=== PATIENT | male | born 1955 | race Caucasian/White ===

== ENCOUNTER 2020-07-29 13:17 | Emergency (ER) | payer MEDICARE, SELFPAY ==
[2020-07-29 14:46] VITALS: BP 100/7; PULSE 66; RESP 16; TEMP 36.6; O2SAT 99; BMI 32.6
--- NOTE | 2020-07-29 16:07 | ED.EYEPROB ---
HPI - Eye Problem General Chief complaint: Eye Problems Stated complaint: eye red Time Seen by Provider: 07/29/20 16:05 Source: patient Mode of arrival: ambulatory Limitations: no limitations History of Present Illness HPI Narrative: 64 y/o male presenting with right eye pain and redness that he noticed when he woke up 6 days ago. He states he thinks he got a piece of hair stuck in his eye; he feels like something is stuck in his eye and it has been watering. He also states that he doesn't know if he fell because the eye is red and there are bruises around his eye. He states he has frequent falls at home but he cannot recall. He also reports being very constipated and strained to pass his bowels. MD chief complaint: eye pain, eye redness and foreign body Onset (ago): day(s) (6) Onset description: sudden Duration: constant and progressively worsening Location: right eye Eye Symptoms: redness, pain and foreign body sensation Place: home Mechanism: direct trauma (possible fall ) Severity: moderate Severity scale (1-10): 4 If Pain, Quality: burning and aching Associated symptoms: none Treatments Prior to Arrival: none Related Data Patient tetanus UTD: Yes Previous Rx's Medication Instructions Recorded cane #1 ea 07/29/20 erythromycin 0.5 inch OPHTHALMIC (EYE) TID #1 g 07/29/20 Allergies Allergy/AdvReac Type Severity Reaction Status Date / Time No Known Allergies Allergy Verified 07/29/20 15:11 [No Known Allergies*] Review of Systems Review of Systems: Constitutional: No Fever, No Chills ENT/Mouth: No sore throat, No Rhinorrhea, No Swallowing Difficulty Eyes: + Eye Pain, No Swelling, + Redness, No drainage Cardiovascular: No Chest Pain, No SOB Respiratory: No Cough, No Sputum Gastrointestinal: No Nausea, No Vomiting, No Diarrhea, No abdominal Pain Musculoskeletal: No joint pain, No Myalgias Skin: No Skin Lesions, No rash Neuro: No Weakness, No Numbness, No Dizziness, No Headache Psych: No Anxiety/Panic, No Depression Heme/Lymph: + Bruising, PMFSH Past Medical History Attestation statement: The following information was validated with the patient. Medical History CAD (coronary artery disease) Diabetes Surgical History (Updated 07/29/20 @ 14:48 by Farhad Montes) Total knee replacement status Social History Social History Advance Directives: No Advance Directives Information Provided: No Physical Exam Vital Signs: Vital Signs: Last Vital Signs Temp 98 F 07/29/20 14:46 Pulse 66 07/29/20 14:46 Resp 16 07/29/20 14:46 BP 100/7 L 07/29/20 14:46 Pulse Ox 99 07/29/20 14:46 Body Mass Index 32.6 Appearance: Alert. Oriented X3. No acute distress. HEENT: right eye with conjunctival blood, dependent. ecchymosis inferiorly, no orbital tenderness. EOM intact. PERRLA. VA as noted. Respiratory: No respiratory distress. Skin: Skin warm and dry. Normal skin color. Normal skin turgor. No rashes. Neuro: Oriented X 3. No motor deficit. No sensory deficit. Course Course Course Narrative: 64 y/o here with red eye after possible trauma. possible foreign body. will do fluroscene stain and assess for corneal abrasion. Reevaluation(s) Reevaluation #1: small punctate fluoroscene uptake consistent with abrasion noted to inner lower portion of the eye. no dendritic lesions. MDM - Eye Problem Differential Diagnosis Differential diagnosis: Likely corneal abrasion, conjunctivitis, acute iritis, hyphema, periorbital cellulitis, subconjunctival hemorrhage, glaucoma, corneal ulcer and ruptured globe Discharge Plan Discharge Clinical Impression: Subconjunctival hemorrhage Qualifiers: Laterality: right Qualified Code(s): H11.31 - Conjunctival hemorrhage, right eye Corneal abrasion Qualifiers: Encounter type: initial encounter Laterality: right Qualified Code(s): S05.01XA - Injury of conjunctiva and corneal abrasion without foreign body, right eye, initial encounter Patient Disposition: Home, Self-Care Instructions: Subconjunctival Hemorrhage (ED), Corneal Abrasion (ED) Additional Instructions: Follow up with your doctor this week. If you have loss of vision or develop new eye pain come back to the ER for further evaluation. Prescriptions: New (DME) cane Device See Rx Instructions .ROUTE .MEDSUPPLY Qty: 1 RF: 0 erythromycin 5 mg/gram (0.5 %) ointment 0.5 inch ophthalmic (eye) TID Qty: 1 RF: 0
[2020-07-29] MEDS: Tetracaine HCl/PF 0.5% Oph Sol 4 ML DROPS 3 DROP EYE-RIGHT (16:29)
[2020-07-29] MEDS: Fluorescein Sodium STRIP 1 STRIP EYE-RIGHT (16:31)
== END 2020-07-29 16:54 | disposition home or self-care (01) ==
PROVIDERS: Emergency Provider Emergency Medicine; PCP Internal Medicine
DX: S05.01XA Injury of conjunctiva and corneal abrasion without foreign body, right eye, initial encounter (principal); H11.31 Conjunctival hemorrhage, right eye; H57.11 Ocular pain, right eye; X58.XXXA Exposure to other specified factors, initial encounter; Y93.9 Activity, unspecified; Y92.9 Unspecified place or not applicable; Y99.9 Unspecified external cause status; Z79.899 Other long term (current) drug therapy
CPT/HCPCS: 99283

== ENCOUNTER 2020-09-29 14:59 | Inpatient (IN) | payer MEDICARE, SELFPAY ==
[2020-09-29] VITALS (9 sets, daily range): BP systolic 98–129; BP diastolic 54–71; PULSE 53–71; RESP 13–25; TEMP 36.3–36.8; O2SAT 98–100; BMI 32.1
--- NOTE | 2020-09-29 15:20 | ED.SOB ---
HPI - SOB/Dyspnea General Chief Complaint: Dyspnea Stated Complaint: DYSPNEA ON EXERTION Time Seen by Provider: 09/29/20 15:20 Source: patient Mode of arrival: ambulatory Limitations: no limitations History of Present Illness HPI Narrative: 65 y/o male with history of HFrEF (EF 15%), CAD, DM2, GERD, HTN, HLD, active cocaine abuse who presents to the ED with severe SOB, worsening over the last 2 weeks. He also noticed new onset of bilateral LE edema. He denies being on diuretics. His breathing got significantly worse today so he took several doses of his SL nitro prescribed for chest pain without improvement. He denies fever, chills, nausea, diarrhea, abdominal pain or chest pain. He admits to a cough productive of white phlegm. No known exposure to COVID-19. He was seen by his PCP 2 weeks ago and scheduled for a CXR and Abd U/S for AAA screening but never had them completed. Upon EMS arrival to the house patient had significant increased WOB and was tripodding. He was saturating 97% on room air. Given WOB he was placed on CPAP, however when his BP was checked he was noted to have SBP in the 90s so he was taken off. Related Data Previous Rx's Medication Instructions Recorded cane #1 ea 07/29/20 erythromycin 0.5 inch OPHTHALMIC (EYE) TID #1 g 07/29/20 Allergies Allergy/AdvReac Type Severity Reaction Status Date / Time No Known Allergies Allergy Verified 07/29/20 15:11 [No Known Allergies*] Review of Systems Review of Systems: Constitutional: No Fever, No Chills ENT/Mouth: No sore throat, No Rhinorrhea, No Swallowing Difficulty Eyes: No Eye Pain, No Swelling, No Redness Cardiovascular: No Chest Pain, + SOB, + Orthopnea, + Edema Respiratory: + Cough, No Sputum, No Wheezing, No dyspnea Gastrointestinal: No Nausea, No Vomiting, No Diarrhea, No abdominal Pain, No Hematochezia, No Melena Genitourinary: No Dysuria, No Urinary Frequency, No Hematuria Musculoskeletal: No joint pain, No Myalgias Skin: No Skin Lesions, No rash Neuro: + Weakness, No Numbness, No Dizziness, No Headache Psych: No Anxiety/Panic, No Depression Heme/Lymph: No Bruising, No Lymphadenopathy Endocrine: No Polyuria, No Polydipsia PMFSH Past Medical History Medical History (Updated 09/29/20 @ 19:07 by TEA Mckeon) CAD (coronary artery disease) Cardiomyopathy CHF (congestive heart failure) Cocaine use Diabetes GERD (gastroesophageal reflux disease) Hypertension Osteoarthritis Surgical History (Updated 07/29/20 @ 14:48 by Farhad Montes) Total knee replacement status Social History Social History Alcohol intake: never Smoking Status: Current every day smoker Use of substances other than those prescribed or required for medical reasons: No Advance Directives: No Advance Directives Information Provided: Yes Physical Exam Vital Signs: Vital Signs: Last Vital Signs Temp 98.3 F 09/29/20 15:44 Pulse 59 09/29/20 20:39 Resp 22 H 09/29/20 20:39 BP 98/54 L 09/29/20 20:39 Pulse Ox 98 09/29/20 20:39 Body Mass Index 32.1 Appearance: Alert. Oriented X3. Mild respiratory distress, increased RR Eyes: Pupils equal, round and reactive to light. ENT: Pharynx normal. Neck: Normal inspection. Neck supple. CVS: bradycardic, regular rhythm. Pulses normal. Respiratory: Mild respiratory distress, RR 25. Speaks in short sentences. Shallow, rapid breathing with bibasilar rales appreciated and scattered rhonchi, no wheezes Abdomen: Soft and non-tender. +BS x4 Skin: Skin warm and dry. Normal skin color. Normal skin turgor. No rashes. Extremities: 3+ LE edema of lower legs bilaterally, chronic venous stasis changes to lower legs. Distal legs and hands are cool with 1+ pulses throughout Neuro: Oriented X 3. No motor deficit. No sensory deficit. Course Course Course Narrative: 65 y/o male with significant cardiac history and active cocaine use presenting with SOB/WHITE and new onset LE edema. Concern for worsening cardiomyopathy and acute CHF exacerbation. He is slightly cool to the touch, but hemodynamically stable on arrival with SBP >100. He is on 3.5L w/ RR 25. Will trend BP and apply CPAP if he declines. Reevaluation(s) Reevaluation #1: 17:30 - BP fluctuating as low as 86/50, currently 112/81. Hypotension likely due to nitroglycerin taken [employer]. No evidence of sepsis. BNP 2900 with CXR showing right sided pleural effusion vs infiltrate. No white count or fever to suggest active infection. CT chest ordered to further evaluate. Will place on CPAP now for air hunger, SpO2 97% on RA but asking to turn up the O2. RR mid 20's. Will monitor BP on CPAP and hold off on lasix for now. Patient evaluated by Dr. Medeiros. Reevaluation #2: Patient was on CPAP 12 x1 hour and then he requested to come off. He was placed on 3L NC and respiratory status remained stable. He is now talking on the phone and asking for food. Will monitor off CPAP and if continues to do well will admit to Hospitalist. Once BP stable will gently diurese. CT scan showing pleural effusion with atelctasis vs consolidation. No fever or elevated WBC to suggest PNA. Procalcitonin low. Will hold off on antibiotics for now. Reevaluation #3: Spoke with Dr. Feng about admission - she is recommending giving dose of IV Lasix in the ED and monitoring his response and hemodynamics prior to admission to the floor. Additional Reevaluation(s): BP 106/62 - stable for admission to the floor. Will make hospitalist aware. Spoke wt Dr. Oliver who will admit the patient. MDM - SOB/Dyspnea Lab Data Result diagrams: 09/29/20 16:04 09/29/20 16:03 Labs: Lab Results 09/29/20 09/29/20 09/29/20 Range/Units 16:02 16:03 16:03 WBC (4.8-10.8) X10*3/uL RBC (4.60-5.80) X10*6/uL Hgb (14.0-18.0) g/dl Hct (42-52) % MCV (80-98) fL MCH (27.0-33.0) pg MCHC (31.0-36.0) g/dl RDW (11.0-16.0) % Plt Count (160-400) X10*3/uL MPV (9.4-12.4) fL Immature Gran % (Auto) (0.0-0.4) % Neut % (Auto) (45-73) % Lymph % (Auto) (20-40) % [place] % (Auto) (2-11) % Eos % (Auto) (0-4) % Baso % (Auto) (0-2) % Lymph # (Auto) (1.2-4.9) X10*3/uL [place] # (Auto) (0.1-1.2) X10*3/uL Eos # (Auto) (0.0-0.4) X10*3/uL Baso # (Auto) (0.0-0.2) X10*3/uL Abs Immat Gran (auto) (0.00-0.03) X10*3/uL Absolute Neuts (auto) (2.0-8.3) X10*3/uL Absolute Nucleated RBC (0.0-0.012) X10*3/uL Nucleated RBC % (auto) (0.0-0.2) /100WBC PT (10.8-13.0) SEC INR (0.9-1.1) APTT (24.1-38.0) SEC Sodium 138 (135-145) mmol/L Potassium 4.3 (3.3-5.1) mmol/l Chloride 106 (96-108) mmol/L Carbon Dioxide 24 (22-29) mmol/L Anion Gap 12 (12-20) BUN 24 H (9-16) mg/dL Creatinine 1.07 (0.5-1.4) mg/dL Estim Creat Clear Calc 78.7 Estimated GFR > 60 Random Glucose 181 H (60-115) mg/dL Lactic Acid 1.6 (0.5-2.0) mmol/L Calcium 8.5 (8.4-10.2) mg/dL Magnesium 2.0 (1.6-2.6) mg/dL Total Bilirubin 1.8 H (0.0-1.0) mg/dL Direct Bilirubin 1.0 H (0.0-0.5) mg/dL AST 22 (5-37) U/L ALT 21 (0-40) U/L Alkaline Phosphatase 87 (39-117) U/L Troponin I High Sens (<3.5-35.0) ng/L B-Natriuretic Peptide (<100) pg/mL Total Protein 6.5 (6.5-8.0) g/dL Albumin 3.6 (3.5-5.0) g/dL Procalcitonin ng/mL Coronavirus (PCR) NEGATIVE (Negative) Influenza Type A (PCR) NEGATIVE (Negative) Influenza Type B (PCR) NEGATIVE (Negative) RSV RNA Qual (PCR) NEGATIVE (Negative) 09/29/20 09/29/20 09/29/20 Range/Units 16:03 16:03 16:04 WBC 7.7 (4.8-10.8) X10*3/uL RBC 4.54 L (4.60-5.80) X10*6/uL Hgb 13.1 L (14.0-18.0) g/dl Hct 40.7 L (42-52) % MCV 89.6 (80-98) fL MCH 28.9 (27.0-33.0) pg MCHC 32.2 (31.0-36.0) g/dl RDW 16.1 H (11.0-16.0) % Plt Count 188 (160-400) X10*3/uL MPV 10.3 (9.4-12.4) fL Immature Gran % (Auto) 0.3 (0.0-0.4) % Neut % (Auto) 75.1 H (45-73) % Lymph % (Auto) 14.7 L (20-40) % [place] % (Auto) 8.7 (2-11) % Eos % (Auto) 0.8 (0-4) % Baso % (Auto) 0.4 (0-2) % Lymph # (Auto) 1.1 L (1.2-4.9) X10*3/uL [place] # (Auto) 0.7 (0.1-1.2) X10*3/uL Eos # (Auto) 0.1 (0.0-0.4) X10*3/uL Baso # (Auto) 0.0 (0.0-0.2) X10*3/uL Abs Immat Gran (auto) 0.02 (0.00-0.03) X10*3/uL Absolute Neuts (auto) 5.8 (2.0-8.3) X10*3/uL Absolute Nucleated RBC 0.000 (0.0-0.012) X10*3/uL Nucleated RBC % (auto) 0.0 (0.0-0.2) /100WBC PT (10.8-13.0) SEC INR (0.9-1.1) APTT (24.1-38.0) SEC Sodium (135-145) mmol/L Potassium (3.3-5.1) mmol/l Chloride (96-108) mmol/L Carbon Dioxide (22-29) mmol/L Anion Gap (12-20) BUN (9-16) mg/dL Creatinine (0.5-1.4) mg/dL Estim Creat Clear Calc Estimated GFR Random Glucose (60-115) mg/dL Lactic Acid (0.5-2.0) mmol/L Calcium (8.4-10.2) mg/dL Magnesium (1.6-2.6) mg/dL Total Bilirubin (0.0-1.0) mg/dL Direct Bilirubin (0.0-0.5) mg/dL AST (5-37) U/L ALT (0-40) U/L Alkaline Phosphatase (39-117) U/L Troponin I High Sens 29.5 (<3.5-35.0) ng/L B-Natriuretic Peptide 2942 H (<100) pg/mL Total Protein (6.5-8.0) g/dL Albumin (3.5-5.0) g/dL Procalcitonin 0.04 ng/mL Coronavirus (PCR) (Negative) Influenza Type A (PCR) (Negative) Influenza Type B (PCR) (Negative) RSV RNA Qual (PCR) (Negative) 09/29/20 Range/Units 16:04 WBC (4.8-10.8) X10*3/uL RBC (4.60-5.80) X10*6/uL Hgb (14.0-18.0) g/dl Hct (42-52) % MCV (80-98) fL MCH (27.0-33.0) pg MCHC (31.0-36.0) g/dl RDW (11.0-16.0) % Plt Count (160-400) X10*3/uL MPV (9.4-12.4) fL Immature Gran % (Auto) (0.0-0.4) % Neut % (Auto) (45-73) % Lymph % (Auto) (20-40) % [place] % (Auto) (2-11) % Eos % (Auto) (0-4) % Baso % (Auto) (0-2) % Lymph # (Auto) (1.2-4.9) X10*3/uL [place] # (Auto) (0.1-1.2) X10*3/uL Eos # (Auto) (0.0-0.4) X10*3/uL Baso # (Auto) (0.0-0.2) X10*3/uL Abs Immat Gran (auto) (0.00-0.03) X10*3/uL Absolute Neuts (auto) (2.0-8.3) X10*3/uL Absolute Nucleated RBC (0.0-0.012) X10*3/uL Nucleated RBC % (auto) (0.0-0.2) /100WBC PT 21.1 H (10.8-13.0) SEC INR 1.8 H (0.9-1.1) APTT 30.5 (24.1-38.0) SEC Sodium (135-145) mmol/L Potassium (3.3-5.1) mmol/l Chloride (96-108) mmol/L Carbon Dioxide (22-29) mmol/L Anion Gap (12-20) BUN (9-16) mg/dL Creatinine (0.5-1.4) mg/dL Estim Creat Clear Calc Estimated GFR Random Glucose (60-115) mg/dL Lactic Acid (0.5-2.0) mmol/L Calcium (8.4-10.2) mg/dL Magnesium (1.6-2.6) mg/dL Total Bilirubin (0.0-1.0) mg/dL Direct Bilirubin (0.0-0.5) mg/dL AST (5-37) U/L ALT (0-40) U/L Alkaline Phosphatase (39-117) U/L Troponin I High Sens (<3.5-35.0) ng/L B-Natriuretic Peptide (<100) pg/mL Total Protein (6.5-8.0) g/dL Albumin (3.5-5.0) g/dL Procalcitonin ng/mL Coronavirus (PCR) (Negative) Influenza Type A (PCR) (Negative) Influenza Type B (PCR) (Negative) RSV RNA Qual (PCR) (Negative) Critical Care Time Critical Care Time Critical Care Time: Yes Total Critical Care Time: 50 Attestation: I attest to critical care time spent caring for this patient who is criticall ill with life threatening diagnosis, requiring rescue non-invasive ventilation and frequent bedside reassessment of respiratory status and hemodyncamics. Discharge Plan Discharge Clinical Impression: Pleural effusion on right Acute exacerbation of CHF (congestive heart failure) Qualifiers: Heart failure type: systolic Qualified Code(s): I50.23 - Acute on chronic systolic (congestive) heart failure Patient Disposition: Admitted As Inpatient
--- NOTE | 2020-09-29 15:23 | ECG_ITS ---
Test Reason : SOB Blood Pressure : / mmHG Vent. Rate : 067 BPM Atrial Rate : 067 BPM P-R Int : 200 ms QRS Dur : 114 ms QT Int : 484 ms P-R-T Axes : 077 077 129 degrees QTc Int : 511 ms Normal sinus rhythm Right bundle branch block ST & T wave abnormality, consider anterior ischemia Septal infarct Abnormal ECG When compared with ECG of 21-OCT-2019 16:00, Premature ventricular complexes are no longer Present Minimal criteria for Anteroseptal infarct are no longer Present T wave inversion now evident in Anterior leads Referred By: Brie Mccoy Electronically Signed By:RONEN PATINO MD
--- NOTE | 2020-09-29 15:23 | XR_ITS ---
EXAMINATION: XR CHEST CLINICAL INFORMATION: Shortness of breath COMPARISON: Previous chest x-ray most recent October 2019 TECHNIQUE: Frontal view of the chest was obtained. FINDINGS: The cardiac silhouette is enlarged but stable. The lung volumes are low. There is elevation of the right hemidiaphragm. There is airspace disease seen at the right lung base. There may be a small right pleural effusion. The left lung is clear. There is no left pleural effusion. There are degenerative changes of the spine. XR/XR chest 1V IMPRESSION: Stable enlargement of the cardiac silhouette. Airspace disease at the right lung base and small right pleural effusion. Differential would include pneumonia and asymmetric distribution of pulmonary edema.
[2020-09-29 16:09] LABS: MANUAL DIFF FLAG NO
[2020-09-29 16:11] LABS: Basophils Percent Auto 0.4 % (0-2); Eosinophils Absolute Auto 0.1 X10*3/uL (0.0-0.4); Eosinophils Percent Auto 0.8 % (0-4); Hematocrit 40.7 % (42-52); Hemoglobin 13.1 g/dl (14.0-18.0); Imm Gran Abs Auto 0.02 X10*3/uL (0.00-0.03); Imm Gran Pct Auto 0.3 % (0.0-0.4); Lymphocytes Absolute Auto 1.1 X10*3/uL (1.2-4.9); Lymphocytes Percent Auto 14.7 % (20-40); Mean Corpuscular HGB Conc 32.2 g/dl (31.0-36.0); Mean Corpuscular Hemoglobin 28.9 pg (27.0-33.0); Mean Corpuscular Volume 89.6 fL (80-98); Mean Platelet Volume 10.3 fL (9.4-12.4); Monocytes Absolute Auto 0.7 X10*3/uL (0.1-1.2); Monocytes Percent Auto 8.7 % (2-11); Neutrophils Absolute Auto 5.8 X10*3/uL (2.0-8.3); Neutrophils Percent Auto 75.1 % (45-73); Platelet Count 188 X10*3/uL (160-400); Red Blood Count 4.54 X10*6/uL (4.60-5.80); Red Cell Distribution Width 16.1 % (11.0-16.0); White Blood Count 7.7 X10*3/uL (4.8-10.8)
[2020-09-29 16:24] LABS: INTERNATIONAL NORM RATIO 1.8 (0.9-1.1); Prothrombin Time 21.1 SEC (10.8-13.0)
[2020-09-29 16:27] LABS: Partial Thromboplastin Time 30.5 SEC (24.1-38.0)
--- NOTE | 2020-09-29 16:32 | PC.NURSE ---
lasix on hold due to b/p 100/64. Provider aware.
[2020-09-29 16:34] LABS: Lactic Acid 1.6 mmol/L (0.5-2.0)
[2020-09-29 16:38] LABS: Alanine Aminotransferase 21 U/L (0-40); Albumin Level 3.6 g/dL (3.5-5.0); Alkaline Phosphatase 87 U/L (39-117); Anion Gap 12 (12-20); Aspartate Amino Transferase 22 U/L (5-37); Bilirubin Total 1.8 mg/dL (0.0-1.0); Blood Urea Nitrogen 24 mg/dL (9-16); Calcium 8.5 mg/dL (8.4-10.2); Carbon Dioxide 24 mmol/L (22-29); Chloride 106 mmol/L (96-108); Creatinine Clr Calc Pharmacy 78.7; Estimated Glomerular Filt Rate > 60; Glucose Random 181 mg/dL (60-115); Potassium 4.3 mmol/l (3.3-5.1); Sodium 138 mmol/L (135-145); Total Protein 6.5 g/dL (6.5-8.0)
[2020-09-29 16:45] LABS: B Type Natriuretic Peptide 2942 pg/mL (<100); Troponin-I High Sensitivity 29.5 ng/L (<3.5-35.0)
[2020-09-29 17:12] LABS: Influenza A PCR NEGATIVE (Negative); Influenza B PCR NEGATIVE (Negative); Resp Syncy Virus RNA Qual PCR NEGATIVE (Negative); SARS COV2 PCR INHOUSE NEGATIVE (Negative)
--- NOTE | 2020-09-29 17:23 | CT_ITS ---
EXAMINATION: CT CHEST WITHOUT CONTRAST CLINICAL INFORMATION: Right-sided infiltrate. CHF. Increasing work of breathing. COMPARISON: Chest x-ray 09/29/2020. TECHNIQUE: Multidetector volumetric CT imaging of the chest was done. Axial MIP volume rendering provided. Sagittal and coronal reformatted images were obtained. This CT examination was performed using dose optimization techniques as appropriate, variously including the following: *Automated exposure control. *Adjustment of mA and/or kV according to patient size (this includes techniques or standardized protocols for targeted exams where dose is matched to indication/reason for exam; i.e. extremities or head). *Use of iterative reconstruction technique. DLP: 363 mGy-cm FINDINGS: LUNGS: There is focal consolidation of the right lung base. There are air bronchograms in the perihilar lung. There is volume loss of the right lower lobe due to compressive atelectasis from the right pleural effusion. Central bronchial airways remain normally aerated. There is mild centrilobular emphysematous change of lungs. MEDIASTINUM: Lack IV contrast limits assessment of the hilar structures. There is mediastinal lymphadenopathy. There is an enlarged lymph node at the level of the ginny in the pretracheal retrovascular space measuring 1.5 cm. There are additional enlarged lymph nodes in the right paratracheal, AP window and subcarina. There is no pericardial effusion. The heart size is enlarged. Moderate volume of coronary artery calcifications. Small volume of calcifications of thoracic aortic arch and calcifications at the origin of the great vessels. There is no aneurysm of the aorta. No abnormality of the thyroid evident. PLEURA: There is a moderate volume dependent right pleural effusion. There is a small volume dependent left pleural effusion. AXILLA: No lymphadenopathy. UPPER ABDOMEN: The visualized portions of liver, spleen are normal. The adrenal glands are not visualized. OSSEOUS STRUCTURES: There is no acute osseous abnormality. Multilevel degenerative spondylosis of the dorsal spine. There is no detailed fracture of the posterior right 8th rib. There is an old healed fracture of the posterior left 9th rib. CT/CT chest wo con IMPRESSION: 1. Consolidation and atelectasis at right lung base. 2. Moderate volume right pleural effusion. Small volume left pleural effusion. 3. Mediastinal lymphadenopathy.
--- NOTE | 2020-09-29 17:27 | PC.NURSE ---
lasix continue on hold due to decreased b/p. Providers Santos castaneda
--- NOTE | 2020-09-29 18:36 | PC.NURSE ---
patient helped on comode. patient unable to give urine sample. Patient ripped off Bipap. Patient staes feels claustrophobic. Provider aware. rt called to notify tubing broken. Provider will keep patient on oxygen via nc at 3l. O2 sat presently 98%. Will continue to monitor.
[2020-09-29] MEDS: Furosemide 20 MG/2 ML VIAL IVPUSH (19:26)
[2020-09-29 19:49] LABS: Procalcitonin 0.04 ng/mL
--- NOTE | 2020-09-29 20:14 | PC.NURSE ---
oil dispatcher just finished helping patient back into bed and cleaning up after incontinence of urine. Is now on 3l nc. slightly labored resp. states he's feeling better after eating.
[2020-09-29 21:00] LABS: Troponin-I High Sensitivity 30.2 ng/L (<3.5-35.0)
[2020-09-29 21:01] LABS: Appearance Urine CLEAR; Color Urine STRAW; Glucose Urine UA NEG (NEG); Leukocyte Esterase Urine NEG (NEG); Nitrite Urine NEG (NEG); Specific Gravity - Urine 1.015 (1.005-1.025); Urine Blood NEG (NEG); Urine Ketones NEG (NEG); Urine Protein NEG (NEG-TRACE)
[2020-09-29 21:24] LABS: Amphetamine Screen Urine Not Detected (Not Detect); Barbiturates, Urine Not Detected (Not Detect); Benzodiazepines Screen Urine Not Detected (Not Detect); Cannabinoid Screen Urine Not Detected (Not Detect); Cocaine Screen Urine POSITIVE (Not Detect); Opiate Screen Urine Not Detected (Not Detect); Phencyclidine Screen Urine Not Detected (Not Detect)
--- NOTE | 2020-09-29 23:36 | PM.IMHP ---
History of Present Illness Date of Service: 09/29/20 Chief Complaint: Dyspnea 65 year old man with history of CAD and cardiomyopathy presented with worsening dyspnea over last 2 weeks. Stated was significantly worse in last couple of days. He was concerned and took NTG and came to ED. States he would get dyspneic mostly with activity . Also would get episodes of chest pain associated wtih activity. SOme cough producing white phlegm recently. No fevers but has had chills. No pleuritic chest pain reported. No nausea, vomiting, diaphoresis. Does have hx of cardiomyopathy but outpt med list does not show any diuretics. Per patient he is having a ICD placed in the spring. In ED was hypotensive and in respiratory distress. Was stabilized with BiPAP and then was able to be diuresed with improvement in his breathing. Currently more comfortable. No home oxygen use but does use CPAP at night for SULAIMAN. Review of Systems Constitutional: Constitutional: Reports chills Comments: No fever Eyes: Comments: No vision changes ENT: Comments: Some sore throat reported Cardiovascular: Comments: Chest pain reported with activity. Respiratory: Comments: Dyspnea Gastrointestinal: Comments: No abd pain, nausea, vomiting Musculoskeletal: Musculoskeletal: Reports no additional musculoskeletal complaints Neurologic: Comments: No weakness, numbness Psychiatric: Comments: No anxiety or agitation [facility] Medical History CAD (coronary artery disease) Cardiomyopathy CHF (congestive heart failure) Cocaine use Diabetes GERD (gastroesophageal reflux disease) Hypertension Osteoarthritis Pertinent family history: cad in father Surgical History Total knee replacement status Social History (Updated 09/29/20 @ 23:53 by Ace Valadez MD) Alcohol intake: never Smoking Status: Current every day smoker Use of substances other than those prescribed or required for medical reasons: Yes Substance Use Type: Crack/Cocaine Advance Directives: No Advance Directives Information Provided: Yes Meds Allergies Allergy/AdvReac Type Severity Reaction Status Date / Time No Known Allergies Allergy Verified 07/29/20 15:11 [No Known Allergies*] Home Medications Medication Instructions Recorded Confirmed Type aspirin 1 PO 09/29/20 History atorvastatin 80 mg PO DAILY 09/29/20 09/29/20 History carvedilol 3.125 mg PO BID 09/29/20 09/29/20 History cholecalciferol (vitamin D3) 2,000 unit PO DAILY 09/29/20 09/29/20 History docusate sodium 1 cap PO TID PRN 09/29/20 09/29/20 History erythromycin 0.5 OPHTHALMIC (EYE) TID 09/29/20 History lisinopril 10 mg PO DAILY 09/29/20 09/29/20 History metformin 500 mg PO DAILY 09/29/20 09/29/20 History nitroglycerin mg SUBLINGUAL 09/29/20 History omeprazole 1 cap PO DAILY 09/29/20 09/29/20 History oxybutynin chloride PO 09/29/20 History Physical Exam Vital Signs and Narrative: Vital Signs: Last Vital Signs Temp 97.4 F 09/29/20 21:56 Pulse 60 09/29/20 21:56 Resp 24 H 09/29/20 21:56 BP 99/54 L 09/29/20 21:56 Pulse Ox 99 09/29/20 21:56 Body Mass Index 32.1 Const: General: cooperative, comfortable and no acute distress Orientation/consciousness: patient oriented x3 HENMT: Head: Yes normal to inspection General nose exam: Normal external nose present Mouth: Normal oral and palatal mucosa present Teeth and gingiva: dentition normal Eyes: Other: No scleral icterus, no conjunctival injections Neck: Other: Supple, no lymphadenoapthy. jvd is noted Chest: Chest palpation & inspection: normal inspection of the chest Resp: Other: Diminished breath sounds right lung base, no exp wheezing heard. Effort & Inspection: normal respiratory effort and able to speak in complete sentences Cardio: Other: distant heart sounds Rate: regular rate Rhythm: regular rhythm Heart sounds: S1 normal heart sound present and S2 normal heart sound present GI: Other: soft, nontender, nondistended, no guarding or masses Inspection: Yes normal to inspection Skin: Other: no rashes seen, no lesions, no jaundice Neuro: General: patient oriented x3 and moves all extremities Extrem: Other: Bilateral pitting leg edema, 2+ Psych: Other: Not anxious or agitated Results Labs CBC and Chem 7: 09/30/20 00:48 09/30/20 00:48 Labs: Laboratory Results - last 24 hr 09/29/20 09/29/20 09/29/20 16:02 16:03 16:03 MCV MCH MCHC RDW Plt Count MPV Immature Gran % (Auto) Neut % (Auto) Lymph % (Auto) [place] % (Auto) Eos % (Auto) Baso % (Auto) Lymph # (Auto) [place] # (Auto) Eos # (Auto) Baso # (Auto) Abs Immat Gran (auto) Absolute Neuts (auto) Absolute Nucleated RBC Nucleated RBC % (auto) PT INR APTT Anion Gap 12 Estim Creat Clear Calc 78.7 Estimated GFR > 60 Random Glucose 181 H Lactic Acid 1.6 Calcium 8.5 Magnesium 2.0 Total Bilirubin 1.8 H Direct Bilirubin 1.0 H AST 22 ALT 21 Alkaline Phosphatase 87 Troponin I High Sens B-Natriuretic Peptide Total Protein 6.5 Albumin 3.6 Procalcitonin Urine Color Urine Appearance Urine pH Ur Specific Malin Urine Protein Urine Glucose (UA) Urine Ketones Urine Blood Urine Nitrite Ur Leukocyte Esterase Urine Opiates Screen Ur Barbiturates Screen Ur Phencyclidine Scrn Ur Amphetamines Screen U Benzodiazepines Scrn Urine Cocaine Screen U Marijuana (THC) Screen Coronavirus (PCR) NEGATIVE Influenza Type A (PCR) NEGATIVE Influenza Type B (PCR) NEGATIVE RSV RNA Qual (PCR) NEGATIVE 09/29/20 09/29/20 09/29/20 16:03 16:03 16:04 MCV 89.6 MCH 28.9 MCHC 32.2 RDW 16.1 H Plt Count 188 MPV 10.3 Immature Gran % (Auto) 0.3 Neut % (Auto) 75.1 H Lymph % (Auto) 14.7 L [place] % (Auto) 8.7 Eos % (Auto) 0.8 Baso % (Auto) 0.4 Lymph # (Auto) 1.1 L [place] # (Auto) 0.7 Eos # (Auto) 0.1 Baso # (Auto) 0.0 Abs Immat Gran (auto) 0.02 Absolute Neuts (auto) 5.8 Absolute Nucleated RBC 0.000 Nucleated RBC % (auto) 0.0 PT INR APTT Anion Gap Estim Creat Clear Calc Estimated GFR Random Glucose Lactic Acid Calcium Magnesium Total Bilirubin Direct Bilirubin AST ALT Alkaline Phosphatase Troponin I High Sens 29.5 B-Natriuretic Peptide 2942 H Total Protein Albumin Procalcitonin 0.04 Urine Color Urine Appearance Urine pH Ur Specific Malin Urine Protein Urine Glucose (UA) Urine Ketones Urine Blood Urine Nitrite Ur Leukocyte Esterase Urine Opiates Screen Ur Barbiturates Screen Ur Phencyclidine Scrn Ur Amphetamines Screen U Benzodiazepines Scrn Urine Cocaine Screen U Marijuana (THC) Screen Coronavirus (PCR) Influenza Type A (PCR) Influenza Type B (PCR) RSV RNA Qual (PCR) 09/29/20 09/29/20 09/29/20 16:04 20:16 20:52 MCV MCH MCHC RDW Plt Count MPV Immature Gran % (Auto) Neut % (Auto) Lymph % (Auto) [place] % (Auto) Eos % (Auto) Baso % (Auto) Lymph # (Auto) [place] # (Auto) Eos # (Auto) Baso # (Auto) Abs Immat Gran (auto) Absolute Neuts (auto) Absolute Nucleated RBC Nucleated RBC % (auto) PT 21.1 H INR 1.8 H APTT 30.5 Anion Gap Estim Creat Clear Calc Estimated GFR Random Glucose Lactic Acid Calcium Magnesium Total Bilirubin Direct Bilirubin AST ALT Alkaline Phosphatase Troponin I High Sens 30.2 B-Natriuretic Peptide Total Protein Albumin Procalcitonin Urine Color Urine Appearance Urine pH Ur Specific Malin Urine Protein Urine Glucose (UA) Urine Ketones Urine Blood Urine Nitrite Ur Leukocyte Esterase Urine Opiates Screen Not Detected Ur Barbiturates Screen Not Detected Ur Phencyclidine Scrn Not Detected Ur Amphetamines Screen Not Detected U Benzodiazepines Scrn Not Detected Urine Cocaine Screen POSITIVE H U Marijuana (THC) Screen Not Detected Coronavirus (PCR) Influenza Type A (PCR) Influenza Type B (PCR) RSV RNA Qual (PCR) 09/29/20 20:52 MCV MCH MCHC RDW Plt Count MPV Immature Gran % (Auto) Neut % (Auto) Lymph % (Auto) [place] % (Auto) Eos % (Auto) Baso % (Auto) Lymph # (Auto) [place] # (Auto) Eos # (Auto) Baso # (Auto) Abs Immat Gran (auto) Absolute Neuts (auto) Absolute Nucleated RBC Nucleated RBC % (auto) PT INR APTT Anion Gap Estim Creat Clear Calc Estimated GFR Random Glucose Lactic Acid Calcium Magnesium Total Bilirubin Direct Bilirubin AST ALT Alkaline Phosphatase Troponin I High Sens B-Natriuretic Peptide Total Protein Albumin Procalcitonin Urine Color STRAW Urine Appearance CLEAR Urine pH 6.0 Ur Specific Malin 1.015 Urine Protein NEG Urine Glucose (UA) NEG Urine Ketones NEG Urine Blood NEG Urine Nitrite NEG Ur Leukocyte Esterase NEG Urine Opiates Screen Ur Barbiturates Screen Ur Phencyclidine Scrn Ur Amphetamines Screen U Benzodiazepines Scrn Urine Cocaine Screen U Marijuana (THC) Screen Coronavirus (PCR) Influenza Type A (PCR) Influenza Type B (PCR) RSV RNA Qual (PCR) Imaging Radiologist's Impressions: Impressions Chest X-Ray 09/29/20 15:23 IMPRESSION: Stable enlargement of the cardiac silhouette. Airspace disease at the right lung base and small right pleural effusion. Differential would include pneumonia and asymmetric distribution of pulmonary edema. Chest CT 09/29/20 17:23 IMPRESSION: 1. Consolidation and atelectasis at right lung base. 2. Moderate volume right pleural effusion. Small volume left pleural effusion. 3. Mediastinal lymphadenopathy. Assessment and Plan (1) Acute exacerbation of CHF (congestive heart failure): Qualifiers: Heart failure type: systolic Qualified Code(s): I50.23 - Acute on chronic systolic (congestive) heart failure Status: Acute (2) Pleural effusion on right: Status: Acute 65 year old man with history of cardiomyopathy presented with worsening dyspnea requiring Bipap initially. Found to have elevated BNP suggestive of CHF and also consolidation at the right lung base and right pleural effusion. CHF Acute on chronic systolic and diastolic dysfunctions. Lasix IV BID ordered. Repeat echo and obtain cardiology consultation. Given chest pain will also cycle troponins. Pleural effusion, consolidation Could represent CAP as he does have some productive coughing at times. COVID negative. Ordered IV Ceftriaxone and Azithromycin and also ordered pulmonary consultation. CAD As above. continue aspirin, atorvastatin. Cycle troponins. DM type 2 Holding Metformin acutely. Sliding scale insulin only prn QID-AC, HS. DVT proph SC Heparin Code status Full code. He has no healthcare proxy.
--- NOTE | 2020-09-29 23:45 | PC.NURSE ---
Hospitalist at bedside.
[2020-09-30] VITALS (18 sets, daily range): BP systolic 101–130; BP diastolic 61–89; PULSE 53–72; RESP 9–24; TEMP 36.4–36.8; O2SAT 3–100
[2020-09-30] MEDS: cefTRIAXone sodium 1 GM in 0.9 % Sodium Chloride 50 ML IV ×2 (00:13→08:57)
[2020-09-30] MEDS: Doxycycline Hyclate 100 MG in 0.9 % Sodium Chloride 250 ML 166.67 MG IV ×3 (00:21→22:21)
--- NOTE | 2020-09-30 00:22 | PC.NURSE ---
ABX infusing per MAR. VSS. Pt sleeping in bed at this time on CPAP.
--- NOTE | 2020-09-30 00:54 | PC.NURSE ---
office technician at bedside obtaining 0015 labs.
[2020-09-30 00:56] LABS: MANUAL DIFF FLAG NO
[2020-09-30 00:57] LABS: Basophils Percent Auto 0.4 % (0-2); Eosinophils Percent Auto 0.5 % (0-4); Hemoglobin 13.5 g/dl (14.0-18.0); Imm Gran Abs Auto 0.04 X10*3/uL (0.00-0.03); Imm Gran Pct Auto 0.5 % (0.0-0.4); Lymphocytes Absolute Auto 1.5 X10*3/uL (1.2-4.9); Lymphocytes Percent Auto 17.4 % (20-40); Mean Corpuscular HGB Conc 32.1 g/dl (31.0-36.0); Mean Corpuscular Hemoglobin 28.8 pg (27.0-33.0); Mean Corpuscular Volume 89.7 fL (80-98); Mean Platelet Volume 10.6 fL (9.4-12.4); Monocytes Absolute Auto 0.8 X10*3/uL (0.1-1.2); Monocytes Percent Auto 9.3 % (2-11); Neutrophils Absolute Auto 6.1 X10*3/uL (2.0-8.3); Neutrophils Percent Auto 71.9 % (45-73); Platelet Count 178 X10*3/uL (160-400); Red Blood Count 4.68 X10*6/uL (4.60-5.80); Red Cell Distribution Width 16.3 % (11.0-16.0); White Blood Count 8.4 X10*3/uL (4.8-10.8)
[2020-09-30 01:34] LABS: Anion Gap 16 (12-20); Blood Urea Nitrogen 25 mg/dL (9-16); Calcium 8.8 mg/dL (8.4-10.2); Carbon Dioxide 22 mmol/L (22-29); Chloride 106 mmol/L (96-108); Estimated Glomerular Filt Rate > 60; Glucose Random 115 mg/dL (60-115); Potassium 4.5 mmol/l (3.3-5.1); Sodium 139 mmol/L (135-145)
--- NOTE | 2020-09-30 02:54 | PC.NURSE ---
Pt found standing up in room. Pt refusing to wear oxygen. Pt states I'm trying to untangle myself!! Pt assisted back into bed, O2 via NC reapplied. Pt reports SOB due to exertion without oxygen. Pt noncompliant despite frequent attempts at reeducating pt on oxygen needs. Pt falling back asleep easily, continue to monitor.
--- NOTE | 2020-09-30 03:27 | PC.NURSE ---
Pt again found standing in room, without his oxygen on. Pt requesting to ambulate to the bathroom. Pt assisted OOB onto commode and provided with a urinal. O2 reapplied per NC. Pt requesting privacy while on the commode, provided with the call franz when he is finished and advised not to get up without assistance.
[2020-09-30] MEDS: Furosemide 40 MG/4 ML VIAL IVPUSH ×2 (06:20→16:15)
--- NOTE | 2020-09-30 06:24 | PC.NURSE ---
Pt medicated with Lasix per NOV. Pt sitting upright on the commode at this time, O2 in place, waiting for breakfast. VSS. Continue to monitor.
[2020-09-30 07:49] LABS: Glucose, Whole Blood 167 mg/dL (60-115)
[2020-09-30] MEDS: Insulin Lispro 100 UNIT/ML 3 ML VIAL SUBCUT (08:03)
[2020-09-30] MEDS: 0.9 % Sodium Chloride Flush 3 ML SYRINGE IVFLUSH ×2 (08:04→16:25)
[2020-09-30] MEDS: Aspirin 81 MG TAB.CHEW PO (08:53)
[2020-09-30] MEDS: Atorvastatin Calcium 80 MG TABLET PO (08:53)
[2020-09-30] MEDS: carvediloL 3.125 MG TABLET PO ×2 (08:53→22:19)
[2020-09-30] MEDS: Heparin Sodium,Porcine 5,000 UNIT/ML VIAL 5000 UNIT SUBCUT ×3 (08:56→22:20)
--- NOTE | 2020-09-30 09:56 | PM.EVENT ---
Event Note Date of Service: 09/30/20 Event Note: Patient admitted this a.m. chart reviewed, patient seen and examined At present resting comfortably Vitals stable oxygen 97% Lungs clear to auscultation, no respiratory distress diminished breath sound at bases Extremities bilateral pitting edema Assessment plan Acute on chronic combined heart failure EF 15-20% Patient feeling better so far -350 Continue current treatment with IV Lasix follow daily weight,1/os Troponin flat, Cardiology eval/echo Repeat chest x-ray at a.m. for follow-up of effusion likely due to CHF/pna.
--- NOTE | 2020-09-30 10:39 | PC.NURSE ---
Seen by Dr Anton, awaiting new orders. Plan for continued diuresis
[2020-09-30 11:33] LABS: Glucose, Whole Blood 116 mg/dL (60-115)
--- NOTE | 2020-09-30 11:40 | P.CONCA_ITS ---
History of Present Illness History of Present Illness Date of Service: 09/30/20 Requesting physician: Ace Nolen I Consult reason: congestive heart failure Chief complaint: CHF Narrative: We are asked to see Edward in cardiology consultation due to decompensated congestive heart failure. Patient with prior history of ischemic cardiomyopathy scheduled to undergo ICD placement in near future with his subassembly assembler Dr. Julian. Patient says over the last few weeks he has been getting progressively short of breath initially with exertion and then subsequently started noticing more more short of breath with minimal exhibiting and as well as rest. He also noticed significant weight gain of about 10 lb and progressive leg edema over the last 2 weeks. He came to the hospital with the same. Was noted to be in congestive heart failure with significantly elevated BNP. He says he has been taking all his medications. Denies any chest discomfort. Denies any palpitation or any other systemic symptoms. Denies any change in diet. He has been admitted for diuresis. He has put out good amount of urine. However he continues to be short of breath and says that he needs more oxygen. He is hemodynamically stable currently. His troponins are flat Review of Systems Constitutional: Constitutional: Denies chills, Reports fatigue, Denies fever(s), Reports lethargy and Reports weight gain Cardiovascular: Cardiovascular: Denies chest pain, Reports leg edema, Denies lightheadedness, Denies Loss of Consciousness, Denies palpitations, Reports dyspnea and Reports orthopnea Respiratory: Respiratory: Denies cough, Denies excessive phlegm production and Reports dyspnea Gastrointestinal: Gastrointestinal: Reports no additional gastrointestinal complaints and Reports bloating Genitourinary: Genitourinary: Reports no additional male genitourinary complaints Musculoskeletal: Musculoskeletal: Reports no additional musculoskeletal complaints Neurologic: Reports system reviewed and no additional complaints, except as documented Psychiatric: Psychiatric: Reports no additional psychiatric complaints Endocrine: Endocrine: Reports no additional endocrine complaints, Reports fatigue and Denies palpitations Hematologic/Lymphatic: Hematologic/Lymphatic: Reports no additional hematologic/lymphatic complaints [facility] Past Medical History Medical History CAD (coronary artery disease) Cardiomyopathy CHF (congestive heart failure) Cocaine use Diabetes GERD (gastroesophageal reflux disease) Hypertension Osteoarthritis Surgical History Surgical History Total knee replacement status Social History Social History (Updated 09/29/20 @ 23:53 by Ace Valadez MD) Alcohol intake: never Smoking Status: Current every day smoker Use of substances other than those prescribed or required for medical reasons: Yes Substance Use Type: Crack/Cocaine Advance Directives: No Advance Directives Information Provided: Yes Meds Allergies Allergy/AdvReac Type Severity Reaction Status Date / Time No Known Allergies Allergy Verified 07/29/20 15:11 [No Known Allergies*] Home Medications Medication Instructions Recorded Confirmed Type aspirin 1 PO 09/29/20 History atorvastatin 80 mg PO DAILY 09/29/20 09/29/20 History carvedilol 3.125 mg PO BID 09/29/20 09/29/20 History cholecalciferol (vitamin D3) 2,000 unit PO DAILY 09/29/20 09/29/20 History docusate sodium 1 cap PO TID PRN 09/29/20 09/29/20 History erythromycin 0.5 OPHTHALMIC (EYE) TID 09/29/20 History lisinopril 10 mg PO DAILY 09/29/20 09/29/20 History metformin 500 mg PO DAILY 09/29/20 09/29/20 History nitroglycerin mg SUBLINGUAL 09/29/20 History omeprazole 1 cap PO DAILY 09/29/20 09/29/20 History oxybutynin chloride PO 09/29/20 History Physical Exam Vital Signs: Vital Signs: Last Vital Signs Temp 98.3 F 09/30/20 11:27 Pulse 72 09/30/20 11:27 Resp 22 H 09/30/20 11:27 BP 107/74 09/30/20 11:27 Pulse Ox 100 09/30/20 11:27 Body Mass Index 32.1 Const: General: cooperative, alert, awake and acute distress moderate and respiratory Nutritional Appearance: obese Orientation/consciousness: patient oriented x3 HENMT: Head: Yes normocephalic and Yes atraumatic Neck: Neck: Yes trachea midline, Yes supple and Yes JVD Chest: Chest palpation & inspection: normal inspection of the chest Resp: Effort & Inspection: normal respiratory effort Auscultation: no rales, wheezes and diminished lung sounds Cardio: Jugular venous distension: JVD Palpation: abnormal PMI displaced PMI Rate: regular rate Rhythm: regular rhythm Heart sounds: S1 normal heart sound present, S2 normal heart sound present and Gallop heart sound present S4 gallop GI: Inspection: Yes obesity Auscultation: normal bowel sounds Skin: General skin exam: no rashes or lesions noted Neuro: General: patient oriented x3 Extrem: General: Yes edema (Significant edema) Psych: Appearance: grossly normal Results Labs and Meds Result diagrams: 09/30/20 00:48 09/30/20 00:48 Lab results: Laboratory Results - last 24 hr 09/29/20 09/29/20 09/29/20 16:02 16:03 16:03 WBC RBC Hgb Hct MCV MCH MCHC RDW Plt Count MPV Immature Gran % (Auto) Neut % (Auto) Lymph % (Auto) [place] % (Auto) Eos % (Auto) Baso % (Auto) Lymph # (Auto) [place] # (Auto) Eos # (Auto) Baso # (Auto) Abs Immat Gran (auto) Absolute Neuts (auto) Absolute Nucleated RBC Nucleated RBC % (auto) PT INR APTT Sodium 138 Potassium 4.3 Chloride 106 Carbon Dioxide 24 Anion Gap 12 BUN 24 H Creatinine 1.07 Estim Creat Clear Calc 78.7 Estimated GFR > 60 POC Glucose Random Glucose 181 H Lactic Acid 1.6 Calcium 8.5 Magnesium 2.0 Total Bilirubin 1.8 H Direct Bilirubin 1.0 H AST 22 ALT 21 Alkaline Phosphatase 87 Troponin I High Sens B-Natriuretic Peptide Total Protein 6.5 Albumin 3.6 Procalcitonin Urine Color Urine Appearance Urine pH Ur Specific [place] Urine Protein Urine Glucose (UA) Urine Ketones Urine Blood Urine Nitrite Ur Leukocyte Esterase Urine Opiates Screen Ur Barbiturates Screen Ur Phencyclidine Scrn Ur Amphetamines Screen U Benzodiazepines Scrn Urine Cocaine Screen U Marijuana (THC) Screen Coronavirus (PCR) NEGATIVE Influenza Type A (PCR) NEGATIVE Influenza Type B (PCR) NEGATIVE RSV RNA Qual (PCR) NEGATIVE 09/29/20 09/29/20 09/29/20 16:03 16:03 16:04 WBC 7.7 RBC 4.54 L Hgb 13.1 L Hct 40.7 L MCV 89.6 MCH 28.9 MCHC 32.2 RDW 16.1 H Plt Count 188 MPV 10.3 Immature Gran % (Auto) 0.3 Neut % (Auto) 75.1 H Lymph % (Auto) 14.7 L [place] % (Auto) 8.7 Eos % (Auto) 0.8 Baso % (Auto) 0.4 Lymph # (Auto) 1.1 L [place] # (Auto) 0.7 Eos # (Auto) 0.1 Baso # (Auto) 0.0 Abs Immat Gran (auto) 0.02 Absolute Neuts (auto) 5.8 Absolute Nucleated RBC 0.000 Nucleated RBC % (auto) 0.0 PT INR APTT Sodium Potassium Chloride Carbon Dioxide Anion Gap BUN Creatinine Estim Creat Clear Calc Estimated GFR POC Glucose Random Glucose Lactic Acid Calcium Magnesium Total Bilirubin Direct Bilirubin AST ALT Alkaline Phosphatase Troponin I High Sens 29.5 B-Natriuretic Peptide 2942 H Total Protein Albumin Procalcitonin 0.04 Urine Color Urine Appearance Urine pH Ur Specific [place] Urine Protein Urine Glucose (UA) Urine Ketones Urine Blood Urine Nitrite Ur Leukocyte Esterase Urine Opiates Screen Ur Barbiturates Screen Ur Phencyclidine Scrn Ur Amphetamines Screen U Benzodiazepines Scrn Urine Cocaine Screen U Marijuana (THC) Screen Coronavirus (PCR) Influenza Type A (PCR) Influenza Type B (PCR) RSV RNA Qual (PCR) 09/29/20 09/29/20 09/29/20 16:04 20:16 20:52 WBC RBC Hgb Hct MCV MCH MCHC RDW Plt Count MPV Immature Gran % (Auto) Neut % (Auto) Lymph % (Auto) [place] % (Auto) Eos % (Auto) Baso % (Auto) Lymph # (Auto) [place] # (Auto) Eos # (Auto) Baso # (Auto) Abs Immat Gran (auto) Absolute Neuts (auto) Absolute Nucleated RBC Nucleated RBC % (auto) PT 21.1 H INR 1.8 H APTT 30.5 Sodium Potassium Chloride Carbon Dioxide Anion Gap BUN Creatinine Estim Creat Clear Calc Estimated GFR POC Glucose Random Glucose Lactic Acid Calcium Magnesium Total Bilirubin Direct Bilirubin AST ALT Alkaline Phosphatase Troponin I High Sens 30.2 B-Natriuretic Peptide Total Protein Albumin Procalcitonin Urine Color Urine Appearance Urine pH Ur Specific [place] Urine Protein Urine Glucose (UA) Urine Ketones Urine Blood Urine Nitrite Ur Leukocyte Esterase Urine Opiates Screen Not Detected Ur Barbiturates Screen Not Detected Ur Phencyclidine Scrn Not Detected Ur Amphetamines Screen Not Detected U Benzodiazepines Scrn Not Detected Urine Cocaine Screen POSITIVE H U Marijuana (THC) Screen Not Detected Coronavirus (PCR) Influenza Type A (PCR) Influenza Type B (PCR) RSV RNA Qual (PCR) 09/29/20 09/30/20 09/30/20 20:52 00:48 00:48 WBC 8.4 RBC 4.68 Hgb 13.5 L Hct 42.0 MCV 89.7 MCH 28.8 MCHC 32.1 RDW 16.3 H Plt Count 178 MPV 10.6 Immature Gran % (Auto) 0.5 H Neut % (Auto) 71.9 Lymph % (Auto) 17.4 L [place] % (Auto) 9.3 Eos % (Auto) 0.5 Baso % (Auto) 0.4 Lymph # (Auto) 1.5 [place] # (Auto) 0.8 Eos # (Auto) 0.0 Baso # (Auto) 0.0 Abs Immat Gran (auto) 0.04 H Absolute Neuts (auto) 6.1 Absolute Nucleated RBC 0.000 Nucleated RBC % (auto) 0.0 PT INR APTT Sodium 139 Potassium 4.5 Chloride 106 Carbon Dioxide 22 Anion Gap 16 BUN 25 H Creatinine 1.08 Estim Creat Clear Calc 78.0 Estimated GFR > 60 POC Glucose Random Glucose 115 D Lactic Acid Calcium 8.8 Magnesium Total Bilirubin Direct Bilirubin AST ALT Alkaline Phosphatase Troponin I High Sens B-Natriuretic Peptide Total Protein Albumin Procalcitonin Urine Color STRAW Urine Appearance CLEAR Urine pH 6.0 Ur Specific [place] 1.015 Urine Protein NEG Urine Glucose (UA) NEG Urine Ketones NEG Urine Blood NEG Urine Nitrite NEG Ur Leukocyte Esterase NEG Urine Opiates Screen Ur Barbiturates Screen Ur Phencyclidine Scrn Ur Amphetamines Screen U Benzodiazepines Scrn Urine Cocaine Screen U Marijuana (THC) Screen Coronavirus (PCR) Influenza Type A (PCR) Influenza Type B (PCR) RSV RNA Qual (PCR) 09/30/20 09/30/20 07:45 11:25 WBC RBC Hgb Hct MCV MCH MCHC RDW Plt Count MPV Immature Gran % (Auto) Neut % (Auto) Lymph % (Auto) [place] % (Auto) Eos % (Auto) Baso % (Auto) Lymph # (Auto) [place] # (Auto) Eos # (Auto) Baso # (Auto) Abs Immat Gran (auto) Absolute Neuts (auto) Absolute Nucleated RBC Nucleated RBC % (auto) PT INR APTT Sodium Potassium Chloride Carbon Dioxide Anion Gap BUN Creatinine Estim Creat Clear Calc Estimated GFR POC Glucose 167 H 116 H Random Glucose Lactic Acid Calcium Magnesium Total Bilirubin Direct Bilirubin AST ALT Alkaline Phosphatase Troponin I High Sens B-Natriuretic Peptide Total Protein Albumin Procalcitonin Urine Color Urine Appearance Urine pH Ur Specific [place] Urine Protein Urine Glucose (UA) Urine Ketones Urine Blood Urine Nitrite Ur Leukocyte Esterase Urine Opiates Screen Ur Barbiturates Screen Ur Phencyclidine Scrn Ur Amphetamines Screen U Benzodiazepines Scrn Urine Cocaine Screen U Marijuana (THC) Screen Coronavirus (PCR) Influenza Type A (PCR) Influenza Type B (PCR) RSV RNA Qual (PCR) EKG shows normal sinus rhythm with diffuse nonspecific ST-T changes with tall R- waves in lead V1 and V2 could suggest posterior [place] [facility] Radiologist's impression: Impressions Chest X-Ray 09/29/20 15:23 IMPRESSION: Stable enlargement of the cardiac silhouette. Airspace disease at the right lung base and small right pleural effusion. Differential would include pneumonia and asymmetric distribution of pulmonary edema. Chest CT 09/29/20 17:23 IMPRESSION: 1. Consolidation and atelectasis at right lung base. 2. Moderate volume right pleural effusion. Small volume left pleural effusion. 3. Mediastinal lymphadenopathy. Assessment and Plan (1) Acute exacerbation of CHF (congestive heart failure): Qualifiers: Heart failure type: systolic Qualified Code(s): I50.23 - Acute on chronic systolic (congestive) heart failure Status: Acute Patient persistently decompensated with fluid overload on clinical exam and short of breath. Continue IV diuresis with Lasix. Strict intake and output chart needs to be pursued. CHF education needs to be provided. Unsure why patient was not on any diuretic regimen as an outpatient. We discussed about heart failure management and watching salt in his diet. He understands agrees. Long-term heart failure monitoring protocol was discussed with him. Will continue monitor the patient. Obtain an echocardiogram in the morning. Add Aldactone to his regimen. (2) Cardiomyopathy: Status: Acute Prior history of ischemic cardiomyopathy. Obtain echocardiogram as above. Continue carvedilol therapy. Up titrate as tolerated. Will switch lisinopril to valsartan therapy with plan to eventually switch to Entresto therapy as outpatient. Will also add Aldactone to his regimen for neurohormonal modula tion. Aggressive management of heart failure was discussed with him. Importance of neurohormonal modulation was discussed. Will eventually require ICD therapy as planned as outpatient. Will follow with the patient.
[2020-09-30] MEDS: Valsartan 40 MG TABLET PO ×2 (13:17→22:18)
[2020-09-30] MEDS: Spironolactone 25 MG TABLET 12.5 MG PO (13:18)
[2020-09-30 16:30] LABS: Glucose, Whole Blood 150 mg/dL (60-115)
--- NOTE | 2020-09-30 17:00 | PC.NURSE ---
Per Dr Augustin, no need to obtain ABGs at this time
--- NOTE | 2020-09-30 19:33 | PC.NURSE ---
PT REPORT FROM HARMAN TRACEY. PT AWAKE AND ALERT, SEATED IN RECLINER. DINNER HEATED, PT GIVEN 2 CONTAINERS OF JUICE. PT ON OXYGEN AND IN NO DISTRESS. PT ANSWERING QUESTIONS APPRORIATELY.
[2020-09-30 22:19] LABS: Glucose, Whole Blood 166 mg/dL (60-115)
[2020-10-01] VITALS (33 sets, daily range): BP systolic 90–159; BP diastolic 51–94; PULSE 54–81; RESP 9–26; TEMP 36.4–37.2; O2SAT 94–100; BMI 36.8; BMI 37.4
--- NOTE | 2020-10-01 00:48 | CT_ITS ---
EXAMINATION: CT HEAD WITHOUT CONTRAST CLINICAL INFORMATION: Fall. Stroke alert. COMPARISON: None TECHNIQUE: Contiguous axial imaging was performed from the skull base to vertex without intravenous administration of contrast. This CT examination was performed using dose optimization techniques as appropriate, variously including the following: *Automated exposure control *Adjustment of mA and/or kV according to patient size (this includes techniques or standardized protocols for targeted exams where dose is matched to indication/reason for exam; i.e. extremities or head) *Use of iterative reconstruction technique DLP: 1804 mGy-cm FINDINGS: There is no evidence of acute intracranial hemorrhage or territorial infarction. No abnormal mass effect or midline shift is seen. Wagner to white matter differentiation is well preserved. No extra-axial fluid collections are identified. Mild enlargement of the ventricles, sulci, and extra-axial CSF spaces is indicative of parenchymal volume loss. Multiple areas of hypoattenuation in the subcortical and periventricular white matter are most consistent with chronic microangiopathic changes. This is most notable in the left centrum semiovale. Focal cortical hypoattenuation in the left occipital lobe appears chronic, potentially due to an old infarct. Osseous structures are intact. Gas within the venous structures in the facial soft tissues is likely iatrogenic, related to IV catheter placement. The mastoid air cells and visualized portions of the paranasal sinuses are well aerated. CT/CT head/brain wo con IMPRESSION: No acute intracranial pathology. 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
[2020-10-01 01:04] LABS: Glucose, Whole Blood 136 mg/dL (60-115)
--- NOTE | 2020-10-01 01:15 | P.EN_ITS ---
Event Note Date of Service: 10/01/20 Event Note: Altered mental status, fall Called to bedside by nursing staff to evaluate patient after apparent fall. Per ED staff, he was found on the floor. No one witnessed this and they did not hear him fall. He is somnolent but arousable to voice. He is nonverbal though and not communicative so ROS and HPI cannot be obtained. Security team found small vial that may have illicit substance in it in his belongings. Last seen normal per ED staff at 12:15AM Exam: NIH stroke scale score: 6 for aphasia and left upper ext weakness. Vitals: BP: 102/58, HR: 56, RR: 21, O2: 99% 2L [place] Neuro: he does follow simple commands to open his eyes, squeeze my hands, and move his feet but roll dough divider strength in his right hand is less than in his left hand. Also has pronator drift in the right upper extremity and expressive aphasia is noted. Right side of the face has loss of nasolabial fold. Chest: Decreased breath sounds bilaterally, diminished breath sounds at right lung base. Scant end exp wheees. CV: regular rate and rhythm, no murmur. Abd: soft, nondistended Ext: bilateral pitting leg edema persists Musculoskeletal: No bruising or deformity noted on legs, back. A/P; 65 year old man hospitalized with dyspnea likely due to exacerbation of CHF. Now with altered mental status and expressive aphasia. ABG done showed pCO2 of 49 so not due to hypercarbia. Security team found vial of apparent illicit substance but no improvement in symptoms after narcan. Bloo d sugar also normal. No history of liver disease so not due to hepatic encephalopathy. Stat head CT had no hemmorhage or acute findings, only an area of what appeared to be a chronic occipital infarct. CTA of head and neck to eval for stroke showed no significant stenoses or occlusions of the major intracranial vessels. Discussed case with neurology recruitment consultant, Dr Zimmer. Patient has no contraindications to TPA so he recommended giving it. TPA infusion ordered by ED attending. I called the patient's mother Arielle Lainez to inform her of his deterioration and that we were giving TPA based on the neurolgist's input and I also spelled out the risk of bleeding, including bleeding in the brain. She understood the risks and benefits. Will monitor closely after TPA infusion.
[2020-10-01 01:28] LABS: B Type Natriuretic Peptide 2597 pg/mL (<100)
--- NOTE | 2020-10-01 01:34 | CT_ITS ---
EXAMINATION: CTA NECK WITH CONTRAST CTA BRAIN WITH CONTRAST CLINICAL INFORMATION: AMS, R arm weakness, dysarthria COMPARISON: CT head from the same day and CT chest from 09/29/2019 TECHNIQUE: CTA of the head and neck was performed in the axial plane from the mediastinum to the skull vertex using 70 mL Omnipaque 350 intravenous contrast. Additional reformatted multiplanar images including maximum intensity projection MIP images are generated on the CT workstation. Postcontrast CT images of the head were submitted. This CT examination was performed using dose optimization techniques as appropriate, variously including the following: *Automated exposure control *Adjustment of mA and/or kV according to patient size (this includes techniques or standardized protocols for targeted exams where dose is matched to indication/reason for exam; i.e. extremities or head) *Use of iterative reconstruction technique Most image series are limited to some extent by motion artifact. DLP: 1804 and 2778 mGy-cm FINDINGS: The degree of stenosis determined by criteria similar to NASCET. CTA neck: The aortic arch is of normal contour and caliber. Classic 3 vessel branching pattern of the aortic arch. No significant stenosis of the branch origins. The common and internal carotid arteries opacify without occlusion. There is calcific and fibrofatty atheromatous disease within the left ICA proximally resulting in 35 percent narrowing of the ICA by NASCET. There is no fibrofatty atherosclerotic disease is present within the left external carotid artery proximally. There is 20 percent narrowing of the right ICA by fibrofatty atherosclerotic disease by NASCET criteria. There is a right dominant vertebral artery. Venous contrast contamination somewhat obscures the origin of the right vertebral artery. The cervical segments of the vertebral arteries otherwise opacify normally without focal stenosis or occlusion. There is mediastinal adenopathy with pretracheal lymph nodes measuring up to 1.6 cm in diameter. There is a moderate-sized right pleural effusion. Mild pulmonary interstitial edema is noted. No cervical adenopathy. CTA head: There is normal opacification of major intracranial arteries. No focal flow-limiting stenosis, discrete proximal large artery occlusion, or saccular intradural aneurysm. Calcific atherosclerosis is present within the cavernous segments of the internal carotid arteries with mild nonflow-limiting stenoses. Otherwise normal contrast opacification of the petrous, cavernous, paraophthalmic, and supraclinoid segments of the internal carotid arteries. Normal appearance of the anterior cerebral and middle cerebral arteries without focal occlusion or stenosis. Normal anterior communicating artery. The left vertebral artery is diminutive, terminating at the left PICA, a normal variant. The right vertebral artery is dominant. The posterior inferior cerebellar arteries are patent. Normal appearance of the basilar, superior cerebellar, and P1 segments of the posterior cerebral arteries. Normally opacified posterior communicating arteries. Normal appearance of the distal segments of the posterior cerebral arteries bilaterally. Postcontrast head: No abnormal enhancement. There is no evidence of acute intracranial hemorrhage or territorial infarction. No abnormal mass effect or midline shift is seen. Wagner to white matter differentiation is well preserved. No extra-axial fluid collections are identified. Mild enlargement of the ventricles, sulci, and extra-axial CSF spaces is indicative of parenchymal volume loss. Multiple areas of hypoattenuation in the subcortical and periventricular white matter are most consistent with chronic microangiopathic changes. This is most notable in the left centrum semiovale. Focal cortical hypoattenuation in the left occipital lobe appears chronic, potentially due to an old infarct. CT/CT angio head neck stroke IMPRESSION: 1. No evidence of acute occlusive disease within the carotid and vertebral basilar arteries as well as the major intracranial arteries. 2. Mild stenoses at the proximal left ICA and right ICA (35 and 20 percent, respectively) due to calcific and fibrotic fatty atheromatous disease. 3. Pulmonary interstitial edema with a moderate size right pleural effusion and mild centrilobular emphysema. Moderate mediastinal adenopathy is again noted. This result was discussed by telephone with Dr. Nolen on 10/01/2020 2:52 AM.
--- NOTE | 2020-10-01 02:12 | PC.NURSE ---
PT WAS ABLE TO ANSWER QUESTIONS AT 12:15 AM. PT FOUND ON GROUND, SEE CHARGE NURSE NOTES. PT ASSISTED UP INTO BED, SOILED CLOTHES CHANGED, PT INCONTINENT OF URINE. PCT NOTICED PT HAD BEEN SEARCHING THROUGH HIS PERSONAL ITEMS PRIOR TO INCIDENT. SECURITY CHECKED ITEMS AND FOUND SMALL METAL CANISTER WITH WHITE POWDER RESIDUE. PT WAKES TO VOICE, DOESN'T STAY FULL AWAKE FOR MORE THAN 10 SECONDS. PT IS APHASIC, ABLE TO MOVE ALLL EXTREMITIES. SLIGHT WEAKNESS IN UPPER RIGHT EXTREMITY/ QUESTIONABLE RIGHT SIDED FACIAL DROOP. CORA, NO FACIAL OR HEAD TRAUMA NOTED. NO TENDERNESS TO EXTREMITIES, CHEST, ABDOMEN OR NECK/BACK.
[2020-10-01 02:13] LABS: Prothrombin Time Whole Bld POC 16.2 sec (11.1-13.5); ~PT, ~INR - Anti Coag Clinic 1.3 (0.9-1.1)
[2020-10-01 03:01] LABS: MANUAL DIFF FLAG NO
[2020-10-01 03:04] LABS: Basophils Percent Auto 0.3 % (0-2); Eosinophils Percent Auto 0.3 % (0-4); Hematocrit 40.7 % (42-52); Imm Gran Abs Auto 0.04 X10*3/uL (0.00-0.03); Imm Gran Pct Auto 0.3 % (0.0-0.4); Lymphocytes Absolute Auto 0.9 X10*3/uL (1.2-4.9); Lymphocytes Percent Auto 7.6 % (20-40); Mean Corpuscular HGB Conc 31.9 g/dl (31.0-36.0); Mean Corpuscular Hemoglobin 28.9 pg (27.0-33.0); Mean Corpuscular Volume 90.4 fL (80-98); Mean Platelet Volume 10.6 fL (9.4-12.4); Monocytes Absolute Auto 0.9 X10*3/uL (0.1-1.2); Monocytes Percent Auto 7.8 % (2-11); Neutrophils Absolute Auto 9.6 X10*3/uL (2.0-8.3); Neutrophils Percent Auto 83.7 % (45-73); Platelet Count 175 X10*3/uL (160-400); Red Cell Distribution Width 16.2 % (11.0-16.0); White Blood Count 11.5 X10*3/uL (4.8-10.8)
[2020-10-01 03:23] LABS: Ammonia 41 umol/L (13-55)
--- NOTE | 2020-10-01 03:26 | PC.NURSE ---
WITNESS FOR THE INITIAL PROGRAMMING AND MIXING OF TPA WITH DAYNA TARCEY.
[2020-10-01 03:31] LABS: Anion Gap 14 (12-20); Blood Urea Nitrogen 31 mg/dL (9-16); Calcium 9.1 mg/dL (8.4-10.2); Carbon Dioxide 29 mmol/L (22-29); Chloride 99 mmol/L (96-108); Creatinine Clr Calc Pharmacy 83.3; Estimated Glomerular Filt Rate > 60; Glucose Random 157 mg/dL (60-115); Potassium 4.4 mmol/l (3.3-5.1); Sodium 138 mmol/L (135-145)
--- NOTE | 2020-10-01 03:37 | ECG_ITS ---
Test Reason : STROKE Blood Pressure : / mmHG Vent. Rate : 064 BPM Atrial Rate : 064 BPM P-R Int : 160 ms QRS Dur : 160 ms QT Int : 506 ms P-R-T Axes : 051 057 254 degrees QTc Int : 522 ms Normal sinus rhythm with sinus arrhythmia Right bundle branch block Nonspecific ST and T wave abnormality Abnormal ECG When compared with ECG of 29-SEP-2020 16:02, No significant changes seen Referred By: Ace Nolen Electronically Signed By:SERENE SORTO
--- NOTE | 2020-10-01 04:24 | P.CONCC_ITS ---
History of Present Illness Data of Consult Service Date: 10/01/20 Requesting physician: Ace Nolen I Primary Care Provider: Unknown Physician HPI Reason for consult: Ischemic stroke post tPA HPI: 65-year-old male with underlying history of CHF, pleural effusion, GERD, hypertension, CAD,, ICMO, osteoarthritis, cocaine use among others who apparently was admitted to this hospital last night due to shortness of breath in the setting of CHF, he was diuresed with Lasix. He apparently also had some cough with white phlegm but no fevers. COVID negative. At the time he was in respiratory distress and somewhat hypotensive and was stabilized with BiPAP and diuresis with good improvement, troponin x 2 at the time negative. On 09/29 2020 he was positive for cocaine. Patient has been boarded in the emergency room until today at 12/15 a.m. on 10/01/2020, the patient was found on the floor next to the bed, dysarthric and with new expressive aphasia, right upper extremity pronator drift. Prior to this incident, patient was noted to be searching through his belongings, post incident, security did found a metal container with a white powder substance. However given all the above, the patient was put through a stroke protocol workup and upon talking to Neurology and he was deemed that he was a good candidate for tPA which he received in the ED. ROS: Unable to perform due to expressive aphasia Past Medical History: Obstructive sleep apnea on CPAP at night Coronary artery disease Ischemic cardiomyopathy Diabetes Past Surgical History: Total knee replacement Family history: His father had coronary artery disease Social History: [place] home, daily smoker, uses crack cocaine, denies alcohol. CODE STATUS: FULL CODE Allergies: NKDA Home Medications: See med rec PHYSICAL EXAM: VS: Blood pressure 109/14 heart rate 72, respirations 20, O2 sat 98% on 2 L nasal cannula. General: Alert to person, follows basic commands, unable to answer questions due to expressive aphasia. Skin: Minimal right nasal labial fold drooping, Intact, no lesions, edema, erythema, clubbing or cyanosis. No ulcers. HEENT: Head is normocephalic, atraumatic, pupils equal round reactive to light accommodation bilaterally. Extraocular movements appear intact. Buccal mucosa is moist, Neck is supple without lymphadenopathy. Cardiac: Clear S1-S2, no murmurs rubs or gallops. Pulmonary: Diminished lung sounds bilaterally with fine crackles at the bases. No rhonchi. Abdomen: Protuberant, positive bowel sounds in all 4 quadrants. Soft, nontender, no rebound or guarding. Musculoskeletal: Moving all 4 extremities upon request a major joints, there is no crepitus or tenderness. Strength of the right upper extremities 4/5 in comparison to 5/5 left upper extremity. Bilateral lower extremities strength is 5/5. Gait not assessed at this point. Neurologic: As above, right nasal labial fold droop, expressive aphasia, right pronator drift. Other cranial nerves normal. [id number] normal. Finger to nose test normal. Motor strength as above. Vascular: 2+ pulses upper and lower extremities distally. SIGNIFICANT LABORATORY DATA: White blood cells 11.5 (8.5) hemoglobin 13, hematocrit 40, platelets 175, sodium 130, potassium 4.4, chloride 99, carbon dioxide 29, BUN 31 (25), creatinine 1.08, random glucose 136, ammonia 41, proBNP 2597 (2942). REVIEW OF IMAGES: Head and neck CTA IMPRESSION: 1. No evidence of acute occlusive disease within the carotid and vertebral basilar arteries as well as the major intracranial arteries. 2. Mild stenoses at the proximal left ICA and right ICA (35 and 20 percent, respectively) due to calcific and fibrotic fatty atheromatous disease. 3. Pulmonary interstitial edema with a moderate size right pleural effusion and mild centrilobular emphysema. Moderate mediastinal adenopathy is again noted. HEAD CT IMPRESSION: No acute intracranial pathology. 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 CHEST CT IMPRESSION: 1. Consolidation and atelectasis at right lung base. 2. Moderate volume right pleural effusion. Small volume left pleural effusion. 3. Mediastinal lymphadenopathy. CHEST XR IMPRESSION: Stable enlargement of the cardiac silhouette. Airspace disease at the right lung base and small right pleural effusion. Differential would include pneumonia and asymmetric distribution of pulmonary edema. EKG REVIEW: Normal sinus rhythm 64 beats per minute. No ST elevations. There is T-wave inversions throughout the anterior lateral leads, QTC 522. In comparison to EKG from September 29, 2020, the T-wave inversions in the anterior leads are more prominent however no new in on this past EKG there is evidence of right bundle- branch block. ASSESSMENT AND PLAN: 1. Acute ischemic stroke status post tPA 2. Expressive aphasia, right facial droop and right pronator drift due to the above 3. CHF exacerbation ? RL PNA 4. Borderline hypotension due to diuresis 5. Mild acute kidney injury with BUN to creatinine ratio of 30 likely due to diuresis 6. Worsening EKG changes rule out ACS which could be induced due to cocaine abuse 7. Suspected syncopal episode perhaps in the setting of 1. And 6. # 7 8. Cocaine abuse and possible overdose while in hospital Patient received tPA in the ER, will transfer him to ICU and manage per post tPA protocol with permissible hypertension, will avoid aspirin, monitor neurological status, start full-dose statin after swallow evaluation, monitor renal function and corporal volume. Monitor I and O?s. Recheck labs in the morning, obtain troponin. Patient will likely need an echo. Continue Rocephin and doxycycline given the suspicion of right lower lobe pneumonia. GI PROPHYLAXIS: IV ppi DVT PROPHYLAXIS: Pneumatic stockings only post tPA Critical care time used for critical evaluation of this patient, diagnosis, treatment and coordination of care, review her records and documentation TOTAL CRITICAL CARE TIME 90 MIN . Patient's care was discussed in detail with Dr. Anne. He is aware of all the above as well as the plan of care for this patient. Review of Systems Neurologic: Reports system reviewed and no additional complaints, except as documented PMFSH Past Medical History Medical History CAD (coronary artery disease) Cardiomyopathy CHF (congestive heart failure) Cocaine use Diabetes GERD (gastroesophageal reflux disease) Hypertension Osteoarthritis Surgical History Surgical History Total knee replacement status Social History Social History (Updated 09/29/20 @ 23:53 by Ace Valadez MD) Alcohol intake: never Smoking Status: Current every day smoker Use of substances other than those prescribed or required for medical reasons: Yes Substance Use Type: Crack/Cocaine Advance Directives: No Advance Directives Information Provided: Yes Meds Allergies Allergy/AdvReac Type Severity Reaction Status Date / Time No Known Allergies Allergy Verified 07/29/20 15:11 [No Known Allergies*] Home Medications Medication Instructions Recorded Confirmed Type aspirin 1 PO 09/29/20 History atorvastatin 80 mg PO DAILY 09/29/20 09/29/20 History carvedilol 3.125 mg PO BID 09/29/20 09/29/20 History cholecalciferol (vitamin D3) 2,000 unit PO DAILY 09/29/20 09/29/20 History docusate sodium 1 cap PO TID PRN 09/29/20 09/29/20 History erythromycin 0.5 OPHTHALMIC (EYE) TID 09/29/20 History lisinopril 10 mg PO DAILY 09/29/20 09/29/20 History metformin 500 mg PO DAILY 09/29/20 09/29/20 History nitroglycerin mg SUBLINGUAL 09/29/20 History omeprazole 1 cap PO DAILY 09/29/20 09/29/20 History oxybutynin chloride PO 09/29/20 History Physical Exam Vital Signs: Vital Signs: Last Vital Signs Temp 97.8 F 09/30/20 22:00 Pulse 72 10/01/20 04:14 Resp 20 10/01/20 04:14 BP 109/74 10/01/20 04:14 Pulse Ox 98 10/01/20 03:59 Body Mass Index 36.8 Results Labs CBC & Chem 7: 10/01/20 02:57 10/01/20 02:57 Labs: Short CBC 10/01/20 Range/Units 02:57 WBC 11.5 H (4.8-10.8) X10*3/uL Hgb 13.0 L (14.0-18.0) g/dl Hct 40.7 L (42-52) % Plt Count 175 (160-400) X10*3/uL BMP 10/01/20 02:57 Sodium 138 Potassium 4.4 Chloride 99 Carbon Dioxide 29 BUN 31 H Creatinine 1.08 Calcium 9.1 Microbiology Microbiology Results: Microbiology 09/29/20 16:16 Blood - Venous Blood Culture - Preliminary No growth after 24 hours. 09/29/20 16:02 Blood - Venous Blood Culture - Preliminary No growth after 24 hours.
--- NOTE | 2020-10-01 04:28 | PC.NURSE ---
pt remains aphasic, tpa has finished running at this time. Upper and lower dentures removed, placed in cup with water. Pt able to nod yes/no to questions, currently denies pain/VARELA/vision changes. Pt nodded yes when asked if he understands what he is being medicated for. Pt appears in no acute distress.
--- NOTE | 2020-10-01 04:31 | PC.NURSE ---
At approx 2100 pt provided nighttime snack per request, provided diabetic pudding, crackers, string cheese and diet sidra quincy. Pt able to open packages, feed self, tolerate PO with clear speech and intact swallowing at that time.
[2020-10-01 04:48] LABS: ABG PCO2 49 mmHg (32-45); Base Excess ABG 9.4; HCO3 ABG 35 mmol/L (22-26); PO2 ABG 88 mmHg (83-108); Pt Ventilation O2% 3 L; pH ABG 7.45 (7.35-7.45)
--- NOTE | 2020-10-01 05:35 | PC.NURSE ---
PT TRANSPORTED TO ICU ON CANE PACKER. SWALLOW EVALUATION NOT PERFORMED, PT WAS DROOLING FROM RIGHT SIDE OF MOUTH. PT AWAKE AND ALERT, AWARE OF HIS SURROUNDINGS. PT APHASIC, SEEMED TO UNDERSTAND QUESTIONS ASKED BY RN.
[2020-10-01 06:02] LABS: MANUAL DIFF FLAG NO
[2020-10-01 06:05] LABS: Basophils Percent Auto 0.2 % (0-2); Eosinophils Percent Auto 0.3 % (0-4); Hematocrit 40.1 % (42-52); Hemoglobin 12.9 g/dl (14.0-18.0); Imm Gran Abs Auto 0.04 X10*3/uL (0.00-0.03); Imm Gran Pct Auto 0.4 % (0.0-0.4); Lymphocytes Absolute Auto 1.1 X10*3/uL (1.2-4.9); Lymphocytes Percent Auto 10.9 % (20-40); Mean Corpuscular HGB Conc 32.2 g/dl (31.0-36.0); Mean Corpuscular Hemoglobin 29.1 pg (27.0-33.0); Mean Corpuscular Volume 90.5 fL (80-98); Mean Platelet Volume 10.5 fL (9.4-12.4); Monocytes Percent Auto 9.9 % (2-11); Neutrophils Absolute Auto 7.7 X10*3/uL (2.0-8.3); Neutrophils Percent Auto 78.3 % (45-73); Platelet Count 168 X10*3/uL (160-400); Red Blood Count 4.43 X10*6/uL (4.60-5.80); Red Cell Distribution Width 16.1 % (11.0-16.0); White Blood Count 9.8 X10*3/uL (4.8-10.8)
[2020-10-01] MEDS: Furosemide 40 MG/4 ML VIAL IVPUSH (06:24)
[2020-10-01] MEDS: Pantoprazole Sodium 40 MG/10 ML VIAL IVPUSH (06:24)
[2020-10-01 06:30] LABS: B Type Natriuretic Peptide 2053 pg/mL (<100)
[2020-10-01 06:32] LABS: Carbon Dioxide 25 mmol/L (22-29)
[2020-10-01 06:33] LABS: Anion Gap 16 (12-20); Blood Urea Nitrogen 29 mg/dL (9-16); Calcium 8.8 mg/dL (8.4-10.2); Chloride 101 mmol/L (96-108); Creatinine Clr Calc Pharmacy 91.7; Estimated Glomerular Filt Rate > 60; Glucose Random 158 mg/dL (60-115); Potassium 4.6 mmol/l (3.3-5.1); Sodium 137 mmol/L (135-145)
[2020-10-01 06:41] LABS: Troponin-I High Sensitivity 40.6 ng/L (<3.5-35.0)
--- NOTE | 2020-10-01 06:44 | PC.NURSE ---
Admitted via ED approx 0500 s/p TPA. Remains completely aphasic. Constantly moaning. Nodding yes/no in response to questions, seems appropriate. Follows commands appropriately. BRINK. Left side>Right. Right sided facial droop and pronator drift. Not managing own secretions. Drooling. Taught to use yankauer suction catheter. SB with BBB. SBP 100-120. Respirations shallow. Satting low 90's on RA. Coarse uppers, fine crackles in bases. Easily dyspneic with minimal exertion. [place] cath placed in lieu of velasquez d/t patient's exaggerated pain response. (Screaming and shaking arm in response to BP, screaming and yanking arm during venipuncture, screaming and turning purple during pre-velasquez suhas-care.) Intermittently restless: grabbing lines, pulling off O2, attempting to climb OOB. Camera in place. Re-educated and re-directed with minimal effect. Skin intact.
[2020-10-01 06:49] LABS: Cholesterol 92 mg/dL; HDL Cholesterol 23 mg/dL; LDL Cholesterol Calculated 50 mg/dl; Triglycerides 97 mg/dL
[2020-10-01 07:26] LABS: Glucose, Whole Blood 161 mg/dL (60-115)
--- NOTE | 2020-10-01 10:14 | P.CNNE_ITS ---
History of Present Illness Data of Consult Service Date: 10/01/20 Primary Care Provider: Unknown Physician 65 years old man with underlying history of coronary artery disease cardiomyopathy CHF and cocaine use who was admitted hospital with shortness of breath. While in emergency room he had acute change in his neurological situation resulting in difficulty speaking and right-sided weakness and he was treated with intravenous tPA for suspected ischemic stroke. There was no associated headache nausea vomiting or any distress. No seizure-like activity was noted. This morning he was feeling somewhat better. Review of Systems Review of Systems: He was unable to speak to provide answers for review of system Neurologic: Reports system reviewed and no additional complaints, except as documented PMFSH Past Medical History Medical History (Updated 10/01/20 @ 10:19 by Mike Gerber MD) CAD (coronary artery disease) Cardiomyopathy CHF (congestive heart failure) Cocaine use CVA (cerebral vascular accident) Diabetes GERD (gastroesophageal reflux disease) Hypertension Osteoarthritis Surgical History Surgical History Total knee replacement status Social History Social History (Updated 09/29/20 @ 23:53 by Ace Valadez MD) Household Members: Unknown / Unable to assess Alcohol intake: never Smoking Status: Current every day smoker Substance Use Type: Crack/Cocaine Meds Allergies Allergy/AdvReac Type Severity Reaction Status Date / Time No Known Allergies Allergy Verified 07/29/20 15:11 [No Known Allergies*] Home Medications Medication Instructions Recorded Confirmed Type docusate sodium 100 mg PO TID PRN 09/29/20 10/01/20 History metformin 500 mg PO DAILY 09/29/20 09/29/20 History nitroglycerin See Rx Instructions .ROUTE .COMPLEX 09/29/20 10/01/20 History omeprazole 1 cap PO DAILY 09/29/20 09/29/20 History oxybutynin chloride 5 mg PO TID 09/29/20 10/01/20 History acetaminophen [Arthritis Pain 650 mg PO TID PRN 10/01/20 10/01/20 History Relief (acetam)] aspirin 81 mg PO DAILY 10/01/20 10/01/20 History atorvastatin 80 mg PO DAILY 10/01/20 10/01/20 History carvedilol 3.125 mg PO BID 10/01/20 10/01/20 History cholecalciferol (vitamin D3) 50 mcg PO DAILY 10/01/20 10/01/20 History [Vitamin D3] polyethylene glycol 3350 17 g PO DAILY PRN 10/01/20 10/01/20 History Physical Exam Vital Signs: Vital Signs: Last Vital Signs Temp 99 F 10/01/20 06:00 Pulse 75 10/01/20 09:00 Resp 14 10/01/20 09:00 BP 98/59 L 10/01/20 09:05 Pulse Ox 100 10/01/20 08:00 Body Mass Index 37.4 He was alert and awake looking around made eye contact. When I was to say his name he could not say so. He rarely onset some question and yes or no. When asked to name a cellphone he tried to do it but could not. When asked if this was phoned he said he has. He could not name mask. He was following simple commands. Face was symmetrical. Pupils were equal and reactive to light. The re was no pronator drift. Deep tendon reflexes were absent with flexor plantars. Results Labs CBC & Chem 7: 10/01/20 05:55 10/01/20 05:55 Labs: Short CBC 10/01/20 10/01/20 Range/Units 02:57 05:55 WBC 11.5 H 9.8 (4.8-10.8) X10*3/uL Hgb 13.0 L 12.9 L (14.0-18.0) g/dl Hct 40.7 L 40.1 L (42-52) % Plt Count 175 168 (160-400) X10*3/uL BMP 10/01/20 10/01/20 02:57 05:55 Sodium 138 137 Potassium 4.4 4.6 Chloride 99 101 Carbon Dioxide 29 25 BUN 31 H 29 H Creatinine 1.08 0.99 Calcium 9.1 8[address] and CT of brain and neck were reviewed. It revealed mild cerebral atrophy chronic microvascular ischemic changes and 1 left frontal white matter area hypodensity probably chronic ischemic infarction. Microbiology Microbiology Results: Microbiology 09/29/20 16:16 Blood - Venous Blood Culture - Preliminary No growth after 24 hours. 09/29/20 16:02 Blood - Venous Blood Culture - Preliminary No growth after 24 hours. Assessment and Plan (1) Aphasia: Status: Acute 65 years old man with underlying history of cardiomyopathy and CHF and als o cocaine abuse who had sudden change in neurological status with aphasia and right sided weakness treated with intravenous tPA. At this time weakness was resolved but he still had moderate aphasia. His brain imaging revealed a subacute to chronic left frontal ischemic lesion. At this time recommendations are as follows: 1. No blood thinner for 24 hours and after that anti-platelet agent, 2. Appropriate education and detox for cocaine use, which he should not do at all., 3. MRI of brain without contrast, 4. Speech therapy, which could start after he leaves ICU. And 5. Blood pressure management as per tPA protocol. I had noted that his blood pressure was relatively low, which probably was reflection of his cardiomyopathy. For now, as far as blood pressure management is concerned, I would leave it up to the early childhood coordinator due to significant cardiomyopathy.
--- NOTE | 2020-10-01 10:44 | PM.PNCARD ---
Subjective Subjective Date of Service: 10/01/20 Interval history: It appears that he had a stroke overnight. Still appears sleepy. Review of Systems Review of Systems Yes Unobtainable due to mental status Physical Exam Vital Signs: Last Vital Signs Temp 99 F 10/01/20 06:00 Pulse 75 10/01/20 09:00 Resp 14 10/01/20 09:00 BP 98/59 L 10/01/20 09:05 Pulse Ox 100 10/01/20 08:00 Body Mass Index 37.4 Const General: comfortable, no acute distress and lethargic Orientation/consciousness: lethargic [facility] Other: Unremarkable Neck Neck: Yes normal visual inspection Chest Chest palpation & inspection: normal inspection of the chest Resp Auscultation: clear to auscultation bilaterally, no crackles and no wheezes Cardio Jugular venous distension: no JVD Palpation: normal PMI Heart sounds: S1 normal heart sound present, S2 normal heart sound present, no gallops, no murmurs and no rubs GI Palpation (GI): Soft to palpation Back/Spine/Pelvis Other: unremarkable Skin General skin exam: no rashes or lesions noted Extrem General: Yes no clubbing, cyanosis or edema Psych Mental Status: mental status grossly normal Results Labs and Meds Result diagrams: 10/01/20 05:55 10/01/20 05:55 Lab results: Laboratory Results - last 24 hr 09/30/20 09/30/20 09/30/20 11:25 16:11 21:56 WBC RBC Hgb Hct MCV MCH MCHC RDW Plt Count MPV Immature Gran % (Auto) Neut % (Auto) Lymph % (Auto) [place] % (Auto) Eos % (Auto) Baso % (Auto) Lymph # (Auto) [place] # (Auto) Eos # (Auto) Baso # (Auto) Abs Immat Gran (auto) Absolute Neuts (auto) Absolute Nucleated RBC Nucleated RBC % (auto) Whole Blood PT Whole Blood INR ABG pH ABG pCO2 ABG pO2 ABG HCO3 ABG O2 Saturation ABG Base Excess Oxygen Given Sodium Potassium Chloride Carbon Dioxide Anion Gap BUN Creatinine Estim Creat Clear Calc Estimated GFR POC Glucose 116 H 150 H 166 H Random Glucose Calcium Ammonia Troponin I High Sens B-Natriuretic Peptide Triglycerides Cholesterol LDL Cholesterol, Calc HDL Cholesterol 10/01/20 10/01/20 10/01/20 00:55 00:57 01:28 WBC RBC Hgb Hct MCV MCH MCHC RDW Plt Count MPV Immature Gran % (Auto) Neut % (Auto) Lymph % (Auto) [place] % (Auto) Eos % (Auto) Baso % (Auto) Lymph # (Auto) [place] # (Auto) Eos # (Auto) Baso # (Auto) Abs Immat Gran (auto) Absolute Neuts (auto) Absolute Nucleated RBC Nucleated RBC % (auto) Whole Blood PT Whole Blood INR ABG pH 7.45 ABG pCO2 49 H ABG pO2 88 ABG HCO3 35 H ABG O2 Saturation 97.0 ABG Base Excess 9.4 Oxygen Given 3 L Sodium Potassium Chloride Carbon Dioxide Anion Gap BUN Creatinine Estim Creat Clear Calc Estimated GFR POC Glucose 136 H Random Glucose Calcium Ammonia Troponin I High Sens B-Natriuretic Peptide 2597 H Triglycerides Cholesterol LDL Cholesterol, Calc HDL Cholesterol 10/01/20 10/01/20 10/01/20 01:48 02:57 02:57 WBC 11.5 H RBC 4.50 L Hgb 13.0 L Hct 40.7 L MCV 90.4 MCH 28.9 MCHC 31.9 RDW 16.2 H Plt Count 175 MPV 10.6 Immature Gran % (Auto) 0.3 Neut % (Auto) 83.7 H Lymph % (Auto) 7.6 L [place] % (Auto) 7.8 Eos % (Auto) 0.3 Baso % (Auto) 0.3 Lymph # (Auto) 0.9 L [place] # (Auto) 0.9 Eos # (Auto) 0.0 Baso # (Auto) 0.0 Abs Immat Gran (auto) 0.04 H Absolute Neuts (auto) 9.6 H Absolute Nucleated RBC 0.000 Nucleated RBC % (auto) 0.0 Whole Blood PT 16.2 H Whole Blood INR 1.3 H ABG pH ABG pCO2 ABG pO2 ABG HCO3 ABG O2 Saturation ABG Base Excess Oxygen Given Sodium 138 Potassium 4.4 Chloride 99 Carbon Dioxide 29 Anion Gap 14 BUN 31 H Creatinine 1.08 Estim Creat Clear Calc 83.3 Estimated GFR > 60 POC Glucose Random Glucose 157 H D Calcium 9.1 Ammonia Troponin I High Sens B-Natriuretic Peptide Triglycerides Cholesterol LDL Cholesterol, Calc HDL Cholesterol 10/01/20 10/01/20 10/01/20 02:57 05:55 05:55 WBC RBC Hgb Hct MCV MCH MCHC RDW Plt Count MPV Immature Gran % (Auto) Neut % (Auto) Lymph % (Auto) [place] % (Auto) Eos % (Auto) Baso % (Auto) Lymph # (Auto) [place] # (Auto) Eos # (Auto) Baso # (Auto) Abs Immat Gran (auto) Absolute Neuts (auto) Absolute Nucleated RBC Nucleated RBC % (auto) Whole Blood PT Whole Blood INR ABG pH ABG pCO2 ABG pO2 ABG HCO3 ABG O2 Saturation ABG Base Excess Oxygen Given Sodium 137 Potassium 4.6 Chloride 101 Carbon Dioxide 25 Anion Gap 16 BUN 29 H Creatinine 0.99 Estim Creat Clear Calc 91.7 Estimated GFR > 60 POC Glucose Random Glucose 158 H Calcium 8.8 Ammonia 41 Troponin I High Sens 40.6 H B-Natriuretic Peptide 2053 H Triglycerides 97 Cholesterol 92 LDL Cholesterol, Calc 50 HDL Cholesterol 23 10/01/20 10/01/20 10/01/20 05:55 05:56 07:12 WBC 9.8 RBC 4.43 L Hgb 12.9 L Hct 40.1 L MCV 90.5 MCH 29.1 MCHC 32.2 RDW 16.1 H Plt Count 168 MPV 10.5 Immature Gran % (Auto) 0.4 Neut % (Auto) 78.3 H Lymph % (Auto) 10.9 L [place] % (Auto) 9.9 Eos % (Auto) 0.3 Baso % (Auto) 0.2 Lymph # (Auto) 1.1 L [place] # (Auto) 1.0 Eos # (Auto) 0.0 Baso # (Auto) 0.0 Abs Immat Gran (auto) 0.04 H Absolute Neuts (auto) 7.7 Absolute Nucleated RBC 0.000 Nucleated RBC % (auto) 0.0 Whole Blood PT Whole Blood INR ABG pH ABG pCO2 ABG pO2 ABG HCO3 ABG O2 Saturation ABG Base Excess Oxygen Given Sodium Potassium Chloride Carbon Dioxide Anion Gap BUN Creatinine Estim Creat Clear Calc Estimated GFR POC Glucose 161 H Random Glucose Calcium Ammonia Troponin I High Sens B-Natriuretic Peptide Triglycerides Cancelled Cholesterol Cancelled LDL Cholesterol, Calc Cancelled HDL Cholesterol Cancelled Imaging Radiologist's impression: Impressions Head CT 10/01/20 00:48 IMPRESSION: No acute intracranial pathology. 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 Head/Neck CTA 10/01/20 01:34 IMPRESSION: 1. No evidence of acute occlusive disease within the carotid and vertebral basilar arteries as well as the major intracranial arteries. 2. Mild stenoses at the proximal left ICA and right ICA (35 and 20 percent, respectively) due to calcific and fibrotic fatty atheromatous disease. 3. Pulmonary interstitial edema with a moderate size right pleural effusion and mild centrilobular emphysema. Moderate mediastinal adenopathy is again noted. This result was discussed by telephone with Dr. Nolen on 10/01/2020 2:52 AM. Progress Note: A&P Assessment and plan (1) Acute on chronic systolic (congestive) heart failure: Status: Acute (2) Cardiomyopathy: Status: Acute (3) Cocaine use: Status: Acute (4) Acute ischemic stroke: Status: Acute Assessment and Plan: Originally admitted for heart failure but now complicated by acute stroke and now status post tPA. Clinically, he appears lethargic. We will get an echocardiogram for LV function assessment.. With acute stroke, we will need to adjust his medications appropriately and avoid any marked hypotension. Will follow up with you. Fall Risk Details Current Medications: Current Medications Generic Name Dose Route Start Last Admin Trade Name Freq PRN Reason Stop Dose Admin Atorvastatin Calcium 80 mg 09/30/20 09:00 10/01/20 09:04 Atorvastatin Calcium 80 Mg Tablet PO Not Given DAILY [facility] Furosemide 40 mg 09/30/20 06:30 10/01/20 06:24 Furosemide 40 Mg/4 Ml Vial IVPUSH 40 mg BID@0630,1630 [facility] Administration Protocol Doxycycline Hyclate 100 mg/ 250 mls @ 166.67 mls/hr 09/29/20 23:36 10/01/20 05:08 Sodium Chloride IV Infused BID@1000,2200 [facility] Infusion Insulin Human Lispro 0 unit 09/30/20 07:30 10/01/20 09:04 Insulin Lispro 100 Unit/Ml 3 Ml Vial SUBCUT Not Given QIDACHS [facility] Protocol Pantoprazole Sodium 40 mg 10/01/20 06:30 10/01/20 06:24 Pantoprazole Sodium 40 Mg/10 Ml Vial IVPUSH 40 mg DAILY@0630 [facility] Administration Pharmacy Consult 1 each 09/29/20 15:23 Consult Rx Perform Med Rec MISCELLANE ONCE PRN Consult order Sodium Chloride 3 ml 09/30/20 08:00 10/01/20 05:08 0.9 % Sodium Chloride Flush 3 Ml Syringe IVFLUSH Not Given QSHIFT [facility] Spironolactone 12.5 mg 09/30/20 12:00 10/01/20 09:05 Spironolactone 25 Mg Tablet PO Not Given DAILY [facility] Protocol Time Spent With Patient Time: Total time spent is greater than 50% in coordination of care (as documented) at patient's floor/unit and/or counseling patient: Time with patient: 15 - 24 minutes
--- NOTE | 2020-10-01 10:51 | PM.PNCARD ---
Subjective Subjective Date of Service: 10/02/20 Review of Systems Reports system reviewed and no additional complaints, except as documented Physical Exam Vital Signs: Last Vital Signs Temp 99 F 10/01/20 06:00 Pulse 75 10/01/20 09:00 Resp 14 10/01/20 09:00 BP 98/59 L 10/01/20 09:05 Pulse Ox 100 10/01/20 08:00 Body Mass Index 37.4 Results Labs and Meds Result diagrams: 10/02/20 05:20 10/02/20 05:20 Lab results: Laboratory Results - last 24 hr 09/30/20 09/30/20 09/30/20 11:25 16:11 21:56 WBC RBC Hgb Hct MCV MCH MCHC RDW Plt Count MPV Immature Gran % (Auto) Neut % (Auto) Lymph % (Auto) [place] % (Auto) Eos % (Auto) Baso % (Auto) Lymph # (Auto) [place] # (Auto) Eos # (Auto) Baso # (Auto) Abs Immat Gran (auto) Absolute Neuts (auto) Absolute Nucleated RBC Nucleated RBC % (auto) Whole Blood PT Whole Blood INR ABG pH ABG pCO2 ABG pO2 ABG HCO3 ABG O2 Saturation ABG Base Excess Oxygen Given Sodium Potassium Chloride Carbon Dioxide Anion Gap BUN Creatinine Estim Creat Clear Calc Estimated GFR POC Glucose 116 H 150 H 166 H Random Glucose Calcium Ammonia Troponin I High Sens B-Natriuretic Peptide Triglycerides Cholesterol LDL Cholesterol, Calc HDL Cholesterol 10/01/20 10/01/20 10/01/20 00:55 00:57 01:28 WBC RBC Hgb Hct MCV MCH MCHC RDW Plt Count MPV Immature Gran % (Auto) Neut % (Auto) Lymph % (Auto) [place] % (Auto) Eos % (Auto) Baso % (Auto) Lymph # (Auto) [place] # (Auto) Eos # (Auto) Baso # (Auto) Abs Immat Gran (auto) Absolute Neuts (auto) Absolute Nucleated RBC Nucleated RBC % (auto) Whole Blood PT Whole Blood INR ABG pH 7.45 ABG pCO2 49 H ABG pO2 88 ABG HCO3 35 H ABG O2 Saturation 97.0 ABG Base Excess 9.4 Oxygen Given 3 L Sodium Potassium Chloride Carbon Dioxide Anion Gap BUN Creatinine Estim Creat Clear Calc Estimated GFR POC Glucose 136 H Random Glucose Calcium Ammonia Troponin I High Sens B-Natriuretic Peptide 2597 H Triglycerides Cholesterol LDL Cholesterol, Calc HDL Cholesterol 10/01/20 10/01/20 10/01/20 01:48 02:57 02:57 WBC 11.5 H RBC 4.50 L Hgb 13.0 L Hct 40.7 L MCV 90.4 MCH 28.9 MCHC 31.9 RDW 16.2 H Plt Count 175 MPV 10.6 Immature Gran % (Auto) 0.3 Neut % (Auto) 83.7 H Lymph % (Auto) 7.6 L [place] % (Auto) 7.8 Eos % (Auto) 0.3 Baso % (Auto) 0.3 Lymph # (Auto) 0.9 L [place] # (Auto) 0.9 Eos # (Auto) 0.0 Baso # (Auto) 0.0 Abs Immat Gran (auto) 0.04 H Absolute Neuts (auto) 9.6 H Absolute Nucleated RBC 0.000 Nucleated RBC % (auto) 0.0 Whole Blood PT 16.2 H Whole Blood INR 1.3 H ABG pH ABG pCO2 ABG pO2 ABG HCO3 ABG O2 Saturation ABG Base Excess Oxygen Given Sodium 138 Potassium 4.4 Chloride 99 Carbon Dioxide 29 Anion Gap 14 BUN 31 H Creatinine 1.08 Estim Creat Clear Calc 83.3 Estimated GFR > 60 POC Glucose Random Glucose 157 H D Calcium 9.1 Ammonia Troponin I High Sens B-Natriuretic Peptide Triglycerides Cholesterol LDL Cholesterol, Calc HDL Cholesterol 10/01/20 10/01/20 10/01/20 02:57 05:55 05:55 WBC RBC Hgb Hct MCV MCH MCHC RDW Plt Count MPV Immature Gran % (Auto) Neut % (Auto) Lymph % (Auto) [place] % (Auto) Eos % (Auto) Baso % (Auto) Lymph # (Auto) [place] # (Auto) Eos # (Auto) Baso # (Auto) Abs Immat Gran (auto) Absolute Neuts (auto) Absolute Nucleated RBC Nucleated RBC % (auto) Whole Blood PT Whole Blood INR ABG pH ABG pCO2 ABG pO2 ABG HCO3 ABG O2 Saturation ABG Base Excess Oxygen Given Sodium 137 Potassium 4.6 Chloride 101 Carbon Dioxide 25 Anion Gap 16 BUN 29 H Creatinine 0.99 Estim Creat Clear Calc 91.7 Estimated GFR > 60 POC Glucose Random Glucose 158 H Calcium 8.8 Ammonia 41 Troponin I High Sens 40.6 H B-Natriuretic Peptide 2053 H Triglycerides 97 Cholesterol 92 LDL Cholesterol, Calc 50 HDL Cholesterol 23 10/01/20 10/01/20 10/01/20 05:55 05:56 07:12 WBC 9.8 RBC 4.43 L Hgb 12.9 L Hct 40.1 L MCV 90.5 MCH 29.1 MCHC 32.2 RDW 16.1 H Plt Count 168 MPV 10.5 Immature Gran % (Auto) 0.4 Neut % (Auto) 78.3 H Lymph % (Auto) 10.9 L [place] % (Auto) 9.9 Eos % (Auto) 0.3 Baso % (Auto) 0.2 Lymph # (Auto) 1.1 L [place] # (Auto) 1.0 Eos # (Auto) 0.0 Baso # (Auto) 0.0 Abs Immat Gran (auto) 0.04 H Absolute Neuts (auto) 7.7 Absolute Nucleated RBC 0.000 Nucleated RBC % (auto) 0.0 Whole Blood PT Whole Blood INR ABG pH ABG pCO2 ABG pO2 ABG HCO3 ABG O2 Saturation ABG Base Excess Oxygen Given Sodium Potassium Chloride Carbon Dioxide Anion Gap BUN Creatinine Estim Creat Clear Calc Estimated GFR POC Glucose 161 H Random Glucose Calcium Ammonia Troponin I High Sens B-Natriuretic Peptide Triglycerides Cancelled Cholesterol Cancelled LDL Cholesterol, Calc Cancelled HDL Cholesterol Cancelled Imaging Radiologist's impression: Impressions Head CT 10/01/20 00:48 IMPRESSION: No acute intracranial pathology. 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 Head/Neck CTA 10/01/20 01:34 IMPRESSION: 1. No evidence of acute occlusive disease within the carotid and vertebral basilar arteries as well as the major intracranial arteries. 2. Mild stenoses at the proximal left ICA and right ICA (35 and 20 percent, respectively) due to calcific and fibrotic fatty atheromatous disease. 3. Pulmonary interstitial edema with a moderate size right pleural effusion and mild centrilobular emphysema. Moderate mediastinal adenopathy is again noted. This result was discussed by telephone with Dr. Nolen on 10/01/2020 2:52 AM. Progress Note: A&P Fall Risk Details Current Medications: Current Medications Generic Name Dose Route Start Last Admin Trade Name Freq PRN Reason Stop Dose Admin Atorvastatin Calcium 80 mg 09/30/20 09:00 10/01/20 09:04 Atorvastatin Calcium 80 Mg Tablet PO Not Given DAILY [facility] Furosemide 40 mg 09/30/20 06:30 10/01/20 06:24 Furosemide 40 Mg/4 Ml Vial IVPUSH 40 mg BID@0630,1630 [facility] Administration Protocol Doxycycline Hyclate 100 mg/ 250 mls @ 166.67 mls/hr 09/29/20 23:36 10/01/20 05:08 Sodium Chloride IV Infused BID@1000,2200 [facility] Infusion Insulin Human Lispro 0 unit 09/30/20 07:30 10/01/20 09:04 Insulin Lispro 100 Unit/Ml 3 Ml Vial SUBCUT Not Given QIDACHS [facility] Protocol Pantoprazole Sodium 40 mg 10/01/20 06:30 10/01/20 06:24 Pantoprazole Sodium 40 Mg/10 Ml Vial IVPUSH 40 mg DAILY@0630 [facility] Administration Pharmacy Consult 1 each 09/29/20 15:23 Consult Rx Perform Med Rec MISCELLANE ONCE PRN Consult order Sodium Chloride 3 ml 09/30/20 08:00 10/01/20 05:08 0.9 % Sodium Chloride Flush 3 Ml Syringe IVFLUSH Not Given QSHIFT [facility] Spironolactone 12.5 mg 09/30/20 12:00 10/01/20 09:05 Spironolactone 25 Mg Tablet PO Not Given DAILY [facility] Protocol Time Spent With Patient Time: Total time spent is greater than 50% in coordination of care (as documented) at patient's floor/unit and/or counseling patient:
--- NOTE | 2020-10-01 10:53 | MHC.CLN ---
RE: CONSULT RECOMMEND 2000 CALORIES PER DAY TO PROMOTE SLOW WT LOSS RECOMMEND TRAINING AND DEVELOPMENT MANAGER EVAL FOR APPROPRIATE DIET CONSISTENCY WHEN DIET TO ADVANCE, RECOMMEND 2000DM 2GM NA DIET WITH TRAINING AND DEVELOPMENT MANAGER REC DIET CONSISTENCY SEE ALSO CLINICAL NUTRITION ASSESSMENT
--- NOTE | 2020-10-01 11:07 | MHC.STROKE ---
Addendum entered by Antonella Mendez RN 10/02/20 13:49: I MET WITH THE PATIENT AFTER HIS MRI. I GAVE HIM A SCREENSHOT OF THE ISCHEMIC STROKE AND EXPLAINED WHERE IT WAS AND HOW IT CORRELATED WITH HIS SYMPTOMS. HE UNDERSTANDS THAT HE HAD A STROKE AND THAT HIS OUTCOME COULD BE WORSE. I DID RELAY THE MRI RESULTS TO DR LANDIS. DR JORGE REVIEWED THE MRI AND HE DID PUT IN A NOTE, HE IS RECOMMENDING LIFELONG ANTICOAGULATION. I DID CLARIFY WHEN THIS COULD BE STARTED AND HE SAID NOW . AVOID HYPOTENSION WELL. HE WILL REQUIRE DRUG COUNSELING IT RELATES TO HIS COCAINE USE. THE CARE TEAM HAS BEEN CONSULTED. I WILL CONTINUE TO FOLLOW. Original Note: 10/01/[address] LUGO NOTIFIED BY ED CHANGE IN MENTAL STATUS, RIGHT SIDED WEAKNESS FACE/ARM, APHASIA, AND DYSARTHRIA. SEEN STAT NIHSS = 6, CT HEAD DONE AT 0141, NO BLEED, CTA H/N DONE NO LVO (LARGE VESSEL OCCLUSION). SEE NOTES, CASE DISCUSSED WITH NEUROLOGY DR. LIN, NO EXCLUSION FOR TPA, IV ALTEPLASE BOLUS 88.99MG GIVEN AT 0321 FOLLOWED BY DRIP, [VITALS Q15MIN X 8, THEN Q30MIN X12, THEN Q1HR X 16 THEN Q4HR]. [NEURO'S Q1HR X 24HR], POC BLOOD SUGAR QIDAC. SWALLOW SCREEN DONE, FAILED, SPEECH CONSULT INITIATED. DR JORGE ROUNDED THIS MORNING. RECOMMENDING MRI. RECOMMENDING REHAB PT/OT, STROKE EDUCATION INITIATED BUT NEEDS REINFORCEMENT TOMORROW, SMOKING CESSATION EDUCATION AND DRUG COUNSELING FOR COCAINE USE ALSO INDICATED WHEN APPROPRIATE. SYMPTOMS SLIGHTLY IMPROVED NIHSS = 5. RIGHT ARM DRIFT IMPROVED. BP MANAGEMENT WITH CARDIOLOGY INPUT, SEE DR JORGE'S NOTE. CAN START ASPIRIN 24 HOURS AFTER TPA. LIPID PANEL DONE, COMPRESSION DEVICES IN PLACE FOR VTE. ALL STROKE MEASURES MET.
--- NOTE | 2020-10-01 11:12 | CONS_ITS ---
DATE OF SERVICE: 10/01/2020 INDICATION: Shortness of breath. HISTORY OF PRESENT ILLNESS: Mr. Cabral is a 65-year-old gentleman with a known history of CAD, cardiomyopathy, who apparently was in a usual state of health until for the last 2 weeks where his shortness of breath has got much worse. He is also complaining of a cough productive of white phlegm, moderate in severity. He could not tolerate the symptoms any longer. Therefore, he decided to come into the [facility] ED for further evaluation. Upon arrival, he was found to be hypotensive, found to have an opacity in the right lower lung base, and a moderate-sized pleural effusion with lymphadenopathy. The patient was admitted for heart failure. He was placed on diuresis. Subsequently, the patient was found on the floor next to white powdery substance, which appeared to be concerning for cocaine. It was thought the patient did have acute ischemic stroke, likely from the cocaine use and the patient did receive tPA after no contraindications were documented. He was transferred to the ICU and he is very confused, agitated. The patient is not able to answer any questions. All the information was gathered from his chart. REVIEW OF SYSTEMS: Unable to be obtained due to acute altered mental status changes. PAST MEDICAL HISTORY: CAD, cardiomyopathy, congestive heart failure, cocaine use, diabetes, GERD, hypertension, osteoarthritis, status post ICD placement. PAST SURGICAL HISTORY: Total knee replacement. SOCIAL HISTORY: Drug use. Current smoker. Uses crack and cocaine. MEDICATIONS: He did receive alteplase. The dose is not completed, it was around 3 o'clock in the morning. Currently on doxycycline, had received ceftriaxone. Currently he is on Lasix, insulin, Lipitor, aldactone, Protonix, among others. ALLERGIES: NO KNOWN DRUG ALLERGIES. PHYSICAL EXAMINATION: VITAL SIGNS: Hemodynamically stable, though little hypotensive at 98/59; saturating 100% on room air. GENERAL: Appears to be restless, somewhat combative, not following any commands, not answering any simple questions. HEENT: Pupils equal and reactive to light. Oropharynx is clear, what I could see. LUNGS: Diminished, right more than left, although difficult to examine him because he is not following commands. CARDIAC: Regular rhythm. Regular rate. ABDOMEN: Positive bowel sounds. Soft. EXTREMITIES: No clubbing or cyanosis. Again, he is moving all extremities, but he seems restless. LABORATORY DATA: His white count improved from 11.5 to 9.8, hemoglobin 12.9, and platelet count stable. Does have some immature granulocytes and does have a left shift. Last blood gas from October 01 demonstrating a pH 7.45, pCO2 of 49, PaO2 of 88. Chemistries; normal kidney function. Toxicology, positive for cocaine. He has been positive for cocaine multiple times. Serology negative for SARs. IMAGING STUDIES: I personally reviewed the CAT scan images myself, appears to have a moderate-sized pleural effusion, small area of patchy consolidation in the right base suggesting the possibility of parapneumonic process, aspiration is suspicious, especially with his drug use, lymphadenopathy noted in the mediastinum and hilum, although it was difficult because of his movement, motion artifact noted, and has some nodular densities also in the right base. ASSESSMENT: Mr. Cabral is a 65-year-old gentleman, appears to have a substance abuse issue, presenting with shortness of breath, found to have right-sided lower lobe patchy pneumonia and pleural effusion along with mediastinal lymphadenopathy whose course complicated by, what appears to be, an acute cerebrovascular accident in the settings of further drug use. IMPRESSION: 1. Right lower lobe effusion, likely parapneumonic in nature, although he does have a history of heart failure that is asymmetric, but with the patchy consolidation and mediastinal lymphadenopathy, it is reasonable to consider infectious etiology until proven otherwise. The patient's white count did improve on the ceftriaxone and doxycycline. In addition to that, malignancy is in the differential as he is a smoker and high risk. He does have some nodular density components in that area as well. So therefore malignant pleural effusion is also in differential. 2. Pneumonia. 3. Lymphadenopathy. Again, infectious etiology most likely, although malignancy is also in differential. Hypersensitivity pneumonitis can also result in lymphadenopathy especially if he is inhaling crack which may have other ingredients that may cause a hypersensitivity pneumonitis otherwise known as crack lung. Does not appear to be consistent with crack lung at this time. RECOMMENDATIONS: 1. As he has just received tPA, no interventions warranted. 2. Continue with broad-spectrum antibiotics, ceftriaxone and doxycycline. Appeared to be effective, those should be continued. 3. Serial x-rays once he is able. If the effusion is still there, thoracentesis may be warranted to assess for the etiology of the effusion if it is transudative versus exudative and if it is neutrophilic versus lymphocytic. 4. He should follow up with Pulmonary as an outpatient. We could perform, depending on the results of progress of the fluid. Followup for the lymphadenopathy is warranted in case we need to consider sampling the lymph nodes at that time. Further recommendation based on forthcoming data. Yeison Ku MD MR/NESS / [id number]
[2020-10-01 11:23] LABS: Glucose, Whole Blood 128 mg/dL (60-115)
[2020-10-01] MEDS: 0.9 % Sodium Chloride Flush 3 ML SYRINGE IVFLUSH ×3 (11:38→23:27)
[2020-10-01] MEDS: Doxycycline Hyclate 100 MG in 0.9 % Sodium Chloride 250 ML 166.67 MG IV (11:38)
--- NOTE | 2020-10-01 12:11 | MHC.CM.PN ---
Pt in ICU. Aphasic. BRINK. Unsure of comprehension. No HCP. Spoke with pt mother, Arielle Lainez([phone]), only contact listed. Arielle is concerned about pt going home after stroke alone. Re-assured mother that pt will more than likely need rehab. Mother requested referral be made to [facility]. Mother aware that pt will have PT/OT/Speech evaluations during hospital stay. Mother unsure of pt PCP. Call into Briana Geronimo at [facility]. Message left. ? PCP and any HCP on file. IMM completed with mother and copy left at bedside per pt mother. [place] text to [facility] specialist regarding pt Cocaine mis-use. [facility] will follow. Referral to [facility] to follow. Will follow for d/c needs
--- NOTE | 2020-10-01 13:19 | MHC.CM.PN ---
[facility] unable to follow secondary to acute drug mis-use. Referrals placed to local acute rehab. Will continue to follow
--- NOTE | 2020-10-01 14:34 | MHC.CM.PN ---
PCP is Dr. Jensen Stanton. [facility] will follow
--- NOTE | 2020-10-01 14:37 | PM.CCPN ---
Subjective Subjective Date of Service: 10/01/20 Interval History: 65-year-old known cocaine abuser known to have an underlying cardiomyopathy presumably ischemic with very poor ejection fraction presented with increasing dyspnea and while in the emergency room was seen to go through his belongings and we subsequently found a white powder which apparently is what he took and he was positive toxicologic [place] for cocaine and he was found subsequently on the floor none and because they felt that there was some focality to his neurologic exam including some aphasia and negative CT scan and they elected to give him tPA even though it was likely he had the symptoms within an hour or 2 of snorting the cocaine product Currently more awake beginning to voice words singly but not in whole sentences and he remains lethargic but he is awake and voicing hunger eating because he passed a swallow exam and moving all 4 extremities pretty much equally No alcohol related issues and there was no alcohol level of significance Physical Exam Vital Signs: Vital Signs: Last Vital Signs Temp 97.6 F 10/01/20 11:44 Pulse 54 10/01/20 14:00 Resp 16 10/01/20 14:00 BP 104/72 10/01/20 14:00 Pulse Ox 96 10/01/20 14:00 Body Mass Index 37.4 Const: Other: Awake and arousable with some compromise in in cognitive function although able to follow commands voicing hunger not yet speaking in sentences and no apparent other focal neurologic issue Rhythm remains normal sinus rhythm but he has got a wide QRS exceeding 150 milliseconds and and a somewhat prolonged QT interval and that is persisting since admission Positive neck vein distension with diminished bilateral carotid upstrokes due to diminish stroke work reserve Chest with no adventitious sounds but chest x-ray with right pleural effusion and atelectasis I doubt infiltrate No significant white count or left shift and no fever Abdomen benign no organomegaly and he has good bowel sounds Skin is intact Objective Data Labs CBC & Chem 7: 10/01/20 05:55 10/01/20 05:55 Labs: Laboratory Results - last 24 hr 09/30/20 09/30/20 10/01/20 16:11 21:56 00:55 WBC RBC Hgb Hct MCV MCH MCHC RDW Plt Count MPV Immature Gran % (Auto) Neut % (Auto) Lymph % (Auto) [place] % (Auto) Eos % (Auto) Baso % (Auto) Lymph # (Auto) [place] # (Auto) Eos # (Auto) Baso # (Auto) Abs Immat Gran (auto) Absolute Neuts (auto) Absolute Nucleated RBC Nucleated RBC % (auto) Whole Blood PT Whole Blood INR ABG pH ABG pCO2 ABG pO2 ABG HCO3 ABG O2 Saturation ABG Base Excess Oxygen Given Sodium Potassium Chloride Carbon Dioxide Anion Gap BUN Creatinine Estim Creat Clear Calc Estimated GFR POC Glucose 150 H 166 H Random Glucose Calcium Ammonia Troponin I High Sens B-Natriuretic Peptide 2597 H Triglycerides Cholesterol LDL Cholesterol, Calc HDL Cholesterol 10/01/20 10/01/20 10/01/20 00:57 01:28 01:48 WBC RBC Hgb Hct MCV MCH MCHC RDW Plt Count MPV Immature Gran % (Auto) Neut % (Auto) Lymph % (Auto) [place] % (Auto) Eos % (Auto) Baso % (Auto) Lymph # (Auto) [place] # (Auto) Eos # (Auto) Baso # (Auto) Abs Immat Gran (auto) Absolute Neuts (auto) Absolute Nucleated RBC Nucleated RBC % (auto) Whole Blood PT 16.2 H Whole Blood INR 1.3 H ABG pH 7.45 ABG pCO2 49 H ABG pO2 88 ABG HCO3 35 H ABG O2 Saturation 97.0 ABG Base Excess 9.4 Oxygen Given 3 L Sodium Potassium Chloride Carbon Dioxide Anion Gap BUN Creatinine Estim Creat Clear Calc Estimated GFR POC Glucose 136 H Random Glucose Calcium Ammonia Troponin I High Sens B-Natriuretic Peptide Triglycerides Cholesterol LDL Cholesterol, Calc HDL Cholesterol 10/01/20 10/01/20 10/01/20 02:57 02:57 02:57 WBC 11.5 H RBC 4.50 L Hgb 13.0 L Hct 40.7 L MCV 90.4 MCH 28.9 MCHC 31.9 RDW 16.2 H Plt Count 175 MPV 10.6 Immature Gran % (Auto) 0.3 Neut % (Auto) 83.7 H Lymph % (Auto) 7.6 L [place] % (Auto) 7.8 Eos % (Auto) 0.3 Baso % (Auto) 0.3 Lymph # (Auto) 0.9 L [place] # (Auto) 0.9 Eos # (Auto) 0.0 Baso # (Auto) 0.0 Abs Immat Gran (auto) 0.04 H Absolute Neuts (auto) 9.6 H Absolute Nucleated RBC 0.000 Nucleated RBC % (auto) 0.0 Whole Blood PT Whole Blood INR ABG pH ABG pCO2 ABG pO2 ABG HCO3 ABG O2 Saturation ABG Base Excess Oxygen Given Sodium 138 Potassium 4.4 Chloride 99 Carbon Dioxide 29 Anion Gap 14 BUN 31 H Creatinine 1.08 Estim Creat Clear Calc 83.3 Estimated GFR > 60 POC Glucose Random Glucose 157 H D Calcium 9.1 Ammonia 41 Troponin I High Sens B-Natriuretic Peptide Triglycerides Cholesterol LDL Cholesterol, Calc HDL Cholesterol 10/01/20 10/01/20 10/01/20 05:55 05:55 05:55 WBC 9.8 RBC 4.43 L Hgb 12.9 L Hct 40.1 L MCV 90.5 MCH 29.1 MCHC 32.2 RDW 16.1 H Plt Count 168 MPV 10.5 Immature Gran % (Auto) 0.4 Neut % (Auto) 78.3 H Lymph % (Auto) 10.9 L [place] % (Auto) 9.9 Eos % (Auto) 0.3 Baso % (Auto) 0.2 Lymph # (Auto) 1.1 L [place] # (Auto) 1.0 Eos # (Auto) 0.0 Baso # (Auto) 0.0 Abs Immat Gran (auto) 0.04 H Absolute Neuts (auto) 7.7 Absolute Nucleated RBC 0.000 Nucleated RBC % (auto) 0.0 Whole Blood PT Whole Blood INR ABG pH ABG pCO2 ABG pO2 ABG HCO3 ABG O2 Saturation ABG Base Excess Oxygen Given Sodium 137 Potassium 4.6 Chloride 101 Carbon Dioxide 25 Anion Gap 16 BUN 29 H Creatinine 0.99 Estim Creat Clear Calc 91.7 Estimated GFR > 60 POC Glucose Random Glucose 158 H Calcium 8.8 Ammonia Troponin I High Sens 40.6 H B-Natriuretic Peptide 2053 H Triglycerides 97 Cholesterol 92 LDL Cholesterol, Calc 50 HDL Cholesterol 23 10/01/20 10/01/20 10/01/20 05:56 07:12 11:12 WBC RBC Hgb Hct MCV MCH MCHC RDW Plt Count MPV Immature Gran % (Auto) Neut % (Auto) Lymph % (Auto) [place] % (Auto) Eos % (Auto) Baso % (Auto) Lymph # (Auto) [place] # (Auto) Eos # (Auto) Baso # (Auto) Abs Immat Gran (auto) Absolute Neuts (auto) Absolute Nucleated RBC Nucleated RBC % (auto) Whole Blood PT Whole Blood INR ABG pH ABG pCO2 ABG pO2 ABG HCO3 ABG O2 Saturation ABG Base Excess Oxygen Given Sodium Potassium Chloride Carbon Dioxide Anion Gap BUN Creatinine Estim Creat Clear Calc Estimated GFR POC Glucose 161 H 128 H Random Glucose Calcium Ammonia Troponin I High Sens B-Natriuretic Peptide Triglycerides Cancelled Cholesterol Cancelled LDL Cholesterol, Calc Cancelled HDL Cholesterol Cancelled Microbiology Microbiology Results: Microbiology 09/29/20 16:16 Blood - Venous Blood Culture - Preliminary No growth after 24 hours. 09/29/20 16:02 Blood - Venous Blood Culture - Preliminary No growth after 24 hours. Progress Note: A&P Assessment and plan (1) Acute on chronic systolic (congestive) heart failure: Status: Acute (2) Acute ischemic stroke: Status: Acute (3) Aphasia: Status: Acute (4) Pleural effusion on right: Status: Acute (5) GERD (gastroesophageal reflux disease): Status: Acute (6) Hypertension: Status: Acute (7) Cardiomyopathy: Status: Acute (8) Cocaine use: Status: Acute (9) Cocaine intoxication delirium: Status: Acute Assessment and Plan: At this point it was elected before I started to give him tPA and there was no complication thus far and we are exceeding 12 hours at this point and no apparent sign of neurologic dysfunction other than some mild cognitive difficulties and certainly does not display any significant executive function and this may all be related to the cocaine but MRI is pending which may help to define whether not there might have been an embolic component to this Time Spent With Patient Time: Total time spent is greater than 50% in coordination of care (as documented) at patient's floor/unit and/or counseling patient: Total time spent with greater than 50% in coordination of care (as documented) at patient's floor/unit and/or counseling patient:: 35
[2020-10-01 16:59] LABS: Glucose, Whole Blood 111 mg/dL (60-115)
--- NOTE | 2020-10-01 19:27 | PC.NURSE ---
shift update; pt drowsy, disoriented and confused most of shift; pt aphasic with delayed one word speech, garbled; pt unable to verbalize name, place, situation and time; pt with agnosia; neurologist at bedside with public relations coordinator saeed tracey; cnc grinder dr espinoza also at bedside this am; lung sounds clear and diminished; sr on monitor with multifocal pvcs, couplets, bbb, 1st degree av block- bedside ef evaluated by dr momin; bid lasix d/c'ed now daily; pt more conversive and less aphasic this afternoon; oob to chair, more coordinated; still remains aphasic however pt bilat equal strength, perrla, symmetrical face all shift; vss; speech and swallow eval this am to puree and thin liquid- tolerating well; mother trev updated; report given to oncoming nate guevara
[2020-10-01 21:18] LABS: Glucose, Whole Blood 108 mg/dL (60-115)
[2020-10-02] VITALS (18 sets, daily range): BP systolic 92–121; BP diastolic 52–79; PULSE 60–78; RESP 12–24; TEMP 36.3–36.9; O2SAT 92–99
--- NOTE | 2020-10-02 | MR_ITS ---
MRI OF THE BRAIN WITHOUT IV CONTRAST INDICATION: Follow-up after tPA for stroke COMPARISON: CT head 10/01/2020. TECHNIQUE: Multiplanar multisequence MR imaging of the brain was obtained without IV contrast. FINDINGS: There is an acute infarct involving the anterior left insular ribbon and left operculum in the left MCA territory. Moderate chronic microangiopathy and a chronic infarct in the left occipital lobe. No significant mass effect and no hemorrhagic transformation. There is no hydrocephalus, extra-axial surface collection, or herniation. The major flow voids at the skull base are preserved. There is no intracranial hemorrhage on the gradient recalled echo acquisition. The midline structures are normal. The cerebellar tonsils are normally positioned. The cerebellum and brainstem are normal. The craniocervical junction is normal. Osseous marrow signal intensity is homogenous. The visualized soft tissues are unremarkable. MR/MR head/brain wo con IMPRESSION: - There is an acute infarct involving the anterior left insular ribbon and left operculum in the left MCA territory. No significant mass effect and no hemorrhagic transformation. 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
--- NOTE | 2020-10-02 00:09 | CA_ITS ---
Transthoracic Echocardiogram Patient (Last, First, Middle): Cristian Cabral, Gender: Male Date of : 1955 Age: 65 Procedure Date: 10/02/2020 Procedure Type: Transthoracic Echocardiogram Location: ICU Height: 175.26 cm Weight: 114.76 kg BSA: 2.28 m2 Heart Rate: bpm BP: 106 / 58 mmHg [employer] Estimator: Referring MD: Ace Valadez MD Symptoms: CHF Study Quality: Fair ECG Rhythm: Sinus Conclusions: - The left ventricular systolic function is severely decreased. The visually estimated ejection fraction is between 10-15%. - No evidence of left ventricular thrombus. - There is mild mitral valve regurgitation. Findings Procedure Information Contrast agent, definity, is being given per protocol without apparent complications. Left Ventricle Moderately increased left ventricular cavity size. There is normal left ventricular wall thickness. The left ventricular systolic function is severely decreased. The visually estimated ejection fraction is between 10 15%. The calculated ejection fraction is 13% by biplane method. There is severe global hypokinesis. E/E prime ratio is >15, consistent with elevated filling pressures. Evidence suggests grade II (moderate) diastolic dysfunction. No evidence of left ventricular thrombus. Right Ventricle Mildly increased right ventricular cavity size. There is mildly decreased right ventricular systolic function. Atria The left atrium is moderately dilated. The right atrium is normal in size. Aortic Valve There is a normal trileaflet aortic valve. There is no aortic valve stenosis. There is no aortic valve regurgitation. Mitral Valve The mitral valve appears normal. There is mild mitral valve regurgitation. There is no mitral valve stenosis. Pulmonic Valve The pulmonic valve was not well visualized. Tricuspid Valve Normal tricuspid valve structure. There is trace tricuspid valve regurgitation. The pulmonary artery systolic pressure is normal. Great Vessels The aortic annulus, sinuses of valsalva, and asc aorta are normal in size. Venous The inferior vena cava is normal in size and collapses less than 50% with inspiration. Pericardium/Pleural There is no evidence of pericardial effusion. Prior Study Comparison No significant change compared to prior study dated: 10/21/2019. Measurements 2D Linear Measurements IVSd: 1.08 0.6-0.9/0.6-1.0 cm LVIDd: 6.23 3.9-5.3/4.2-5.9 cm LVIDd Index: 2.73 2.4-3.2/2.2-3.1 cm/m2 LVIDs: 5.29 2.0-3.6 cm LVPWd: 0.91 0.7-1.1 cm Ao Root: 3.30 2.1-3.5 cm LA Diam: 4.80 2.7-3.8/3.0-4.0 cm LAIDs Index: 2.11 1.5-2.3 cm/m2 LV Mass: 326.57 67-162/88-224 g LV Mass Index: 143.23 43-95/49-115 g/m2 LVOT Diam: 2.40 3.0+(-)1.3 cm 2D Systolic Function EF 4C: 10.80 >55% EF 2C: 13.70 >55% EF BiP: 13.00 >55% Mitral Valve MV Pk E: 0.82 MV PK A: 0.32 MV Decel Time: 165.00 E/A: 2.50 E'Lateral: 4.84 E'Medial: 3.67 E/E' Med: 22.20 E/E' Lat: 16.80 PHT: 48.00 MVA PHT: 4.58 Decel [place]: 4.92 Aortic Valve AoV Pk Keshawn: 1.19 AoV Mn [place]: 0.85 AoV VTI: 0.26 AoV Pk Grad: 6.00 Aov Mn Grad: 3.00 LIAN Cont.VTI: 2.56 LVOT LVOT Pk [place]: 0.89 LVOT Mn [place]: 0.62 LVOT VTI: 0.15 LVOT Pk Grad: 3.00 LVOT Mn Grad: 2.00 LVOT Diam: 2.40 LVOT Area: 4.52 Diastolic Function MV Pk E: 0.82 MV Pk A: 0.32 E/A: 2.50 E'Medial: 3.67 E/E' Med: 22.20 E' Laterial: 4.84 E/E' Lat: 16.80 Tricuspid Valve TR Pk [place]: 1.84 TR Pk Grad: 14.00 Great Vessels Aorta Ao Root-2D: 3.30 2.0-3.7 cm Updated in Other Vendor System with Status of Final Flavoi Hawthorne MD electronically signed on 10/02/2020 12:01:30 PM with status of Final
[2020-10-02 06:11] LABS: INTERNATIONAL NORM RATIO 1.5 (0.9-1.1); Prothrombin Time 17.3 SEC (10.8-13.0)
[2020-10-02 06:12] LABS: MANUAL DIFF FLAG NO
[2020-10-02 06:14] LABS: Partial Thromboplastin Time 29.2 SEC (24.1-38.0)
[2020-10-02 06:19] LABS: Anion Gap 13 (12-20); Blood Urea Nitrogen 17 mg/dL (9-16); Calcium 8.8 mg/dL (8.4-10.2); Carbon Dioxide 29 mmol/L (22-29); Chloride 101 mmol/L (96-108); Creatinine Clr Calc Pharmacy 99.8; Estimated Glomerular Filt Rate > 60; Glucose Random 118 mg/dL (60-115); Magnesium 1.9 mg/dL (1.6-2.6); Phosphorus 3.3 mg/dL (2.7-4.5); Potassium 4.1 mmol/l (3.3-5.1); Sodium 139 mmol/L (135-145)
[2020-10-02 06:20] LABS: B Type Natriuretic Peptide 2264 pg/mL (<100)
[2020-10-02] MEDS: Pantoprazole Sodium 40 MG/10 ML VIAL IVPUSH (06:20)
[2020-10-02 06:21] LABS: Basophils Percent Auto 0.2 % (0-2); Eosinophils Absolute Auto 0.1 X10*3/uL (0.0-0.4); Eosinophils Percent Auto 0.7 % (0-4); Hemoglobin 13.4 g/dl (14.0-18.0); Imm Gran Abs Auto 0.03 X10*3/uL (0.00-0.03); Imm Gran Pct Auto 0.4 % (0.0-0.4); Lymphocytes Absolute Auto 1.3 X10*3/uL (1.2-4.9); Mean Corpuscular HGB Conc 31.9 g/dl (31.0-36.0); Mean Corpuscular Hemoglobin 28.5 pg (27.0-33.0); Mean Corpuscular Volume 89.2 fL (80-98); Mean Platelet Volume 10.2 fL (9.4-12.4); Monocytes Percent Auto 11.7 % (2-11); Neutrophils Absolute Auto 6.1 X10*3/uL (2.0-8.3); Platelet Count 176 X10*3/uL (160-400); Red Blood Count 4.71 X10*6/uL (4.60-5.80); White Blood Count 8.4 X10*3/uL (4.8-10.8)
[2020-10-02] MEDS: 0.9 % Sodium Chloride Flush 3 ML SYRINGE IVFLUSH ×3 (07:29→22:53)
[2020-10-02] MEDS: Spironolactone 25 MG TABLET 12.5 MG PO (07:46)
[2020-10-02] MEDS: Furosemide 40 MG/4 ML VIAL IVPUSH (07:47)
[2020-10-02] MEDS: Atorvastatin Calcium 80 MG TABLET PO (07:47)
[2020-10-02 07:52] LABS: Glucose, Whole Blood 116 mg/dL (60-115)
--- NOTE | 2020-10-02 10:59 | PM.PNCARD ---
Subjective Subjective Date of Service: 10/02/20 Interval history: He states that he is feeling okay. No specific cardiac complaints like angina or shortness of breath. Review of Systems Review of Systems Yes all other systems are reviewed and are negative Cardiovascular: Reports as per HPI, Reports no additional cardiovascular complaints, Denies acrocyanosis, Denies cool extremities, Denies painful fingertips, Denies chest pain, Denies chest pain at rest, Denies diaphoresis, Denies syncope, Denies irregular heart rhythm, Denies claudication, Denies leg edema, Denies lightheadedness, Denies palpitations and Denies dyspnea Respiratory: Denies dyspnea Reports system reviewed and no additional complaints, except as documented and Denies syncope Endocrine: Denies palpitations Physical Exam Vital Signs: Last Vital Signs Temp 97.7 F 10/02/20 07:50 Pulse 62 10/02/20 10:00 Resp 18 10/02/20 10:00 BP 97/69 10/02/20 10:00 Pulse Ox 96 10/02/20 10:00 Body Mass Index 37.4 Const General: comfortable, no acute distress and lethargic Orientation/consciousness: lethargic Neck Neck: Yes normal visual inspection Chest Chest palpation & inspection: normal inspection of the chest Resp Auscultation: clear to auscultation bilaterally, no crackles and no wheezes Cardio Jugular venous distension: no JVD Palpation: normal PMI Heart sounds: S1 normal heart sound present, S2 normal heart sound present, no gallops, no murmurs and no rubs GI Palpation (GI): Soft to palpation Skin General skin exam: no rashes or lesions noted Extrem General: Yes no clubbing, cyanosis or edema Psych Mental Status: mental status grossly normal Results Labs and Meds Result diagrams: 10/02/20 05:20 10/02/20 05:20 Lab results: Laboratory Results - last 24 hr 10/01/20 10/01/20 10/01/20 11:12 16:55 21:15 WBC RBC Hgb Hct MCV MCH MCHC RDW Plt Count MPV Immature Gran % (Auto) Neut % (Auto) Lymph % (Auto) [place] % (Auto) Eos % (Auto) Baso % (Auto) Lymph # (Auto) [place] # (Auto) Eos # (Auto) Baso # (Auto) Abs Immat Gran (auto) Absolute Neuts (auto) Absolute Nucleated RBC Nucleated RBC % (auto) PT INR APTT Sodium Potassium Chloride Carbon Dioxide Anion Gap BUN Creatinine Estim Creat Clear Calc Estimated GFR POC Glucose 128 H 111 108 Random Glucose Calcium Phosphorus Magnesium B-Natriuretic Peptide 10/02/20 10/02/20 10/02/20 05:20 05:20 05:20 WBC 8.4 RBC 4.71 Hgb 13.4 L Hct 42.0 MCV 89.2 MCH 28.5 MCHC 31.9 RDW 16.0 Plt Count 176 MPV 10.2 Immature Gran % (Auto) 0.4 Neut % (Auto) 72.0 Lymph % (Auto) 15.0 L [place] % (Auto) 11.7 H Eos % (Auto) 0.7 Baso % (Auto) 0.2 Lymph # (Auto) 1.3 [place] # (Auto) 1.0 Eos # (Auto) 0.1 Baso # (Auto) 0.0 Abs Immat Gran (auto) 0.03 Absolute Neuts (auto) 6.1 Absolute Nucleated RBC 0.000 Nucleated RBC % (auto) 0.0 PT 17.3 H INR 1.5 H APTT 29.2 Sodium 139 Potassium 4.1 Chloride 101 Carbon Dioxide 29 Anion Gap 13 BUN 17 H Creatinine 0.91 Estim Creat Clear Calc 99.8 Estimated GFR > 60 POC Glucose Random Glucose 118 H Calcium 8.8 Phosphorus 3.3 Magnesium 1.9 B-Natriuretic Peptide 10/02/20 10/02/20 05:20 07:24 WBC RBC Hgb Hct MCV MCH MCHC RDW Plt Count MPV Immature Gran % (Auto) Neut % (Auto) Lymph % (Auto) [place] % (Auto) Eos % (Auto) Baso % (Auto) Lymph # (Auto) [place] # (Auto) Eos # (Auto) Baso # (Auto) Abs Immat Gran (auto) Absolute Neuts (auto) Absolute Nucleated RBC Nucleated RBC % (auto) PT INR APTT Sodium Potassium Chloride Carbon Dioxide Anion Gap BUN Creatinine Estim Creat Clear Calc Estimated GFR POC Glucose 116 H Random Glucose Calcium Phosphorus Magnesium B-Natriuretic Peptide 2264 H Progress Note: A&P Assessment and plan (1) Acute on chronic systolic (congestive) heart failure: Status: Acute (2) Cardiomyopathy: Status: Acute (3) Cocaine use: Status: Acute (4) Acute ischemic stroke: Status: Acute Assessment and Plan: Originally admitted for heart failure but now complicated by acute stroke and now status post tPA. Echocardiogram today for cardiac function assessment. With acute stroke, we will need to adjust his medications appropriately and avoid any marked hypotension. Will follow up with you. Fall Risk Details Current Medications: Current Medications Generic Name Dose Route Start Last Admin Trade Name Freq PRN Reason Stop Dose Admin Aspirin 81 mg 10/02/20 10:00 Aspirin 81 Mg Tab.Chew PO DAILY [facility] Atorvastatin Calcium 80 mg 09/30/20 09:00 10/02/20 07:47 Atorvastatin Calcium 80 Mg Tablet PO 80 mg DAILY [facility] Administration Furosemide 40 mg 10/02/20 09:00 10/02/20 07:47 Furosemide 40 Mg/4 Ml Vial IVPUSH 40 mg DAILY [facility] Administration Protocol Insulin Human Lispro 0 unit 09/30/20 07:30 10/02/20 07:30 Insulin Lispro 100 Unit/Ml 3 Ml Vial SUBCUT Not Given QIDACHS [facility] Protocol Pantoprazole Sodium 40 mg 10/01/20 06:30 10/02/20 06:20 Pantoprazole Sodium 40 Mg/10 Ml Vial IVPUSH 40 mg DAILY@0630 [facility] Administration Pharmacy Consult 1 each 09/29/20 15:23 Consult Rx Perform Med Rec MISCELLANE ONCE PRN Consult order Sodium Chloride 3 ml 09/30/20 08:00 10/02/20 07:29 0.9 % Sodium Chloride Flush 3 Ml Syringe IVFLUSH 3 ml QSHIFT [facility] Administration Spironolactone 12.5 mg 09/30/20 12:00 10/02/20 07:46 Spironolactone 25 Mg Tablet PO 12.5 mg DAILY [facility] Administration Protocol Time Spent With Patient Time: Total time spent is greater than 50% in coordination of care (as documented) at patient's floor/unit and/or counseling patient: Time with patient: less than 15 minutes
[2020-10-02] MEDS: Aspirin 81 MG TAB.CHEW PO (11:25)
[2020-10-02] MEDS: Insulin Lispro 100 UNIT/ML 3 ML VIAL SUBCUT ×2 (11:25→20:19)
[2020-10-02 11:29] LABS: Glucose, Whole Blood 178 mg/dL (60-115)
--- NOTE | 2020-10-02 12:51 | PM.NEUROCN ---
History of Present Illness Data of Consult Service Date: 10/02/20 Primary Care Provider: Unknown Physician 65 years old man who came to hospital with shortness of breath and had a positive test for cocaine. While in emergency room he had sudden change in neurological status with right hemiparesis and aphasia and was treated with intravenous tPA. I examined him yesterday and this morning. Yesterday he had moderate aphasia and this morning it was much better. He was able to name repeat and tell me his name, which she could not do yesterday. Spontaneity and fluency of speech was still little bit less than normal. Comprehension was intact. Review of Systems Cardiovascular: Cardiovascular: Denies syncope Neurologic: Reports system reviewed and no additional complaints, except as documented and Denies syncope PMFSH Past Medical History Medical History (Updated 10/02/20 @ 12:54 by Mike Gerber MD) CAD (coronary artery disease) Cardiomyopathy CHF (congestive heart failure) Cocaine use CVA (cerebral vascular accident) Diabetes GERD (gastroesophageal reflux disease) Hypertension Osteoarthritis Surgical History Surgical History Total knee replacement status Social History Social History (Updated 09/29/20 @ 23:53 by Ace Valadez MD) Household Members: Unknown / Unable to assess Alcohol intake: never Smoking Status: Current every day smoker Substance Use Type: Crack/Cocaine service: No Current occupational status: unemployed Meds Allergies Allergy/AdvReac Type Severity Reaction Status Date / Time No Known Allergies Allergy Verified 07/29/20 15:11 [No Known Allergies*] Home Medications Medication Instructions Recorded Confirmed Type docusate sodium 100 mg PO TID PRN 09/29/20 10/01/20 History metformin 500 mg PO DAILY 09/29/20 09/29/20 History nitroglycerin See Rx Instructions .ROUTE .COMPLEX 09/29/20 10/01/20 History omeprazole 1 cap PO DAILY 09/29/20 09/29/20 History oxybutynin chloride 5 mg PO TID 09/29/20 10/01/20 History acetaminophen [Arthritis Pain 650 mg PO TID PRN 10/01/20 10/01/20 History Relief (acetam)] aspirin 81 mg PO DAILY 10/01/20 10/01/20 History atorvastatin 80 mg PO DAILY 10/01/20 10/01/20 History carvedilol 3.125 mg PO BID 10/01/20 10/01/20 History cholecalciferol (vitamin D3) 50 mcg PO DAILY 10/01/20 10/01/20 History [Vitamin D3] polyethylene glycol 3350 17 g PO DAILY PRN 10/01/20 10/01/20 History Physical Exam Vital Signs: Vital Signs: Last Vital Signs Temp 97.7 F 10/02/20 07:50 Pulse 63 10/02/20 11:50 Resp 24 H 10/02/20 11:50 BP 93/67 10/02/20 11:50 Pulse Ox 99 10/02/20 11:50 Body Mass Index 37.4 Results Labs CBC & Chem 7: 10/02/20 05:20 10/02/20 05:20 Labs: Short CBC 10/02/20 Range/Units 05:20 WBC 8.4 (4.8-10.8) X10*3/uL Hgb 13.4 L (14.0-18.0) g/dl Hct 42.0 (42-52) % Plt Count 176 (160-400) X10*3/uL BMP 10/02/20 05:20 Sodium 139 Potassium 4.1 Chloride 101 Carbon Dioxide 29 BUN 17 H Creatinine 0.91 Calcium 8.8 his echocardiogram revealed cardiomyopathy with ejection fraction of 10-15%. MRI of brain revealed a moderate size area of restricted diffusion in the left sylvian fissure and insular cortex cortex otherwise [id number] chronic microvascular ischemic changes were noted. Previously CTA has not revealed any large vessel disease. Microbiology Microbiology Results: Microbiology 09/29/20 16:16 Blood - Venous Blood Culture - Preliminary No growth after 48 hours. 09/29/20 16:02 Blood - Venous Blood Culture - Preliminary No growth after 48 hours. Assessment and Plan (1) Cerebral infarction: Status: Acute 65 years old man with moderate size left frontal embolic looking ischemic infarction appropriately treated with intravenous tPA with significant improvement. Hemiparesis was resolved and language was significantly improved. Likely cause of this lesion was cardiac source of embolism as he has significant cardiomyopathy. I do not think this lesion is directly related to cocaine though cocaine use was a particularly bad idea with this amount of cardiomyopathy. Mainstay of management is to avoid any further worsening and further strokes. I would recommend lifelong anticoagulation and also avoidance of hypotension as hypoperfusion can make this kind of lesion worse.
--- NOTE | 2020-10-02 12:55 | P.PNCC_ITS ---
Subjective Subjective Date of Service: 10/02/20 Interval History: 65-year-old who was a cocaine addict presented with cocaine intoxication but CHF diuresed several L while boarding in the emergency room and he is known to have a probable ischemic cardiomyopathy with ejection fraction of 20% but while in the emergency room apparently found on the floor they felt he had some focal right-sided weakness and aphasia and he was given tPA after negative CT scan Aspirin was started last night after 24 hours and the MRI today shows a left temporal infarct which she easily could explain all symptoms including involvement of Broca's area And echo shows severe diffuse hypokinesis of the left ventricle Physical Exam Vital Signs: Vital Signs: Last Vital Signs Temp 97.7 F 10/02/20 07:50 Pulse 63 10/02/20 11:50 Resp 24 H 10/02/20 11:50 BP 93/67 10/02/20 11:50 Pulse Ox 99 10/02/20 11:50 Body Mass Index 37.4 Const: Other: Gradual improvement in overall cognitive ability as well as resolution of his dysphasia Normal sinus rhythm with diminished bilateral carotid upstrokes due to poor stroke work reserve and no neck vein distension no peripheral edema no gallop Chest without adventitious sounds bilaterally Skin intact Abdomen benign with good bowel sounds nondistended no organomegaly Objective Data Labs CBC & Chem 7: 10/02/20 05:20 10/02/20 05:20 Labs: Laboratory Results - last 24 hr 10/01/20 10/01/20 10/02/20 16:55 21:15 05:20 WBC 8.4 RBC 4.71 Hgb 13.4 L Hct 42.0 MCV 89.2 MCH 28.5 MCHC 31.9 RDW 16.0 Plt Count 176 MPV 10.2 Immature Gran % (Auto) 0.4 Neut % (Auto) 72.0 Lymph % (Auto) 15.0 L [place] % (Auto) 11.7 H Eos % (Auto) 0.7 Baso % (Auto) 0.2 Lymph # (Auto) 1.3 [place] # (Auto) 1.0 Eos # (Auto) 0.1 Baso # (Auto) 0.0 Abs Immat Gran (auto) 0.03 Absolute Neuts (auto) 6.1 Absolute Nucleated RBC 0.000 Nucleated RBC % (auto) 0.0 PT INR APTT Sodium Potassium Chloride Carbon Dioxide Anion Gap BUN Creatinine Estim Creat Clear Calc Estimated GFR POC Glucose 111 108 Random Glucose Calcium Phosphorus Magnesium B-Natriuretic Peptide 10/02/20 10/02/20 10/02/20 05:20 05:20 05:20 WBC RBC Hgb Hct MCV MCH MCHC RDW Plt Count MPV Immature Gran % (Auto) Neut % (Auto) Lymph % (Auto) [place] % (Auto) Eos % (Auto) Baso % (Auto) Lymph # (Auto) [place] # (Auto) Eos # (Auto) Baso # (Auto) Abs Immat Gran (auto) Absolute Neuts (auto) Absolute Nucleated RBC Nucleated RBC % (auto) PT 17.3 H INR 1.5 H APTT 29.2 Sodium 139 Potassium 4.1 Chloride 101 Carbon Dioxide 29 Anion Gap 13 BUN 17 H Creatinine 0.91 Estim Creat Clear Calc 99.8 Estimated GFR > 60 POC Glucose Random Glucose 118 H Calcium 8.8 Phosphorus 3.3 Magnesium 1.9 B-Natriuretic Peptide 2264 H 10/02/20 10/02/20 07:24 11:23 WBC RBC Hgb Hct MCV MCH MCHC RDW Plt Count MPV Immature Gran % (Auto) Neut % (Auto) Lymph % (Auto) [place] % (Auto) Eos % (Auto) Baso % (Auto) Lymph # (Auto) [place] # (Auto) Eos # (Auto) Baso # (Auto) Abs Immat Gran (auto) Absolute Neuts (auto) Absolute Nucleated RBC Nucleated RBC % (auto) PT INR APTT Sodium Potassium Chloride Carbon Dioxide Anion Gap BUN Creatinine Estim Creat Clear Calc Estimated GFR POC Glucose 116 H 178 H Random Glucose Calcium Phosphorus Magnesium B-Natriuretic Peptide Microbiology Microbiology Results: Microbiology 09/29/20 16:16 Blood - Venous Blood Culture - Preliminary No growth after 48 hours. 09/29/20 16:02 Blood - Venous Blood Culture - Preliminary No growth after 48 hours. Progress Note: A&P Assessment and plan (1) Cerebral infarction: Status: Acute (2) Cocaine intoxication delirium: Status: Acute (3) Acute on chronic systolic (congestive) heart failure: Status: Acute (4) Acute ischemic stroke: Status: Acute (5) Aphasia: Status: Acute (6) Pleural effusion on right: Status: Acute (7) Acute exacerbation of CHF (congestive heart failure): Status: Acute (8) Cocaine use: Status: Acute (9) Cardiomyopathy: Status: Acute Assessment and Plan: With the appearance of middle cerebral artery in infarction raising the likelihood of an embolic event especially with such a prominent embolic source and I believe at some point full anticoagulation is necessary Will begin physical therapy and for now continue with aspirin and probably symptomatic treatment of his underlying myopathy with possible Manny inhibition and low-dose beta blockade if heart rate tolerates Time Spent With Patient Time: Total time spent is greater than 50% in coordination of care (as documented) at patient's floor/unit and/or counseling patient: Total time spent with greater than 50% in coordination of care (as documented) at patient's floor/unit and/or counseling patient:: 35
[2020-10-02 16:27] LABS: Glucose, Whole Blood 128 mg/dL (60-115)
[2020-10-02 20:05] LABS: Glucose, Whole Blood 196 mg/dL (60-115)
[2020-10-03] VITALS (7 sets, daily range): BP systolic 90–118; BP diastolic 54–80; PULSE 55–72; RESP 17–21; TEMP 36.2–37.1; O2SAT 68–98
[2020-10-03] MEDS: Pantoprazole Sodium 40 MG/10 ML VIAL IVPUSH (06:00)
[2020-10-03 08:08] LABS: Glucose, Whole Blood 112 mg/dL (60-115)
[2020-10-03] MEDS: Apixaban 5 MG TABLET PO ×2 (08:15→21:05)
[2020-10-03] MEDS: 0.9 % Sodium Chloride Flush 3 ML SYRINGE IVFLUSH ×2 (08:15→16:31)
[2020-10-03] MEDS: Atorvastatin Calcium 80 MG TABLET PO (08:15)
[2020-10-03] MEDS: Aspirin 81 MG TAB.CHEW PO (08:15)
--- NOTE | 2020-10-03 09:51 | P.PNCA_ITS ---
Subjective Subjective Date of Service: 10/03/20 <JUAN JOSÉ Ardon - Last Filed: 10/03/20 10:12> 10/03/20 <Flavio Hawthorne MD - Last Filed: 10/03/20 16:00> Principal diagnosis: Acute on chronic systolic CHF, CMP, acute CVA <JUAN JOSÉ Ardon - Last Filed: 10/03/20 10:12> Interval history: Cardiology follow up for CHF, CMP. Seen at 0845. Today he reports feeling well. He is oriented x3 and speech is clear. No mobility deficits reported. Breathing improved. No cough, no PND. Slept in recliner and in bed with HOB elevated some. Denies chest pains, palpitation. Leg edema much improved. <JUAN JOSÉ Ardon - Last Filed: 10/03/20 10:12> Review of Systems Review of Systems as above <JUAN JOSÉ Ardon - Last Filed: 10/03/20 10:12> Yes all other systems are reviewed and are negative <JAUN JOSÉ Ardon - Last Filed: 10/03/20 10:12> Physical Exam Vital Signs: Last Vital Signs Temp 98.5 F 10/03/20 07:55 Pulse 70 10/03/20 07:55 Resp 21 H 10/03/20 07:55 BP 90/56 L 10/03/20 07:55 Pulse Ox 94 10/03/20 07:55 Body Mass Index 37.4 <JUAN JOSÉ Ardon - Last Filed: 10/03/20 10:12> Const General: cooperative, no acute distress, alert and awake <JUAN JOSÉ Ardon - Last Filed: 10/03/20 10:12> Orientation/consciousness: patient oriented x3 <JUAN JOSÉ Ardon - Last Filed: 10/03/20 10:12> HENMT Head: Yes normal to inspection <JUAN JOSÉ Ardon - Last Filed: 10/03/20 10:12> Neck Neck: Yes normal visual inspection and Yes no JVD <JUAN JOSÉ Ardon - Last Filed: 10/03/20 10:12> Resp Effort & Inspection: normal respiratory effort, able to speak in complete sentences and not labored <Princess Drake NP-C - Last Filed: 10/03/20 10:12> Auscultation: clear to auscultation bilaterally (diminished in lower lobes), no rales, no rhonchi and no wheezes <Princess Drake NP-C - Last Filed: 10/03/20 10:12> Cardio Palpation: normal PMI <Princess Drake NP-C - Last Filed: 10/03/20 10:12> Rate: regular rate <Princess Drake NP-C - Last Filed: 10/03/20 10:12> Rhythm: regular rhythm <Princess Drake MECHANICAL RELIABILITY ENGINEER- - Last Filed: 10/03/20 10:12> Heart sounds: S1 normal heart sound present and S2 normal heart sound present <Princess Drake MECHANICAL RELIABILITY ENGINEER-C - Last Filed: 10/03/20 10:12> Peripheral pulses: Peripheral pulses 2+ throughout <Princess Drake MECHANICAL RELIABILITY ENGINEER-C - Last Filed: 10/03/20 10:12> GI Inspection: Yes normal to inspection <Princess Drake MECHANICAL RELIABILITY ENGINEER-C - Last Filed: 10/03/20 10:12> Neuro General: patient oriented x3 <Princess Drake MECHANICAL RELIABILITY ENGINEER-C - Last Filed: 10/03/20 10:12> Extrem Other: +1 lower leg edema <Princess Drake MECHANICAL RELIABILITY ENGINEER-C - Last Filed: 10/03/20 10:12> General: No calf tenderness <Princess Drake MECHANICAL RELIABILITY ENGINEER-C - Last Filed: 10/03/20 10:12> Results Labs and Meds Result diagrams: : 10/02/20 05:20 10/02/20 05:20 <Princess Drake MECHANICAL RELIABILITY ENGINEER-C - Last Filed: 10/03/20 10:12> Lab results: Laboratory Results - last 24 hr 10/02/20 10/02/20 10/02/20 11:23 16:21 19:50 POC Glucose 178 H 128 H 196 H 10/03/20 07:59 POC Glucose 112 <Princess DrakeRUTH-C - Last Filed: 10/03/20 10:12> Imaging Radiologist's impression: Impressions Brain MRI 10/02/20 00:00 IMPRESSION: - There is an acute infarct involving the anterior left insular ribbon and left operculum in the left MCA territory. No significant mass effect and no hemorrhagic transformation. 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 <JUAN JOSÉ Ardon - Last Filed: 10/03/20 10:12> Progress Note: A&P Assessment and plan (1) Acute on chronic systolic (congestive) heart failure: Status: Acute <JUAN JOSÉ Ardon - Last Filed: 10/03/20 10:12> Assessment and Plan: Hx of CMP. Follows with Dr Julian. Admit with increasing sob, weight gain, edema. CXR with findings suggesting HF. CT of chest showed mod R and small L pleural effusions. Echo shows EF 10-15%, global hypokinesis, mild MR. He has been diuresed with IV Lasix with negative fluid balance of 5 liters since admit. On exam currently has dim lung bases, R>L and no JVD. Leg edema much improved per pt. O2 sat 94% on RA. BNP elevated at 2264, down from 2942 on admit. Cr 0.91. BP is now low at 90/56. This admit complicated by acute CVA. Will hold diuretics at this time - Aldactone and lasix. His Carvedilol also on hold. Drug screen was + for cocaine on admit. Continue with I+O, BP monitoring, watch for signs of worsening HF. Had not been on diuretics at home prior to admit. Will need to restart CMP/ HF meds as BP allows. <JUAN JOSÉ Ardon - Last Filed: 10/03/20 10:12> His cardiomyopathy seems stable at this time and compensated. LVEF 10-15%. His blood pressure is on the lower side and hence will be difficult to optimize meds. He was also cocaine positive this admission. Possibly low-dose Coreg at some point. He was on this prior to admission. <Flavio Hawthorne MD - Last Filed: 10/03/20 16:00> (2) Acute ischemic stroke: Status: Acute <JUAN JOSÉ Ardon - Last Filed: 10/03/20 10:12> Assessment and Plan: Finding of new CVA this admit. Confirmed by MRI. Seen by neurology and notes indicate it is embolic looking. Anticoagulation was recommended and to avoid hypotension. His BP has been running on low side this admit. BP lowering agents currently on hold. He has already been started on Eliquis for anticoagulation. Echo did not show any thrombus. <JUAN JOSÉ Ardon - Last Filed: 10/03/20 10:12> (3) Low BP: Status: Acute <JUAN JOSÉ Ardon - Last Filed: 10/03/20 10:12> Assessment and Plan: as above <JUAN JOSÉ Ardon - Last Filed: 10/03/20 10:12> (4) Cardiomyopathy: Status: Acute <JUAN JOSÉ Ardon - Last Filed: 10/03/20 10:12> Assessment and Plan: EF10-15%. Known hx of CMP. Notes indicated he was to have outpt ICD placed in near future. Neurohormal modulation on hold at present due to hypotension/ CVA. Due to being + for cocaine, use of carvedilol needs to be reevaluated. Once discharged he will follow with his own sales professional bilingual <JUAN JOSÉ Ardon - Last Filed: 10/03/20 10:12> (5) Cocaine use: Status: Acute <JUAN JOSÉ Ardon - Last Filed: 10/03/20 10:12> (6) Pleural effusion on right: Status: Acute <JUAN JOSÉ Ardon - Last Filed: 10/03/20 10:12> Assessment and Plan: Has been diuresed. Lungs still with dim bases, R>L. oxygenating well and denies sob. <JUAN JOSÉ Ardon - Last Filed: 10/03/20 10:12> (7) Cocaine use disorder: Status: Acute <JUAN JOSÉ Ardon - Last Filed: 10/03/20 10:12> Assessment and Plan: Strongly advised to stop. <Flavio Hawthorne MD - Last Filed: 10/03/20 16:00> (8) Cerebral infarction: Status: Acute <JUAN JOSÉ Ardon Last Filed: 10/03/20 10:12> Assessment and Plan: He seems to have recovered well. Possible embolic source. Per Neurology, anticoagulation and that seems reasonable. <Flavio Hawthorne MD - Last Filed: 10/03/20 16:00> Fall Risk Details Current Medications: Current Medications Generic Name Dose Route Start Last Admin Trade Name Freq PRN Reason Stop Dose Admin Apixaban 5 mg 10/03/20 09:00 10/03/20 08:15 Apixaban 5 Mg Tablet PO 5 mg BID SHLOMO Administration Aspirin 81 mg 10/02/20 10:00 10/03/20 08:15 Aspirin 81 Mg Tab.Chew PO 81 mg DAILY SHLOMO Administration Atorvastatin Calcium 80 mg 09/30/20 09:00 10/03/20 08:15 Atorvastatin Calcium 80 Mg Tablet PO 80 mg DAILY SHLOMO Administration Furosemide 40 mg 10/02/20 09:00 10/03/20 08:20 Furosemide 40 Mg/4 Ml Vial IVPUSH Not Given DAILY [facility] Protocol Insulin Human Lispro 0 unit 09/30/20 07:30 10/03/20 08:10 Insulin Lispro 100 Unit/Ml 3 Ml Vial SUBCUT Not Given QIDACHS [facility] Protocol Omeprazole 40 mg 10/04/20 06:30 Omeprazole 40 Mg Capsule.Dr [place] DAILY@0630 [facility] Pharmacy Consult 1 each 09/29/20 15:23 Consult Rx Perform Med Rec MISCELLANE ONCE PRN Consult order Sodium Chloride 3 ml 09/30/20 08:00 10/03/20 08:15 0.9 % Sodium Chloride Flush 3 Ml Syringe IVFLUSH 3 ml QSHIFT SHLOMO Administration Spironolactone 12.5 mg 09/30/20 12:00 10/03/20 08:20 Spironolactone 25 Mg Tablet PO Not Given DAILY [facility] Protocol <JUAN JOSÉ Ardon - Last Filed: 10/03/20 10:12> Time Spent With Patient Time: Total time spent is greater than 50% in coordination of care (as documented) at patient's floor/unit and/or counseling patient: 18 <JUAN JOSÉ Ardon - Last Filed: 10/03/20 10:12> Time with patient: 15 - 24 minutes <JUAN JOSÉ Ardon - Last Filed: 10/03/20 10:12>
--- NOTE | 2020-10-03 11:01 | MHC.CM.PN ---
Per ROUNDS discussion, Patient is not yet medically cleared for dc(new CVA) Acute Rehab and SNF level facilities are following.
[2020-10-03 12:00] LABS: Glucose, Whole Blood 176 mg/dL (60-115)
[2020-10-03] MEDS: Insulin Lispro 100 UNIT/ML 3 ML VIAL SUBCUT ×2 (12:16→16:30)
--- NOTE | 2020-10-03 13:18 | P.PNIM_ITS ---
Subjective Subjective Date of Service: 10/03/20 Interval History: Patient being followed for cardiomyopathy and acute CVA, patient offers no complaints of headache, dizziness, no shortness of breath or cough, patient is concerned about his belongings. Review of Systems General no headache, no dizziness, no fever chills. CVS no chest pain, no palpitation. Respiratory no cough, no shortness of breath. Gastrointestinal no nausea, no vomiting, no abdominal pain Physical Exam Vital Signs: Vital Signs: Last Vital Signs Temp 97.4 F 10/03/20 11:54 Pulse 59 10/03/20 11:54 Resp 17 10/03/20 11:54 BP 99/54 L 10/03/20 11:54 Pulse Ox 98 10/03/20 11:54 Body Mass Index 37.4 Const: Other: General patient resting comfortably in no acute distress. Neck is supple no JVD. CVS regular rate rhythm, Respiratory lungs clear to auscultation, diminished breath sound at bases bilaterally. Gastrointestinal abdomen soft, nontender, bowel sounds audible. Extremities trace edema. Neuro nonfocal , speech clear. Skin no rash Objective Data Current Medications Generic Name Dose Route Start Last Admin Trade Name Freq PRN Reason Stop Dose Admin Apixaban 5 mg 10/03/20 09:00 10/03/20 08:15 Apixaban 5 Mg Tablet PO 5 mg BID SHLOMO Administration Aspirin 81 mg 10/02/20 10:00 10/03/20 08:15 Aspirin 81 Mg Tab.Chew PO 81 mg DAILY SH[facility]OMO Administration Atorvastatin Calcium 80 mg 09/30/20 09:00 10/03/20 08:15 Atorvastatin Calcium 80 Mg Tablet PO 80 mg DAILY [facility]OMO Administration Furosemide 40 mg 10/02/20 09:00 10/03/20 08:20 Furosemide 40 Mg/4 Ml Vial IVPUSH Not Given DAILY [facility] Protocol Insulin Human Lispro 0 unit 09/30/20 07:30 10/03/20 12:16 Insulin Lispro 100 Unit/Ml 3 Ml Vial SUBCUT 2 unit QIDACHS [facility] Administration Protocol Omeprazole 40 mg 10/04/20 06:30 Omeprazole 40 Mg Capsule.Dr [place] DAILY@0630 [facility] Pharmacy Consult 1 each 09/29/20 15:23 Consult Rx Perform Med Rec MISCELLANE ONCE PRN Consult order Sodium Chloride 3 ml 09/30/20 08:00 10/03/20 08:15 0.9 % Sodium Chloride Flush 3 Ml Syringe IVFLUSH 3 ml QSHIFT SHLOMO Administration Spironolactone 12.5 mg 09/30/20 12:00 10/03/20 08:20 Spironolactone 25 Mg Tablet PO Not Given DAILY [facility] Protocol Labs CBC & Chem 7: 10/02/20 05:20 10/02/20 05:20 Microbiology Microbiology Results: Microbiology 09/29/20 16:16 Blood - Venous Blood Culture - Preliminary No growth after 48 hours. 09/29/20 16:02 Blood - Venous Blood Culture - Preliminary No growth after 48 hours. Assessment and Plan (1) Cerebral infarction: Status: Acute (2) Low BP: Status: Acute (3) Cocaine intoxication delirium: Status: Acute (4) Acute on chronic systolic (congestive) heart failure: Status: Acute (5) Acute ischemic stroke: Status: Acute (6) Aphasia: Status: Acute (7) Pleural effusion on right: Status: Acute (8) GERD (gastroesophageal reflux disease): Status: Acute (9) Osteoarthritis: Status: Acute (10) Hypertension: Status: Acute (11) Cocaine use: Status: Acute (12) CHF (congestive heart failure): Status: Acute (13) Cardiomyopathy: Status: Acute Assessment and Plan: (1) Acute on chronic systolic (congestive) heart failure: Patient with history of cardiomyopathy with EF 15-20% patient initially diuresed with IV Lasix is 5 L negative since admission, at present appears euvolemic with low blood pressure 90/56 BNP improved from to [id number] Will hold diuretics for now and gradually introduce as blood pressure allows. CT of chest showed moderate right and small left pleural effusion, echo showed EF 10-15% with global hypokinesis and mild MR patient to have outpatient follow-up for ICD placement with Cardiology Clinical course closely, being followed with Cardiology case discussed with Dr. Hawthorne Since patient has positive cocaine on admit will discuss use of Coreg with Cardiology (2) Acute ischemic stroke: MRI brain showed an acute infarction involving the anterior left insular and left operculum in the left MCA territory, no hemorrhagic transformation noted Likely embolic, echo showed no ventricular thrombus, patient placed on Eliquis, patient has no residual deficit, his speech is clear and he has no weakness. (3) Cocaine use: Obtained Addiction consult, strongly recommend to abstain from illicit drug use, patient agreeable for consult. (4) Pleural effusion on right: Continue to have diminished breath sound at bases ,stable oxygenation, will repeat portable chest Xray . (5) coronary artery disease continue aspirin and Lipitor,hold bb with active cocaine use. (6) diabetes type 2 continue insulin sliding scale will resume metformin blood sugar less than 200
--- NOTE | 2020-10-03 15:20 | HO.ADDICT_ITS ---
History of Present Illness Date of Service: 10/03/2020 Chief Complaint: CHF Reason for Consult: cocaine use disorder Requesting physician: Leobardo Augustin Discussed with referring provider: Yes Sources of Information: patient interviewed and chart reviewed HPI Narrative: Patient is a 65 year old male with significant chronic health issues, including CHF, cocaine use disorder and cardiomyopathy. Currently medically admitted for CHF and while in ED suffered a left temporal infarct. Consult requested as patient has had numerous health complications related to continued cocaine use. Patient seen in room 369. He was awake, alert, pleasant and engaged in interview. Limited insight regarding substance use and associated health consequences. Reports he has been using cocaine for about 30 years. Reports using one a week (may be minimizing use) and is using [place] and smoking it as well. He does report periods of sustained recovery once for 2 years once for 3 years. Appearing somewhat indifferent regarding recovery, but he was also at times having difficultly with word finding so unclear if this is related to recent stroke (baseline unknown). He does not have providers in place at this time, states he was previously being followed by psychiatrist and prescribed Wellbutrin, but unclear when he discontinued that or who the provider is. Discussed treatment options for cocaine use and educated regarding lack of approved pharmacotherapy option, so any medicaiton would be used off label. Review of Systems Constitutional: Reports as per HPI and Reports no additional constitutional complaints Cardiovascular: Denies syncope Reports system reviewed and no additional complaints, except as documented and Denies syncope Diagnostics Vital Signs (24Hr): Vital Signs - 24 hr 10/02/20 16:00 10/02/20 19:51 10/02/20 23:44 Temperature 97.9 F 98.4 F 97.4 F Pulse Rate 71 69 78 Respiratory Rate 19 20 18 Blood Pressure 105/63 100/52 L 112/79 Pulse Oximetry 96 93 96 10/03/20 03:18 10/03/20 07:55 10/03/20 09:59 Temperature 97.8 F 98.5 F Pulse Rate 60 70 70 Respiratory Rate 18 21 H Blood Pressure 112/63 90/56 L 90/56 L Pulse Oximetry 96 94 94 10/03/20 11:54 Temperature 97.4 F Pulse Rate 59 Respiratory Rate 17 Blood Pressure 99/54 L Pulse Oximetry 98 Body Mass Index 37.4 Labs Results: 10/02/20 05:20 10/02/20 05:20 Labs: Laboratory Results - last 48 hr 10/01/20 10/01/20 10/02/20 16:55 21:15 05:20 WBC 8.4 RBC 4.71 Hgb 13.4 L Hct 42.0 MCV 89.2 MCH 28.5 MCHC 31.9 RDW 16.0 Plt Count 176 MPV 10.2 Immature Gran % (Auto) 0.4 Neut % (Auto) 72.0 Lymph % (Auto) 15.0 L [place] % (Auto) 11.7 H Eos % (Auto) 0.7 Baso % (Auto) 0.2 Lymph # (Auto) 1.3 [place] # (Auto) 1.0 Eos # (Auto) 0.1 Baso # (Auto) 0.0 Abs Immat Gran (auto) 0.03 Absolute Neuts (auto) 6.1 Absolute Nucleated RBC 0.000 Nucleated RBC % (auto) 0.0 PT INR APTT Sodium Potassium Chloride Carbon Dioxide Anion Gap BUN Creatinine Estim Creat Clear Calc Estimated GFR POC Glucose 111 108 Random Glucose Calcium Phosphorus Magnesium B-Natriuretic Peptide 10/02/20 10/02/20 10/02/20 05:20 05:20 05:20 WBC RBC Hgb Hct MCV MCH MCHC RDW Plt Count MPV Immature Gran % (Auto) Neut % (Auto) Lymph % (Auto) [place] % (Auto) Eos % (Auto) Baso % (Auto) Lymph # (Auto) [place] # (Auto) Eos # (Auto) Baso # (Auto) Abs Immat Gran (auto) Absolute Neuts (auto) Absolute Nucleated RBC Nucleated RBC % (auto) PT 17.3 H INR 1.5 H APTT 29.2 Sodium 139 Potassium 4.1 Chloride 101 Carbon Dioxide 29 Anion Gap 13 BUN 17 H Creatinine 0.91 Estim Creat Clear Calc 99.8 Estimated GFR > 60 POC Glucose Random Glucose 118 H Calcium 8.8 Phosphorus 3.3 Magnesium 1.9 B-Natriuretic Peptide 2264 H 10/02/20 10/02/20 10/02/20 07:24 11:23 16:21 WBC RBC Hgb Hct MCV MCH MCHC RDW Plt Count MPV Immature Gran % (Auto) Neut % (Auto) Lymph % (Auto) [place] % (Auto) Eos % (Auto) Baso % (Auto) Lymph # (Auto) [place] # (Auto) Eos # (Auto) Baso # (Auto) Abs Immat Gran (auto) Absolute Neuts (auto) Absolute Nucleated RBC Nucleated RBC % (auto) PT INR APTT Sodium Potassium Chloride Carbon Dioxide Anion Gap BUN Creatinine Estim Creat Clear Calc Estimated GFR POC Glucose 116 H 178 H 128 H Random Glucose Calcium Phosphorus Magnesium B-Natriuretic Peptide 10/02/20 10/03/20 10/03/20 19:50 07:59 11:52 WBC RBC Hgb Hct MCV MCH MCHC RDW Plt Count MPV Immature Gran % (Auto) Neut % (Auto) Lymph % (Auto) [place] % (Auto) Eos % (Auto) Baso % (Auto) Lymph # (Auto) [place] # (Auto) Eos # (Auto) Baso # (Auto) Abs Immat Gran (auto) Absolute Neuts (auto) Absolute Nucleated RBC Nucleated RBC % (auto) PT INR APTT Sodium Potassium Chloride Carbon Dioxide Anion Gap BUN Creatinine Estim Creat Clear Calc Estimated GFR POC Glucose 196 H 112 176 H Random Glucose Calcium Phosphorus Magnesium B-Natriuretic Peptide Imaging Radiology Impressions: ITS Impressions Chest X-Ray 09/29/20 15:23 IMPRESSION: Stable enlargement of the cardiac silhouette. Airspace disease at the right lung base and small right pleural effusion. Differential would include pneumonia and asymmetric distribution of pulmonary edema. Chest CT 09/29/20 17:23 IMPRESSION: 1. Consolidation and atelectasis at right lung base. 2. Moderate volume right pleural effusion. Small volume left pleural effusion. 3. Mediastinal lymphadenopathy. Head CT 10/01/20 00:48 IMPRESSION: No acute intracranial pathology. 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 Head/Neck CTA 10/01/20 01:34 IMPRESSION: 1. No evidence of acute occlusive disease within the carotid and vertebral basilar arteries as well as the major intracranial arteries. 2. Mild stenoses at the proximal left ICA and right ICA (35 and 20 percent, respectively) due to calcific and fibrotic fatty atheromatous disease. 3. Pulmonary interstitial edema with a moderate size right pleural effusion and mild centrilobular emphysema. Moderate mediastinal adenopathy is again noted. This result was discussed by telephone with Dr. Nolen on 10/01/2020 2:52 AM. Brain MRI 10/02/20 00:00 IMPRESSION: - There is an acute infarct involving the anterior left insular ribbon and left operculum in the left MCA territory. No significant mass effect and no hemorrhagic transformation. 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 Mental Status Exam Mental Status Exam Patient Appearance: Appropriate Patient Orientation: Person, Place and Situation Level of Consciousness: Awake, Appropriate and Alert Patient Behavior: Appropriate Mood Description: Relaxed Affect Description: Relaxed Ability to Follow Directions: Good Speech Pattern: Difficulty Finding Words Hallucinations: None Thought Process: Slowed Thinking Thought Content: positive for Wallace Judgement: Fair (limited insight) Medications Medications Current Medications Generic Name Dose Route Start Last Admin Trade Name Freq PRN Reason Stop Dose Admin Apixaban 5 mg 10/03/20 09:00 10/03/20 08:15 Apixaban 5 Mg Tablet PO 5 mg BID SHLOMO Administration Aspirin 81 mg 10/02/20 10:00 10/03/20 08:15 Aspirin 81 Mg Tab.Chew PO 81 mg DAILY SHLOMO Administration Atorvastatin Calcium 80 mg 09/30/20 09:00 10/03/20 08:15 Atorvastatin Calcium 80 Mg Tablet PO 80 mg DAILY SHLOMO Administration Insulin Human Lispro 0 unit 09/30/20 07:30 10/03/20 12:16 Insulin Lispro 100 Unit/Ml 3 Ml Vial SUBCUT 2 unit QIDACHS [facility]CLUDES [facility] Administration Protocol Omeprazole 40 mg 10/04/20 06:30 Omeprazole 40 Mg Capsule.Dr [place] DAILY@0630 [facility] Pharmacy Consult 1 each 09/29/20 15:23 Consult Rx Perform Med Rec MISCELLANE ONCE PRN Consult order Sodium Chloride 3 ml 09/30/20 08:00 10/03/20 08:15 0.9 % Sodium Chloride Flush 3 Ml Syringe IVFLUSH 3 ml QSHIFT COUNT INCLUDES THE [facility] Administration Spironolactone 12.5 mg 09/30/20 12:00 10/03/20 08:20 Spironolactone 25 Mg Tablet PO Not Given DAILY [facility] Protocol Allergies Allergies Allergy/AdvReac Type Severity Reaction Status Date / Time No Known Allergies Allergy Verified 07/29/20 15:11 [No Known Allergies*] Assessment & Plan Assessment & Plan (1) Cocaine use disorder: Status: Acute Code(s): F14.10 - Cocaine abuse, uncomplicated Recommendations: * IOP and/or CBT most effective in treating cocaine use disorder * trial of topomax or other off label medication can be done outpatient so that patient is monitored and doses titrated * Recovery clinic office coordinator to follow up tomorrow Greater than 50% of the session was spent on counseling and/or coordination of care PMF Past Medical History Medical History (Updated 10/03/20 @ 15:36 by Loni John CNP) CAD (coronary artery disease) Cardiomyopathy CHF (congestive heart failure) Cocaine use CVA (cerebral vascular accident) Diabetes GERD (gastroesophageal reflux disease) Hypertension Osteoarthritis Surgical History Surgical History Total knee replacement status Social History Social History (Updated 10/03/20 @ 15:34 by Loni John CNP) Household Members: None Housing: Apartment Alcohol intake: never Smoking Status: Current every day smoker Substance Use Type: Crack/Cocaine Substance Use Frequency: Chronic Longstanding Last Used Substance: Days (ago) Currently Displaying Signs/Symptoms of Drug Intoxication Withdrawal: No Any prior treatment program specific to substance use: Yes service: No Current occupational status: unemployed
[2020-10-03 16:20] LABS: Glucose, Whole Blood 172 mg/dL (60-115)
--- NOTE | 2020-10-03 18:26 | MHC.RECOVSUP ---
Meet with Patient.. Talked about Recovery option.. And provided Recovery recourses..
[2020-10-03 20:16] LABS: Glucose, Whole Blood 115 mg/dL (60-115)
--- NOTE | 2020-10-04 | XR_ITS ---
EXAMINATION: XR CHEST CLINICAL INFORMATION: Pleural effusion, follow-up COMPARISON: Chest radiographs 09/29/2020, 10/21/2019, CT chest noncontrast 09/29/2020 TECHNIQUE: Sitting AP and lateral views of the chest are obtained. FINDINGS: There is right basilar effusion and adjacent passive atelectasis better appreciated on lateral view without significant change from prior chest 09/29/2020. The left lung is clear. Again, there is enlarged cardiopericardial silhouette. The vascularity is normal. The hilar contours and bony structures are stable. XR/XR chest 2V IMPRESSION: Right basilar effusion and adjacent passive atelectasis similar to prior imaging 09/29/2020.
[2020-10-04] MEDS: 0.9 % Sodium Chloride Flush 3 ML SYRINGE IVFLUSH ×4 (00:24→23:17)
[2020-10-04 04:00] VITALS: BP 107/63; PULSE 60; RESP 20; TEMP 36.7; O2SAT 94
[2020-10-04] MEDS: Omeprazole 40 MG CAPSULE.DR PO (05:41)
[2020-10-04 07:36] LABS: Glucose, Whole Blood 206 mg/dL (60-115)
[2020-10-04 07:37] VITALS: BP 94/66; PULSE 59; RESP 20; TEMP 36.7; O2SAT 95
[2020-10-04] MEDS: Insulin Lispro 100 UNIT/ML 3 ML VIAL SUBCUT (07:52)
[2020-10-04] MEDS: Apixaban 5 MG TABLET PO ×2 (07:53→20:37)
[2020-10-04] MEDS: Aspirin 81 MG TAB.CHEW PO (07:53)
[2020-10-04] MEDS: Atorvastatin Calcium 80 MG TABLET PO (07:53)
--- NOTE | 2020-10-04 11:16 | MHC.RECOVSUP ---
Recovery Support note: Patient is a 65 year old who presented to [facility] due to dyspnea and was medically admitted. This board writer and the recovery support nurse met with patient in room 369-1 of S3 to discuss his cocaine use and recovery supports. Patient was sitting in the recliner by his bedside watching television when we entered the room. Patient acknowledges that cocaine use has been detrimental to his health and that it is in his best interest to stop using entirely. Patient reports stopping cocaine will save his life. Patient reports confidence in his ability to stop using. Patient met with a ice skating coach last night who discussed [employer] [place] and recovery supports. Patient reports he was previously a member of [employer] [place] however stopped attending meetings due to the pandemic. Patient reports he plans to get reconnected with [employer] [place] for ongoing support. Patient also reports that an adult day center has opened recently in [place] and that he plans to go there for support and to stay busy. Patient reports he does not see any barriers to his recovery and that he has people in his life who are supportive and who he can reach out to for additional support. Patient reports no questions or concerns at this time. Discussed case with patient's RN, Richard.
[2020-10-04 11:23] LABS: Glucose, Whole Blood 100 mg/dL (60-115)
[2020-10-04 12:00] VITALS: BP 94/53; PULSE 54; RESP 20; TEMP 36.7; O2SAT 97
--- NOTE | 2020-10-04 15:12 | P.PNCA_ITS ---
Subjective Subjective Date of Service: 10/04/20 Principal diagnosis: Acute on chronic systolic CHF, CMP, acute CVA Interval history: Cardiology follow up for CHF, CMP. Seen at 1500. Today he reports feeling good. He says he speech is normal and he has no residual de ficits from the CVA. He denies having sob, PND. Sleeping in recliner at time and in bed at times with HOB elevated some. No palpitations, no dizziness with standing. No longer has leg edema. Review of Systems Review of Systems as above Yes all other systems are reviewed and are negative Cardiovascular: Denies syncope Reports system reviewed and no additional complaints, except as documented and Denies syncope Physical Exam Vital Signs: Last Vital Signs Temp 98.1 F 10/04/20 12:00 Pulse 54 10/04/20 12:00 Resp 20 10/04/20 12:00 BP 94/53 L 10/04/20 12:00 Pulse Ox 97 10/04/20 12:00 Body Mass Index 37.4 Const General: cooperative, no acute distress, alert and awake Orientation/consciousness: patient oriented x3 Neck Other: Mild LVD elevation Resp Other: Lungs diminished in lower lobes, R>L Effort & Inspection: normal respiratory effort, able to speak in complete se ntences and not labored Cardio Jugular venous distension: JVD present Palpation: normal PMI Rate: regular rate Rhythm: regular rhythm Heart sounds: S1 normal heart sound present and S2 normal heart sound present Peripheral pulses: Peripheral pulses 2+ throughout GI Inspection: Yes normal to inspection Neuro General: patient oriented x3 Extrem Other: trace lower leg edema Results Labs and Meds Result diagrams: 10/02/20 05:20 10/02/20 05:20 Lab results: Laboratory Results - last 24 hr 10/03/20 10/03/20 10/04/20 16:17 20:11 07:31 POC Glucose 172 H 115 206 H 10/04/20 10:59 POC Glucose 100 Imaging Radiologist's impression: Impressions Chest X-Ray 10/04/20 00:00 IMPRESSION: Right basilar effusion and adjacent passive atelectasis similar to prior imaging 09/29/2020. Progress Note: A&P Assessment and plan (1) Acute on chronic systolic (congestive) heart failure: Status: Acute Assessment and Plan: Hx of CMP. Follows with Dr Julian. Admit with increasing sob, weight gain, edema. CXR with findings suggesting HF. CT of chest showed mod R and small L pleural effusions. Echo shows EF 10-15%, global hypokinesis, mild MR. Last prior echo 10/21/19 showed EF 15-20%. He has been diuresed with IV Lasix, with last dose 10/02. Fluid balance of neg 7 liters since admit. On exam currently has dim lung bases, R>L and mild JVD. O2 sat 97% on RA. BNP elevated at 2264 2 days ago, down from 2942 on admit. BP running on low side all through his admission. Currently 94/53, asymptomatic. This admission was complicated by an acute CVA, with neurology recommendations to avoid hypotension. Aldactone had been started this admit then stopped. Carvedilol stopped due to low BPs and Drug screen was + for cocaine on admit. He reports being on Lisinopril 10mg daily at home even though it is not on home list. Optimal treatment for his advanced cardiomyopathy and HF is limited by BPs at present. Discussed case with Dr Augustin. Will start on Lasix 20mg and Lisinopril 2.5mg - giving him doses of each this erlin, at different times. Close BP monitoring. Continue with I+O, watch for signs of worsening HF. Will order BNP along with his BMP in am. Will order orthostatic BPs in am. Recommend he stay inpatient and be reevaluated tomorrow. On Discharge, he will need to see his own human resources designate Dr Julian in then next week ideally. (2) Cardiomyopathy: Status: Acute Assessment and Plan: EF10-15%. Known hx of CMP. Notes indicated he was to have outpt ICD placed in near future. Neurohormal modulation on hold at present due to hypotension/ CVA. Due to being + for cocaine, carvedilol stopped, can be reevaluted as outpt. Trialing low dose Lisinopril as above. (3) Acute ischemic stroke: Status: Acute Assessment and Plan: Finding of new CVA this admit. Confirmed by MRI. Seen by neurology and note 10/02 indicates it is embolic looking, anticoagulation was recommended and to avoid hypotension. His BP has been running on low side this admit. BP lowering agents currently on hold. He has already been started on Eliquis for anticoagulation. Echo did not show any thrombus (4) Low BP: Status: Acute Assessment and Plan: as above, systolic mostly ranging 90s- low 100s. (5) Cocaine use disorder: Status: Acute Assessment and Plan: Cocaine screen + on admit. Strict need for cocaine cessation and how cocaine effects his heart was use reviewed with him. Fall Risk Details Current Medications: Current Medications Generic Name Dose Route Start Last Admin Trade Name Freq PRN Reason Stop Dose Admin Apixaban 5 mg 10/03/20 09:00 10/04/20 07:53 Apixaban 5 Mg Tablet PO 5 mg BID SHLOMO Administration Aspirin 81 mg 10/02/20 10:00 10/04/20 07:53 Aspirin 81 Mg Tab.Chew PO 81 mg DAILY SHLOMO Administration Atorvastatin Calcium 80 mg 09/30/20 09:00 10/04/20 07:53 Atorvastatin Calcium 80 Mg Tablet PO 80 mg DAILY SHLOMO Administration Insulin Human Lispro 0 unit 09/30/20 07:30 10/04/20 11:50 Insulin Lispro 100 Unit/Ml 3 Ml Vial SUBCUT Not Given QIDACHS [facility] Protocol Omeprazole 40 mg 10/04/20 06:30 10/04/20 05:41 Omeprazole 40 Mg Capsule. PO 40 mg DAILY@0630 [facility] Administration Pharmacy Consult 1 each 09/29/20 15:23 Consult Rx Perform Med Rec MISCELLANE ONCE PRN Consult order Sodium Chloride 3 ml 09/30/20 08:00 10/04/20 07:52 0.9 % Sodium Chloride Flush 3 Ml Syringe IVFLUSH 3 ml QSHIFT SHLOMO Administration Spironolactone 12.5 mg 09/30/20 12:00 10/04/20 07:45 Spironolactone 25 Mg Tablet PO Not Given DAILY [facility] Protocol Time Spent With Patient Time: Total time spent is greater than 50% in coordination of care (as documented) at patient's floor/unit and/or counseling patient: 22 Time with patient: 15 - 24 minutes
--- NOTE | 2020-10-04 15:42 | HO.PM.IMPN ---
Subjective Subjective Date of Service: 10/04/20 Interval History: Patient being followed for cardiomyopathy and acute CVA, patient offers no complaints of headache, dizziness, no shortness of breath or cough, patient is concerned about his belongings. Review of Systems General no headache, no dizziness, no fever chills. CVS no chest pain, no palpitation. Respiratory no cough, no shortness of breath. Gastrointestinal no nausea, no vomiting, no abdominal pain Physical Exam Vital Signs: Vital Signs: Last Vital Signs Temp 98.1 F 10/04/20 12:00 Pulse 54 10/04/20 12:00 Resp 20 10/04/20 12:00 BP 94/53 L 10/04/20 12:00 Pulse Ox 97 10/04/20 12:00 Body Mass Index 37.4 Const: Other: General patient resting comfortably in no acute distress. Neck is supple no JVD. CVS regular rate rhythm, Respiratory lungs clear to auscultation, diminished breath sound right base, few fine crackles right base. Gastrointestinal abdomen soft, nontender, bowel sounds audible. Extremities trace edema. Neuro nonfocal , speech clear. Skin no rash Objective Data Current Medications Generic Name Dose Route Start Last Admin Trade Name Freq PRN Reason Stop Dose Admin Apixaban 5 mg 10/03/20 09:00 10/04/20 07:53 Apixaban 5 Mg Tablet PO 5 mg BID SHLOMO Administration Aspirin 81 mg 10/02/20 10:00 10/04/20 07:53 Aspirin 81 Mg Tab.Chew PO 81 mg DAILY SLHOMO Administration Atorvastatin Calcium 80 mg 09/30/20 09:00 10/04/20 07:53 Atorvastatin Calcium 80 Mg Tablet PO 80 mg DAILY SHLOMO Administration Insulin Human Lispro 0 unit 09/30/20 07:30 10/04/20 11:50 Insulin Lispro 100 Unit/Ml 3 Ml Vial SUBCUT Not Given QIDACHS [facility] Protocol Omeprazole 40 mg 10/04/20 06:30 10/04/20 05:41 Omeprazole 40 Mg Capsule. PO 40 mg DAILY@0630 [facility] Administration Pharmacy Consult 1 each 09/29/20 15:23 Consult Rx Perform Med Rec MISCELLANE ONCE PRN Consult order Sodium Chloride 3 ml 09/30/20 08:00 10/04/20 07:52 0.9 % Sodium Chloride Flush 3 Ml Syringe IVFLUSH 3 ml QSHIFT [facility] Administration Spironolactone 12.5 mg 09/30/20 12:00 10/04/20 07:45 Spironolactone 25 Mg Tablet PO Not Given DAILY [facility] Protocol Labs CBC & Chem 7: 10/02/20 05:20 10/02/20 05:20 Microbiology Microbiology Results: Microbiology 09/29/20 16:16 Blood - Venous Blood Culture - Preliminary No growth after 48 hours. 09/29/20 16:02 Blood - Venous Blood Culture - Preliminary No growth after 48 hours. Assessment and Plan (1) Cerebral infarction: Status: Acute (2) Low BP: Status: Acute (3) Cocaine intoxication delirium: Status: Acute (4) Acute on chronic systolic (congestive) heart failure: Status: Acute (5) Acute ischemic stroke: Status: Acute (6) Aphasia: Status: Acute (7) Pleural effusion on right: Status: Acute (8) GERD (gastroesophageal reflux disease): Status: Acute (9) Osteoarthritis: Status: Acute (10) Hypertension: Status: Acute (11) Cocaine use: Status: Acute (12) CHF (congestive heart failure): Status: Acute (13) Cardiomyopathy: Status: Acute Assessment and Plan: (1) Acute on chronic systolic (congestive) heart failure: Patient with history of cardiomyopathy with EF 15-20% patient initially diuresed with IV Lasix is 5 L negative since admission, at present denies shortness of breath or chest pain, patient is not receiving any medication due to persistently low blood pressure , repeat chest x-ray shows right basilar effusion and adjacent passive atelectasis, no pulmonary vascular congestion noted BNP improved from to [id number] case discussed with Cardiology, will introduce low-dose Lasix 20 mg and lisinopril 2.5 and monitor patient for next 24 hours close blood pressure monitoring Will repeat BNP and BMP at a.m. echo showed EF 10-15% with global hypokinesis and mild MR patient to have outpatient follow-up for ICD placement with Cardiology Case discussed with Cardiology patient to have outpatient follow-up with his primary aerodynamic consultant Dr. Julian Since patient has positive cocaine on admit will hold Coreg (2) Acute ischemic stroke: MRI brain showed an acute infarction involving the anterior left insular and left operculum in the left MCA territory, no hemorrhagic transformation noted Likely embolic, echo showed no ventricular thrombus, patient placed on Eliquis, patient has no residual deficit, his speech is clear and he has no weakness. (3) Cocaine use: Obtained Addiction consult, strongly recommend to abstain from illicit drug use, patient agreeable for consult. (4) Pleural effusion on right: Continue to have diminished breath sound at bases ,stable oxygenation, repeat x-ray as above . (5) coronary artery disease continue aspirin and Lipitor,hold bb with active cocaine use. (6) diabetes type 2 continue insulin sliding scale will resume metformin blood sugar less than 200
[2020-10-04 15:49] VITALS: BP 102/68; PULSE 55; RESP 18; TEMP 36.8; O2SAT 98
[2020-10-04 16:38] LABS: Glucose, Whole Blood 148 mg/dL (60-115)
[2020-10-04] MEDS: Furosemide 20 MG TABLET PO (17:08)
[2020-10-04 19:20] VITALS: BP 104/63; PULSE 58; RESP 18; TEMP 36.6; O2SAT 100
[2020-10-04 20:24] LABS: Glucose, Whole Blood 142 mg/dL (60-115)
[2020-10-04 23:32] VITALS: BP 105/57; PULSE 59; RESP 18; TEMP 36.6; O2SAT 100
[2020-10-05] MEDS: Omeprazole 40 MG CAPSULE.DR PO (06:12)
[2020-10-05 07:06] LABS: B Type Natriuretic Peptide 1116 pg/mL (<100)
[2020-10-05 07:21] LABS: Anion Gap 15 (12-20); Blood Urea Nitrogen 13 mg/dL (9-16); Calcium 9.2 mg/dL (8.4-10.2); Carbon Dioxide 30 mmol/L (22-29); Chloride 99 mmol/L (96-108); Creatinine Clr Calc Pharmacy 89.9; Estimated Glomerular Filt Rate > 60; Glucose Random 116 mg/dL (60-115); Potassium 5.3 mmol/l (3.3-5.1); Sodium 139 mmol/L (135-145)
[2020-10-05 07:22] LABS: Anion Gap 14 (12-20); Blood Urea Nitrogen 13 mg/dL (9-16); Calcium 9.3 mg/dL (8.4-10.2); Carbon Dioxide 31 mmol/L (22-29); Chloride 99 mmol/L (96-108); Creatinine Clr Calc Pharmacy 84.1; Estimated Glomerular Filt Rate > 60; Glucose Random 116 mg/dL (60-115); Potassium 5.1 mmol/l (3.3-5.1); Sodium 139 mmol/L (135-145)
[2020-10-05 07:36] VITALS: BP 102/63; PULSE 58; RESP 19; TEMP 36.5; O2SAT 94
[2020-10-05 08:32] LABS: Glucose, Whole Blood 130 mg/dL (60-115)
[2020-10-05] MEDS: Apixaban 5 MG TABLET PO (09:03)
[2020-10-05] MEDS: Aspirin 81 MG TAB.CHEW PO (09:03)
[2020-10-05] MEDS: Atorvastatin Calcium 80 MG TABLET PO (09:03)
[2020-10-05] MEDS: 0.9 % Sodium Chloride Flush 3 ML SYRINGE IVFLUSH (09:03)
--- NOTE | 2020-10-05 11:43 | MHC.CM.PN ---
PATIENT IS NOW DISCHARGED HOME WITH NO NEED FOR SERVICES. [facility] REFERRALS UPDATED TO INDICATE. IMM 10/04 IN CHART.
--- NOTE | 2020-10-05 11:51 | PM.NEUROCN ---
History of Present Illness Data of Consult Service Date: 10/05/20 Primary Care Provider: Unknown Physician 65 years old man I have seen previously for left middle cerebral artery stroke. He was treated with intravenous tPA. At this time he was on the floor and was doing okay stating that he was fine. Review of Systems Cardiovascular: Cardiovascular: Denies syncope Neurologic: Reports system reviewed and no additional complaints, except as documented and Denies syncope PMFSH Past Medical History Medical History (Updated 10/03/20 @ 15:36 by Loni John CNP) CAD (coronary artery disease) Cardiomyopathy CHF (congestive heart failure) Cocaine use CVA (cerebral vascular accident) Diabetes GERD (gastroesophageal reflux disease) Hypertension Osteoarthritis Surgical History Surgical History Total knee replacement status Social History Social History (Updated 10/03/20 @ 15:34 by Loni John CNP) Household Members: None Housing: Apartment Alcohol intake: never Smoking Status: Current every day smoker Substance Use Type: Crack/Cocaine Substance Use Frequency: Chronic Longstanding Last Used Substance: Days (ago) Currently Displaying Signs/Symptoms of Drug Intoxication Withdrawal: No Any prior treatment program specific to substance use: Yes service: No Current occupational status: unemployed Meds Allergies Allergy/AdvReac Type Severity Reaction Status Date / Time No Known Allergies Allergy Verified 07/29/20 15:11 [No Known Allergies*] Home Medications Medication Instructions Recorded Confirmed Type docusate sodium 100 mg PO TID PRN 09/29/20 10/01/20 History metformin 500 mg PO DAILY 09/29/20 09/29/20 History nitroglycerin See Rx Instructions .ROUTE .COMPLEX 09/29/20 10/01/20 History omeprazole 1 cap PO DAILY 09/29/20 09/29/20 History oxybutynin chloride 5 mg PO TID 09/29/20 10/01/20 History acetaminophen [Arthritis Pain 650 mg PO TID PRN 10/01/20 10/01/20 History Relief (acetam)] aspirin 81 mg PO DAILY 10/01/20 10/01/20 History atorvastatin 80 mg PO DAILY 10/01/20 10/01/20 History carvedilol 3.125 mg PO BID 10/01/20 10/01/20 History cholecalciferol (vitamin D3) 50 mcg PO DAILY 10/01/20 10/01/20 History [Vitamin D3] polyethylene glycol 3350 17 g PO DAILY PRN 10/01/20 10/01/20 History Physical Exam Vital Signs: Vital Signs: Last Vital Signs Temp 97.7 F 10/05/20 07:36 Pulse 58 10/05/20 07:36 Resp 19 10/05/20 07:36 BP 102/63 10/05/20 07:36 Pulse Ox 94 10/05/20 07:36 Body Mass Index 37.4 He was alert awake with normal spontaneity of speech fluency comprehension and affect. There was no pronator drift. Results Labs CBC & Chem 7: 10/02/20 05:20 10/05/20 06:19 Labs: BMP 10/05/20 10/05/20 06:19 06:19 Sodium 139 139 Potassium 5.3 H D 5.1 Chloride 99 99 Carbon Dioxide 30 H 31 H BUN 13 13 Creatinine 1.01 1.08 Calcium 9.2 9.3 Microbiology Microbiology Results: Microbiology 09/29/20 16:16 Blood - Venous Blood Culture - Final No growth after 5 days. 09/29/20 16:02 Blood - Venous Blood Culture - Final No growth after 5 days. Assessment and Plan (1) Cerebral infarction: Status: Acute 65 years old man who was recently treated with with intravenous tPA for suspected left hemispheric cerebral infarction that presented with right hemiparesis and aphasia. He did remarkably well. His MRI of brain revealed a left perisylvian acute infarct that was mostly resolved with intravenous tPA. He was also positive for cocaine but I do not think that was directly related to his stroke. The stroke was likely caused by cardiomyopathy. Mainstay of management is long-term anticoagulation to prevent such infarct.
[2020-10-05 11:54] VITALS: BP 123/78; PULSE 65; RESP 16; TEMP 36.4; O2SAT 95
--- NOTE | 2020-10-05 11:58 | MHC.CM.PN ---
ACUTE AND SNF REFERRALS UPDATED WITH NEW DC PLAN. PATIENT HAS [facility], WHO SCHEDULE A 24-48 POST ACUTE BODILY INJURY ADJUSTER HOME VISIT IMM 10/04 IN CHART.
[2020-10-05 12:18] LABS: Glucose, Whole Blood 144 mg/dL (60-115)
--- NOTE | 2020-10-05 12:24 | P.DS_ITS ---
DS: Providers Provider Date of Service: 10/05/20 Date of admission: 09/30/20 07:16 Primary care physician: Unknown Physician Consults: 09/29/20 23:36 Consult to Cardiology Routine Consulting Provider: Prateek Anton Reason for consultation: CHF Has provider been notified: No 10/01/20 10:04 Consult to Neurology Routine Consulting Provider: [facility] Reason for consultation: STROKE POST TPA Has provider been notified: Yes 10/03/20 10:47 Addiction Medicine Routine Consulting Provider: Loni John Reason for consultation: cocaine use disorder Has provider been notified: No DS: Diagnosis Discharge Diagnosis (1) Cerebral infarction: Status: Acute DS: Medications Discharge Medications Home Medications: Home Medications Medication Instructions Recorded Confirmed docusate sodium 100 mg PO TID PRN 09/29/20 10/01/20 metformin 500 mg PO DAILY 09/29/20 09/29/20 nitroglycerin See Rx Instructions .ROUTE .COMPLEX 09/29/20 10/01/20 omeprazole 1 cap PO DAILY 09/29/20 09/29/20 acetaminophen [Arthritis Pain 650 mg PO TID PRN 10/01/20 10/01/20 Relief (acetam)] aspirin 81 mg PO DAILY 10/01/20 10/01/20 atorvastatin 80 mg PO DAILY 10/01/20 10/01/20 cholecalciferol (vitamin D3) 50 mcg PO DAILY 10/01/20 10/01/20 [Vitamin D3] polyethylene glycol 3350 17 g PO DAILY PRN 10/01/20 10/01/20 Previous Rx's Medication Instructions Recorded cane #1 ea 07/29/20 apixaban [Eliquis] 5 mg PO BID #60 tab 10/05/20 lisinopril 2.5 mg PO DAILY #30 tab 10/05/20 DS: Summary Hospital Course Hospital Course: History of presenting illness 65 year old man with history of CAD and cardiomyopathy presented with worsening dyspnea over last 2 weeks. Stated was significantly worse in last couple of days. He was concerned and took NTG and came to ED. States he would get dyspneic mostly with activity . Also would get episodes of chest pain associated wtih activity. SOme cough producing white phlegm recently. No fevers but has had chills. No pleuritic chest pain reported. No nausea, vomiting, diaphoresis. Does have hx of cardiomyopathy but outpt med list does not show any diuretics. Per patient he is having a ICD placed in the spring. In ED was hypotensive and in respiratory distress. Was stabilized with BiPAP and then was able to be diuresed with improvement in his breathing. No home oxygen use but does use CPAP at night for SULAIMAN.on 10/01/2020, the patient was found on the floor next to the bed, dysarthric and with new expressive aphasia, right upper extremity pronator drift. Prior to this incident, patient was noted to be searching through his belongings, post incident, security did found a metal container with a white powder substance. However given all the above, the patient was put through a stroke protocol workup and upon talking to Neurology and he was deemed that he was a good candidate for tPA which he received in the ED. Hospital course (1) Acute on chronic systolic (congestive) heart failure: Patient with history of cardiomyopathy with EF 15-20% patient initially diuresed with IV Lasix is 5 L negative since admission, at present denies shortness of breath or chest pain, repeat chest x-ray shows right basilar effusion and adjacent passive atelectasis, no pulmonary vascular congestion noted BNP improved from to [id number] case discussed with Cardiology, patient has been started on low-dose lisinopril 2.5 will hold diuretics due to low blood pressure and patient appears euvolemic and recommend to follow up with Cardiology in 1 week recommend to check BMP in 1 week echo showed EF 10-15% with global hypokinesis and mild MR patient to have outpatient follow-up for ICD placement with Cardiology his primary crystal growing technician Dr. Julian, Since patient has positive cocaine on admit will hold Coreg (2) Acute ischemic stroke: MRI brain showed an acute infarction involving the anterior left insular and left operculum in the left MCA territory, no hemorrhagic transformation noted Likely embolic, patient received tPA, currently with no residual weakness, echo showed no ventricular thrombus, patient placed on Eliquis, his speech is clear and he has no weakness. (3) Cocaine use: Obtained Addiction consult, strongly recommend to abstain from illicit drug use, patient appears motivated to quit. (4) Pleural effusion on right: Likely due to CHF stable oxygenation (5) coronary artery disease continue aspirin and Lipitor,hold bb with active cocaine use. Time Spent with Patient Time attestation: Total time spent providing and/or coordinating discharge services: Discharge coordination time: Greater than 30 minutes Quality: Stroke Pt Provided Written Stroke Discharge Instructions: Patient given written information Physical Exam Vital Signs: Vital Signs: Last Vital Signs Temp 97.6 F 10/05/20 11:54 Pulse 65 10/05/20 11:54 Resp 16 10/05/20 11:54 BP 123/78 10/05/20 11:54 Pulse Ox 95 10/05/20 11:54 Body Mass Index 37.4 General patient resting comfortably in no acute distress. Neck is supple no JVD. CVS regular rate rhythm, Respiratory lungs clear to auscultation, diminished breath sound right base, no crackles Gastrointestinal abdomen soft, nontender, bowel sounds audible. Extremities no edema. Neuro nonfocal , speech clear. Skin no rash DS: Data Data Completed and Pending Labs on day of discharge: Laboratory Tests 09/29/20 09/29/20 09/29/20 16:02 16:03 16:03 WBC RBC Hgb Hct MCV MCH MCHC RDW Plt Count MPV Immature Gran % (Auto) Neut % (Auto) Lymph % (Auto) [place] % (Auto) Eos % (Auto) Baso % (Auto) Lymph # (Auto) [place] # (Auto) Eos # (Auto) Baso # (Auto) Abs Immat Gran (auto) Absolute Neuts (auto) Absolute Nucleated RBC Nucleated RBC % (auto) PT Whole Blood PT INR Whole Blood INR APTT ABG pH ABG pCO2 ABG pO2 ABG HCO3 ABG O2 Saturation ABG Base Excess Oxygen Given Sodium 138 Potassium 4.3 Chloride 106 Carbon Dioxide 24 Anion Gap 12 BUN 24 H Creatinine 1.07 Estim Creat Clear Calc 78.7 Estimated GFR > 60 POC Glucose Random Glucose 181 H Lactic Acid 1.6 Calcium 8.5 Phosphorus Magnesium 2.0 Total Bilirubin 1.8 H Direct Bilirubin 1.0 H AST 22 ALT 21 Alkaline Phosphatase 87 Ammonia Troponin I High Sens B-Natriuretic Peptide Total Protein 6.5 Albumin 3.6 Triglycerides Cholesterol LDL Cholesterol, Calc HDL Cholesterol Procalcitonin Urine Color Urine Appearance Urine pH Ur Specific [place] Urine Protein Urine Glucose (UA) Urine Ketones Urine Blood Urine Nitrite Ur Leukocyte Esterase Urine Opiates Screen Ur Barbiturates Screen Ur Phencyclidine Scrn Ur Amphetamines Screen U Benzodiazepines Scrn Urine Cocaine Screen U Marijuana (THC) Screen Coronavirus (PCR) NEGATIVE Influenza Type A (PCR) NEGATIVE Influenza Type B (PCR) NEGATIVE RSV RNA Qual (PCR) NEGATIVE 09/29/20 09/29/20 09/29/20 16:03 16:03 16:04 WBC 7.7 RBC 4.54 L Hgb 13.1 L Hct 40.7 L MCV 89.6 MCH 28.9 MCHC 32.2 RDW 16.1 H Plt Count 188 MPV 10.3 Immature Gran % (Auto) 0.3 Neut % (Auto) 75.1 H Lymph % (Auto) 14.7 L [place] % (Auto) 8.7 Eos % (Auto) 0.8 Baso % (Auto) 0.4 Lymph # (Auto) 1.1 L [place] # (Auto) 0.7 Eos # (Auto) 0.1 Baso # (Auto) 0.0 Abs Immat Gran (auto) 0.02 Absolute Neuts (auto) 5.8 Absolute Nucleated RBC 0.000 Nucleated RBC % (auto) 0.0 PT Whole Blood PT INR Whole Blood INR APTT ABG pH ABG pCO2 ABG pO2 ABG HCO3 ABG O2 Saturation ABG Base Excess Oxygen Given Sodium Potassium Chloride Carbon Dioxide Anion Gap BUN Creatinine Estim Creat Clear Calc Estimated GFR POC Glucose Random Glucose Lactic Acid Calcium Phosphorus Magnesium Total Bilirubin Direct Bilirubin AST ALT Alkaline Phosphatase Ammonia Troponin I High Sens 29.5 B-Natriuretic Peptide 2942 H Total Protein Albumin Triglycerides Cholesterol LDL Cholesterol, Calc HDL Cholesterol Procalcitonin 0.04 Urine Color Urine Appearance Urine pH Ur Specific [place] Urine Protein Urine Glucose (UA) Urine Ketones Urine Blood Urine Nitrite Ur Leukocyte Esterase Urine Opiates Screen Ur Barbiturates Screen Ur Phencyclidine Scrn Ur Amphetamines Screen U Benzodiazepines Scrn Urine Cocaine Screen U Marijuana (THC) Screen Coronavirus (PCR) Influenza Type A (PCR) Influenza Type B (PCR) RSV RNA Qual (PCR) 09/29/20 09/29/20 09/29/20 16:04 20:16 20:52 WBC RBC Hgb Hct MCV MCH MCHC RDW Plt Count MPV Immature Gran % (Auto) Neut % (Auto) Lymph % (Auto) [place] % (Auto) Eos % (Auto) Baso % (Auto) Lymph # (Auto) [place] # (Auto) Eos # (Auto) Baso # (Auto) Abs Immat Gran (auto) Absolute Neuts (auto) Absolute Nucleated RBC Nucleated RBC % (auto) PT 21.1 H Whole Blood PT INR 1.8 H Whole Blood INR APTT 30.5 ABG pH ABG pCO2 ABG pO2 ABG HCO3 ABG O2 Saturation ABG Base Excess Oxygen Given Sodium Potassium Chloride Carbon Dioxide Anion Gap BUN Creatinine Estim Creat Clear Calc Estimated GFR POC Glucose Random Glucose Lactic Acid Calcium Phosphorus Magnesium Total Bilirubin Direct Bilirubin AST ALT Alkaline Phosphatase Ammonia Troponin I High Sens 30.2 B-Natriuretic Peptide Total Protein Albumin Triglycerides Cholesterol LDL Cholesterol, Calc HDL Cholesterol Procalcitonin Urine Color Urine Appearance Urine pH Ur Specific [place] Urine Protein Urine Glucose (UA) Urine Ketones Urine Blood Urine Nitrite Ur Leukocyte Esterase Urine Opiates Screen Not Detected Ur Barbiturates Screen Not Detected Ur Phencyclidine Scrn Not Detected Ur Amphetamines Screen Not Detected U Benzodiazepines Scrn Not Detected Urine Cocaine Screen POSITIVE H U Marijuana (THC) Screen Not Detected Coronavirus (PCR) Influenza Type A (PCR) Influenza Type B (PCR) RSV RNA Qual (PCR) 09/29/20 09/30/20 09/30/20 20:52 00:48 00:48 WBC 8.4 RBC 4.68 Hgb 13.5 L Hct 42.0 MCV 89.7 MCH 28.8 MCHC 32.1 RDW 16.3 H Plt Count 178 MPV 10.6 Immature Gran % (Auto) 0.5 H Neut % (Auto) 71.9 Lymph % (Auto) 17.4 L [place] % (Auto) 9.3 Eos % (Auto) 0.5 Baso % (Auto) 0.4 Lymph # (Auto) 1.5 [place] # (Auto) 0.8 Eos # (Auto) 0.0 Baso # (Auto) 0.0 Abs Immat Gran (auto) 0.04 H Absolute Neuts (auto) 6.1 Absolute Nucleated RBC 0.000 Nucleated RBC % (auto) 0.0 PT Whole Blood PT INR Whole Blood INR APTT ABG pH ABG pCO2 ABG pO2 ABG HCO3 ABG O2 Saturation ABG Base Excess Oxygen Given Sodium 139 Potassium 4.5 Chloride 106 Carbon Dioxide 22 Anion Gap 16 BUN 25 H Creatinine 1.08 Estim Creat Clear Calc 78.0 Estimated GFR > 60 POC Glucose Random Glucose 115 D Lactic Acid Calcium 8.8 Phosphorus Magnesium Total Bilirubin Direct Bilirubin AST ALT Alkaline Phosphatase Ammonia Troponin I High Sens B-Natriuretic Peptide Total Protein Albumin Triglycerides Cholesterol LDL Cholesterol, Calc HDL Cholesterol Procalcitonin Urine Color STRAW Urine Appearance CLEAR Urine pH 6.0 Ur Specific [place] 1.015 Urine Protein NEG Urine Glucose (UA) NEG Urine Ketones NEG Urine Blood NEG Urine Nitrite NEG Ur Leukocyte Esterase NEG Urine Opiates Screen Ur Barbiturates Screen Ur Phencyclidine Scrn Ur Amphetamines Screen U Benzodiazepines Scrn Urine Cocaine Screen U Marijuana (THC) Screen Coronavirus (PCR) Influenza Type A (PCR) Influenza Type B (PCR) RSV RNA Qual (PCR) 09/30/20 09/30/20 09/30/20 07:45 11:25 16:11 WBC RBC Hgb Hct MCV MCH MCHC RDW Plt Count MPV Immature Gran % (Auto) Neut % (Auto) Lymph % (Auto) [place] % (Auto) Eos % (Auto) Baso % (Auto) Lymph # (Auto) [place] # (Auto) Eos # (Auto) Baso # (Auto) Abs Immat Gran (auto) Absolute Neuts (auto) Absolute Nucleated RBC Nucleated RBC % (auto) PT Whole Blood PT INR Whole Blood INR APTT ABG pH ABG pCO2 ABG pO2 ABG HCO3 ABG O2 Saturation ABG Base Excess Oxygen Given Sodium Potassium Chloride Carbon Dioxide Anion Gap BUN Creatinine Estim Creat Clear Calc Estimated GFR POC Glucose 167 H 116 H 150 H Random Glucose Lactic Acid Calcium Phosphorus Magnesium Total Bilirubin Direct Bilirubin AST ALT Alkaline Phosphatase Ammonia Troponin I High Sens B-Natriuretic Peptide Total Protein Albumin Triglycerides Cholesterol LDL Cholesterol, Calc HDL Cholesterol Procalcitonin Urine Color Urine Appearance Urine pH Ur Specific [place] Urine Protein Urine Glucose (UA) Urine Ketones Urine Blood Urine Nitrite Ur Leukocyte Esterase Urine Opiates Screen Ur Barbiturates Screen Ur Phencyclidine Scrn Ur Amphetamines Screen U Benzodiazepines Scrn Urine Cocaine Screen U Marijuana (THC) Screen Coronavirus (PCR) Influenza Type A (PCR) Influenza Type B (PCR) RSV RNA Qual (PCR) 09/30/20 10/01/20 10/01/20 21:56 00:55 00:57 WBC RBC Hgb Hct MCV MCH MCHC RDW Plt Count MPV Immature Gran % (Auto) Neut % (Auto) Lymph % (Auto) [place] % (Auto) Eos % (Auto) Baso % (Auto) Lymph # (Auto) [place] # (Auto) Eos # (Auto) Baso # (Auto) Abs Immat Gran (auto) Absolute Neuts (auto) Absolute Nucleated RBC Nucleated RBC % (auto) PT Whole Blood PT INR Whole Blood INR APTT ABG pH ABG pCO2 ABG pO2 ABG HCO3 ABG O2 Saturation ABG Base Excess Oxygen Given Sodium Potassium Chloride Carbon Dioxide Anion Gap BUN Creatinine Estim Creat Clear Calc Estimated GFR POC Glucose 166 H 136 H Random Glucose Lactic Acid Calcium Phosphorus Magnesium Total Bilirubin Direct Bilirubin AST ALT Alkaline Phosphatase Ammonia Troponin I High Sens B-Natriuretic Peptide 2597 H Total Protein Albumin Triglycerides Cholesterol LDL Cholesterol, Calc HDL Cholesterol Procalcitonin Urine Color Urine Appearance Urine pH Ur Specific [place] Urine Protein Urine Glucose (UA) Urine Ketones Urine Blood Urine Nitrite Ur Leukocyte Esterase Urine Opiates Screen Ur Barbiturates Screen Ur Phencyclidine Scrn Ur Amphetamines Screen U Benzodiazepines Scrn Urine Cocaine Screen U Marijuana (THC) Screen Coronavirus (PCR) Influenza Type A (PCR) Influenza Type B (PCR) RSV RNA Qual (PCR) 10/01/20 10/01/20 10/01/20 01:28 01:48 02:57 WBC 11.5 H RBC 4.50 L Hgb 13.0 L Hct 40.7 L MCV 90.4 MCH 28.9 MCHC 31.9 RDW 16.2 H Plt Count 175 MPV 10.6 Immature Gran % (Auto) 0.3 Neut % (Auto) 83.7 H Lymph % (Auto) 7.6 L [place] % (Auto) 7.8 Eos % (Auto) 0.3 Baso % (Auto) 0.3 Lymph # (Auto) 0.9 L [place] # (Auto) 0.9 Eos # (Auto) 0.0 Baso # (Auto) 0.0 Abs Immat Gran (auto) 0.04 H Absolute Neuts (auto) 9.6 H Absolute Nucleated RBC 0.000 Nucleated RBC % (auto) 0.0 PT Whole Blood PT 16.2 H INR Whole Blood INR 1.3 H APTT ABG pH 7.45 ABG pCO2 49 H ABG pO2 88 ABG HCO3 35 H ABG O2 Saturation 97.0 ABG Base Excess 9.4 Oxygen Given 3 L Sodium Potassium Chloride Carbon Dioxide Anion Gap BUN Creatinine Estim Creat Clear Calc Estimated GFR POC Glucose Random Glucose Lactic Acid Calcium Phosphorus Magnesium Total Bilirubin Direct Bilirubin AST ALT Alkaline Phosphatase Ammonia Troponin I High Sens B-Natriuretic Peptide Total Protein Albumin Triglycerides Cholesterol LDL Cholesterol, Calc HDL Cholesterol Procalcitonin Urine Color Urine Appearance Urine pH Ur Specific [place] Urine Protein Urine Glucose (UA) Urine Ketones Urine Blood Urine Nitrite Ur Leukocyte Esterase Urine Opiates Screen Ur Barbiturates Screen Ur Phencyclidine Scrn Ur Amphetamines Screen U Benzodiazepines Scrn Urine Cocaine Screen U Marijuana (THC) Screen Coronavirus (PCR) Influenza Type A (PCR) Influenza Type B (PCR) RSV RNA Qual (PCR) 10/01/20 10/01/20 10/01/20 02:57 02:57 05:55 WBC RBC Hgb Hct MCV MCH MCHC RDW Plt Count MPV Immature Gran % (Auto) Neut % (Auto) Lymph % (Auto) [place] % (Auto) Eos % (Auto) Baso % (Auto) Lymph # (Auto) [place] # (Auto) Eos # (Auto) Baso # (Auto) Abs Immat Gran (auto) Absolute Neuts (auto) Absolute Nucleated RBC Nucleated RBC % (auto) PT Whole Blood PT INR Whole Blood INR APTT ABG pH ABG pCO2 ABG pO2 ABG HCO3 ABG O2 Saturation ABG Base Excess Oxygen Given Sodium 138 137 Potassium 4.4 4.6 Chloride 99 101 Carbon Dioxide 29 25 Anion Gap 14 16 BUN 31 H 29 H Creatinine 1.08 0.99 Estim Creat Clear Calc 83.3 91.7 Estimated GFR > 60 > 60 POC Glucose Random Glucose 157 H D 158 H Lactic Acid Calcium 9.1 8.8 Phosphorus Magnesium Total Bilirubin Direct Bilirubin AST ALT Alkaline Phosphatase Ammonia 41 Troponin I High Sens B-Natriuretic Peptide Total Protein Albumin Triglycerides 97 Cholesterol 92 LDL Cholesterol, Calc 50 HDL Cholesterol 23 Procalcitonin Urine Color Urine Appearance Urine pH Ur Specific [place] Urine Protein Urine Glucose (UA) Urine Ketones Urine Blood Urine Nitrite Ur Leukocyte Esterase Urine Opiates Screen Ur Barbiturates Screen Ur Phencyclidine Scrn Ur Amphetamines Screen U Benzodiazepines Scrn Urine Cocaine Screen U Marijuana (THC) Screen Coronavirus (PCR) Influenza Type A (PCR) Influenza Type B (PCR) RSV RNA Qual (PCR) 10/01/20 10/01/20 10/01/20 05:55 05:55 05:56 WBC 9.8 RBC 4.43 L Hgb 12.9 L Hct 40.1 L MCV 90.5 MCH 29.1 MCHC 32.2 RDW 16.1 H Plt Count 168 MPV 10.5 Immature Gran % (Auto) 0.4 Neut % (Auto) 78.3 H Lymph % (Auto) 10.9 L [place] % (Auto) 9.9 Eos % (Auto) 0.3 Baso % (Auto) 0.2 Lymph # (Auto) 1.1 L [place] # (Auto) 1.0 Eos # (Auto) 0.0 Baso # (Auto) 0.0 Abs Immat Gran (auto) 0.04 H Absolute Neuts (auto) 7.7 Absolute Nucleated RBC 0.000 Nucleated RBC % (auto) 0.0 PT Whole Blood PT INR Whole Blood INR APTT ABG pH ABG pCO2 ABG pO2 ABG HCO3 ABG O2 Saturation ABG Base Excess Oxygen Given Sodium Potassium Chloride Carbon Dioxide Anion Gap BUN Creatinine Estim Creat Clear Calc Estimated GFR POC Glucose Random Glucose Lactic Acid Calcium Phosphorus Magnesium Total Bilirubin Direct Bilirubin AST ALT Alkaline Phosphatase Ammonia Troponin I High Sens 40.6 H B-Natriuretic Peptide 2053 H Total Protein Albumin Triglycerides Cancelled Cholesterol Cancelled LDL Cholesterol, Calc Cancelled HDL Cholesterol Cancelled Procalcitonin Urine Color Urine Appearance Urine pH Ur Specific [place] Urine Protein Urine Glucose (UA) Urine Ketones Urine Blood Urine Nitrite Ur Leukocyte Esterase Urine Opiates Screen Ur Barbiturates Screen Ur Phencyclidine Scrn Ur Amphetamines Screen U Benzodiazepines Scrn Urine Cocaine Screen U Marijuana (THC) Screen Coronavirus (PCR) Influenza Type A (PCR) Influenza Type B (PCR) RSV RNA Qual (PCR) 10/01/20 10/01/20 10/01/20 07:12 11:12 16:55 WBC RBC Hgb Hct MCV MCH MCHC RDW Plt Count MPV Immature Gran % (Auto) Neut % (Auto) Lymph % (Auto) [place] % (Auto) Eos % (Auto) Baso % (Auto) Lymph # (Auto) [place] # (Auto) Eos # (Auto) Baso # (Auto) Abs Immat Gran (auto) Absolute Neuts (auto) Absolute Nucleated RBC Nucleated RBC % (auto) PT Whole Blood PT INR Whole Blood INR APTT ABG pH ABG pCO2 ABG pO2 ABG HCO3 ABG O2 Saturation ABG Base Excess Oxygen Given Sodium Potassium Chloride Carbon Dioxide Anion Gap BUN Creatinine Estim Creat Clear Calc Estimated GFR POC Glucose 161 H 128 H 111 Random Glucose Lactic Acid Calcium Phosphorus Magnesium Total Bilirubin Direct Bilirubin AST ALT Alkaline Phosphatase Ammonia Troponin I High Sens B-Natriuretic Peptide Total Protein Albumin Triglycerides Cholesterol LDL Cholesterol, Calc HDL Cholesterol Procalcitonin Urine Color Urine Appearance Urine pH Ur Specific [place] Urine Protein Urine Glucose (UA) Urine Ketones Urine Blood Urine Nitrite Ur Leukocyte Esterase Urine Opiates Screen Ur Barbiturates Screen Ur Phencyclidine Scrn Ur Amphetamines Screen U Benzodiazepines Scrn Urine Cocaine Screen U Marijuana (THC) Screen Coronavirus (PCR) Influenza Type A (PCR) Influenza Type B (PCR) RSV RNA Qual (PCR) 10/01/20 10/02/20 10/02/20 21:15 05:20 05:20 WBC 8.4 RBC 4.71 Hgb 13.4 L Hct 42.0 MCV 89.2 MCH 28.5 MCHC 31.9 RDW 16.0 Plt Count 176 MPV 10.2 Immature Gran % (Auto) 0.4 Neut % (Auto) 72.0 Lymph % (Auto) 15.0 L [place] % (Auto) 11.7 H Eos % (Auto) 0.7 Baso % (Auto) 0.2 Lymph # (Auto) 1.3 [place] # (Auto) 1.0 Eos # (Auto) 0.1 Baso # (Auto) 0.0 Abs Immat Gran (auto) 0.03 Absolute Neuts (auto) 6.1 Absolute Nucleated RBC 0.000 Nucleated RBC % (auto) 0.0 PT 17.3 H Whole Blood PT INR 1.5 H Whole Blood INR APTT 29.2 ABG pH ABG pCO2 ABG pO2 ABG HCO3 ABG O2 Saturation ABG Base Excess Oxygen Given Sodium Potassium Chloride Carbon Dioxide Anion Gap BUN Creatinine Estim Creat Clear Calc Estimated GFR POC Glucose 108 Random Glucose Lactic Acid Calcium Phosphorus Magnesium Total Bilirubin Direct Bilirubin AST ALT Alkaline Phosphatase Ammonia Troponin I High Sens B-Natriuretic Peptide Total Protein Albumin Triglycerides Cholesterol LDL Cholesterol, Calc HDL Cholesterol Procalcitonin Urine Color Urine Appearance Urine pH Ur Specific [place] Urine Protein Urine Glucose (UA) Urine Ketones Urine Blood Urine Nitrite Ur Leukocyte Esterase Urine Opiates Screen Ur Barbiturates Screen Ur Phencyclidine Scrn Ur Amphetamines Screen U Benzodiazepines Scrn Urine Cocaine Screen U Marijuana (THC) Screen Coronavirus (PCR) Influenza Type A (PCR) Influenza Type B (PCR) RSV RNA Qual (PCR) 10/02/20 10/02/20 10/02/20 05:20 05:20 07:24 WBC RBC Hgb Hct MCV MCH MCHC RDW Plt Count MPV Immature Gran % (Auto) Neut % (Auto) Lymph % (Auto) [place] % (Auto) Eos % (Auto) Baso % (Auto) Lymph # (Auto) [place] # (Auto) Eos # (Auto) Baso # (Auto) Abs Immat Gran (auto) Absolute Neuts (auto) Absolute Nucleated RBC Nucleated RBC % (auto) PT Whole Blood PT INR Whole Blood INR APTT ABG pH ABG pCO2 ABG pO2 ABG HCO3 ABG O2 Saturation ABG Base Excess Oxygen Given Sodium 139 Potassium 4.1 Chloride 101 Carbon Dioxide 29 Anion Gap 13 BUN 17 H Creatinine 0.91 Estim Creat Clear Calc 99.8 Estimated GFR > 60 POC Glucose 116 H Random Glucose 118 H Lactic Acid Calcium 8.8 Phosphorus 3.3 Magnesium 1.9 Total Bilirubin Direct Bilirubin AST ALT Alkaline Phosphatase Ammonia Troponin I High Sens B-Natriuretic Peptide 2264 H Total Protein Albumin Triglycerides Cholesterol LDL Cholesterol, Calc HDL Cholesterol Procalcitonin Urine Color Urine Appearance Urine pH Ur Specific [place] Urine Protein Urine Glucose (UA) Urine Ketones Urine Blood Urine Nitrite Ur Leukocyte Esterase Urine Opiates Screen Ur Barbiturates Screen Ur Phencyclidine Scrn Ur Amphetamines Screen U Benzodiazepines Scrn Urine Cocaine Screen U Marijuana (THC) Screen Coronavirus (PCR) Influenza Type A (PCR) Influenza Type B (PCR) RSV RNA Qual (PCR) 10/02/20 10/02/20 10/02/20 11:23 16:21 19:50 WBC RBC Hgb Hct MCV MCH MCHC RDW Plt Count MPV Immature Gran % (Auto) Neut % (Auto) Lymph % (Auto) [place] % (Auto) Eos % (Auto) Baso % (Auto) Lymph # (Auto) [place] # (Auto) Eos # (Auto) Baso # (Auto) Abs Immat Gran (auto) Absolute Neuts (auto) Absolute Nucleated RBC Nucleated RBC % (auto) PT Whole Blood PT INR Whole Blood INR APTT ABG pH ABG pCO2 ABG pO2 ABG HCO3 ABG O2 Saturation ABG Base Excess Oxygen Given Sodium Potassium Chloride Carbon Dioxide Anion Gap BUN Creatinine Estim Creat Clear Calc Estimated GFR POC Glucose 178 H 128 H 196 H Random Glucose Lactic Acid Calcium Phosphorus Magnesium Total Bilirubin Direct Bilirubin AST ALT Alkaline Phosphatase Ammonia Troponin I High Sens B-Natriuretic Peptide Total Protein Albumin Triglycerides Cholesterol LDL Cholesterol, Calc HDL Cholesterol Procalcitonin Urine Color Urine Appearance Urine pH Ur Specific [place] Urine Protein Urine Glucose (UA) Urine Ketones Urine Blood Urine Nitrite Ur Leukocyte Esterase Urine Opiates Screen Ur Barbiturates Screen Ur Phencyclidine Scrn Ur Amphetamines Screen U Benzodiazepines Scrn Urine Cocaine Screen U Marijuana (THC) Screen Coronavirus (PCR) Influenza Type A (PCR) Influenza Type B (PCR) RSV RNA Qual (PCR) 10/03/20 10/03/20 10/03/20 07:59 11:52 16:17 WBC RBC Hgb Hct MCV MCH MCHC RDW Plt Count MPV Immature Gran % (Auto) Neut % (Auto) Lymph % (Auto) [place] % (Auto) Eos % (Auto) Baso % (Auto) Lymph # (Auto) [place] # (Auto) Eos # (Auto) Baso # (Auto) Abs Immat Gran (auto) Absolute Neuts (auto) Absolute Nucleated RBC Nucleated RBC % (auto) PT Whole Blood PT INR Whole Blood INR APTT ABG pH ABG pCO2 ABG pO2 ABG HCO3 ABG O2 Saturation ABG Base Excess Oxygen Given Sodium Potassium Chloride Carbon Dioxide Anion Gap BUN Creatinine Estim Creat Clear Calc Estimated GFR POC Glucose 112 176 H 172 H Random Glucose Lactic Acid Calcium Phosphorus Magnesium Total Bilirubin Direct Bilirubin AST ALT Alkaline Phosphatase Ammonia Troponin I High Sens B-Natriuretic Peptide Total Protein Albumin Triglycerides Cholesterol LDL Cholesterol, Calc HDL Cholesterol Procalcitonin Urine Color Urine Appearance Urine pH Ur Specific [place] Urine Protein Urine Glucose (UA) Urine Ketones Urine Blood Urine Nitrite Ur Leukocyte Esterase Urine Opiates Screen Ur Barbiturates Screen Ur Phencyclidine Scrn Ur Amphetamines Screen U Benzodiazepines Scrn Urine Cocaine Screen U Marijuana (THC) Screen Coronavirus (PCR) Influenza Type A (PCR) Influenza Type B (PCR) RSV RNA Qual (PCR) 10/03/20 10/04/20 10/04/20 20:11 07:31 10:59 WBC RBC Hgb Hct MCV MCH MCHC RDW Plt Count MPV Immature Gran % (Auto) Neut % (Auto) Lymph % (Auto) [place] % (Auto) Eos % (Auto) Baso % (Auto) Lymph # (Auto) [place] # (Auto) Eos # (Auto) Baso # (Auto) Abs Immat Gran (auto) Absolute Neuts (auto) Absolute Nucleated RBC Nucleated RBC % (auto) PT Whole Blood PT INR Whole Blood INR APTT ABG pH ABG pCO2 ABG pO2 ABG HCO3 ABG O2 Saturation ABG Base Excess Oxygen Given Sodium Potassium Chloride Carbon Dioxide Anion Gap BUN Creatinine Estim Creat Clear Calc Estimated GFR POC Glucose 115 206 H 100 Random Glucose Lactic Acid Calcium Phosphorus Magnesium Total Bilirubin Direct Bilirubin AST ALT Alkaline Phosphatase Ammonia Troponin I High Sens B-Natriuretic Peptide Total Protein Albumin Triglycerides Cholesterol LDL Cholesterol, Calc HDL Cholesterol Procalcitonin Urine Color Urine Appearance Urine pH Ur Specific [place] Urine Protein Urine Glucose (UA) Urine Ketones Urine Blood Urine Nitrite Ur Leukocyte Esterase Urine Opiates Screen Ur Barbiturates Screen Ur Phencyclidine Scrn Ur Amphetamines Screen U Benzodiazepines Scrn Urine Cocaine Screen U Marijuana (THC) Screen Coronavirus (PCR) Influenza Type A (PCR) Influenza Type B (PCR) RSV RNA Qual (PCR) 10/04/20 10/04/20 10/05/20 16:24 20:20 06:19 WBC RBC Hgb Hct MCV MCH MCHC RDW Plt Count MPV Immature Gran % (Auto) Neut % (Auto) Lymph % (Auto) [place] % (Auto) Eos % (Auto) Baso % (Auto) Lymph # (Auto) [place] # (Auto) Eos # (Auto) Baso # (Auto) Abs Immat Gran (auto) Absolute Neuts (auto) Absolute Nucleated RBC Nucleated RBC % (auto) PT Whole Blood PT INR Whole Blood INR APTT ABG pH ABG pCO2 ABG pO2 ABG HCO3 ABG O2 Saturation ABG Base Excess Oxygen Given Sodium 139 Potassium 5.3 H D Chloride 99 Carbon Dioxide 30 H Anion Gap 15 BUN 13 Creatinine 1.01 Estim Creat Clear Calc 89.9 Estimated GFR > 60 POC Glucose 148 H 142 H Random Glucose 116 H Lactic Acid Calcium 9.2 Phosphorus Magnesium Total Bilirubin Direct Bilirubin AST ALT Alkaline Phosphatase Ammonia Troponin I High Sens B-Natriuretic Peptide Total Protein Albumin Triglycerides Cholesterol LDL Cholesterol, Calc HDL Cholesterol Procalcitonin Urine Color Urine Appearance Urine pH Ur Specific [place] Urine Protein Urine Glucose (UA) Urine Ketones Urine Blood Urine Nitrite Ur Leukocyte Esterase Urine Opiates Screen Ur Barbiturates Screen Ur Phencyclidine Scrn Ur Amphetamines Screen U Benzodiazepines Scrn Urine Cocaine Screen U Marijuana (THC) Screen Coronavirus (PCR) Influenza Type A (PCR) Influenza Type B (PCR) RSV RNA Qual (PCR) 10/05/20 10/05/20 10/05/20 06:19 06:19 06:19 WBC RBC Hgb Hct MCV MCH MCHC RDW Plt Count MPV Immature Gran % (Auto) Neut % (Auto) Lymph % (Auto) [place] % (Auto) Eos % (Auto) Baso % (Auto) Lymph # (Auto) [place] # (Auto) Eos # (Auto) Baso # (Auto) Abs Immat Gran (auto) Absolute Neuts (auto) Absolute Nucleated RBC Nucleated RBC % (auto) PT Whole Blood PT INR Whole Blood INR APTT ABG pH ABG pCO2 ABG pO2 ABG HCO3 ABG O2 Saturation ABG Base Excess Oxygen Given Sodium 139 Potassium 5.1 Chloride 99 Carbon Dioxide 31 H Anion Gap 14 BUN 13 Creatinine 1.08 Estim Creat Clear Calc 84.1 Estimated GFR > 60 POC Glucose Random Glucose 116 H Lactic Acid Calcium 9.3 Phosphorus Magnesium Total Bilirubin Direct Bilirubin AST ALT Alkaline Phosphatase Ammonia Troponin I High Sens B-Natriuretic Peptide Cancelled 1116 H Total Protein Albumin Triglycerides Cholesterol LDL Cholesterol, Calc HDL Cholesterol Procalcitonin Urine Color Urine Appearance Urine pH Ur Specific [place] Urine Protein Urine Glucose (UA) Urine Ketones Urine Blood Urine Nitrite Ur Leukocyte Esterase Urine Opiates Screen Ur Barbiturates Screen Ur Phencyclidine Scrn Ur Amphetamines Screen U Benzodiazepines Scrn Urine Cocaine Screen U Marijuana (THC) Screen Coronavirus (PCR) Influenza Type A (PCR) Influenza Type B (PCR) RSV RNA Qual (PCR) 10/05/20 10/05/20 07:30 11:52 WBC RBC Hgb Hct MCV MCH MCHC RDW Plt Count MPV Immature Gran % (Auto) Neut % (Auto) Lymph % (Auto) [place] % (Auto) Eos % (Auto) Baso % (Auto) Lymph # (Auto) [place] # (Auto) Eos # (Auto) Baso # (Auto) Abs Immat Gran (auto) Absolute Neuts (auto) Absolute Nucleated RBC Nucleated RBC % (auto) PT Whole Blood PT INR Whole Blood INR APTT ABG pH ABG pCO2 ABG pO2 ABG HCO3 ABG O2 Saturation ABG Base Excess Oxygen Given Sodium Potassium Chloride Carbon Dioxide Anion Gap BUN Creatinine Estim Creat Clear Calc Estimated GFR POC Glucose 130 H 144 H Random Glucose Lactic Acid Calcium Phosphorus Magnesium Total Bilirubin Direct Bilirubin AST ALT Alkaline Phosphatase Ammonia Troponin I High Sens B-Natriuretic Peptide Total Protein Albumin Triglycerides Cholesterol LDL Cholesterol, Calc HDL Cholesterol Procalcitonin Urine Color Urine Appearance Urine pH Ur Specific [place] Urine Protein Urine Glucose (UA) Urine Ketones Urine Blood Urine Nitrite Ur Leukocyte Esterase Urine Opiates Screen Ur Barbiturates Screen Ur Phencyclidine Scrn Ur Amphetamines Screen U Benzodiazepines Scrn Urine Cocaine Screen U Marijuana (THC) Screen Coronavirus (PCR) Influenza Type A (PCR) Influenza Type B (PCR) RSV RNA Qual (PCR) Discharge Plan Discharge Patient Disposition: Home, Self-Care Referrals: Physician,Unknown [Primary Care Provider] - (PCP IS DR JIM ABREU) Discharge Medications: New Eliquis 5 mg Tablet 5 mg PO BID Qty: 60 RF: 0 lisinopril 2.5 mg Tablet 2.5 mg PO DAILY Qty: 30 RF: 0 Continued metformin 500 mg tablet 500 mg PO DAILY RF: 0 nitroglycerin 0.4 mg tablet, sublingual See Rx Instructions .ROUTE .COMPLEX RF: 0 docusate sodium 100 mg capsule 100 mg PO TID PRN (Reason: constipation) RF: 0 omeprazole 20 mg capsule,delayed release(DR/EC) 1 cap PO DAILY RF: 0 aspirin 81 mg Tablet,Delayed Release (Dr/Ec) 81 mg PO DAILY RF: 0 acetaminophen [Arthritis Pain Relief (acetam)] 650 mg tablet extended release 650 mg PO TID PRN (Reason: Pain) RF: 0 polyethylene glycol 3350 17 gram/dose powder 17 g PO DAILY PRN (Reason: Constipation) RF: 0 atorvastatin 80 mg tablet 80 mg PO DAILY RF: 0 cholecalciferol (vitamin D3) [Vitamin D3] 50 mcg (2,000 unit) capsule 50 mcg PO DAILY RF: 0 Discontinued oxybutynin chloride 5 mg tablet 5 mg PO TID RF: 0 carvedilol 3.125 mg tablet 3.125 mg PO BID RF: 0 No Action (DME) cane Device See Rx Instructions .ROUTE .MEDSUPPLY Qty: 1 RF: 0 Discharge Orders: Discharge Order (Routine); Ordered 10/05/20 Ordered By: Leobardo Augustin Diet: low salt diet Activity on Discharge: As tolerated Stand Alone Forms: Patient Portal Discharge page Other Ambulatory Orders: Basic Metabolic Panel (Routine) Timeframe: [id number] Facility: [facility] - Location: Laboratory Ordered By: Leobardo Augustin Visit Report Forms: Patient Portal Discharge page Care Plan Goals: strongly recommend to follow-up with cardiology and avoid using illicit drugs Health Concerns: Cardiomyopathy Plan of Treatment: Follow-up with primary care physician and Cardiology in next 7-10 days
[2020-10-05 12:34] VITALS: BP 123/78
--- NOTE | 2020-10-05 14:20 | MHC.CM.PN ---
RN GIVEN [facility] [employer]SPORT VOUCHER SECONDARY TO CONVERSATION WITH TRANSPORT STAFF PATIENT ASKING WHERE HIS BELONGINGS ARE. PER REVIEW OF CHART, BELONGINGS ARE IN DECON. PROCESS FOR OBTAINING BELONGINGS EXPLAINED. RN AWARE
== END 2020-10-05 14:50 | disposition home or self-care (01) | DRG 291 ==
LOC: HO.ED 19:07 → HO.EDOVER 09-30 07:23 → HO.ICU 10-01 04:02 → HO.S3 10-02 18:14
PROVIDERS: Internal Medicine Cardiovascular Disease; Nurse Practitioner Family; Physician Assistant; Physician Assistant Medical; Student in an Organized Health Care Education/Training Program; Admitting Provider Internal Medicine; Emergency Provider Emergency Medicine Emergency Medical Services; PCP Internal Medicine; Visit Provider Hospitalist
DX: I11.0 Hypertensive heart disease with heart failure (principal); I63.412 Cerebral infarction due to embolism of left middle cerebral artery; R47.01 Aphasia; F14.221 Cocaine dependence with intoxication delirium; G81.91 Hemiplegia, unspecified affecting right dominant side; I50.23 Acute on chronic systolic (congestive) heart failure; I42.9 Cardiomyopathy, unspecified; Z20.822 Contact with and (suspected) exposure to COVID-19; I25.10 Atherosclerotic heart disease of native coronary artery without angina pectoris; R29.810 Facial weakness; K21.9 Gastro-esophageal reflux disease without esophagitis; E78.5 Hyperlipidemia, unspecified; R29.708 NIHSS score 8; I25.5 Ischemic cardiomyopathy; I95.9 Hypotension, unspecified; Z79.01 Long term (current) use of anticoagulants; Z79.82 Long term (current) use of aspirin; Z79.899 Other long term (current) drug therapy
CPT/HCPCS: 0241U; 36415; 70450; 70496; 70498; 70551; 71045; 71046; 71250; 80048; 80061; 80076; 80307; 81003; 82140; 82803; 82947; 83605; 83735; 83880; 84100; 84145; 84484; 85025; 85610; 85730; 87040; 92526; 92610; 93005; 93306; 94660; 96374; 96376; 97161; 97165; 97166; 97530; 99285; 99291; C1758; J0696; J1940; J2997

== ENCOUNTER 2021-03-17 23:36 | Inpatient (IN) | payer MEDICARE, SELFPAY ==
--- NOTE | ~2021-03-17 | US_ITS ---
EXAMINATION: US GUIDED THORACENTESIS CLINICAL INFORMATION: Right pleural effusion. COMPARISON: Previous chest CTA 03/18/2021 and chest x-ray from earlier the same day TECHNIQUE: Procedure and risks and benefits including bleeding, infection and pneumothorax were discussed with the patient, and informed consent was obtained. The right posterior lateral chest was prepped and draped in the usual sterile fashion. The skin and soft tissues were anesthetized with 1% lidocaine plain. Using ultrasound guidance and a 4-Sinhala Rapid Centesis catheter, access to the right pleural effusion was obtained. 1.1 L of clear marilia-colored fluid was removed. Diagnostic specimen was sent. FINDINGS: There is a large right pleural effusion. US/US thoracentesis IMPRESSION: Ultrasound-guided right thoracentesis.
--- NOTE | ~2021-03-17 | XR_ITS ---
EXAMINATION: XR CHEST CLINICAL INFORMATION: Effusion COMPARISON: Previous chest x-ray and chest CTA from yesterday TECHNIQUE: 2 views of the chest were obtained. FINDINGS: The cardiac silhouette is enlarged but stable. There is a moderate right pleural effusion and adjacent this does not appear appreciably changed from yesterday's exams. The left lung is clear. There is no left pleural effusion. There is curvature of the thoracic spine to the right and degenerative change. Right lower lobe atelectasis XR/XR chest 2V IMPRESSION: Enlarged cardiac silhouette. Moderate-sized right pleural effusion and adjacent right basilar atelectasis. This is similar to yesterday's exam
--- NOTE | ~2021-03-17 | CT_ITS ---
EXAMINATION: CT ANGIOGRAM OF THE CHEST WITH AND WITHOUT CONTRAST (CT PULMONARY ANGIOGRAM FOR PE) CLINICAL INFORMATION: Reason for Exam Shortness of breath, elevated D-dimer, positive history COMPARISON: Radiograph from today. CT 09/29/2020 TECHNIQUE: Prior to contrast administration, noncontrast localization images were obtained. Subsequently, multidetector volumetric imaging was performed from the thoracic inlet to below the diaphragms following the administration of 65 mL Omnipaque 350 intravenous contrast. No contrast reaction reported Sagittal, coronal, and MIP oblique sagittal reformatted images were obtained on the CT workstation, uploaded to PACS, and reviewed. This CT examination was performed using dose optimization techniques as appropriate, variously including the following: *Automated exposure control *Adjustment of mA and/or kV according to patient size (this includes techniques or standardized protocols for targeted exams where dose is matched to indication/reason for exam; i.e. extremities or head) *Use of iterative reconstruction technique Total exam dose-length product 451 mGy-cm FINDINGS: QUALITY OF STUDY/CONTRAST BOLUS: Satisfactory. PULMONARY ARTERIES: No central or segmental pulmonary emboli. There is lack of opacification of the right lower lobe pulmonary arteries within the area of consolidation. This is not the typical appearance of a pulmonary embolism and is instead likely more associated with contrast bolus. THORACIC AORTA: No aneurysm or dissection. LUNG: The central airways are patent. Moderate right pleural effusion, increased from prior. Right lower lobe consolidative appearance likely atelectasis. There is also partial right middle lobe atelectasis. Moderate centrilobular emphysema. No pneumothorax. MEDIASTINUM: Enlarged heart. No pericardial effusion. Mediastinal lymphadenopathy is noted, as seen previously. For instance there is a 1.5 cm short axis right paratracheal lymph node on series 5 image 23. This is similar to prior. There is a midline prevascular node which measures 1.5 cm on image 19. This may be slightly increased from prior. No evidence of septal bowing or right heart strain. CHEST WALL/AXILLA: No axillary or internal mammary lymphadenopathy. OSSEOUS STRUCTURES: No acute or suspicious osseous abnormality. Degenerative change throughout the spine. UPPER ABDOMEN: Cholelithiasis. No reflux of contrast into the hepatic veins to suggest elevated right heart pressures. CT/CT angio chest PE protocol IMPRESSION: No evidence of pulmonary embolism. Lack of opacification of the right lower lobe pulmonary arteries within the area of consolidation is likely secondary to contrast bolus technical issues, as this is not the typical appearance for pulmonary embolism. Moderate right pleural effusion which is increased from prior. Significant right lower lobe atelectasis, although pneumonia not excluded. Partial atelectasis of the right middle lobe as well. Moderate emphysema. Mediastinal lymphadenopathy is again noted, likely with slight increase in prominence from previous. VTE: negative
--- NOTE | ~2021-03-17 | XR_ITS ---
EXAMINATION: XR ABDOMEN KUB CLINICAL INDICATION: Constipation COMPARISON: Radiographs chest and abdomen 02/25/2018; Chest radiographs 03/19/2021. TECHNIQUE: AP x4 views of the abdomen. FINDINGS: There is gas in the stomach and large and small bowel within normal caliber. There is no focal gaseous dilatation of bowel or thumbprinting or visible pneumatosis. No bowel displacement. There is some mild stool seen in the splenic flexure and rectum. No excessive amounts of stool. Gaseous distention of the splenic flexure is greater than that of the distal descending and sigmoid colon. This is nonspecific. If patient has left lower quadrant pain, then CT abdomen and pelvis may be considered to assess for occult process left lower quadrant. As noted on recent chest radiographs, there is right basilar effusion and atelectasis. XR/XR KUB IMPRESSION: No excessive stool in colon. Gas in large and small bowel within normal caliber. Paucity gas left lower quadrant at distal descending and sigmoid colon. Clinically correlate. If left lower quadrant pain, CT abdomen and pelvis may be considered to assess for occult pathology left lower quadrant.
--- NOTE | ~2021-03-17 | XR_ITS ---
EXAMINATION: XR CHEST CLINICAL INFORMATION: Post thoracentesis. Right-sided pleural effusion. COMPARISON: Chest x-ray March 19, 2021, 9:21 AM TECHNIQUE: Frontal view of the chest was obtained. 4:16 PM FINDINGS: Reduced volume of right-sided pleural effusion since the prior chest x-ray. There is minimal blunting right costophrenic angle remaining. Linear atelectasis is at the right lung base. There is no pneumothorax. Lung volume is low. Heart size is enlarged. There is no pulmonary vascular congestion. Multilevel degenerative spondylosis spine. Chronic rotator cuff tendon tear of the left shoulder. Humeral head subluxed superiorly impacting inferior surface of the acromion. XR/XR chest 1V IMPRESSION: No pneumothorax after a right-sided thoracentesis.
--- NOTE | ~2021-03-17 | XR_ITS ---
EXAMINATION: XR CHEST CLINICAL INFORMATION: Shortness of breath COMPARISON: 10/04/2020 TECHNIQUE: Frontal view of the chest was obtained. FINDINGS: Cardiac leads overlie the chest. Elevated right hemidiaphragm. Patchy opacities at the right base. No pneumothorax.. The cardiomediastinal silhouette is unchanged. XR/XR chest 1V IMPRESSION: Elevated right hemidiaphragm. Patchy right basilar opacities may represent atelectasis or pneumonia. There may also be a small right pleural effusion.
[2021-03-17 23:46] VITALS: BP 101/64; BP 110/70; PULSE 60; PULSE 70; RESP 20; TEMP 36.1; O2SAT 100; O2SAT 80; BMI 30.8
--- NOTE | 2021-03-17 23:46 | ECG_ITS ---
Test Reason : SOB Blood Pressure : / mmHG Vent. Rate : 064 BPM Atrial Rate : 078 BPM P-R Int : 216 ms QRS Dur : 122 ms QT Int : 470 ms P-R-T Axes : 059 084 155 degrees QTc Int : 484 ms Sinus rhythm with 1st degree A-V block Right bundle branch block -or- right ventricular hypertrophy ST & T wave abnormality, consider anterolateral ischemia Abnormal ECG When compared with ECG of 01-OCT-2020 03:34, No significant changes seen Referred By: Karen Cortes Electronically Signed By:RONEN PATINO MD
--- NOTE | 2021-03-17 23:49 | ED.SOB ---
HPI - SOB/Dyspnea General Chief Complaint: Dyspnea Stated Complaint: sob leg pain Time Seen by Provider: 03/17/21 23:45 Source: patient Mode of arrival: EMS History of Present Illness HPI Narrative: 65-year-old male with significant past medical history of CHF, right pleural effusion, CVA, hypertension, diabetes, cocaine use who is brought in by EMS for acute respiratory failure found to be an 80% and patient reports that he has been having increasing shortness of breath for the past 2 weeks with a cough that is nonproductive and has required increased pillow use at night. Otherwise, he denies any fever, chills, GI symptoms, or symptoms. He denies any chest pain or palpitations, sore throat. Related Data Home Medications Medication Instructions Recorded Confirmed docusate sodium 100 mg PO TID PRN 09/29/20 10/01/20 metformin 500 mg PO DAILY 09/29/20 09/29/20 nitroglycerin See Rx Instructions .ROUTE .COMPLEX 09/29/20 10/01/20 omeprazole 1 cap PO DAILY 09/29/20 09/29/20 acetaminophen [Arthritis Pain 650 mg PO TID PRN 10/01/20 10/01/20 Relief (acetam)] aspirin 81 mg PO DAILY 10/01/20 10/01/20 atorvastatin 80 mg PO DAILY 10/01/20 10/01/20 cholecalciferol (vitamin D3) 50 mcg PO DAILY 10/01/20 10/01/20 [Vitamin D3] polyethylene glycol 3350 17 g PO DAILY PRN 10/01/20 10/01/20 Previous Rx's Medication Instructions Recorded cane #1 ea 07/29/20 apixaban [Eliquis] 5 mg PO BID #60 tab 10/05/20 lisinopril 2.5 mg PO DAILY #30 tab 10/05/20 Allergies Allergy/AdvReac Type Severity Reaction Status Date / Time No Known Allergies Allergy Verified 03/17/21 23:53 [No Known Allergies*] Review of Systems Review of Systems: Pertinent positives and negatives as stated in HPI 10 point review of systems is otherwise negative. [facility] Past Medical History Source: nursing notes reviewed Medical History Alcohol use CAD (coronary artery disease) Cardiomyopathy CHF (congestive heart failure) Cocaine use COPD (chronic obstructive pulmonary disease) CVA (cerebral vascular accident) Diabetes GERD (gastroesophageal reflux disease) Hypertension Osteoarthritis Tobacco use Surgical History Total knee replacement status Social History Social History Household Members: None Housing: Apartment Unable to assess alcohol history related to: Unable to respond Alcohol intake: never Substance Use Type: Crack/Cocaine Advance Directives: No Advance Directives Information Provided: No service: No Current occupational status: unemployed Physical Exam Vital Signs: Vital Signs: Last Vital Signs Temp 96.9 F 03/17/21 23:46 Pulse 72 03/18/21 02:57 Resp 15 03/18/21 02:57 BP 129/80 03/18/21 02:57 Pulse Ox 99 03/18/21 02:57 Body Mass Index 30.8 VITAL SIGNS: Reviewed. GENERAL: Well developed, well nourished, in no acute distress. HEAD: Normocephalic/atraumatic EYES: PERRLA, EOMI EARS: Ext canals without abnormality NOSE: Nares patent bilateral OROPHARYNX: no oral lesions noted, posterior pharynx clear NECK: Supple, no adenopathy LUNGS: Normal breath sounds. No adventitious sounds or accessory muscle use. SpO2<100> 100% non-rebreather CARDIOVASCULAR: Regular rate and rhythm without noted murmurs, +JVD and chronic b/l lower extremity swelling 1+ pitting with skin changes c/w chronic venous stasis. ABDOMEN: Soft, non-tender, non-distended with bowel sounds. MUSCULOSKELETAL: No tenderness, deformities, or effusions noted on gross inspection. EXTREMITIES: No cyanosis, clubbing, but chronic skin changes c/w chronic venous stasis with thickening and bronzing SKIN: Inspection of the skin reveals no rashes NEUROLOGIC: Alert and oriented x 4. Strength and sensation to light touch were grossly intact x 4. Course Course Course Narrative: 2345: 65-year-old male with history and clinical presentation consistent with likely CHF exacerbation but may have possible COPD component as well as a pneumonia. - Labs, UA/Utox, AMPARO, CXR, Lasix, Albuterol, Zosyn Review of all investigations significant for acute CHF exacerbation with right pleural effusion and negative for PE. On further review no evidence to suggest COPD exacerbation and unlikely pneumonia given the absence of leukocytosis/left shift. Sepsis fluid resuscitation was not ordered secondary to degree of CHF exacerbation and unlikely infectious etiology. This case was discussed with the inpatient hospitalist who is agreeable for admission. MDM - SOB/Dyspnea Lab Data Result diagrams: 03/18/21 00:05 03/18/21 00:05 Labs: Lab Results 03/18/21 03/18/21 03/18/21 Range/Units 00:05 00:05 00:05 WBC 7.8 (4.8-10.8) X10*3/uL RBC 4.68 (4.60-5.80) X10*6/uL Hgb 13.6 L (14.0-18.0) g/dl Hct 41.8 L (42-52) % MCV 89.3 (80-98) fL MCH 29.1 (27.0-33.0) pg MCHC 32.5 (31.0-36.0) g/dl RDW 16.4 H (11.0-16.0) % Plt Count 169 (160-400) X10*3/uL MPV 10.6 (9.4-12.4) fL Immature Gran % (Auto) 0.6 H (0.0-0.4) % Neut % (Auto) 75.4 H (45-73) % Lymph % (Auto) 14.6 L (20-40) % [place] % (Auto) 8.3 (2-11) % Eos % (Auto) 0.8 (0-4) % Baso % (Auto) 0.3 (0-2) % Lymph # (Auto) 1.1 L (1.2-4.9) X10*3/uL [place] # (Auto) 0.7 (0.1-1.2) X10*3/uL Eos # (Auto) 0.1 (0.0-0.4) X10*3/uL Baso # (Auto) 0.0 (0.0-0.2) X10*3/uL Abs Immat Gran (auto) 0.05 H (0.00-0.03) X10*3/uL Absolute Neuts (auto) 5.9 (2.0-8.3) X10*3/uL Absolute Nucleated RBC 0.000 (0.0-0.012) X10*3/uL Nucleated RBC % (auto) 0.0 (0.0-0.2) /100WBC PT (9.9-13.0) SEC INR (0.9-1.1) D-Dimer NG/ML VBG pH (7.32-7.43) VBG pCO2 mmHg VBG pO2 mmHg VBG HCO3 (22-26) mmol/L VBG O2 Saturation % VBG Base Excess mmol/L Sodium (135-145) mmol/L Potassium (3.3-5.1) mmol/L Chloride (96-108) mmol/L Carbon Dioxide (22-29) mmol/L Anion Gap (12-20) BUN (9-16) mg/dL Creatinine (0.5-1.4) mg/dL Estim Creat Clear Calc Estimated GFR POC Glucose (60-115) mg/dL Random Glucose (60-115) mg/dL Lactic Acid (0.5-2.0) mmol/L Lactic Acid Fup @ 2Hr (0.5-2.0) mmol/L Calcium (8.4-10.2) mg/dL Magnesium (1.6-2.6) mg/dL Total Bilirubin (0.0-1.0) mg/dL AST (5-37) U/L ALT (0-40) U/L Alkaline Phosphatase (39-117) U/L Troponin I High Sens (<3.5-35.0) ng/L B-Natriuretic Peptide 3030 H (<100) pg/mL Total Protein (6.5-8.0) g/dL Albumin (3.5-5.0) g/dL Urine Color Urine Appearance Urine pH (5.0-8.0) Ur Specific [place] (1.005-1.025) Urine Protein (NEG-TRACE) MG/DL Urine Glucose (UA) (NEG) MG/DL Urine Ketones (NEG) MG/DL Urine Blood (NEG) Urine Nitrite (NEG) Ur Leukocyte Esterase (NEG) Urine RBC (0) /HPF Urine WBC (0-4) /HPF Ur Squamous Epith Cells /LPF Amorphous Sediment /LPF Urine Bacteria /LPF Hyaline Casts /LPF Urine Mucus /LPF Urine Opiates Screen (Not Detect) Ur Barbiturates Screen (Not Detect) Ur Phencyclidine Scrn (Not Detect) Ur Amphetamines Screen (Not Detect) U Benzodiazepines Scrn (Not Detect) Urine Cocaine Screen (Not Detect) U Marijuana (THC) Screen (Not Detect) Ethyl Alcohol mg/dL COVID-19 (BRENDAN) Negative (Negative) COVID-19 Clin Com See Note 03/18/21 03/18/21 03/18/21 Range/Units 00:05 00:05 00:05 WBC (4.8-10.8) X10*3/uL RBC (4.60-5.80) X10*6/uL Hgb (14.0-18.0) g/dl Hct (42-52) % MCV (80-98) fL MCH (27.0-33.0) pg MCHC (31.0-36.0) g/dl RDW (11.0-16.0) % Plt Count (160-400) X10*3/uL MPV (9.4-12.4) fL Immature Gran % (Auto) (0.0-0.4) % Neut % (Auto) (45-73) % Lymph % (Auto) (20-40) % [place] % (Auto) (2-11) % Eos % (Auto) (0-4) % Baso % (Auto) (0-2) % Lymph # (Auto) (1.2-4.9) X10*3/uL [place] # (Auto) (0.1-1.2) X10*3/uL Eos # (Auto) (0.0-0.4) X10*3/uL Baso # (Auto) (0.0-0.2) X10*3/uL Abs Immat Gran (auto) (0.00-0.03) X10*3/uL Absolute Neuts (auto) (2.0-8.3) X10*3/uL Absolute Nucleated RBC (0.0-0.012) X10*3/uL Nucleated RBC % (auto) (0.0-0.2) /100WBC PT 18.3 H (9.9-13.0) SEC INR 1.6 H (0.9-1.1) D-Dimer 1867 NG/ML VBG pH (7.32-7.43) VBG pCO2 mmHg VBG pO2 mmHg VBG HCO3 (22-26) mmol/L VBG O2 Saturation % VBG Base Excess mmol/L Sodium 140 (135-145) mmol/L Potassium 4.5 (3.3-5.1) mmol/L Chloride 107 (96-108) mmol/L Carbon Dioxide 18 L (22-29) mmol/L Anion Gap 20 (12-20) BUN 25 H D (9-16) mg/dL Creatinine 1.15 (0.5-1.4) mg/dL Estim Creat Clear Calc 74.0 Estimated GFR > 60 POC Glucose (60-115) mg/dL Random Glucose 168 H D (60-115) mg/dL Lactic Acid 4.7 H* (0.5-2.0) mmol/L Lactic Acid Fup @ 2Hr (0.5-2.0) mmol/L Calcium 9.2 (8.4-10.2) mg/dL Magnesium 2.0 (1.6-2.6) mg/dL Total Bilirubin 2.1 H (0.0-1.0) mg/dL AST 25 (5-37) U/L ALT 18 (0-40) U/L Alkaline Phosphatase 114 D (39-117) U/L Troponin I High Sens (<3.5-35.0) ng/L B-Natriuretic Peptide (<100) pg/mL Total Protein 7.0 (6.5-8.0) g/dL Albumin 3.6 (3.5-5.0) g/dL Urine Color Urine Appearance Urine pH (5.0-8.0) Ur Specific [place] (1.005-1.025) Urine Protein (NEG-TRACE) MG/DL Urine Glucose (UA) (NEG) MG/DL Urine Ketones (NEG) MG/DL Urine Blood (NEG) Urine Nitrite (NEG) Ur Leukocyte Esterase (NEG) Urine RBC (0) /HPF Urine WBC (0-4) /HPF Ur Squamous Epith Cells /LPF Amorphous Sediment /LPF Urine Bacteria /LPF Hyaline Casts /LPF Urine Mucus /LPF Urine Opiates Screen (Not Detect) Ur Barbiturates Screen (Not Detect) Ur Phencyclidine Scrn (Not Detect) Ur Amphetamines Screen (Not Detect) U Benzodiazepines Scrn (Not Detect) Urine Cocaine Screen (Not Detect) U Marijuana (THC) Screen (Not Detect) Ethyl Alcohol mg/dL COVID-19 (BRENDAN) (Negative) COVID-19 Clin Com 03/18/21 03/18/21 03/18/21 Range/Units 00:05 00:05 00:11 WBC (4.8-10.8) X10*3/uL RBC (4.60-5.80) X10*6/uL Hgb (14.0-18.0) g/dl Hct (42-52) % MCV (80-98) fL MCH (27.0-33.0) pg MCHC (31.0-36.0) g/dl RDW (11.0-16.0) % Plt Count (160-400) X10*3/uL MPV (9.4-12.4) fL Immature Gran % (Auto) (0.0-0.4) % Neut % (Auto) (45-73) % Lymph % (Auto) (20-40) % [place] % (Auto) (2-11) % Eos % (Auto) (0-4) % Baso % (Auto) (0-2) % Lymph # (Auto) (1.2-4.9) X10*3/uL [place] # (Auto) (0.1-1.2) X10*3/uL Eos # (Auto) (0.0-0.4) X10*3/uL Baso # (Auto) (0.0-0.2) X10*3/uL Abs Immat Gran (auto) (0.00-0.03) X10*3/uL Absolute Neuts (auto) (2.0-8.3) X10*3/uL Absolute Nucleated RBC (0.0-0.012) X10*3/uL Nucleated RBC % (auto) (0.0-0.2) /100WBC PT (9.9-13.0) SEC INR (0.9-1.1) D-Dimer NG/ML VBG pH 7.31 L (7.32-7.43) VBG pCO2 36 mmHg VBG pO2 69 mmHg VBG HCO3 18 L (22-26) mmol/L VBG O2 Saturation 88.0 % VBG Base Excess -6.9 mmol/L Sodium (135-145) mmol/L Potassium (3.3-5.1) mmol/L Chloride (96-108) mmol/L Carbon Dioxide (22-29) mmol/L Anion Gap (12-20) BUN (9-16) mg/dL Creatinine (0.5-1.4) mg/dL Estim Creat Clear Calc Estimated GFR POC Glucose (60-115) mg/dL Random Glucose (60-115) mg/dL Lactic Acid (0.5-2.0) mmol/L Lactic Acid Fup @ 2Hr (0.5-2.0) mmol/L Calcium (8.4-10.2) mg/dL Magnesium (1.6-2.6) mg/dL Total Bilirubin (0.0-1.0) mg/dL AST (5-37) U/L ALT (0-40) U/L Alkaline Phosphatase (39-117) U/L Troponin I High Sens 23.3 (<3.5-35.0) ng/L B-Natriuretic Peptide (<100) pg/mL Total Protein (6.5-8.0) g/dL Albumin (3.5-5.0) g/dL Urine Color Urine Appearance Urine pH (5.0-8.0) Ur Specific [place] (1.005-1.025) Urine Protein (NEG-TRACE) MG/DL Urine Glucose (UA) (NEG) MG/DL Urine Ketones (NEG) MG/DL Urine Blood (NEG) Urine Nitrite (NEG) Ur Leukocyte Esterase (NEG) Urine RBC (0) /HPF Urine WBC (0-4) /HPF Ur Squamous Epith Cells /LPF Amorphous Sediment /LPF Urine Bacteria /LPF Hyaline Casts /LPF Urine Mucus /LPF Urine Opiates Screen (Not Detect) Ur Barbiturates Screen (Not Detect) Ur Phencyclidine Scrn (Not Detect) Ur Amphetamines Screen (Not Detect) U Benzodiazepines Scrn (Not Detect) Urine Cocaine Screen (Not Detect) U Marijuana (THC) Screen (Not Detect) Ethyl Alcohol < 10 mg/dL COVID-19 (BRENDAN) (Negative) COVID-19 Clin Com 03/18/21 03/18/21 03/18/21 Range/Units 02:45 02:45 02:56 WBC (4.8-10.8) X10*3/uL RBC (4.60-5.80) X10*6/uL Hgb (14.0-18.0) g/dl Hct (42-52) % MCV (80-98) fL MCH (27.0-33.0) pg MCHC (31.0-36.0) g/dl RDW (11.0-16.0) % Plt Count (160-400) X10*3/uL MPV (9.4-12.4) fL Immature Gran % (Auto) (0.0-0.4) % Neut % (Auto) (45-73) % Lymph % (Auto) (20-40) % [place] % (Auto) (2-11) % Eos % (Auto) (0-4) % Baso % (Auto) (0-2) % Lymph # (Auto) (1.2-4.9) X10*3/uL [place] # (Auto) (0.1-1.2) X10*3/uL Eos # (Auto) (0.0-0.4) X10*3/uL Baso # (Auto) (0.0-0.2) X10*3/uL Abs Immat Gran (auto) (0.00-0.03) X10*3/uL Absolute Neuts (auto) (2.0-8.3) X10*3/uL Absolute Nucleated RBC (0.0-0.012) X10*3/uL Nucleated RBC % (auto) (0.0-0.2) /100WBC PT (9.9-13.0) SEC INR (0.9-1.1) D-Dimer NG/ML VBG pH (7.32-7.43) VBG pCO2 mmHg VBG pO2 mmHg VBG HCO3 (22-26) mmol/L VBG O2 Saturation % VBG Base Excess mmol/L Sodium (135-145) mmol/L Potassium (3.3-5.1) mmol/L Chloride (96-108) mmol/L Carbon Dioxide (22-29) mmol/L Anion Gap (12-20) BUN (9-16) mg/dL Creatinine (0.5-1.4) mg/dL Estim Creat Clear Calc Estimated GFR POC Glucose 111 (60-115) mg/dL Random Glucose (60-115) mg/dL Lactic Acid (0.5-2.0) mmol/L Lactic Acid Fup @ 2Hr (0.5-2.0) mmol/L Calcium (8.4-10.2) mg/dL Magnesium (1.6-2.6) mg/dL Total Bilirubin (0.0-1.0) mg/dL AST (5-37) U/L ALT (0-40) U/L Alkaline Phosphatase (39-117) U/L Troponin I High Sens (<3.5-35.0) ng/L B-Natriuretic Peptide (<100) pg/mL Total Protein (6.5-8.0) g/dL Albumin (3.5-5.0) g/dL Urine Color DARK YELLOW Urine Appearance HAZY Urine pH 6.0 (5.0-8.0) Ur Specific [place] 1.020 (1.005-1.025) Urine Protein 1+ H (NEG-TRACE) MG/DL Urine Glucose (UA) NEG (NEG) MG/DL Urine Ketones NEG (NEG) MG/DL Urine Blood NEG (NEG) Urine Nitrite NEG (NEG) Ur Leukocyte Esterase TRACE H (NEG) Urine RBC 0-2 (0) /HPF Urine WBC 10-14 H (0-4) /HPF Ur Squamous Epith Cells 2+ /LPF Amorphous Sediment 2+ /LPF Urine Bacteria TRACE /LPF Hyaline Casts 0-2 /LPF Urine Mucus 1+ /LPF Urine Opiates Screen Not Detected (Not Detect) Ur Barbiturates Screen Not Detected (Not Detect) Ur Phencyclidine Scrn Not Detected (Not Detect) Ur Amphetamines Screen Not Detected (Not Detect) U Benzodiazepines Scrn Not Detected (Not Detect) Urine Cocaine Screen POSITIVE H (Not Detect) U Marijuana (THC) Screen Not Detected (Not Detect) Ethyl Alcohol mg/dL COVID-19 (BRENDAN) (Negative) COVID-19 Clin Com 03/18/21 Range/Units 03:12 WBC (4.8-10.8) X10*3/uL RBC (4.60-5.80) X10*6/uL Hgb (14.0-18.0) g/dl Hct (42-52) % MCV (80-98) fL MCH (27.0-33.0) pg MCHC (31.0-36.0) g/dl RDW (11.0-16.0) % Plt Count (160-400) X10*3/uL MPV (9.4-12.4) fL Immature Gran % (Auto) (0.0-0.4) % Neut % (Auto) (45-73) % Lymph % (Auto) (20-40) % [place] % (Auto) (2-11) % Eos % (Auto) (0-4) % Baso % (Auto) (0-2) % Lymph # (Auto) (1.2-4.9) X10*3/uL [place] # (Auto) (0.1-1.2) X10*3/uL Eos # (Auto) (0.0-0.4) X10*3/uL Baso # (Auto) (0.0-0.2) X10*3/uL Abs Immat Gran (auto) (0.00-0.03) X10*3/uL Absolute Neuts (auto) (2.0-8.3) X10*3/uL Absolute Nucleated RBC (0.0-0.012) X10*3/uL Nucleated RBC % (auto) (0.0-0.2) /100WBC PT (9.9-13.0) SEC INR (0.9-1.1) D-Dimer NG/ML VBG pH (7.32-7.43) VBG pCO2 mmHg VBG pO2 mmHg VBG HCO3 (22-26) mmol/L VBG O2 Saturation % VBG Base Excess mmol/L Sodium (135-145) mmol/L Potassium (3.3-5.1) mmol/L Chloride (96-108) mmol/L Carbon Dioxide (22-29) mmol/L Anion Gap (12-20) BUN (9-16) mg/dL Creatinine (0.5-1.4) mg/dL Estim Creat Clear Calc Estimated GFR POC Glucose (60-115) mg/dL Random Glucose (60-115) mg/dL Lactic Acid (0.5-2.0) mmol/L Lactic Acid Fup @ 2Hr 1.6 (0.5-2.0) mmol/L Calcium (8.4-10.2) mg/dL Magnesium (1.6-2.6) mg/dL Total Bilirubin (0.0-1.0) mg/dL AST (5-37) U/L ALT (0-40) U/L Alkaline Phosphatase (39-117) U/L Troponin I High Sens (<3.5-35.0) ng/L B-Natriuretic Peptide (<100) pg/mL Total Protein (6.5-8.0) g/dL Albumin (3.5-5.0) g/dL Urine Color Urine Appearance Urine pH (5.0-8.0) Ur Specific [place] (1.005-1.025) Urine Protein (NEG-TRACE) MG/DL Urine Glucose (UA) (NEG) MG/DL Urine Ketones (NEG) MG/DL Urine Blood (NEG) Urine Nitrite (NEG) Ur Leukocyte Esterase (NEG) Urine RBC (0) /HPF Urine WBC (0-4) /HPF Ur Squamous Epith Cells /LPF Amorphous Sediment /LPF Urine Bacteria /LPF Hyaline Casts /LPF Urine Mucus /LPF Urine Opiates Screen (Not Detect) Ur Barbiturates Screen (Not Detect) Ur Phencyclidine Scrn (Not Detect) Ur Amphetamines Screen (Not Detect) U Benzodiazepines Scrn (Not Detect) Urine Cocaine Screen (Not Detect) U Marijuana (THC) Screen (Not Detect) Ethyl Alcohol mg/dL COVID-19 (BRENDAN) (Negative) COVID-19 Clin Com ECG Data Attestation: I personally reviewed and interpreted this ECG as follows: Prior ECG tracings: available for review ( 10/01/2020 no acute changes on comparison) Interpretation: sinus rhythm, HR -64, first-degree AV block-216, no evidence of acute ischemia Discharge Plan Discharge Clinical Impression: Acute hypoxemic respiratory failure, CHF exacerbation, Pleural effusion on right Patient Disposition: Admitted As Inpatient
[2021-03-18] VITALS (14 sets, daily range): BP systolic 94–139; BP diastolic 56–93; PULSE 57–83; RESP 14–21; TEMP 35.9–37; O2SAT 93–100
[2021-03-18 00:15] LABS: Basophils Percent Auto 0.3 % (0-2); Eosinophils Absolute Auto 0.1 X10*3/uL (0.0-0.4); Eosinophils Percent Auto 0.8 % (0-4); Hematocrit 41.8 % (42-52); Hemoglobin 13.6 g/dl (14.0-18.0); Imm Gran Abs Auto 0.05 X10*3/uL (0.00-0.03); Imm Gran Pct Auto 0.6 % (0.0-0.4); Lymphocytes Absolute Auto 1.1 X10*3/uL (1.2-4.9); Lymphocytes Percent Auto 14.6 % (20-40); MANUAL DIFF FLAG NO; Mean Corpuscular HGB Conc 32.5 g/dl (31.0-36.0); Mean Corpuscular Hemoglobin 29.1 pg (27.0-33.0); Mean Corpuscular Volume 89.3 fL (80-98); Mean Platelet Volume 10.6 fL (9.4-12.4); Monocytes Absolute Auto 0.7 X10*3/uL (0.1-1.2); Monocytes Percent Auto 8.3 % (2-11); Neutrophils Absolute Auto 5.9 X10*3/uL (2.0-8.3); Neutrophils Percent Auto 75.4 % (45-73); Platelet Count 169 X10*3/uL (160-400); Red Blood Count 4.68 X10*6/uL (4.60-5.80); Red Cell Distribution Width 16.4 % (11.0-16.0); White Blood Count 7.8 X10*3/uL (4.8-10.8)
[2021-03-18 00:18] LABS: Venous Blood Gas Refer to POC result
[2021-03-18 00:19] LABS: VBG Base Excess -6.9 mmol/L; VBG HCO3 18 mmol/L (22-26); VBG pCO2 36 mmHg; VBG pH 7.31 (7.32-7.43); VBG pO2 69 mmHg
[2021-03-18 00:21] LABS: INTERNATIONAL NORM RATIO 1.6 (0.9-1.1); Prothrombin Time 18.3 SEC (9.9-13.0)
[2021-03-18 00:34] LABS: COVID-19 Test Negative (Negative); IDNOW Serial# 9DD0AD1C
[2021-03-18 00:42] LABS: B Type Natriuretic Peptide 3030 pg/mL (<100); Troponin-I High Sensitivity 23.3 ng/L (<3.5-35.0)
[2021-03-18 00:45] LABS: Lactic Acid 4.7 mmol/L (0.5-2.0)
[2021-03-18 00:50] LABS: Ethanol < 10 mg/dL
[2021-03-18 00:53] LABS: Alanine Aminotransferase 18 U/L (0-40); Albumin Level 3.6 g/dL (3.5-5.0); Alkaline Phosphatase 114 U/L (39-117); Anion Gap 20 (12-20); Aspartate Amino Transferase 25 U/L (5-37); Bilirubin Total 2.1 mg/dL (0.0-1.0); Blood Urea Nitrogen 25 mg/dL (9-16); Calcium 9.2 mg/dL (8.4-10.2); Carbon Dioxide 18 mmol/L (22-29); Chloride 107 mmol/L (96-108); Estimated Glomerular Filt Rate > 60; Glucose Random 168 mg/dL (60-115); Potassium 4.5 mmol/L (3.3-5.1); Sodium 140 mmol/L (135-145)
[2021-03-18] MEDS: Albuterol Sulfate (0.083%) 2.5 MG/3 ML VIAL.NEB 7.5 MG INHALE (00:57)
[2021-03-18] MEDS: Piperacillin Sodium/Tazobactam 3.375 GM in 0.9 % Sodium Chloride 50 ML IV (01:16)
[2021-03-18 01:22] LABS: D Dimer 1867 NG/ML
[2021-03-18] MEDS: iohexoL 350 MG/ML 100 ML INFUS..BTL 65 ML IV (01:57)
[2021-03-18 02:23] LABS: Reflex Lactate? Lactic Acid Added
[2021-03-18] MEDS: Furosemide 40 MG/4 ML VIAL IVPUSH ×3 (02:55→20:16)
[2021-03-18 03:03] LABS: Glucose Urine UA NEG (NEG); Leukocyte Esterase Urine TRACE (NEG); Nitrite Urine NEG (NEG); UACC Culture Trigger YES; Urine Blood NEG (NEG); Urine Ketones NEG (NEG); Urine Protein 1+ MG/DL (NEG-TRACE)
[2021-03-18 03:04] LABS: Appearance Urine HAZY; Color Urine DARK YELLOW
[2021-03-18 03:06] LABS: Glucose, Whole Blood 111 mg/dL (60-115)
--- NOTE | 2021-03-18 03:09 | PC.NURSE ---
16 viet[place] velasquez catheter placed. Urine specimen collected and sent for analysis. Awaiting results. Repeat labs being drawn at this time. Pt tolerated procedure well. Pt oxygen support changed to Venti mask at 55%. Tolerating well. Pt is occasionally twitching , pt admits to cocaine use in addition to ETOH, marijuana, and tobacco. Will continue to monitor.
[2021-03-18 03:11] LABS: Amorphous Sediment Urine 2+ /LPF; Bacteria Urine TRACE /LPF; Hyaline Casts Urine 0-2 /LPF; Mucus Urine 1+ /LPF; RBC Urine 0-2 /HPF (0); Squamous Epithelial Cell Urine 2+ /LPF
[2021-03-18 03:19] LABS: Amphetamine Screen Urine Not Detected (Not Detect); Barbiturates, Urine Not Detected (Not Detect); Benzodiazepines Screen Urine Not Detected (Not Detect); Cannabinoid Screen Urine Not Detected (Not Detect); Cocaine Screen Urine POSITIVE (Not Detect); Opiate Screen Urine Not Detected (Not Detect); Phencyclidine Screen Urine Not Detected (Not Detect)
[2021-03-18 03:36] LABS: ~Lactic Acid-LAB USE ONLY 1.6 mmol/L (0.5-2.0)
--- NOTE | 2021-03-18 03:54 | PC.NURSE ---
Patient had brief moment of frustration with staff over not being given water due to fluid restrictions set in place by provider & current condition. Pt began swearing at staff including this RN, & security present. Pt was able to be redirected and calmed by staff and was given small amount of water (approximately 100ml) orally as requested. Pt repositioned, linens changed, monitor reapplied. Venti mask decreased to 45%, tolerating well. Will continue to monitor.
[2021-03-18 03:58] LABS: Troponin-I High Sensitivity 45.4 ng/L (<3.5-35.0)
--- NOTE | 2021-03-18 05:46 | PM.IMHP ---
History of Present Illness Date of Service: 03/18/21 Chief Complaint: Shortness of breath this is a 65-year-old male with past medical history of alcohol use, CAD, cardiomyopathy, cocaine use, COPD, CVA, diabetes, hypertension, who presents to the hospital with complaints of shortness of breath. Patient reports shortness of breath is been going on for 2 weeks, associated with cough and no sputum production, lower extremity edema, orthopnea PND. Patient reports that he also has midsternal chest pain on and off for the past 2 weeks, spontaneous, pressure-like, nonradiating, but he did admit to using cocaine. He denies any fever or chills, no headache or change in vision, no abdominal pain nausea or vomiting, no diarrhea or constipation, and denies any urinary symptoms. Patient reports that he takes a water pill at home and is usually compliant with it although I cannot from this water pill in his med rec. On arrival to the ED patient found to be satting 68% on room air, currently on Venti mask. Labs are significant for WBC count of 7.8, hemoglobin of 13.6, VBG shows pH of 7.31, with a pCO2 of 36, sodium of 140, BUN of 25, creatinine of 1.15, lactic acid of 4.7 the normalized to 1.6, troponin initially 23 that increased to 45.4, and a BNP of 3030, UA positive for leukocyte Estrace and WBC, CT angiogram shows no evidence of PE, no evidence of pneumonia, moderate right pleural effusion which is increased from previous, medical history as below on confer with patient Review of Systems Review of Systems: Yes all other systems are reviewed and are negative [facility] Medical History Alcohol use CAD (coronary artery disease) Cardiomyopathy CHF (congestive heart failure) Cocaine use COPD (chronic obstructive pulmonary disease) CVA (cerebral vascular accident) Diabetes GERD (gastroesophageal reflux disease) Hypertension Osteoarthritis Tobacco use Surgical History Total knee replacement status Social History Household Members: None Housing: Apartment Unable to assess alcohol history related to: Unable to respond Alcohol intake: never Substance Use Type: Crack/Cocaine Advance Directives: No Advance Directives Information Provided: No service: No Current occupational status: unemployed Meds Allergies Allergy/AdvReac Type Severity Reaction Status Date / Time No Known Allergies Allergy Verified 03/17/21 23:53 [No Known Allergies*] Home Medications Medication Instructions Recorded Confirmed Last Taken Type docusate sodium 100 mg PO TID PRN 09/29/20 10/01/20 Unknown History metformin 500 mg PO DAILY 09/29/20 09/29/20 Unknown History nitroglycerin See Rx Instructions .ROUTE .COMPLEX 09/29/20 10/01/20 Unknown History omeprazole 1 cap PO DAILY 09/29/20 09/29/20 Unknown History acetaminophen [Arthritis Pain 650 mg PO TID PRN 10/01/20 10/01/20 Unknown History Relief (acetam)] aspirin 81 mg PO DAILY 10/01/20 10/01/20 Unknown History atorvastatin 80 mg PO DAILY 10/01/20 10/01/20 Unknown History cholecalciferol (vitamin D3) 50 mcg PO DAILY 10/01/20 10/01/20 Unknown History [Vitamin D3] polyethylene glycol 3350 17 g PO DAILY PRN 10/01/20 10/01/20 Unknown History Physical Exam Vital Signs and Narrative: Vital Signs: Last Vital Signs Temp 96.9 F 03/17/21 23:46 Pulse 72 03/18/21 02:57 Resp 15 03/18/21 02:57 BP 129/80 03/18/21 02:57 Pulse Ox 99 03/18/21 02:57 Body Mass Index 30.8 Const: General: cooperative and no acute distress Orientation/consciousness: patient oriented x3 Eyes: General: appearance normal, both eyes and all related structures Resp: Other: rales bilaterally Effort & Inspection: normal respiratory effort and able to speak in complete sentences Cardio: Rate: regular rate Rhythm: regular rhythm GI: Palpation (GI): Soft to palpation Auscultation: normal bowel sounds Skin: General skin exam: no rashes or lesions noted Neuro: General: patient oriented x3 Cognition (Neuro): normal cognition Extrem: Other: 2+ lower extremity edema General: Yes normal to inspection Results Labs CBC and Chem 7: 03/18/21 00:05 03/18/21 00:05 Labs: Laboratory Results - last 24 hr 03/18/21 03/18/21 03/18/21 00:05 00:05 00:05 MCV 89.3 MCH 29.1 MCHC 32.5 RDW 16.4 H Plt Count 169 MPV 10.6 Immature Gran % (Auto) 0.6 H Neut % (Auto) 75.4 H Lymph % (Auto) 14.6 L [place] % (Auto) 8.3 Eos % (Auto) 0.8 Baso % (Auto) 0.3 Lymph # (Auto) 1.1 L [place] # (Auto) 0.7 Eos # (Auto) 0.1 Baso # (Auto) 0.0 Abs Immat Gran (auto) 0.05 H Absolute Neuts (auto) 5.9 Absolute Nucleated RBC 0.000 Nucleated RBC % (auto) 0.0 PT INR D-Dimer VBG pH VBG pCO2 VBG pO2 VBG HCO3 VBG O2 Saturation VBG Base Excess Anion Gap Estim Creat Clear Calc Estimated GFR POC Glucose Random Glucose Lactic Acid Lactic Acid Fup @ 2Hr Calcium Magnesium Total Bilirubin AST ALT Alkaline Phosphatase Troponin I High Sens B-Natriuretic Peptide 3030 H Total Protein Albumin Urine Color Urine Appearance Urine pH Ur Specific [place] Urine Protein Urine Glucose (UA) Urine Ketones Urine Blood Urine Nitrite Ur Leukocyte Esterase Urine RBC Urine WBC Ur Squamous Epith Cells Amorphous Sediment Urine Bacteria Hyaline Casts Urine Mucus Urine Opiates Screen Ur Barbiturates Screen Ur Phencyclidine Scrn Ur Amphetamines Screen U Benzodiazepines Scrn Urine Cocaine Screen U Marijuana (THC) Screen Ethyl Alcohol COVID-19 (BRENDAN) Negative COVID-19 Clin Com See Note 03/18/21 03/18/21 03/18/21 00:05 00:05 00:05 MCV MCH MCHC RDW Plt Count MPV Immature Gran % (Auto) Neut % (Auto) Lymph % (Auto) [place] % (Auto) Eos % (Auto) Baso % (Auto) Lymph # (Auto) [place] # (Auto) Eos # (Auto) Baso # (Auto) Abs Immat Gran (auto) Absolute Neuts (auto) Absolute Nucleated RBC Nucleated RBC % (auto) PT 18.3 H INR 1.6 H D-Dimer 1867 VBG pH VBG pCO2 VBG pO2 VBG HCO3 VBG O2 Saturation VBG Base Excess Anion Gap 20 Estim Creat Clear Calc 74.0 Estimated GFR > 60 POC Glucose Random Glucose 168 H D Lactic Acid 4.7 H* Lactic Acid Fup @ 2Hr Calcium 9.2 Magnesium 2.0 Total Bilirubin 2.1 H AST 25 ALT 18 Alkaline Phosphatase 114 D Troponin I High Sens B-Natriuretic Peptide Total Protein 7.0 Albumin 3.6 Urine Color Urine Appearance Urine pH Ur Specific [place] Urine Protein Urine Glucose (UA) Urine Ketones Urine Blood Urine Nitrite Ur Leukocyte Esterase Urine RBC Urine WBC Ur Squamous Epith Cells Amorphous Sediment Urine Bacteria Hyaline Casts Urine Mucus Urine Opiates Screen Ur Barbiturates Screen Ur Phencyclidine Scrn Ur Amphetamines Screen U Benzodiazepines Scrn Urine Cocaine Screen U Marijuana (THC) Screen Ethyl Alcohol COVID-19 (BRENDAN) COVID-19 2Catalyze 03/18/21 03/18/21 03/18/21 00:05 00:05 00:11 MCV MCH MCHC RDW Plt Count MPV Immature Gran % (Auto) Neut % (Auto) Lymph % (Auto) [place] % (Auto) Eos % (Auto) Baso % (Auto) Lymph # (Auto) [place] # (Auto) Eos # (Auto) Baso # (Auto) Abs Immat Gran (auto) Absolute Neuts (auto) Absolute Nucleated RBC Nucleated RBC % (auto) PT INR D-Dimer VBG pH 7.31 L VBG pCO2 36 VBG pO2 69 VBG HCO3 18 L VBG O2 Saturation 88.0 VBG Base Excess -6.9 Anion Gap Estim Creat Clear Calc Estimated GFR POC Glucose Random Glucose Lactic Acid Lactic Acid Fup @ 2Hr Calcium Magnesium Total Bilirubin AST ALT Alkaline Phosphatase Troponin I High Sens 23.3 B-Natriuretic Peptide Total Protein Albumin Urine Color Urine Appearance Urine pH Ur Specific [place] Urine Protein Urine Glucose (UA) Urine Ketones Urine Blood Urine Nitrite Ur Leukocyte Esterase Urine RBC Urine WBC Ur Squamous Epith Cells Amorphous Sediment Urine Bacteria Hyaline Casts Urine Mucus Urine Opiates Screen Ur Barbiturates Screen Ur Phencyclidine Scrn Ur Amphetamines Screen U Benzodiazepines Scrn Urine Cocaine Screen U Marijuana (THC) Screen Ethyl Alcohol < 10 COVID-19 (BRENDAN) COVID-19 As Seen on TV Com 03/18/21 03/18/21 03/18/21 02:45 02:45 02:56 MCV MCH MCHC RDW Plt Count MPV Immature Gran % (Auto) Neut % (Auto) Lymph % (Auto) [place] % (Auto) Eos % (Auto) Baso % (Auto) Lymph # (Auto) [place] # (Auto) Eos # (Auto) Baso # (Auto) Abs Immat Gran (auto) Absolute Neuts (auto) Absolute Nucleated RBC Nucleated RBC % (auto) PT INR D-Dimer VBG pH VBG pCO2 VBG pO2 VBG HCO3 VBG O2 Saturation VBG Base Excess Anion Gap Estim Creat Clear Calc Estimated GFR POC Glucose 111 Random Glucose Lactic Acid Lactic Acid Fup @ 2Hr Calcium Magnesium Total Bilirubin AST ALT Alkaline Phosphatase Troponin I High Sens B-Natriuretic Peptide Total Protein Albumin Urine Color DARK YELLOW Urine Appearance HAZY Urine pH 6.0 Ur Specific [place] 1.020 Urine Protein 1+ H Urine Glucose (UA) NEG Urine Ketones NEG Urine Blood NEG Urine Nitrite NEG Ur Leukocyte Esterase TRACE H Urine RBC 0-2 Urine WBC 10-14 H Ur Squamous Epith Cells 2+ Amorphous Sediment 2+ Urine Bacteria TRACE Hyaline Casts 0-2 Urine Mucus 1+ Urine Opiates Screen Not Detected Ur Barbiturates Screen Not Detected Ur Phencyclidine Scrn Not Detected Ur Amphetamines Screen Not Detected U Benzodiazepines Scrn Not Detected Urine Cocaine Screen POSITIVE H U Marijuana (THC) Screen Not Detected Ethyl Alcohol COVID-19 (BRENDAN) COVID-19 2Catalyze 03/18/21 03/18/21 03:12 03:12 MCV MCH MCHC RDW Plt Count MPV Immature Gran % (Auto) Neut % (Auto) Lymph % (Auto) [place] % (Auto) Eos % (Auto) Baso % (Auto) Lymph # (Auto) [place] # (Auto) Eos # (Auto) Baso # (Auto) Abs Immat Gran (auto) Absolute Neuts (auto) Absolute Nucleated RBC Nucleated RBC % (auto) PT INR D-Dimer VBG pH VBG pCO2 VBG pO2 VBG HCO3 VBG O2 Saturation VBG Base Excess Anion Gap Estim Creat Clear Calc Estimated GFR POC Glucose Random Glucose Lactic Acid Lactic Acid Fup @ 2Hr 1.6 Calcium Magnesium Total Bilirubin AST ALT Alkaline Phosphatase Troponin I High Sens 45.4 H* D B-Natriuretic Peptide Total Protein Albumin Urine Color Urine Appearance Urine pH Ur Specific [place] Urine Protein Urine Glucose (UA) Urine Ketones Urine Blood Urine Nitrite Ur Leukocyte Esterase Urine RBC Urine WBC Ur Squamous Epith Cells Amorphous Sediment Urine Bacteria Hyaline Casts Urine Mucus Urine Opiates Screen Ur Barbiturates Screen Ur Phencyclidine Scrn Ur Amphetamines Screen U Benzodiazepines Scrn Urine Cocaine Screen U Marijuana (THC) Screen Ethyl Alcohol COVID-19 (BRENDAN) COVID-19 As Seen on TV Com Imaging Radiologist's Impressions: Impressions Chest X-Ray 03/18/21 00:00 IMPRESSION: Elevated right hemidiaphragm. Patchy right basilar opacities may represent atelectasis or pneumonia. There may also be a small right pleural effusion. Chest CTA 03/18/21 01:26 IMPRESSION: No evidence of pulmonary embolism. Lack of opacification of the right lower lobe pulmonary arteries within the area of consolidation is likely secondary to contrast bolus technical issues, as this is not the typical appearance for pulmonary embolism. Moderate right pleural effusion which is increased from prior. Significant right lower lobe atelectasis, although pneumonia not excluded. Partial atelectasis of the right middle lobe as well. Moderate emphysema. Mediastinal lymphadenopathy is again noted, likely with slight increase in prominence from previous. VTE: negative Assessment and Plan (1) Acute exacerbation of CHF (congestive heart failure): Qualifiers: Heart failure type: systolic Qualified Code(s): I50.23 - Acute on chronic systolic (congestive) heart failure Status: Acute (2) Cocaine use: Status: Acute (3) Elevated troponin: Status: Acute (4) Hypomagnesemia: Status: Acute (5) UTI (urinary tract infection): Status: Acute (6) Acute respiratory failure with hypoxia: Status: Acute 65-year-old male with past medical history of CHF who presents to the hospital with complaints of shortness of breath. # Acute CHF exacerbation - Possibly secondary to use of cocaine as well as acute infection - elevated BNP, orthopnea, PND, dyspnea, chest CT evidence of pleural effusion - at this time will start him on Lasix 40 IV b.i.d. - strict I&O, low-sodium diet, daily with - echocardiogram - cardiology consulted # acute hypoxic respiratory failure - secondary to CHF exacerbation - found to be 68% on room air - CT angiogram negative for PE and pneumonia - has a moderate size pleural effusion - will start him on Lasix 40 IV b.i.d. - consult pulmonology for possible thoracocentesis as the size of the pleural effusion moderate # elevated troponin - most likely secondary to cocaine abuse - no EKG changes suggestive of ACS - will trend troponin - consult cardiology # UTI - positive UA - will start him onceftriaxone - follow cultures # hypomagnesemia - repleted -- follow level DVT prophylaxis: Apixaban Quality Stroke Does the patient have a stroke diagnosis?: No VTE Prior VTE?: No VTE Risk Level:: Medical - moderate - high VTE Device Contraindication: Treatment Not Indicated VTE Drug Contraindication: N/A - Med Ordered
--- NOTE | 2021-03-18 06:16 | PC.NURSE ---
Spoke with over the phone regarding Lasix 40mg IV push dose, and that same dose was already given at 2:55am today. Pt remains short of breath at times, remains on Venturi mask. Instructed to give a dose of Lasix 40mg IV push as ordered now. Awaiting admission bed. Will continue to monitor.
[2021-03-18] MEDS: cefTRIAXone sodium 1 GM in 0.9 % Sodium Chloride 50 ML IV (06:34)
--- NOTE | 2021-03-18 07:06 | PC.NURSE ---
This RN called [facility] to attempt to give RN to RN report. [facility] RN unavailable for report at this time, awaiting call back. ED RN to ED RN report given to Martin. Martin to assume care of patient beginning now. Pt repeatedly removing pulse oximeter, mask, blood pressure cuff, and demanding ice chips from staff, occasionally screaming out after this RN was in the room just prior. This RN has repeatedly explained fluid restrictions to patient, pt becomes agitated over restrictions and threatens to leave ED. Pt also throws call franz on the floor repeatedly and has been directed multiple times on proper use, but yells out for staff instead. Provider aware of these behaviors. Martin to continue to monitor patient.
--- NOTE | 2021-03-18 07:39 | PC.NURSE ---
2LITERS EMPTIED FROM WOLF BAG.
--- NOTE | 2021-03-18 07:45 | PC.NURSE ---
Report given to receiving nurse KYUNG Greer
[2021-03-18] MEDS: 0.9 % Sodium Chloride Flush 3 ML SYRINGE IVFLUSH ×3 (08:14→23:45)
[2021-03-18 08:18] LABS: Glucose, Whole Blood 135 mg/dL (60-115)
[2021-03-18] MEDS: Heparin Sodium,Porcine 5,000 UNIT/ML VIAL 5000 UNIT SUBCUT ×2 (08:37→20:17)
--- NOTE | 2021-03-18 11:00 | CA_ITS ---
Transthoracic Echocardiogram Patient (Last, First, Middle): Cristian Cabral, Gender: Male Date of : 1955 Age: 65 Procedure Date: 03/18/2021 Procedure Type: Transthoracic [place] [facility] [place]: 177.8 cm Weight: 97.52 kg BSA: 2.15 m2 Heart Rate: bpm BP: 122 / 68 mmHg Registered Nurse Hh Case Manager: Referring MD: Jesus Yang MD Symptoms: chf Study Quality: Fair ECG Rhythm: Sinus Conclusions: - The left ventricular systolic function is severely decreased. The visually estimated ejection fraction is between 10-15%. - Evidence suggests grade III (severe) diastolic dysfunction. - The left atrium is severely dilated. - There is mild mitral valve regurgitation. - Moderate to severe pulmonary hypertension is present. Findings Procedure Information Contrast agent, definity, is being given per protocol without apparent complications. The patient receives contrast. Left Ventricle Moderately increased left ventricular cavity size. There is normal left ventricular wall thickness. The left ventricular systolic function is severely decreased. The visually estimated ejection fraction is between 10 15%. E/E prime ratio is >15, consistent with elevated filling pressures. Evidence suggests grade III (severe) diastolic dysfunction. No evidence of apical thrombus. Right Ventricle Mildly increased right ventricular cavity size. There is mildly decreased right ventricular systolic function. Atria The left atrium is severely dilated. The right atrium is moderately dilated. Aortic Valve There is a normal trileaflet aortic valve. There is no aortic valve stenosis. There is no aortic valve regurgitation. Mitral Valve The mitral valve appears normal. There is mild mitral valve regurgitation. There is no mitral valve stenosis. Pulmonic Valve The pulmonic valve was not well visualized. Tricuspid Valve Normal tricuspid valve structure. There is mild tricuspid valve regurgitation. The right ventricular systolic pressure is 63 mmHg. Moderate to severe pulmonary hypertension is present. Great Vessels The aortic annulus, sinuses of valsalva, and asc aorta are normal in size. Venous The inferior vena cava is dilated and collapses less than 50% with inspiration. Pericardium/Pleural There is no evidence of pericardial effusion. Prior Study Comparison No significant change compared to prior study dated: 10/21/2020. Measurements 2D Linear Measurements IVSd: 1.11 0.6-0.9/0.6-1.0 cm LVIDd: 6.32 3.9-5.3/4.2-5.9 cm LVIDd Index: 2.94 2.4-3.2/2.2-3.1 cm/m2 LVIDs: 5.55 2.0-3.6 cm LVPWd: 1.10 0.7-1.1 cm Ao Root: 3.10 2.1-3.5 cm LA Diam: 4.00 2.7-3.8/3.0-4.0 cm LAIDs Index: 1.86 1.5-2.3 cm/m2 LV Mass: 382.94 67-162/88-224 g LV Mass Index: 178.11 43-95/49-115 g/m2 LVOT Diam: 2.00 3.0+(-)1.3 cm Mitral Valve MV Pk E: 0.88 MV Decel Time: 185.00 E'Lateral: 4.35 E'Medial: 4.03 E/E' Med: 21.90 E/E' Lat: 20.30 PHT: 54.00 MVA PHT: 4.07 Decel Ceiba: 4.78 Aortic Valve AoV Pk Keshawn: 1.17 AoV Mn Keshawn: 0.68 AoV VTI: 0.22 AoV Pk Grad: 5.00 Aov Mn Grad: 2.00 LIAN Cont.VTI: 1.68 LVOT LVOT Pk Keshawn: 0.69 LVOT Mn Keshawn: 0.41 LVOT VTI: 0.12 LVOT Pk Grad: 2.00 LVOT Mn Grad: 1.00 LVOT Diam: 2.00 LVOT Area: 3.14 Diastolic Function MV Pk E: 0.88 E'Medial: 4.03 E/E' Med: 21.90 E' Laterial: 4.35 E/E' Lat: 20.30 Tricuspid Valve TR Pk Keshawn: 3.45 TR Pk Grad: 48.00 RA Press: 15.00 RVSP: 63.00 Great Vessels Aorta Ao Root-2D: 3.10 2.0-3.7 cm Ao Asc: 3.20 2.1-3.4 cm Pulmonary Valve PV Pk Keshawn: 0.58 Peak PV Grad: 1.00 Updated in Other Vendor System with Status of Final Flavio Hawthorne MD electronically signed on 03/19/2021 10:51:59 AM with status of Final
--- NOTE | 2021-03-18 11:23 | PM.CNCAR ---
History of Present Illness History of Present Illness Date of Service: 03/18/21 Requesting physician: Jesus Yang Consult reason: congestive heart failure Chief complaint: Chf Exacerbation Narrative: I was asked to see Cristian in cardiology consultation today for decompensated congestive heart failure. He is a 65-year-old male with prior history of severe LV systolic dysfunction systolic heart failure, prior CVA, hypertension will continues to use cocaine and came with progressive symptoms of heart failure. He said he started having worsening shortness of breath and leg edema 2 weeks ago which progressed and was not able to breathe yes and therefore came to the emergency room. Noted to have elevated BNP, right pleural effusion and findings consistent with decompensated congestive heart failure was admitted. His U tox is positive for cocaine. He is also seen at intermittently uses alcohol. He said he last saw Dr. Julian his own leather belt loop cutter in [place] about 6 months ago and was scheduled to see him because of recent symptoms but missed his bus and was not able to see him as per him. He has been diuresed. His symptoms have improved but still short of breath and fluid overloaded. He is currently not on any neurohormonal modulation for unclear reason including on outpatient medical reconciliation. Unsure. There is clear issues with patient compliance. Review of Systems Constitutional: Constitutional: Denies chills, Denies fever(s), Reports lethargy and Reports weakness Cardiovascular: Cardiovascular: Denies chest pain, Denies rapid heart rate, Reports leg edema, Denies Loss of Consciousness, Denies palpitations, Reports dyspnea, Reports dyspnea on exertion and Reports orthopnea Respiratory: Respiratory: Reports cough, Reports dyspnea and Reports dyspnea on exertion Gastrointestinal: Gastrointestinal: Reports no additional gastrointestinal complaints Genitourinary: Genitourinary: Reports no additional male genitourinary complaints Neurologic: Reports system reviewed and no additional complaints, except as documented and Reports weakness Psychiatric: Psychiatric: Reports no additional psychiatric complaints Endocrine: Endocrine: Reports no additional endocrine complaints and Denies palpitations PMFSH Past Medical History Medical History Alcohol use CAD (coronary artery disease) Cardiomyopathy CHF (congestive heart failure) Cocaine use COPD (chronic obstructive pulmonary disease) CVA (cerebral vascular accident) Diabetes GERD (gastroesophageal reflux disease) Hypertension Osteoarthritis Tobacco use Surgical History Surgical History Total knee replacement status Social History Social History Household Members: None Housing: House Do you presently have visiting nurse or other home services: Yes Unable to assess alcohol history related to: Unable to respond Alcohol intake: current Patient Tobacco Use Status: Current everyday Tobacco user Smoked in Last 30 Days: Yes Use of substances other than those prescribed or required for medical reasons: Unable to respond Substance Use Type: Crack/Cocaine and Marijuana Substance Use Frequency: Chronic Longstanding Advance Directives: No Advance Directives Information Provided: No service: No Current occupational status: unemployed Meds Allergies Allergy/AdvReac Type Severity Reaction Status Date / Time No Known Allergies Allergy Verified 03/17/21 23:53 [No Known Allergies*] Active Medications: Current Medications Generic Name Dose Route Start Last Admin Trade Name Freq PRN Reason Stop Dose Admin Acetaminophen 650 mg 03/18/21 06:05 Acetaminophen 325 Mg Tablet PO Q6H PRN Pain, Mild (Pain Scale 1-3) Docusate Sodium 100 mg 03/18/21 06:05 Docusate Sodium 100 Mg Capsule PO DAILY PRN Constipation Furosemide 40 mg 03/18/21 17:00 03/18/21 06:34 Furosemide 40 Mg/4 Ml Vial IVPUSH 40 mg BID@0900,1700 [facility] Administration Protocol Heparin Sodium (Porcine) 5,000 unit 03/18/21 08:15 03/18/21 08:37 Heparin Sodium,Porcine 5,000 Unit/Ml Vial SUBCUT 5,000 unit Q12H SHLOMO Administration Ceftriaxone Sodium 1 gm/ 50 mls @ 100 mls/hr 03/18/21 06:05 03/18/21 07:04 Sodium Chloride IV Infused Q24H SHLOMO Infusion Insulin Human Lispro 0 unit 03/18/21 07:30 03/18/21 08:15 Insulin Lispro 100 Unit/Ml 3 Ml Vial SUBCUT Not Given QIDACHS SHLOMO Protocol Ondansetron HCl 4 mg 03/18/21 06:05 Ondansetron Hcl 4 Mg/2 Ml Vial IVPUSH Q8H PRN Nausea and Vomiting Sodium Chloride 3 ml 03/18/21 08:00 03/18/21 08:14 0.9 % Sodium Chloride Flush 3 Ml Syringe IVFLUSH 3 ml QSHIFT SHLOMO Administration Home Medications Medication Instructions Recorded Confirmed Last Taken Type D3 DOTS 1 tab PO DAILY 03/18/21 03/18/21 03/17/21 History alcohol swabs [Alcohol Prep Pads] 1 ea TOPICAL TID 03/18/21 03/18/21 03/17/21 History aspirin 1 tab PO DAILY 03/18/21 03/18/21 03/17/21 History atorvastatin 1 tab PO DAILY 03/18/21 03/18/21 03/17/21 History blood sugar diagnostic [FreeStyle 03/18/21 03/18/21 03/17/21 History Lite Strips] docusate sodium [DOK] 100 mg PO BID 03/18/21 03/18/21 03/17/21 History lancets [FreeStyle Lancets] 03/18/21 03/18/21 03/17/21 History metformin 1 tab PO DAILY 03/18/21 03/18/21 03/17/21 History nitroglycerin 0.4 mg SUBLINGUAL NEEDED PRN 03/18/21 03/18/21 Unknown History omeprazole 1 cap PO DAILY 03/18/21 03/18/21 03/17/21 History oxybutynin chloride 1 tab PO TID 03/18/21 03/18/21 03/17/21 History Physical Exam Vital Signs: Vital Signs: Last Vital Signs Temp 96.6 F L 03/18/21 11:10 Pulse 64 03/18/21 11:10 Resp 21 H 03/18/21 11:10 BP 115/77 03/18/21 11:10 Pulse Ox 97 03/18/21 11:10 Body Mass Index 30.8 Const: General: cooperative, comfortable, alert, awake, acute distress moderate and respiratory and poor hygiene Nutritional Appearance: overweight Orientation/consciousness: patient oriented x3 HENMT: Head: Yes normocephalic and Yes atraumatic Neck: Neck: Yes trachea midline, Yes supple and Yes JVD Resp: Effort & Inspection: normal respiratory effort Auscultation: breath sounds absent on the right (base) Cardio: Jugular venous distension: JVD Palpation: abnormal PMI displaced PMI Rate: regular rate Rhythm: regular rhythm Heart sounds: S1 normal heart sound present, S2 normal heart sound present, no click, no murmurs and no rubs GI: Auscultation: normal bowel sounds Skin: General skin exam: no rashes or lesions noted Neuro: General: patient oriented x3 and no focal motor deficits Extrem: General: No clubbing, No cyanosis and Yes edema Results Labs and Meds Result diagrams: 03/18/21 00:05 03/18/21 00:05 Lab results: Laboratory Results - last 24 hr 03/18/21 03/18/21 03/18/21 00:05 00:05 00:05 WBC 7.8 RBC 4.68 Hgb 13.6 L Hct 41.8 L MCV 89.3 MCH 29.1 MCHC 32.5 RDW 16.4 H Plt Count 169 MPV 10.6 Immature Gran % (Auto) 0.6 H Neut % (Auto) 75.4 H Lymph % (Auto) 14.6 L [place] % (Auto) 8.3 Eos % (Auto) 0.8 Baso % (Auto) 0.3 Lymph # (Auto) 1.1 L [place] # (Auto) 0.7 Eos # (Auto) 0.1 Baso # (Auto) 0.0 Abs Immat Gran (auto) 0.05 H Absolute Neuts (auto) 5.9 Absolute Nucleated RBC 0.000 Nucleated RBC % (auto) 0.0 PT INR D-Dimer VBG pH VBG pCO2 VBG pO2 VBG HCO3 VBG O2 Saturation VBG Base Excess Sodium Potassium Chloride Carbon Dioxide Anion Gap BUN Creatinine Estim Creat Clear Calc Estimated GFR POC Glucose Random Glucose Lactic Acid Lactic Acid Fup @ 2Hr Calcium Magnesium Total Bilirubin AST ALT Alkaline Phosphatase Troponin I High Sens B-Natriuretic Peptide 3030 H Total Protein Albumin Urine Color Urine Appearance Urine pH Ur Specific [place] Urine Protein Urine Glucose (UA) Urine Ketones Urine Blood Urine Nitrite Ur Leukocyte Esterase Urine RBC Urine WBC Ur Squamous Epith Cells Amorphous Sediment Urine Bacteria Hyaline Casts Urine Mucus Urine Opiates Screen Ur Barbiturates Screen Ur Phencyclidine Scrn Ur Amphetamines Screen U Benzodiazepines Scrn Urine Cocaine Screen U Marijuana (THC) Screen Ethyl Alcohol COVID-19 (BRENDAN) Negative COVID-19 Clin Com See Note 03/18/21 03/18/21 03/18/21 00:05 00:05 00:05 WBC RBC Hgb Hct MCV MCH MCHC RDW Plt Count MPV Immature Gran % (Auto) Neut % (Auto) Lymph % (Auto) [place] % (Auto) Eos % (Auto) Baso % (Auto) Lymph # (Auto) [place] # (Auto) Eos # (Auto) Baso # (Auto) Abs Immat Gran (auto) Absolute Neuts (auto) Absolute Nucleated RBC Nucleated RBC % (auto) PT 18.3 H INR 1.6 H D-Dimer 1867 VBG pH VBG pCO2 VBG pO2 VBG HCO3 VBG O2 Saturation VBG Base Excess Sodium 140 Potassium 4.5 Chloride 107 Carbon Dioxide 18 L Anion Gap 20 BUN 25 H D Creatinine 1.15 Estim Creat Clear Calc 74.0 Estimated GFR > 60 POC Glucose Random Glucose 168 H D Lactic Acid 4.7 H* Lactic Acid Fup @ 2Hr Calcium 9.2 Magnesium 2.0 Total Bilirubin 2.1 H AST 25 ALT 18 Alkaline Phosphatase 114 D Troponin I High Sens B-Natriuretic Peptide Total Protein 7.0 Albumin 3.6 Urine Color Urine Appearance Urine pH Ur Specific [place] Urine Protein Urine Glucose (UA) Urine Ketones Urine Blood Urine Nitrite Ur Leukocyte Esterase Urine RBC Urine WBC Ur Squamous Epith Cells Amorphous Sediment Urine Bacteria Hyaline Casts Urine Mucus Urine Opiates Screen Ur Barbiturates Screen Ur Phencyclidine Scrn Ur Amphetamines Screen U Benzodiazepines Scrn Urine Cocaine Screen U Marijuana (THC) Screen Ethyl Alcohol COVID-19 (BRENDAN) COVID-19 Clin Com 03/18/21 03/18/21 03/18/21 00:05 00:05 00:11 WBC RBC Hgb Hct MCV MCH MCHC RDW Plt Count MPV Immature Gran % (Auto) Neut % (Auto) Lymph % (Auto) [place] % (Auto) Eos % (Auto) Baso % (Auto) Lymph # (Auto) [place] # (Auto) Eos # (Auto) Baso # (Auto) Abs Immat Gran (auto) Absolute Neuts (auto) Absolute Nucleated RBC Nucleated RBC % (auto) PT INR D-Dimer VBG pH 7.31 L VBG pCO2 36 VBG pO2 69 VBG HCO3 18 L VBG O2 Saturation 88.0 VBG Base Excess -6.9 Sodium Potassium Chloride Carbon Dioxide Anion Gap BUN Creatinine Estim Creat Clear Calc Estimated GFR POC Glucose Random Glucose Lactic Acid Lactic Acid Fup @ 2Hr Calcium Magnesium Total Bilirubin AST ALT Alkaline Phosphatase Troponin I High Sens 23.3 B-Natriuretic Peptide Total Protein Albumin Urine Color Urine Appearance Urine pH Ur Specific [place] Urine Protein Urine Glucose (UA) Urine Ketones Urine Blood Urine Nitrite Ur Leukocyte Esterase Urine RBC Urine WBC Ur Squamous Epith Cells Amorphous Sediment Urine Bacteria Hyaline Casts Urine Mucus Urine Opiates Screen Ur Barbiturates Screen Ur Phencyclidine Scrn Ur Amphetamines Screen U Benzodiazepines Scrn Urine Cocaine Screen U Marijuana (THC) Screen Ethyl Alcohol < 10 COVID-19 (BRENDAN) COVID-19 [employer] 03/18/21 03/18/21 03/18/21 02:45 02:45 02:56 WBC RBC Hgb Hct MCV MCH MCHC RDW Plt Count MPV Immature Gran % (Auto) Neut % (Auto) Lymph % (Auto) [place] % (Auto) Eos % (Auto) Baso % (Auto) Lymph # (Auto) [place] # (Auto) Eos # (Auto) Baso # (Auto) Abs Immat Gran (auto) Absolute Neuts (auto) Absolute Nucleated RBC Nucleated RBC % (auto) PT INR D-Dimer VBG pH VBG pCO2 VBG pO2 VBG HCO3 VBG O2 Saturation VBG Base Excess Sodium Potassium Chloride Carbon Dioxide Anion Gap BUN Creatinine Estim Creat Clear Calc Estimated GFR POC Glucose 111 Random Glucose Lactic Acid Lactic Acid Fup @ 2Hr Calcium Magnesium Total Bilirubin AST ALT Alkaline Phosphatase Troponin I High Sens B-Natriuretic Peptide Total Protein Albumin Urine Color DARK YELLOW Urine Appearance HAZY Urine pH 6.0 Ur Specific [place] 1.020 Urine Protein 1+ H Urine Glucose (UA) NEG Urine Ketones NEG Urine Blood NEG Urine Nitrite NEG Ur Leukocyte Esterase TRACE H Urine RBC 0-2 Urine WBC 10-14 H Ur Squamous Epith Cells 2+ Amorphous Sediment 2+ Urine Bacteria TRACE Hyaline Casts 0-2 Urine Mucus 1+ Urine Opiates Screen Not Detected Ur Barbiturates Screen Not Detected Ur Phencyclidine Scrn Not Detected Ur Amphetamines Screen Not Detected U Benzodiazepines Scrn Not Detected Urine Cocaine Screen POSITIVE H U Marijuana (THC) Screen Not Detected Ethyl Alcohol COVID-19 (BRENDAN) COVID-19 [employer] 03/18/21 03/18/21 03/18/21 03:12 03:12 08:14 WBC RBC Hgb Hct MCV MCH MCHC RDW Plt Count MPV Immature Gran % (Auto) Neut % (Auto) Lymph % (Auto) [place] % (Auto) Eos % (Auto) Baso % (Auto) Lymph # (Auto) [place] # (Auto) Eos # (Auto) Baso # (Auto) Abs Immat Gran (auto) Absolute Neuts (auto) Absolute Nucleated RBC Nucleated RBC % (auto) PT INR D-Dimer VBG pH VBG pCO2 VBG pO2 VBG HCO3 VBG O2 Saturation VBG Base Excess Sodium Potassium Chloride Carbon Dioxide Anion Gap BUN Creatinine Estim Creat Clear Calc Estimated GFR POC Glucose 135 H Random Glucose Lactic Acid Lactic Acid Fup @ 2Hr 1.6 Calcium Magnesium Total Bilirubin AST ALT Alkaline Phosphatase Troponin I High Sens 45.4 H* D B-Natriuretic Peptide Total Protein Albumin Urine Color Urine Appearance Urine pH Ur Specific [place] Urine Protein Urine Glucose (UA) Urine Ketones Urine Blood Urine Nitrite Ur Leukocyte Esterase Urine RBC Urine WBC Ur Squamous Epith Cells Amorphous Sediment Urine Bacteria Hyaline Casts Urine Mucus Urine Opiates Screen Ur Barbiturates Screen Ur Phencyclidine Scrn Ur Amphetamines Screen U Benzodiazepines Scrn Urine Cocaine Screen U Marijuana (THC) Screen Ethyl Alcohol COVID-19 (BRENDAN) COVID-19 Clin Com Imaging Radiologist's impression: Impressions Chest X-Ray 03/18/21 00:00 IMPRESSION: Elevated right hemidiaphragm. Patchy right basilar opacities may represent atelectasis or pneumonia. There may also be a small right pleural effusion. Chest CTA 03/18/21 01:26 IMPRESSION: No evidence of pulmonary embolism. Lack of opacification of the right lower lobe pulmonary arteries within the area of consolidation is likely secondary to contrast bolus technical issues, as this is not the typical appearance for pulmonary embolism. Moderate right pleural effusion which is increased from prior. Significant right lower lobe atelectasis, although pneumonia not excluded. Partial atelectasis of the right middle lobe as well. Moderate emphysema. Mediastinal lymphadenopathy is again noted, likely with slight increase in prominence from previous. VTE: negative Assessment and Plan (1) Acute on chronic systolic heart failure: Status: Acute patient presents with decompensated heart failure prior history of severe LV systolic dysfunction. Currently not on any neurohormonal modulation. He has very poor compliance and follow up as outpatient with his own leather belt loop cutter. He also continues to have substance use disorder with use of cocaine which makes use of beta-blockers difficult for him. At this time appears to be fluid overloaded. Continue IV diuresis. Strict intake and output chart needs to be provided. Importance of compliance with medications and follow-up as well as abstinence from substances such as cocaine and alcohol was discussed. Not sure if he showed any interest in it. Start low-dose valsartan 40 mg b.i.d.. Strict intake and output chart. avoid use of beta-lou due to both cocaine use and current fluid overload status. He is not on chronic beta blockers as outpatient. Eventually if he stops using cocaine can start him on neurohormonal modulation with metoprolol or carvedilol. Add low-dose Aldactone 12.5 mg daily. Continue to trend BMP and BNP. His long-term prognosis is poor if He does not pursue proper care. This was discussed with him. (2) Acute respiratory failure with hypoxia: Status: Acute Acute hypoxic respiratory failure appears to be both due to decompensated congestive heart failure as well as pleural effusion atelectasis. Consider thoracocentesis for his right pleural effusion as well as incentive spirometry. Continue management of CHF as above. Will follow the patient. Procedures Date of Service Date of Service: 03/18/21
[2021-03-18 11:51] LABS: Glucose, Whole Blood 161 mg/dL (60-115)
[2021-03-18] MEDS: Insulin Lispro 100 UNIT/ML 3 ML VIAL SUBCUT ×2 (11:53→20:17)
--- NOTE | 2021-03-18 14:16 | PM.IMPN ---
Subjective Subjective Date of Service: 03/18/21 Interval History: Follow up CHF, UTI Some sob sleeping mostly Physical Exam Vital Signs: Vital Signs: Last Vital Signs Temp 96.6 F L 03/18/21 11:10 Pulse 64 03/18/21 11:10 Resp 21 H 03/18/21 11:10 BP 115/77 03/18/21 11:10 Pulse Ox 97 03/18/21 11:10 Body Mass Index 30.8 Appearing in no acute distress lung sounds, clear heart regular rate rhythm, clear S1, S2 positive bowel sounds, abdomen is soft, nontender neuro patient is alert x3, no focal deficits Objective Data Current Medications Generic Name Dose Route Start Last Admin Trade Name Freq PRN Reason Stop Dose Admin Acetaminophen 650 mg 03/18/21 06:05 Acetaminophen 325 Mg Tablet PO Q6H PRN Pain, Mild (Pain Scale 1-3) Docusate Sodium 100 mg 03/18/21 06:05 Docusate Sodium 100 Mg Capsule PO DAILY PRN Constipation Furosemide 40 mg 03/18/21 17:00 03/18/21 06:34 Furosemide 40 Mg/4 Ml Vial IVPUSH 40 mg BID@0900,1700 [facility] Administration Protocol Heparin Sodium (Porcine) 5,000 unit 03/18/21 08:15 03/18/21 08:37 Heparin Sodium,Porcine 5,000 Unit/Ml Vial SUBCUT 5,000 unit Q12H SHLOMO Administration Ceftriaxone Sodium 1 gm/ 50 mls @ 100 mls/hr 03/18/21 06:05 03/18/21 07:04 Sodium Chloride IV Infused Q24H SHLOMO Infusion Insulin Human Lispro 0 unit 03/18/21 07:30 03/18/21 11:53 Insulin Lispro 100 Unit/Ml 3 Ml Vial SUBCUT 2 unit QIDACHS [facility] Administration Protocol Ondansetron HCl 4 mg 03/18/21 06:05 Ondansetron Hcl 4 Mg/2 Ml Vial IVPUSH Q8H PRN Nausea and Vomiting Sodium Chloride 3 ml 03/18/21 08:00 03/18/21 08:14 0.9 % Sodium Chloride Flush 3 Ml Syringe IVFLUSH 3 ml QSHIFT [facility] Administration Labs CBC & Chem 7: 03/18/21 00:05 03/18/21 00:05 Labs: Laboratory Results - last 24 hr 03/18/21 03/18/21 03/18/21 00:05 00:05 00:05 MCV 89.3 MCH 29.1 MCHC 32.5 RDW 16.4 H Plt Count 169 MPV 10.6 Immature Gran % (Auto) 0.6 H Neut % (Auto) 75.4 H Lymph % (Auto) 14.6 L [place] % (Auto) 8.3 Eos % (Auto) 0.8 Baso % (Auto) 0.3 Lymph # (Auto) 1.1 L [place] # (Auto) 0.7 Eos # (Auto) 0.1 Baso # (Auto) 0.0 Abs Immat Gran (auto) 0.05 H Absolute Neuts (auto) 5.9 Absolute Nucleated RBC 0.000 Nucleated RBC % (auto) 0.0 PT INR D-Dimer VBG pH VBG pCO2 VBG pO2 VBG HCO3 VBG O2 Saturation VBG Base Excess Anion Gap Estim Creat Clear Calc Estimated GFR POC Glucose Random Glucose Lactic Acid Lactic Acid Fup @ 2Hr Calcium Magnesium Total Bilirubin AST ALT Alkaline Phosphatase Troponin I High Sens B-Natriuretic Peptide 3030 H Total Protein Albumin Urine Color Urine Appearance Urine pH Ur Specific [place] Urine Protein Urine Glucose (UA) Urine Ketones Urine Blood Urine Nitrite Ur Leukocyte Esterase Urine RBC Urine WBC Ur Squamous Epith Cells Amorphous Sediment Urine Bacteria Hyaline Casts Urine Mucus Urine Opiates Screen Ur Barbiturates Screen Ur Phencyclidine Scrn Ur Amphetamines Screen U Benzodiazepines Scrn Urine Cocaine Screen U Marijuana (THC) Screen Ethyl Alcohol COVID-19 (BRENDAN) Negative COVID-19 Clin Com See Note 03/18/21 03/18/21 03/18/21 00:05 00:05 00:05 MCV MCH MCHC RDW Plt Count MPV Immature Gran % (Auto) Neut % (Auto) Lymph % (Auto) [place] % (Auto) Eos % (Auto) Baso % (Auto) Lymph # (Auto) [place] # (Auto) Eos # (Auto) Baso # (Auto) Abs Immat Gran (auto) Absolute Neuts (auto) Absolute Nucleated RBC Nucleated RBC % (auto) PT 18.3 H INR 1.6 H D-Dimer 1867 VBG pH VBG pCO2 VBG pO2 VBG HCO3 VBG O2 Saturation VBG Base Excess Anion Gap 20 Estim Creat Clear Calc 74.0 Estimated GFR > 60 POC Glucose Random Glucose 168 H D Lactic Acid 4.7 H* Lactic Acid Fup @ 2Hr Calcium 9.2 Magnesium 2.0 Total Bilirubin 2.1 H AST 25 ALT 18 Alkaline Phosphatase 114 D Troponin I High Sens B-Natriuretic Peptide Total Protein 7.0 Albumin 3.6 Urine Color Urine Appearance Urine pH Ur Specific [place] Urine Protein Urine Glucose (UA) Urine Ketones Urine Blood Urine Nitrite Ur Leukocyte Esterase Urine RBC Urine WBC Ur Squamous Epith Cells Amorphous Sediment Urine Bacteria Hyaline Casts Urine Mucus Urine Opiates Screen Ur Barbiturates Screen Ur Phencyclidine Scrn Ur Amphetamines Screen U Benzodiazepines Scrn Urine Cocaine Screen U Marijuana (THC) Screen Ethyl Alcohol COVID-19 (BRENDAN) COVID-19 [employer] 03/18/21 03/18/21 03/18/21 00:05 00:05 00:11 MCV MCH MCHC RDW Plt Count MPV Immature Gran % (Auto) Neut % (Auto) Lymph % (Auto) [place] % (Auto) Eos % (Auto) Baso % (Auto) Lymph # (Auto) [place] # (Auto) Eos # (Auto) Baso # (Auto) Abs Immat Gran (auto) Absolute Neuts (auto) Absolute Nucleated RBC Nucleated RBC % (auto) PT INR D-Dimer VBG pH 7.31 L VBG pCO2 36 VBG pO2 69 VBG HCO3 18 L VBG O2 Saturation 88.0 VBG Base Excess -6.9 Anion Gap Estim Creat Clear Calc Estimated GFR POC Glucose Random Glucose Lactic Acid Lactic Acid Fup @ 2Hr Calcium Magnesium Total Bilirubin AST ALT Alkaline Phosphatase Troponin I High Sens 23.3 B-Natriuretic Peptide Total Protein Albumin Urine Color Urine Appearance Urine pH Ur Specific [place] Urine Protein Urine Glucose (UA) Urine Ketones Urine Blood Urine Nitrite Ur Leukocyte Esterase Urine RBC Urine WBC Ur Squamous Epith Cells Amorphous Sediment Urine Bacteria Hyaline Casts Urine Mucus Urine Opiates Screen Ur Barbiturates Screen Ur Phencyclidine Scrn Ur Amphetamines Screen U Benzodiazepines Scrn Urine Cocaine Screen U Marijuana (THC) Screen Ethyl Alcohol < 10 COVID-19 (BRENDAN) COVID-19 [employer] 03/18/21 03/18/21 03/18/21 02:45 02:45 02:56 MCV MCH MCHC RDW Plt Count MPV Immature Gran % (Auto) Neut % (Auto) Lymph % (Auto) [place] % (Auto) Eos % (Auto) Baso % (Auto) Lymph # (Auto) [place] # (Auto) Eos # (Auto) Baso # (Auto) Abs Immat Gran (auto) Absolute Neuts (auto) Absolute Nucleated RBC Nucleated RBC % (auto) PT INR D-Dimer VBG pH VBG pCO2 VBG pO2 VBG HCO3 VBG O2 Saturation VBG Base Excess Anion Gap Estim Creat Clear Calc Estimated GFR POC Glucose 111 Random Glucose Lactic Acid Lactic Acid Fup @ 2Hr Calcium Magnesium Total Bilirubin AST ALT Alkaline Phosphatase Troponin I High Sens B-Natriuretic Peptide Total Protein Albumin Urine Color DARK YELLOW Urine Appearance HAZY Urine pH 6.0 Ur Specific [place] 1.020 Urine Protein 1+ H Urine Glucose (UA) NEG Urine Ketones NEG Urine Blood NEG Urine Nitrite NEG Ur Leukocyte Esterase TRACE H Urine RBC 0-2 Urine WBC 10-14 H Ur Squamous Epith Cells 2+ Amorphous Sediment 2+ Urine Bacteria TRACE Hyaline Casts 0-2 Urine Mucus 1+ Urine Opiates Screen Not Detected Ur Barbiturates Screen Not Detected Ur Phencyclidine Scrn Not Detected Ur Amphetamines Screen Not Detected U Benzodiazepines Scrn Not Detected Urine Cocaine Screen POSITIVE H U Marijuana (THC) Screen Not Detected Ethyl Alcohol COVID-19 (BRENDAN) COVID-19 Clin Com 03/18/21 03/18/21 03/18/21 03:12 03:12 08:14 MCV MCH MCHC RDW Plt Count MPV Immature Gran % (Auto) Neut % (Auto) Lymph % (Auto) [place] % (Auto) Eos % (Auto) Baso % (Auto) Lymph # (Auto) [place] # (Auto) Eos # (Auto) Baso # (Auto) Abs Immat Gran (auto) Absolute Neuts (auto) Absolute Nucleated RBC Nucleated RBC % (auto) PT INR D-Dimer VBG pH VBG pCO2 VBG pO2 VBG HCO3 VBG O2 Saturation VBG Base Excess Anion Gap Estim Creat Clear Calc Estimated GFR POC Glucose 135 H Random Glucose Lactic Acid Lactic Acid Fup @ 2Hr 1.6 Calcium Magnesium Total Bilirubin AST ALT Alkaline Phosphatase Troponin I High Sens 45.4 H* D B-Natriuretic Peptide Total Protein Albumin Urine Color Urine Appearance Urine pH Ur Specific [place] Urine Protein Urine Glucose (UA) Urine Ketones Urine Blood Urine Nitrite Ur Leukocyte Esterase Urine RBC Urine WBC Ur Squamous Epith Cells Amorphous Sediment Urine Bacteria Hyaline Casts Urine Mucus Urine Opiates Screen Ur Barbiturates Screen Ur Phencyclidine Scrn Ur Amphetamines Screen U Benzodiazepines Scrn Urine Cocaine Screen U Marijuana (THC) Screen Ethyl Alcohol COVID-19 (BRENDAN) COVID-19 [employer] Com 03/18/21 11:13 MCV MCH MCHC RDW Plt Count MPV Immature Gran % (Auto) Neut % (Auto) Lymph % (Auto) [place] % (Auto) Eos % (Auto) Baso % (Auto) Lymph # (Auto) [place] # (Auto) Eos # (Auto) Baso # (Auto) Abs Immat Gran (auto) Absolute Neuts (auto) Absolute Nucleated RBC Nucleated RBC % (auto) PT INR D-Dimer VBG pH VBG pCO2 VBG pO2 VBG HCO3 VBG O2 Saturation VBG Base Excess Anion Gap Estim Creat Clear Calc Estimated GFR POC Glucose 161 H Random Glucose Lactic Acid Lactic Acid Fup @ 2Hr Calcium Magnesium Total Bilirubin AST ALT Alkaline Phosphatase Troponin I High Sens B-Natriuretic Peptide Total Protein Albumin Urine Color Urine Appearance Urine pH Ur Specific [place] Urine Protein Urine Glucose (UA) Urine Ketones Urine Blood Urine Nitrite Ur Leukocyte Esterase Urine RBC Urine WBC Ur Squamous Epith Cells Amorphous Sediment Urine Bacteria Hyaline Casts Urine Mucus Urine Opiates Screen Ur Barbiturates Screen Ur Phencyclidine Scrn Ur Amphetamines Screen U Benzodiazepines Scrn Urine Cocaine Screen U Marijuana (THC) Screen Ethyl Alcohol COVID-19 (BRENDAN) COVID-19 Clin Com Progress Note: A&P (1) Acute on chronic systolic heart failure: Status: Acute Assessment and Plan: 65-year-old male with past medical history of CHF who presents to the hospital with complaints of shortness of breath. Acute CHF exacerbation. Possibly secondary to use of cocaine as well as acute infection - elevated BNP, orthopnea, PND, dyspnea, chest CT evidence of pleural effusion - at this time will start him on Lasix 40 IV b.i.d. - strict I&O, low-sodium diet, daily with - echocardiogram - cardiology consulted - start valsartan 40mg BID Acute hypoxic respiratory failure. secondary to CHF exacerbation, found to be 68% on room air - CT angiogram negative for PE and pneumonia - has a moderate size pleural effusion - will start him on Lasix 40 IV b.i.d. - consult pulmonology, thoracocentesis tomorrow Elevated troponin. most likely secondary to cocaine abuse - no EKG changes suggestive of ACS - will trend troponin - consult cardiology UTI - positive UA - ceftriaxone - follow cultures Hypomagnesemia - repleted - follow level DVT prophylaxis: Apixaban Attending Dr. Josue Full code Quality Stroke Does the patient have a stroke diagnosis?: No VTE Prior VTE?: No VTE Risk Level:: Medical - moderate - high VTE Device Contraindication: Treatment Not Indicated VTE Drug Contraindication: N/A - Med Ordered
[2021-03-18 15:38] LABS: Lactic Acid 1.7 mmol/L (0.5-2.0)
[2021-03-18 15:52] LABS: Troponin-I High Sensitivity 59.3 ng/L (<3.5-35.0)
[2021-03-18 16:09] LABS: Glucose, Whole Blood 120 mg/dL (60-115)
[2021-03-18 20:04] LABS: Glucose, Whole Blood 174 mg/dL (60-115)
[2021-03-18] MEDS: Valsartan 40 MG TABLET PO (20:16)
--- NOTE | 2021-03-18 21:21 | P.CONPL_ITS ---
History of Present Illness History of Present Illness Consult date: 03/18/21 Chief complaint: Chf Exacerbation Narrative: The patient is a 65-year-old male with past medical history of alcoh ol use, CAD, cardiomyopathy, cocaine use, COPD, CVA, diabetes, hypertension, who presents to the hospital with complaints of shortness of breath. Patient reports shortness of breath is been going on for 2 weeks, associated with cough and no sputum production, lower extremity edema, orthopnea PND. Patient reports that he also has midsternal chest pain on and off for the past 2 weeks, spontaneous, pressure-like, nonradiating, but he did admit to using cocaine. On arrival to the ED patient found to have pox 68% on room air requiring venti mask. VBG shows pH of 7.31, with a pCO2 of 36, sodium of 140, BUN of 25, creatinine of 1.15, lactic acid of 4.7 the normalized to 1.6, troponin initially 23 that increased to 45.4, and a BNP of 3030. CTA personally reviewed by me with a moderate to large right sided pleural effusion, atelectasis of the RLL and significant mediastinal ymphadenopathy. Pt is feeling better partly due to diuresis. Review of Systems Constitutional: Constitutional: Reports malaise, Denies night sweats and R eports weight gain ENT: Denies change in voice, Denies lip swelling, Denies mouth pain, Reports nasal congestion, Reports nasal discharge and Denies tongue swelling Cardiovascular: Cardiovascular: Reports chest pain and Reports leg edema Respiratory: Respiratory: Reports cough, Reports pain on inspiration and Denies wheezing Gastrointestinal: Gastrointestinal: Denies abdominal pain Musculoskeletal: Musculoskeletal: Denies no additional musculoskeletal complaints Neurologic: Denies Neuro-related abnormal movements Psychiatric: Psychiatric: Denies no additional psychiatric complaints Hematologic/Lymphatic: Hematologic/Lymphatic: Denies easy bleeding and Denies lymphadenopathy Allergic/Immunologic: Allergic/Immunologic: Denies lip swelling, Denies tongue swelling and Denies wheezing PMFSH Past Medical History Medical History Alcohol use CAD (coronary artery disease) Cardiomyopathy CHF (congestive heart failure) Cocaine use COPD (chronic obstructive pulmonary disease) COPD (chronic obstructive pulmonary disease) CVA (cerebral vascular accident) Diabetes GERD (gastroesophageal reflux disease) Hypertension Lymphadenopathy, mediastinal Osteoarthritis Tobacco use Surgical History Surgical History Total knee replacement status Social History Social History Household Members: None Housing: House Do you presently have visiting nurse or other home services: Yes Unable to assess alcohol history related to: Unable to respond Alcohol intake: current Patient Tobacco Use Status: Current everyday Tobacco user Smoked in Last 30 Days: Yes Use of substances other than those prescribed or required for medical reasons: Unable to respond Substance Use Type: Crack/Cocaine and Marijuana Substance Use Frequency: Chronic Longstanding Currently Displaying Signs/Symptoms of Drug Intoxication Withdrawal: No Advance Directives: No Advance Directives Information Provided: No Do you have thoughts of harming others: None Do you have a plan to hurt others: No Plan service: No Current occupational status: unemployed Meds Allergies Allergy/AdvReac Type Severity Reaction Status Date / Time No Known Allergies Allergy Verified 03/17/21 23:53 [No Known Allergies*] Active Medications: Current Medications Generic Name Dose Route Start Last Admin Trade Name Freq PRN Reason Stop Dose Admin Acetaminophen 650 mg 03/18/21 06:05 Acetaminophen 325 Mg Tablet PO Q6H PRN Pain, Mild (Pain Scale 1-3) Docusate Sodium 100 mg 03/18/21 06:05 Docusate Sodium 100 Mg Capsule PO DAILY PRN Constipation Furosemide 40 mg 03/18/21 17:00 03/18/21 20:16 Furosemide 40 Mg/4 Ml Vial IVPUSH 40 mg BID@0900,1700 SH[facility]O Administration Protocol Heparin Sodium (Porcine) 5,000 unit 03/18/21 08:15 03/18/21 20:17 Heparin Sodium,Porcine 5,000 Unit/Ml Vial SUBCUT 5,000 unit Q12H SHLOMO Administration Ceftriaxone Sodium 1 gm/ 50 mls @ 100 mls/hr 03/18/21 06:05 03/18/21 07:04 Sodium Chloride IV Infused Q24H SHLOMO Infusion Insulin Human Lispro 0 unit 03/18/21 07:30 03/18/21 20:17 Insulin Lispro 100 Unit/Ml 3 Ml Vial SUBCUT 2 unit QIDACHS [facility]O Administration Protocol Ondansetron HCl 4 mg 03/18/21 06:05 Ondansetron Hcl 4 Mg/2 Ml Vial IVPUSH Q8H PRN Nausea and Vomiting Sodium Chloride 3 ml 03/18/21 08:00 03/18/21 15:20 0.9 % Sodium Chloride Flush 3 Ml Syringe IVFLUSH 3 ml QSHIFT [facility] Administration Valsartan 40 mg 03/18/21 21:00 03/18/21 20:16 Valsartan 40 Mg Tablet PO 40 mg BID [facility] Administration Protocol Home Medications Medication Instructions Recorded Confirmed Last Taken Type D3 DOTS 1 tab PO DAILY 03/18/21 03/18/21 03/17/21 History alcohol swabs [Alcohol Prep Pads] 1 ea TOPICAL TID 03/18/21 03/18/21 03/17/21 History aspirin 1 tab PO DAILY 03/18/21 03/18/21 03/17/21 History atorvastatin 1 tab PO DAILY 03/18/21 03/18/21 03/17/21 History blood sugar diagnostic [FreeStyle 03/18/21 03/18/21 03/17/21 History Lite Strips] docusate sodium [DOK] 100 mg PO BID 03/18/21 03/18/21 03/17/21 History lancets [FreeStyle Lancets] 03/18/21 03/18/21 03/17/21 History metformin 1 tab PO DAILY 03/18/21 03/18/21 03/17/21 History nitroglycerin 0.4 mg SUBLINGUAL NEEDED PRN 03/18/21 03/18/21 Unknown History omeprazole 1 cap PO DAILY 03/18/21 03/18/21 03/17/21 History oxybutynin chloride 1 tab PO TID 03/18/21 03/18/21 03/17/21 History Physical Exam Vital Signs: Vital Signs: Last Vital Signs Temp 96.8 F 03/18/21 19:06 Pulse 67 03/18/21 19:06 Resp 20 03/18/21 19:06 BP 139/76 03/18/21 19:06 Pulse Ox 98 03/18/21 19:06 Body Mass Index 30.8 Const: General: alert Neck: Neck: Yes normal visual inspection, Yes full ROM and Yes no lymphadenopathy Chest: Chest palpation & inspection: normal inspection of the chest Resp: Auscultation: diminished lung sounds Cardio: Rate: regular rate Rhythm: regular rhythm Heart sounds: S1 normal heart sound present and S2 normal heart sound present GI: Palpation (GI): Soft to palpation and nontender Auscultation: normal bowel sounds Skin: General skin exam: rashes and/or lesions noted Results Laboratory Findings CBC and BMP: 03/18/21 00:05 03/18/21 00:05 ABG, PT/INR, D-dimer: PT/INR, D-dimer PT 18.3 SEC (9.9-13.0) H 03/18/21 00:05 INR 1.6 (0.9-1.1) H 03/18/21 00:05 D-Dimer 1867 NG/ML 03/18/21 00:05 Abnormal lab findings: Abnormal Labs 03/18/21 03/18/21 03/18/21 00:05 00:05 00:05 Hgb 13.6 L Hct 41.8 L RDW 16.4 H Immature Gran % (Auto) 0.6 H Neut % (Auto) 75.4 H Lymph % (Auto) 14.6 L Lymph # (Auto) 1.1 L Abs Immat Gran (auto) 0.05 H PT 18.3 H INR 1.6 H VBG pH VBG HCO3 Carbon Dioxide BUN POC Glucose Random Glucose Lactic Acid Total Bilirubin Troponin I High Sens B-Natriuretic Peptide 3030 H Urine Protein Ur Leukocyte Esterase Urine WBC Urine Cocaine Screen 03/18/21 03/18/21 03/18/21 00:05 00:05 00:11 Hgb Hct RDW Immature Gran % (Auto) Neut % (Auto) Lymph % (Auto) Lymph # (Auto) Abs Immat Gran (auto) PT INR VBG pH 7.31 L VBG HCO3 18 L Carbon Dioxide 18 L BUN 25 H D POC Glucose Random Glucose 168 H D Lactic Acid 4.7 H* Total Bilirubin 2.1 H Troponin I High Sens B-Natriuretic Peptide Urine Protein Ur Leukocyte Esterase Urine WBC Urine Cocaine Screen 03/18/21 03/18/21 03/18/21 02:45 02:45 03:12 Hgb Hct RDW Immature Gran % (Auto) Neut % (Auto) Lymph % (Auto) Lymph # (Auto) Abs Immat Gran (auto) PT INR VBG pH VBG HCO3 Carbon Dioxide BUN POC Glucose Random Glucose Lactic Acid Total Bilirubin Troponin I High Sens 45.4 H* D B-Natriuretic Peptide Urine Protein 1+ H Ur Leukocyte Esterase TRACE H Urine WBC 10-14 H Urine Cocaine Screen POSITIVE H 03/18/21 03/18/21 03/18/21 08:14 11:13 15:05 Hgb Hct RDW Immature Gran % (Auto) Neut % (Auto) Lymph % (Auto) Lymph # (Auto) Abs Immat Gran (auto) PT INR VBG pH VBG HCO3 Carbon Dioxide BUN POC Glucose 135 H 161 H Random Glucose Lactic Acid Total Bilirubin Troponin I High Sens 59.3 H* B-Natriuretic Peptide Urine Protein Ur Leukocyte Esterase Urine WBC Urine Cocaine Screen 03/18/21 03/18/21 16:04 20:01 Hgb Hct RDW Immature Gran % (Auto) Neut % (Auto) Lymph % (Auto) Lymph # (Auto) Abs Immat Gran (auto) PT INR VBG pH VBG HCO3 Carbon Dioxide BUN POC Glucose 120 H 174 H Random Glucose Lactic Acid Total Bilirubin Troponin I High Sens B-Natriuretic Peptide Urine Protein Ur Leukocyte Esterase Urine WBC Urine Cocaine Screen Diagnostic Findings CT scan - chest: report reviewed and image reviewed Additional studies: EXAMINATION: CT ANGIOGRAM OF THE CHEST WITH AND WITHOUT CONTRAST (CT PULMONARY ANGIOGRAM FOR PE) CLINICAL INFORMATION: Reason for Exam Shortness of breath, elevated D-dimer, positive history COMPARISON: Radiograph from today. CT 09/29/2020 TECHNIQUE: Prior to contrast administration, noncontrast localization images were obtained. Subsequently, multidetector volumetric imaging was performed from the thoracic inlet to below the diaphragms following the administration of 65 mL Omnipaque 350 intravenous contrast. No contrast reaction reported Sagittal, coronal, and MIP oblique sagittal reformatted images were obtained on the CT workstation, uploaded to PACS, and reviewed. This CT examination was performed using dose optimization techniques as appropriate, variously including the following: *Automated exposure control *Adjustment of mA and/or kV according to patient size (this includes techniques or standardized protocols for targeted exams where dose is matched to indication/reason for exam; i.e. extremities or head) *Use of iterative reconstruction technique Total exam dose-length product 451 mGy-cm FINDINGS: QUALITY OF STUDY/CONTRAST BOLUS: Satisfactory. PULMONARY ARTERIES: No central or segmental pulmonary emboli. There is lack of opacification of the right lower lobe pulmonary arteries within the area of consolidation. This is not the typical appearance of a pulmonary embolism and is instead likely more associated with contrast bolus. THORACIC AORTA: No aneurysm or dissection. LUNG: The central airways are patent. Moderate right pleural effusion, increased from prior. Right lower lobe consolidative appearance likely atelectasis. There is also partial right middle lobe atelectasis. Moderate centrilobular emphysema. No pneumothorax. MEDIASTINUM: Enlarged heart. No pericardial effusion. Mediastinal lymphadenopathy is noted, as seen previously. For instance there is a 1.5 cm short axis right paratracheal lymph node on series 5 image 23. This is similar to prior. There is a midline prevascular node which measures 1.5 cm on image 19. This may be slightly increased from prior. No evidence of septal bowing or right heart strain. CHEST WALL/AXILLA: No axillary or internal mammary lymphadenopathy. OSSEOUS STRUCTURES: No acute or suspicious osseous abnormality. Degenerative change throughout the spine. UPPER ABDOMEN: Cholelithiasis. No reflux of contrast into the hepatic veins to suggest elevated right heart pressures. CT/CT angio chest PE protocol IMPRESSION: No evidence of pulmonary embolism. Lack of opacification of the right lower lobe pulmonary arteries within the area of consolidation is likely secondary to contrast bolus technical issues, as this is not the typical appearance for pulmonary embolism. Moderate right pleural effusion which is increased from prior. Significant right lower lobe atelectasis, although pneumonia not excluded. Partial atelectasis of the right middle lobe as well. Moderate emphysema. Mediastinal lymphadenopathy is again noted, likely with slight increase in prominence from previous. VTE: negative Dictated By:Arvin Hinkle MD Assessment and Plan (1) COPD (chronic obstructive pulmonary disease): Qualifiers: COPD type: emphysema Emphysema type: centrilobular Qualified Code(s): J43.2 - Centrilobular emphysema Status: Acute (2) Acute respiratory failure with hypoxia: Status: Acute (3) Pleural effusion on right: Status: Acute (4) Lymphadenopathy, mediastinal: Status: Acute -Continue diuresis -Repeat CXR tomorrow, if no better then should undergo a thoracentesis -Continue oxygen supplementation to keep pox>90% -Start Breo -Will follow Procedures Date of Service Date of Service: 03/18/21
[2021-03-19] VITALS (9 sets, daily range): BP systolic 96–144; BP diastolic 58–87; PULSE 52–83; RESP 18–22; TEMP 36.2–37; O2SAT 91–97; BMI 34.3
--- NOTE | 2021-03-19 00:30 | MHC.PIE ---
P.PAIN I.PT C/O PAIN AT WOLF CATH SITE,ASKING IF IT CAN BE REMOVED.WOLF PATENT AND DRAINING WELL. UPDATED. STATES TO KEEP WOLF CATH IN AND PRN OXYCODONE ORDERED BY .PT UPDATED AND MED GIVEN E.CONTINUING TO MONITOR
[2021-03-19] MEDS: oxyCODONE HCl Immed Release 5 MG TABLET PO ×2 (00:42→06:52)
[2021-03-19 05:45] LABS: MANUAL DIFF FLAG NO
[2021-03-19] MEDS: cefTRIAXone sodium 1 GM in 0.9 % Sodium Chloride 50 ML IV (05:47)
[2021-03-19 05:51] LABS: Basophils Percent Auto 0.3 % (0-2); Eosinophils Absolute Auto 0.1 X10*3/uL (0.0-0.4); Eosinophils Percent Auto 0.5 % (0-4); Hematocrit 42.4 % (42-52); Hemoglobin 13.6 g/dl (14.0-18.0); Imm Gran Abs Auto 0.06 X10*3/uL (0.00-0.03); Imm Gran Pct Auto 0.5 % (0.0-0.4); Lymphocytes Absolute Auto 1.2 X10*3/uL (1.2-4.9); Lymphocytes Percent Auto 11.2 % (20-40); Mean Corpuscular HGB Conc 32.1 g/dl (31.0-36.0); Mean Corpuscular Hemoglobin 28.8 pg (27.0-33.0); Mean Corpuscular Volume 89.6 fL (80-98); Mean Platelet Volume 11.5 fL (9.4-12.4); Monocytes Absolute Auto 1.1 X10*3/uL (0.1-1.2); Monocytes Percent Auto 10.3 % (2-11); Neutrophils Absolute Auto 8.5 X10*3/uL (2.0-8.3); Neutrophils Percent Auto 77.2 % (45-73); Platelet Count 166 X10*3/uL (160-400); Red Blood Count 4.73 X10*6/uL (4.60-5.80); Red Cell Distribution Width 16.2 % (11.0-16.0)
[2021-03-19 06:25] LABS: Anion Gap 17 (12-20); Blood Urea Nitrogen 26 mg/dL (9-16); Calcium 9.1 mg/dL (8.4-10.2); Carbon Dioxide 26 mmol/L (22-29); Chloride 102 mmol/L (96-108); Creatinine Clr Calc Pharmacy 75.9; Estimated Glomerular Filt Rate > 60; Glucose Random 157 mg/dL (60-115); Potassium 3.9 mmol/L (3.3-5.1); Sodium 141 mmol/L (135-145)
[2021-03-19 06:33] LABS: B Type Natriuretic Peptide 2606 pg/mL (<100)
[2021-03-19 07:26] LABS: Glucose, Whole Blood 153 mg/dL (60-115)
[2021-03-19] MEDS: Fluticasone/Vilanterol 100/25 BLST.W.DEV 1 PUFF INHALE (07:46)
[2021-03-19] MEDS: 0.9 % Sodium Chloride Flush 3 ML SYRINGE IVFLUSH ×2 (07:56→17:31)
[2021-03-19] MEDS: Insulin Lispro 100 UNIT/ML 3 ML VIAL SUBCUT (07:56)
[2021-03-19] MEDS: Heparin Sodium,Porcine 5,000 UNIT/ML VIAL 5000 UNIT SUBCUT (08:07)
[2021-03-19] MEDS: Valsartan 40 MG TABLET PO (08:07)
[2021-03-19] MEDS: Furosemide 40 MG/4 ML VIAL IVPUSH ×2 (08:08→17:31)
[2021-03-19] MEDS: Spironolactone 25 MG TABLET 12.5 MG PO (08:16)
[2021-03-19 08:40] LABS: INTERNATIONAL NORM RATIO 1.6 (0.9-1.1); Prothrombin Time 17.8 SEC (9.9-13.0)
[2021-03-19] MEDS: ondansetron HCL 4 MG/2 ML VIAL IVPUSH (08:41)
[2021-03-19] MEDS: Docusate Sodium 100 MG CAPSULE PO (08:46)
--- NOTE | 2021-03-19 09:23 | MHC.CM.PN ---
IMM 03/19/21 MALE 65 DX HF exacerbation. Pt Lives alone. He is independent with ADLs. He uses a cane. DP home with [facility] [place] [place] shuttle for transport.
--- NOTE | 2021-03-19 09:29 | P.PNPL_ITS ---
Subjective Subjective Date of Service: 03/19/21 Interval history: the patient was seen on exam. Still having shortness of breath. Also complaining of abdominal discomfort. His chest x-ray today is worse with the more significant right-sided pleural effusion. He will undergo thoracentesis at this time. Objective Data Labs CBC & Chem 7: 03/19/21 05:16 03/19/21 05:16 Labs: Laboratory Results - last 24 hr 03/18/21 03/18/21 03/18/21 11:13 15:05 15:05 WBC RBC Hgb Hct MCV MCH MCHC RDW Plt Count MPV Immature Gran % (Auto) Neut % (Auto) Lymph % (Auto) Maury % (Auto) Eos % (Auto) Baso % (Auto) Lymph # (Auto) Maury # (Auto) Eos # (Auto) Baso # (Auto) Abs Immat Gran (auto) Absolute Neuts (auto) Absolute Nucleated RBC Nucleated RBC % (auto) PT INR Sodium Potassium Chloride Carbon Dioxide Anion Gap BUN Creatinine Estim Creat Clear Calc Estimated GFR POC Glucose 161 H Random Glucose Lactic Acid 1.7 Calcium Troponin I High Sens 59.3 H* B-Natriuretic Peptide 03/18/21 03/18/21 03/19/21 16:04 20:01 05:16 WBC 11.0 H RBC 4.73 Hgb 13.6 L Hct 42.4 MCV 89.6 MCH 28.8 MCHC 32.1 RDW 16.2 H Plt Count 166 MPV 11.5 Immature Gran % (Auto) 0.5 H Neut % (Auto) 77.2 H Lymph % (Auto) 11.2 L Maury % (Auto) 10.3 Eos % (Auto) 0.5 Baso % (Auto) 0.3 Lymph # (Auto) 1.2 Maury # (Auto) 1.1 Eos # (Auto) 0.1 Baso # (Auto) 0.0 Abs Immat Gran (auto) 0.06 H Absolute Neuts (auto) 8.5 H Absolute Nucleated RBC 0.000 Nucleated RBC % (auto) 0.0 PT INR Sodium Potassium Chloride Carbon Dioxide Anion Gap BUN Creatinine Estim Creat Clear Calc Estimated GFR POC Glucose 120 H 174 H Random Glucose Lactic Acid Calcium Troponin I High Sens B-Natriuretic Peptide 03/19/21 03/19/21 03/19/21 05:16 05:16 07:19 WBC RBC Hgb Hct MCV MCH MCHC RDW Plt Count MPV Immature Gran % (Auto) Neut % (Auto) Lymph % (Auto) Maury % (Auto) Eos % (Auto) Baso % (Auto) Lymph # (Auto) Maury # (Auto) Eos # (Auto) Baso # (Auto) Abs Immat Gran (auto) Absolute Neuts (auto) Absolute Nucleated RBC Nucleated RBC % (auto) PT INR Sodium 141 Potassium 3.9 Chloride 102 Carbon Dioxide 26 Anion Gap 17 BUN 26 H Creatinine 1.18 Estim Creat Clear Calc 75.9 Estimated GFR > 60 POC Glucose 153 H Random Glucose 157 H Lactic Acid Calcium 9.1 Troponin I High Sens B-Natriuretic Peptide 2606 H 03/19/21 08:20 WBC RBC Hgb Hct MCV MCH MCHC RDW Plt Count MPV Immature Gran % (Auto) Neut % (Auto) Lymph % (Auto) Maury % (Auto) Eos % (Auto) Baso % (Auto) Lymph # (Auto) Maury # (Auto) Eos # (Auto) Baso # (Auto) Abs Immat Gran (auto) Absolute Neuts (auto) Absolute Nucleated RBC Nucleated RBC % (auto) PT 17.8 H INR 1.6 H Sodium Potassium Chloride Carbon Dioxide Anion Gap BUN Creatinine Estim Creat Clear Calc Estimated GFR POC Glucose Random Glucose Lactic Acid Calcium Troponin I High Sens B-Natriuretic Peptide Microbiology Microbiology Results: Microbiology 03/18/21 Unknown Urine Catheterized - Lewis Catheter Urine Culture - Final No growth. 03/18/21 00:38 Blood - Venous Blood Culture - Preliminary No growth after 24 hours. 03/18/21 00:07 Blood - Venous Blood Culture - Preliminary No growth after 24 hours. Review of Systems Constitutional: Reports malaise, Denies night sweats and Reports weight gain Denies change in voice, Denies lip swelling, Denies mouth pain, Reports nasal congestion, Reports nasal discharge and Denies tongue swelling Cardiovascular: Reports chest pain and Reports leg edema Respiratory: Reports cough, Reports pain on inspiration and Denies wheezing Gastrointestinal: Denies abdominal pain Musculoskeletal: Denies no additional musculoskeletal complaints Denies Neuro-related abnormal movements Psychiatric: Denies no additional psychiatric complaints Hematologic/Lymphatic: Denies easy bleeding and Denies lymphadenopathy Allergic/Immunologic: Denies lip swelling, Denies tongue swelling and Denies wheezing Physical Exam Vital Signs: Vital Signs: Last Vital Signs Temp 97.3 F 03/19/21 07:55 Pulse 83 03/19/21 07:55 Resp 20 03/19/21 07:55 BP 134/87 03/19/21 07:55 Pulse Ox 97 03/19/21 07:55 Body Mass Index 34.3 Const: General: alert Eyes: Pupils: Equal, round and reactive pupils present Neck: Neck: Yes normal visual inspection, Yes full ROM and Yes no lymphadenopathy Chest: Chest palpation & inspection: normal inspection of the chest Resp: Auscultation: diminished lung sounds Cardio: Rate: regular rate Rhythm: regular rhythm Heart sounds: S1 normal heart sound present and S2 normal heart sound present GI: Palpation (GI): Soft to palpation and nontender Auscultation: normal bowel sounds Skin: General skin exam: rashes and/or lesions noted Neuro: Cranial nerves: Yes Equal, round and reactive pupils present Procedures Date of Service Date of Service: 03/19/21 Assessment and Plan Assessment and plan (1) Lymphadenopathy, mediastinal: Status: Acute (2) COPD (chronic obstructive pulmonary disease): Status: Acute (3) Acute on chronic systolic heart failure: Status: Acute (4) Pleural effusion on right: Status: Acute Assessment and Plan: Continue respiratory therapy Oxygen supplementation to keep pox>90% Diuresis as tolerated Thoracentesis today, please send for lights criteria and cytology and culture Further recommendations based on forthcoming data Time Spent With Patient Time: Total time spent is greater than 50% in coordination of care (as documented) at patient's floor/unit and/or counseling patient: Time with patient: 15 - 24 minutes Progress Note: Quality Stroke Does the patient have a stroke diagnosis?: No
--- NOTE | 2021-03-19 10:28 | PM.PNCARD ---
Subjective Subjective Date of Service: 03/19/21 Interval history: States that he feels ok. Review of Systems Review of Systems Yes all other systems are reviewed and are negative Cardiovascular: Reports as per HPI, Reports no additional cardiovascular complaints, Denies acrocyanosis, Denies cool extremities, Denies painful fingertips, Denies chest pain, Denies chest pain at rest, Denies diaphoresis, Denies syncope, Denies irregular heart rhythm, Denies claudication, Denies leg edema, Denies lightheadedness, Denies palpitations and Denies dyspnea Respiratory: Denies dyspnea Denies syncope Endocrine: Denies palpitations Physical Exam Vital Signs: Last Vital Signs Temp 97.3 F 03/19/21 07:55 Pulse 83 03/19/21 07:55 Resp 20 03/19/21 07:55 BP 134/87 03/19/21 07:55 Pulse Ox 97 03/19/21 07:55 Body Mass Index 34.3 Const General: cooperative and no acute distress HENWV Other: Unremarkable Neck Neck: Yes normal visual inspection Chest Chest palpation & inspection: normal inspection of the chest Resp Auscultation: clear to auscultation bilaterally, no crackles and no wheezes Cardio Jugular venous distension: no JVD Palpation: normal PMI Heart sounds: S1 normal heart sound present, S2 normal heart sound present, no gallops, no murmurs and no rubs GI Palpation (GI): Soft to palpation Back/Spine/Pelvis Other: unremarkable Skin General skin exam: no rashes or lesions noted Neuro Cranial nerves: Yes Other cranial nerve findings present Extrem General: Yes no clubbing, cyanosis or edema Psych Mental Status: other Results Labs and Meds Result diagrams: 03/19/21 05:16 03/19/21 05:16 Lab results: Laboratory Results - last 24 hr 03/18/21 03/18/21 03/18/21 11:13 15:05 15:05 WBC RBC Hgb Hct MCV MCH MCHC RDW Plt Count MPV Immature Gran % (Auto) Neut % (Auto) Lymph % (Auto) Coal % (Auto) Eos % (Auto) Baso % (Auto) Lymph # (Auto) Coal # (Auto) Eos # (Auto) Baso # (Auto) Abs Immat Gran (auto) Absolute Neuts (auto) Absolute Nucleated RBC Nucleated RBC % (auto) PT INR Sodium Potassium Chloride Carbon Dioxide Anion Gap BUN Creatinine Estim Creat Clear Calc Estimated GFR POC Glucose 161 H Random Glucose Lactic Acid 1.7 Calcium Troponin I High Sens 59.3 H* B-Natriuretic Peptide 03/18/21 03/18/21 03/19/21 16:04 20:01 05:16 WBC 11.0 H RBC 4.73 Hgb 13.6 L Hct 42.4 MCV 89.6 MCH 28.8 MCHC 32.1 RDW 16.2 H Plt Count 166 MPV 11.5 Immature Gran % (Auto) 0.5 H Neut % (Auto) 77.2 H Lymph % (Auto) 11.2 L [place] % (Auto) 10.3 Eos % (Auto) 0.5 Baso % (Auto) 0.3 Lymph # (Auto) 1.2 Coal # (Auto) 1.1 Eos # (Auto) 0.1 Baso # (Auto) 0.0 Abs Immat Gran (auto) 0.06 H Absolute Neuts (auto) 8.5 H Absolute Nucleated RBC 0.000 Nucleated RBC % (auto) 0.0 PT INR Sodium Potassium Chloride Carbon Dioxide Anion Gap BUN Creatinine Estim Creat Clear Calc Estimated GFR POC Glucose 120 H 174 H Random Glucose Lactic Acid Calcium Troponin I High Sens B-Natriuretic Peptide 03/19/21 03/19/21 03/19/21 05:16 05:16 07:19 WBC RBC Hgb Hct MCV MCH MCHC RDW Plt Count MPV Immature Gran % (Auto) Neut % (Auto) Lymph % (Auto) Coal % (Auto) Eos % (Auto) Baso % (Auto) Lymph # (Auto) [place] # (Auto) Eos # (Auto) Baso # (Auto) Abs Immat Gran (auto) Absolute Neuts (auto) Absolute Nucleated RBC Nucleated RBC % (auto) PT INR Sodium 141 Potassium 3.9 Chloride 102 Carbon Dioxide 26 Anion Gap 17 BUN 26 H Creatinine 1.18 Estim Creat Clear Calc 75.9 Estimated GFR > 60 POC Glucose 153 H Random Glucose 157 H Lactic Acid Calcium 9.1 Troponin I High Sens B-Natriuretic Peptide 2606 H 03/19/21 08:20 WBC RBC Hgb Hct MCV MCH MCHC RDW Plt Count MPV Immature Gran % (Auto) Neut % (Auto) Lymph % (Auto) Coal % (Auto) Eos % (Auto) Baso % (Auto) Lymph # (Auto) Coal # (Auto) Eos # (Auto) Baso # (Auto) Abs Immat Gran (auto) Absolute Neuts (auto) Absolute Nucleated RBC Nucleated RBC % (auto) PT 17.8 H INR 1.6 H Sodium Potassium Chloride Carbon Dioxide Anion Gap BUN Creatinine Estim Creat Clear Calc Estimated GFR POC Glucose Random Glucose Lactic Acid Calcium Troponin I High Sens B-Natriuretic Peptide Imaging Radiologist's impression: Impressions Chest X-Ray 03/19/21 07:00 IMPRESSION: Enlarged cardiac silhouette. Moderate-sized right pleural effusion and adjacent right basilar atelectasis. This is similar to yesterday's exam Progress Note: A&P Assessment and plan (1) Acute on chronic systolic (congestive) heart failure: Status: Acute (2) Cocaine use: Status: Acute Assessment and Plan: Suspected medication non-compliance; continued cocaine use; difficult to manage due to the above. Continue Valsartan + spironolactone. Empiric duretics. Also, was placed on Eliquis after stroke admission in september but not in his list. Need to readdress. Fall Risk Details Current Medications: Current Medications Generic Name Dose Route Start Last Admin Trade Name Freq PRN Reason Stop Dose Admin Acetaminophen 650 mg 03/18/21 06:05 Acetaminophen 325 Mg Tablet PO Q6H PRN Pain, Mild (Pain Scale 1-3) Docusate Sodium 100 mg 03/18/21 06:05 03/19/21 08:46 Docusate Sodium 100 Mg Capsule PO 100 mg DAILY PRN Administration Constipation Fluticasone/Vilanterol 1 puff 03/19/21 08:00 03/19/21 07:46 Fluticasone/Vilanterol 100/25 Blst.W.Dev INHALE 1 puff RDAILY SHLOMO Administration Furosemide 40 mg 03/18/21 17:00 03/19/21 08:08 Furosemide 40 Mg/4 Ml Vial IVPUSH 40 mg BID@0900,1700 [facility] Administration Protocol Heparin Sodium (Porcine) 5,000 unit 03/18/21 08:15 03/19/21 08:07 Heparin Sodium,Porcine 5,000 Unit/Ml Vial SUBCUT 5,000 unit Q12H SHLOMO Administration Insulin Human Lispro 0 unit 03/18/21 07:30 03/19/21 07:56 Insulin Lispro 100 Unit/Ml 3 Ml Vial SUBCUT 2 unit QIDACHS SHLOMO Administration Protocol Ondansetron HCl 4 mg 03/18/21 06:05 03/19/21 08:41 Ondansetron Hcl 4 Mg/2 Ml Vial IVPUSH 4 mg Q8H PRN Administration Nausea and Vomiting Oxycodone HCl 5 mg 03/19/21 00:25 03/19/21 06:52 Oxycodone Hcl Immed Release 5 Mg Tablet PO 5 mg Q6H PRN Administration Breakthrough Pain Sodium Chloride 3 ml 03/18/21 08:00 03/19/21 07:56 0.9 % Sodium Chloride Flush 3 Ml Syringe IVFLUSH 3 ml QSHIFT SHLOMO Administration Spironolactone 12.5 mg 03/19/21 09:00 03/19/21 08:16 Spironolactone 25 Mg Tablet PO 12.5 mg DAILY SHLOMO Administration Protocol Valsartan 40 mg 03/18/21 21:00 03/19/21 08:07 Valsartan 40 Mg Tablet PO 40 mg BID SHLOMO Administration Protocol Time Spent With Patient Time: Total time spent is greater than 50% in coordination of care (as documented) at patient's floor/unit and/or counseling patient: Time with patient: less than 15 minutes Progress Note: Quality Stroke Does the patient have a stroke diagnosis?: No Procedures Date of Service Date of Service: 03/19/21
[2021-03-19 11:12] LABS: Glucose, Whole Blood 123 mg/dL (60-115)
--- NOTE | 2021-03-19 13:43 | PM.IMPN ---
Subjective Subjective Date of Service: 03/19/21 Interval History: Follow up CHF still with some sob abd pain, no nvd Physical Exam Vital Signs: Vital Signs: Last Vital Signs Temp 97.2 F 03/19/21 11:38 Pulse 52 03/19/21 11:38 Resp 20 03/19/21 11:38 BP 104/58 L 03/19/21 11:38 Pulse Ox 94 03/19/21 11:38 Body Mass Index 34.3 Appearing in no acute distress lung sounds dim heart regular rate rhythm, clear S1, S2 positive bowel sounds, abdomen is soft, nontender neuro patient is alert x3, no focal deficits Objective Data Current Medications Generic Name Dose Route Start Last Admin Trade Name Freq PRN Reason Stop Dose Admin Acetaminophen 650 mg 03/18/21 06:05 Acetaminophen 325 Mg Tablet PO Q6H PRN Pain, Mild (Pain Scale 1-3) Docusate Sodium 100 mg 03/18/21 06:05 03/19/21 08:46 Docusate Sodium 100 Mg Capsule PO 100 mg DAILY PRN Administration Constipation Fluticasone/Vilanterol 1 puff 03/19/21 08:00 03/19/21 07:46 Fluticasone/Vilanterol 100/25 Blst.W.Dev INHALE 1 puff RDAILY SHLOMO Administration Furosemide 40 mg 03/18/21 17:00 03/19/21 08:08 Furosemide 40 Mg/4 Ml Vial IVPUSH 40 mg BID@0900,1700 SHLOMO Administration Protocol Heparin Sodium (Porcine) 5,000 unit 03/18/21 08:15 03/19/21 08:07 Heparin Sodium,Porcine 5,000 Unit/Ml Vial SUBCUT 5,000 unit Q12H SHLOMO Administration Insulin Human Lispro 0 unit 03/18/21 07:30 03/19/21 11:14 Insulin Lispro 100 Unit/Ml 3 Ml Vial SUBCUT Not Given QIDACHS [facility] Protocol Ondansetron HCl 4 mg 03/18/21 06:05 03/19/21 08:41 Ondansetron Hcl 4 Mg/2 Ml Vial IVPUSH 4 mg Q8H PRN Administration Nausea and Vomiting Oxycodone HCl 5 mg 03/19/21 00:25 03/19/21 06:52 Oxycodone Hcl Immed Release 5 Mg Tablet PO 5 mg Q6H PRN Administration Breakthrough Pain Sodium Chloride 3 ml 03/18/21 08:00 03/19/21 07:56 0.9 % Sodium Chloride Flush 3 Ml Syringe IVFLUSH 3 ml QSHIFT SHLOMO Administration Spironolactone 12.5 mg 03/19/21 09:00 03/19/21 08:16 Spironolactone 25 Mg Tablet PO 12.5 mg DAILY SHLOMO Administration Protocol Valsartan 40 mg 03/18/21 21:00 03/19/21 08:07 Valsartan 40 Mg Tablet PO 40 mg BID SHLOMO Administration Protocol Labs CBC & Chem 7: 03/19/21 05:16 03/19/21 05:16 Labs: Laboratory Results - last 24 hr 03/18/21 03/18/21 03/18/21 15:05 15:05 16:04 MCV MCH MCHC RDW Plt Count MPV Immature Gran % (Auto) Neut % (Auto) Lymph % (Auto) Roosevelt % (Auto) Eos % (Auto) Baso % (Auto) Lymph # (Auto) [place] # (Auto) Eos # (Auto) Baso # (Auto) Abs Immat Gran (auto) Absolute Neuts (auto) Absolute Nucleated RBC Nucleated RBC % (auto) PT INR Anion Gap Estim Creat Clear Calc Estimated GFR POC Glucose 120 H Random Glucose Lactic Acid 1.7 Calcium Troponin I High Sens 59.3 H* B-Natriuretic Peptide 03/18/21 03/19/21 03/19/21 20:01 05:16 05:16 MCV 89.6 MCH 28.8 MCHC 32.1 RDW 16.2 H Plt Count 166 MPV 11.5 Immature Gran % (Auto) 0.5 H Neut % (Auto) 77.2 H Lymph % (Auto) 11.2 L [place] % (Auto) 10.3 Eos % (Auto) 0.5 Baso % (Auto) 0.3 Lymph # (Auto) 1.2 [place] # (Auto) 1.1 Eos # (Auto) 0.1 Baso # (Auto) 0.0 Abs Immat Gran (auto) 0.06 H Absolute Neuts (auto) 8.5 H Absolute Nucleated RBC 0.000 Nucleated RBC % (auto) 0.0 PT INR Anion Gap 17 Estim Creat Clear Calc 75.9 Estimated GFR > 60 POC Glucose 174 H Random Glucose 157 H Lactic Acid Calcium 9.1 Troponin I High Sens B-Natriuretic Peptide 03/19/21 03/19/21 03/19/21 05:16 07:19 08:20 MCV MCH MCHC RDW Plt Count MPV Immature Gran % (Auto) Neut % (Auto) Lymph % (Auto) [place] % (Auto) Eos % (Auto) Baso % (Auto) Lymph # (Auto) [place] # (Auto) Eos # (Auto) Baso # (Auto) Abs Immat Gran (auto) Absolute Neuts (auto) Absolute Nucleated RBC Nucleated RBC % (auto) PT 17.8 H INR 1.6 H Anion Gap Estim Creat Clear Calc Estimated GFR POC Glucose 153 H Random Glucose Lactic Acid Calcium Troponin I High Sens B-Natriuretic Peptide 2606 H 03/19/21 11:04 MCV MCH MCHC RDW Plt Count MPV Immature Gran % (Auto) Neut % (Auto) Lymph % (Auto) [place] % (Auto) Eos % (Auto) Baso % (Auto) Lymph # (Auto) [place] # (Auto) Eos # (Auto) Baso # (Auto) Abs Immat Gran (auto) Absolute Neuts (auto) Absolute Nucleated RBC Nucleated RBC % (auto) PT INR Anion Gap Estim Creat Clear Calc Estimated GFR POC Glucose 123 H Random Glucose Lactic Acid Calcium Troponin I High Sens B-Natriuretic Peptide Microbiology Microbiology Results: Microbiology 03/18/21 Unknown Urine Catheterized - Lewis Catheter Urine Culture - Final No growth. 03/18/21 00:38 Blood - Venous Blood Culture - Preliminary No growth after 24 hours. 03/18/21 00:07 Blood - Venous Blood Culture - Preliminary No growth after 24 hours. Progress Note: A&P (1) COPD (chronic obstructive pulmonary disease): Status: Acute Assessment and Plan: 65-year-old male with past medical history of CHF who presents to the hospital with complaints of shortness of breath. Acute HFrEF exacerbation. Possibly secondary to use of cocaine as well as acute infection - elevated BNP, orthopnea, PND, dyspnea, chest CT evidence of pleural effusion - at this time will start him on Lasix 40 IV b.i.d. - strict I&O, low-sodium diet - echocardiogram showing EF 10-15% with grade III diastolic dysfunction, pulm htn - cardiology following - start valsartan 40mg BID Acute hypoxic respiratory failure. secondary to CHF exacerbation, found to be 68% on room air - CT angiogram negative for PE and pneumonia - has a moderate size pleural effusion - will start him on Lasix 40 IV b.i.d. - consult pulmonology, thoracocentesis today Elevated troponin. most likely secondary to cocaine abuse - no EKG changes suggestive of ACS - will trend troponin - consult cardiology UTI - positive UA - ceftriaxone - follow cultures Hypomagnesemia - repleted - follow level Hx of stroke had been on xarelto but has not taken discuss with patient DISPO: thoracentesis today. initially threatening to leave AMA but later changed his mind to complete his workup DVT prophylaxis with heparin after thoracentesis Attending Dr. mayer Full code Quality Stroke Does the patient have a stroke diagnosis?: No VTE Prior VTE?: No VTE Risk Level:: Medical - moderate - high VTE Device Contraindication: Treatment Not Indicated VTE Drug Contraindication: N/A - Med Ordered
[2021-03-19 14:00] LABS: Glucose, Whole Blood 155 mg/dL (60-115)
--- NOTE | 2021-03-19 16:13 | HO.RADPN ---
RADIOLOGY Narrative Narrative: Right thoracentesis performed using 4 Fr catheter. 1.1L clear marilia colored fluid removed. Diagnostic specimen sent cxr pending.
[2021-03-19] MEDS: Lidocaine HCl 1 % MPF 5 ML VIAL SUBCUT (16:14)
[2021-03-19 17:26] LABS: MN% 84.3 %; PMN% 15.7 %
[2021-03-19 17:26] LABS: Glucose, Whole Blood 108 mg/dL (60-115)
[2021-03-19 17:51] LABS: RBC Pleural Fluid < 0.002 X10*3/uL
[2021-03-19 19:26] LABS: BF Shift QC OK YES; Eosinophils Pleural Fluid 1 %; Lymphocytes Pleural Fluid 46 %; Monocytes Pleural Fluid 27 %; Neutrophils Pleural Fluid 16 %; Other Cells Plerual Fl 10 %
--- NOTE | 2021-03-19 20:23 | PM.EVENT ---
Event Note Date of Service: 03/19/21 Event Note: against medical advice discharge note: Around 7:00 p.m. RN mentioned that patient wanted to leave AMA. I went to speak to the patient. Explained the patient about the risks and benefits. Patient verbalized that he understood and does not want to stay in the hospital. I asked him if he wants any prescriptions he refused to stay for any prescriptions. Cultures from thoracentesis have been pending - patient to follow-up with the PCP for final results. Patient is ceftriaxone has been discontinued as urine cultures are negative. I strongly encouraged patient to follow-up with his PCP closely.
--- NOTE | 2021-03-19 20:50 | PC.NURSE ---
03/19/21 @ 1930... Pt wanted to leave the hospital AMA. Nursed tried to get the patient to stay. Nurse was unsuccessful. MD was contacted. MD came and tried to talk to the patient. Md explained the risk of leaving AMA. Pt is alert, orientated and confirmed that he understood all the risk. All monitoring devices and IV were removed from pt. Upon visual assessment, pt was non systematic. PT was able to walk to the elevator with no issues.
[2021-03-20 07:36] LABS: Albumin Pleural Fluid 1.2; Glucose Pleural Fluid 152; LDH Pleural Fluid 67; Total Protein Pleural Fluid 2.1
[2021-03-20 07:38] LABS: Amylase Pleural Fluid 38
--- NOTE | 2021-03-20 08:24 | P.DS_ITS ---
DS: Providers Provider Date of Service: 03/19/21 Date of admission: 03/18/21 05:45 Date of discharge: 03/19/21 Primary care physician: Unknown Physician Admitting clinician: Jesus Yang Attending physician on admission: Jesus Yang Consults: 03/18/21 06:05 Consult to Cardiology Routine Consulting Provider: Prateek Anton Reason for consultation: chf Has provider been notified: No Consult to Pulmonology Routine Consulting Provider: Laurita Tan Reason for consultation: Moderate-sized pleural effusion Has provider been notified: No Attending physician on discharge: Brady Mendez Discharging clinician: Brady Mendez DS: Diagnosis Discharge Diagnosis (1) Acute on chronic systolic (congestive) heart failure: Status: Acute (2) Acute respiratory failure with hypoxia: Status: Acute (3) Elevated troponin: Status: Acute (4) COPD (chronic obstructive pulmonary disease): Status: Acute DS: Medications Discharge Medications Home Medications: Home Medications Medication Instructions Recorded Confirmed D3 DOTS 1 tab PO DAILY 03/18/21 03/18/21 alcohol swabs [Alcohol Prep Pads] 1 ea TOPICAL TID 03/18/21 03/18/21 aspirin 1 tab PO DAILY 03/18/21 03/18/21 atorvastatin 1 tab PO DAILY 03/18/21 03/18/21 blood sugar diagnostic [FreeStyle 03/18/21 03/18/21 Lite Strips] docusate sodium [DOK] 100 mg PO BID 03/18/21 03/18/21 lancets [FreeStyle Lancets] 03/18/21 03/18/21 metformin 1 tab PO DAILY 03/18/21 03/18/21 nitroglycerin 0.4 mg SUBLINGUAL NEEDED PRN 03/18/21 03/18/21 omeprazole 1 cap PO DAILY 03/18/21 03/18/21 oxybutynin chloride 1 tab PO TID 03/18/21 03/18/21 DS: Summary Hospital Course Hospital Course: HP as per admitting provider 65-year-old male with past medical history of alcohol use, CAD, cardiomyopathy, cocaine use, COPD, CVA, diabetes, hypertension, who presents to the hospital with complaints of shortness of breath. Patient reports shortness of breath is been going on for 2 weeks, associated with cough and no sputum production, lower extremity edema, orthopnea PND. Patient reports that he also has midsternal chest pain on and off for the past 2 weeks, spontaneous, pressure-like, nonradiating, but he did admit to using cocaine. He denies any fever or chills, no headache or change in vision, no abdominal pain nausea or vomiting, no diarrhea or constipation, and denies any urinary symptoms. Patient reports that he takes a water pill at home and is usually compliant with it although I cannot from this water pill in his med rec.On arrival to the ED patient found to be satting 68% on room air, currently on Venti mask. Labs are significant for WBC count of 7.8, hemoglobin of 13.6, VBG shows pH of 7.31, with a pCO2 of 36, sodium of 140, BUN of 25, creatinine of 1.15, lactic acid of 4.7 the normalized to 1.6, troponin initially 23 that increased to 45.4, and a BNP of 3030, UA positive for leukocyte Estrace and WBC, CT angiogram shows no evidence of PE, no evidence of pneumonia, moderate right pleural effusion which is increased from previous, medical history as below on confer with patient. Heart failure with reduced ejection fraction exacerbation. patient was admitted initially shortness of breath and treated for CHF exacerbation with IV Lasix. Echocardiogram showed EF 10-15%. He was seen and examined by Cardiology and started on spironolactone and valsartan. Apparently he was supposed to be on other medications including and anti coagulant but apparently he had been non compliant with his medication regimen for some time. he was also found to have a urinary tract infection and an elevated troponin that was likely secondary to cocaine abuse. He was also found to have a pleural effusion that was moderate in size and he had a thoracentesis. Unfortunately before finishing any of his treatment he decided to leave against medical advice during the night and was seen and evaluated by the aeronautical design engineer. Patient left against medical advice knowing the potential consequences. Time Spent with Patient Time attestation: Total time spent providing and/or coordinating discharge services: Discharge coordination time: Greater than 30 minutes Quality: Stroke Does the patient have a stroke diagnosis?: No Physical Exam Vital Signs: Vital Signs: Last Vital Signs Temp 97.8 F 03/19/21 18:00 Pulse 80 03/19/21 18:00 Resp 20 03/19/21 18:00 BP 144/71 H 03/19/21 18:00 Pulse Ox 96 03/19/21 18:00 Body Mass Index 34.3 Left against medical advice DS: Data Data Completed and Pending Completed studies during hospitalization [Text1]: Procedures Introduction of Other Thrombolytic into Peripheral Vein, Percutaneous Approach (09/30/20) Pending studies at discharge: Pending at discharge 03/19/21 08:17 Cytology [PTH] Routine Labs on day of discharge: Laboratory Results - last 24 hr 03/19/21 03/19/21 03/19/21 08:20 11:04 13:56 PT 17.8 H INR 1.6 H POC Glucose 123 H 155 H Pleural WBC Pleural RBC Pleural Neutrophils Pleural Lymphocytes Pleural Monocytes Pleural Eosinophils Pleural Other Cells Pleural Total Protein Pleural Albumin Pleural LDH Pleural Glucose Pleural Amylase 03/19/21 03/19/21 03/19/21 15:45 15:45 17:23 PT INR POC Glucose 108 Pleural WBC 0.350 Pleural RBC < 0.002 Pleural Neutrophils 16 Pleural Lymphocytes 46 Pleural Monocytes 27 Pleural Eosinophils 1 Pleural Other Cells 10 Pleural Total Protein 2.1 Pleural Albumin 1.2 Pleural LDH 67 Pleural Glucose 152 Pleural Amylase 38 Preliminary micro results at discharge 03/18/21 00:38 Blood Culture - Preliminary Blood - Venous No growth after 48 hours. 03/18/21 00:07 Blood Culture - Preliminary Blood - Venous No growth after 48 hours. Discharge Plan Discharge Patient Disposition: Left Against Medical Advice Discharge Diagnosis: heart failure with reduced ejection fraction Referrals: Physician,Unknown [Primary Care Provider] - 1 Week Discharge Medications: No Action metformin 500 mg tablet 1 tab PO DAILY RF: 0 atorvastatin 80 mg tablet 1 tab PO DAILY RF: 0 (DME) FreeStyle Lite Strips Strip 1 strip MISCELLANEOUS TID RF: 0 aspirin 81 mg tablet,delayed release (DR/EC) 1 tab PO DAILY RF: 0 nitroglycerin 0.4 mg tablet, sublingual 0.4 mg sublingual NEEDED PRN (Reason: Chest Pain) RF: 0 docusate sodium [DOK] 100 mg capsule 100 mg PO BID RF: 0 omeprazole 20 mg capsule,delayed release(DR/EC) 1 cap PO DAILY RF: 0 alcohol swabs [Alcohol Prep Pads] Pads, Medicated 1 ea topical TID RF: 0 oxybutynin chloride 5 mg tablet 1 tab PO TID RF: 0 (DME) lancets [FreeStyle Lancets] 28 gauge misc 1 ea topical TID RF: 0 D3 DOTS 50 MCG 1 tab PO DAILY RF: 0 Discharge Orders: Discharge Order (Routine); Ordered 03/19/21 Ordered By: Kinsey Ku Care Plan Goals: left against medical advice Health Concerns: heart failure with reduced ejection fraction Plan of Treatment: left against medical advice Assessment: left against medical advice Discharge Date/Time: 03/19/21 19:35
== END 2021-03-19 19:35 | disposition left against medical advice (07) | DRG 981 ==
LOC: HO.ED 03-18 03:08 → HO.EDOVER 03-18 06:08 → HO.IMC 03-18 06:17
PROVIDERS: Internal Medicine; Nurse Practitioner Acute Care; Radiology Diagnostic Radiology; Admitting Provider Internal Medicine; Emergency Provider Student in an Organized Health Care Education/Training Program; PCP Internal Medicine; Visit Provider Family Medicine
PROC: 0W994ZZ Drainage of Right Pleural Cavity, Percutaneous Endoscopic Approach (ICD-10-PCS; principal; 2021-03-19 14:30)
DX: I11.0 Hypertensive heart disease with heart failure (principal); J96.01 Acute respiratory failure with hypoxia; N39.0 Urinary tract infection, site not specified; E83.42 Hypomagnesemia; I50.23 Acute on chronic systolic (congestive) heart failure; E11.9 Type 2 diabetes mellitus without complications; Z20.822 Contact with and (suspected) exposure to COVID-19; J43.2 Centrilobular emphysema; R59.0 Localized enlarged lymph nodes; Z86.73 Personal history of transient ischemic attack (TIA), and cerebral infarction without residual deficits; F17.210 Nicotine dependence, cigarettes, uncomplicated; Z91.14 Patient's other noncompliance with medication regimen; Z71.6 Tobacco abuse counseling; Z79.82 Long term (current) use of aspirin; Z79.84 Long term (current) use of oral hypoglycemic drugs; Z79.899 Other long term (current) drug therapy
CPT/HCPCS: 32555; 36415; 71045; 71046; 71275; 74018; 80048; 80053; 80307; 81001; 81003; 82042; 82077; 82150; 82945; 82947; 83605; 83615; 83735; 83880; 84157; 84484; 85025; 85379; 85610; 87040; 87071; 87073; 87086; 87102; 87116; 87205; 87635; 88112; 88305; 89051; 93005; 93306; 94640; 94644; 99285; J0696; J1940; J2405; J2543; Q9957; Q9967

== ENCOUNTER 2021-05-30 00:10 | Emergency (ER) | payer MEDICARE, SELFPAY ==
[2021-05-30] VITALS (7 sets, daily range): BP systolic 105–121; BP diastolic 72–83; PULSE 88–91; RESP 20–23; TEMP 37.5; O2SAT 96–99; BMI 25.2
--- NOTE | 2021-05-30 | ECG_ITS ---
Test Reason : RHYTHM CHANGE Blood Pressure : / mmHG Vent. Rate : 092 BPM Atrial Rate : 092 BPM P-R Int : 146 ms QRS Dur : 138 ms QT Int : 502 ms P-R-T Axes : 101 088 113 degrees QTc Int : 620 ms Sinus rhythm with occasional Premature ventricular complexes Right bundle branch block Abnormal ECG When compared with ECG of 30-MAY-2021 01:34, Premature ventricular complexes are now Present Aberrant conduction is no longer Present NC interval has decreased Right bundle branch block is now Present Borderline criteria for Anterior infarct are no longer Present Borderline criteria for Anterolateral infarct are no longer Present Referred By: Rosalio Harris Electronically Signed By:ELLY MAI
--- NOTE | 2021-05-30 | ECG_ITS ---
Test Reason : AMS Blood Pressure : / mmHG Vent. Rate : 097 BPM Atrial Rate : 098 BPM P-R Int : 266 ms QRS Dur : 132 ms QT Int : 390 ms P-R-T Axes : 103 083 128 degrees QTc Int : 495 ms Undetermined rhythm Non-specific intra-ventricular conduction block Possible Right ventricular hypertrophy T wave abnormality, consider inferior ischemia T wave abnormality, consider anterolateral ischemia Abnormal ECG When compared with ECG of 18-MAR-2021 00:09, Current undetermined rhythm precludes rhythm comparison, needs review Inverted T waves have replaced nonspecific T wave abnormality in Inferior leads T wave inversion more evident in Anterolateral leads Referred By: Rosalio Harris Electronically Signed By:ELLY MAI
--- NOTE | ~2021-05-30 | XR_ITS ---
EXAMINATION: XR CHEST CLINICAL INFORMATION: ACS COMPARISON: 03/19/2021 TECHNIQUE: Frontal view of the chest was obtained. FINDINGS: Lungs are mildly hypoinflated. Mild bibasilar subsegmental atelectasis is suspected, without additional consolidation. No pneumothorax. There is likely a small right pleural effusion. Cardiac silhouette appears prominent, similar to prior. Degenerative changes are noted in the spine. XR/XR chest 1V IMPRESSION: Small right pleural effusion and mild bibasilar atelectasis without additional consolidation.
--- NOTE | ~2021-05-30 | CT_ITS ---
EXAMINATION: CT HEAD WITHOUT CONTRAST CLINICAL INFORMATION: Altered mental status, on anticoagulation COMPARISON: 10/01/2020 TECHNIQUE: Contiguous axial imaging was performed from the skull base to vertex without intravenous administration of contrast. This CT examination was performed using dose optimization techniques as appropriate, variously including the following: *Automated exposure control *Adjustment of mA and/or kV according to patient size (this includes techniques or standardized protocols for targeted exams where dose is matched to indication/reason for exam; i.e. extremities or head) *Use of iterative reconstruction technique DLP: 905 mGy-cm FINDINGS: There is no evidence of acute intracranial hemorrhage. Region of chronic infarct identified in the left MCA territory. There are also regions of hypoattenuation in the left temporo-occipital and right occipital regions which appear new from prior. No abnormal mass effect or midline shift is seen. Wagner to white matter differentiation is well preserved. No extra-axial fluid collections are identified. The ventricles are normal in size. There is mild periventricular white matter hypoattenuation consistent with chronic small vessel ischemic disease. Mild volume loss is noted. The osseous structures and soft tissues are normal. The mastoid air cells and visualized portions of the paranasal sinuses are well aerated. CT/CT head/brain wo con IMPRESSION: Regions of hypoattenuation in the left temporo-occipital and right occipital regions appear new from 10/02/2020 and may represent subacute infarcts, though an acute component on the left cannot be excluded. Further workup with MRI is recommended. Chronic infarct noted in the left MCA territory. This critical result was discussed with Dr. Harris on 05/30/2021 2:28 AM, and it was ascertained that the content and urgency of the report was understood at the time of direct communication.
--- NOTE | 2021-05-30 00:18 | ECG_ITS ---
Test Reason : VTACH Blood Pressure : / mmHG Vent. Rate : 088 BPM Atrial Rate : 088 BPM P-R Int : 222 ms QRS Dur : 172 ms QT Int : 452 ms P-R-T Axes : 103 -71 102 degrees QTc Int : 546 ms Sinus rhythm with 1st degree A-V block with Premature atrial complexes with Aberrant conduction Left axis deviation Left ventricular hypertrophy with QRS widening and repolarization abnormality Possible Anterolateral infarct , age undetermined Abnormal ECG When compared with ECG of 30-MAY-2021 00:16, Previous ECG has undetermined rhythm, needs review Questionable change in QRS duration Borderline criteria for Anterior infarct are now Present Borderline criteria for Anterolateral infarct are now Present Referred By: Rosalio Harris Electronically Signed By:ELLY MAI
[2021-05-30] MEDS: Magnesium Sulfate/H2O 2 GM/50 ML PIGGYBACK IV ×3 (00:24→00:38)
[2021-05-30] MEDS: 0.9 % Sodium Chloride 1,000 ML 999 ML IVCONT (00:35)
[2021-05-30] MEDS: LORazepam 2 MG/ML VIAL 1 MG IVPUSH ×3 (00:35→03:07)
[2021-05-30 00:36] LABS: MANUAL DIFF FLAG NO
[2021-05-30 00:36] LABS: Glucose, Whole Blood 128 mg/dL (60-115)
[2021-05-30 00:38] LABS: Basophils Percent Auto 0.2 % (0-2); Eosinophils Percent Auto 0.1 % (0-4); Hematocrit 45.5 % (42-52); Hemoglobin 15.7 g/dl (14.0-18.0); Imm Gran Abs Auto 0.12 X10*3/uL (0.00-0.03); Imm Gran Pct Auto 0.8 % (0.0-0.4); Lymphocytes Absolute Auto 1.1 X10*3/uL (1.2-4.9); Mean Corpuscular HGB Conc 34.5 g/dl (31.0-36.0); Mean Corpuscular Hemoglobin 28.6 pg (27.0-33.0); Mean Platelet Volume 10.5 fL (9.4-12.4); Monocytes Absolute Auto 1.4 X10*3/uL (0.1-1.2); Monocytes Percent Auto 9.4 % (2-11); Neutrophils Absolute Auto 12.7 X10*3/uL (2.0-8.3); Neutrophils Percent Auto 82.5 % (45-73); Platelet Count 287 X10*3/uL (160-400); Red Blood Count 5.48 X10*6/uL (4.60-5.80); Red Cell Distribution Width 14.1 % (11.0-16.0); White Blood Count 15.3 X10*3/uL (4.8-10.8)
[2021-05-30] MEDS: Amiodarone/Dextrose 150 MG/100 ML PLAST..BAG 600 MG IV (00:41)
[2021-05-30 00:44] LABS: INTERNATIONAL NORM RATIO 1.4 (0.9-1.1); Prothrombin Time 16.1 SEC (9.9-13.0)
[2021-05-30 00:47] LABS: Delay - Chemistry DELAY
[2021-05-30 00:47] LABS: Partial Thromboplastin Time 26.6 SEC (24.1-38.0)
[2021-05-30 00:52] LABS: COVID-19 Test Negative (Negative)
[2021-05-30] MEDS: Amiodarone HCL 900 MG in 0.9 % Sodium Chloride 500 ML 34.53 MG IVCONT (00:55)
--- NOTE | 2021-05-30 00:59 | PC.NURSE ---
Addendum entered by Reba Vasques 05/30/21 01:42: Pt on lapping machine set up operator, this rn notes wide complex rhythm. Original Note: at ~0025, this RN to bedside. Taursu RN at bedside obtaining labs. Pt on lapping machine set up operator, this RN notes wide complex tachycardia. Dr Lyons informs this RN to give mag. This RN informs Dr Lyons that mag is ordered as a drip over [address] Lyons, hang mag x 3 to gravity. Pt medicated per Dr Lyons orders. Pt HR slows to 90s. Per Dr Lyons, pt to receive amio bolus and drip as ordered. Pt denies CP, answering questions appropriately, c/o insertion site pain while 2nd PIV is established. This rn notes pt L foot is discolored, appears purple, is cold to touch. Pt's R foot warm, normal color. This RN attempts doppler to L foot for pulses, unable to palpate/hear pulses. Dr Lyons aware. Dr Lyons palpates popliteal pulse and states it's ok ma'am. Pt resting on stretcher with eyes closed at this time. Pt placed on 2L O2 as sat was 92% s/p ativan. Pt sats now 98% on 2LNC. Pt stretcher in low locked position, rails raised, call franz within reach.
--- NOTE | 2021-05-30 01:02 | ED_ITS ---
HPI - Altered Mental Status General Chief Complaint: Altered Mental Status Stated Complaint: AMS Time Seen by Provider: 05/30/21 00:16 Source: EMS Mode of arrival: EMS Limitations: no limitations History of Present Illness HPI narrative: Patient was brought by EMS as he was walking with walker wandering in the neighborhood patient with history of bipolar disorder, systolic CHF, cardiomyopathy with ejection fraction of 10-15% with global hypokinesis Hx of cocaine use, used cocaine prior to arrival earlier no history of alcohol use. EMS noticed a run of torsades on monitor patient denied any chest pain or pal pitation. No signs of head injury no focal deficit patient does have history of left MCA stroke. Patient used to be on Eliquis not any more per records Related Data Home Medications Medication Instructions Recorded Confirmed blood sugar diagnostic (FreeStyle 03/18/21 03/18/21 Lite Strips) lancets 28 gauge (FreeStyle 03/18/21 03/18/21 Lancets) aspirin 81 mg tablet,delayed 1 tab PO DAILY 05/30/21 05/30/21 release blood sugar diagnostic (FreeStyle 05/30/21 05/30/21 Lite Strips) carvedilol 3.125 mg tablet 1 tab PO BID 05/30/21 05/30/21 cholecalciferol (vitamin D3) 50 1 cap PO DAILY 05/30/21 05/30/21 mcg (2,000 unit) capsule (Vitamin D3) melatonin-pyridoxine HCl (vitamin 1 - 10 tab PO 05/30/21 B6) 1 mg-10 mg tablet nicotine 21 mg/24 hr daily 1 patch TOPICAL DAILY 05/30/21 05/30/21 transdermal patch spironolactone 25 mg tablet 1 tab PO DAILY 05/30/21 05/30/21 torsemide 20 mg tablet 1 tab PO BID 05/30/21 05/30/21 Allergies Allergy/AdvReac Type Severity Reaction Status Date / Time No Known Allergies Allergy Verified 05/30/21 01:05 [No Known Allergies*] Review of Systems Review of Systems: Yes Unobtainable due to mental status (Patient is confused alert oriented x2 only) [facility] Past Medical History Medical History Alcohol use CAD (coronary artery disease) Cardiomyopathy CHF (congestive heart failure) Cocaine use COPD (chronic obstructive pulmonary disease) COPD (chronic obstructive pulmonary disease) CVA (cerebral vascular accident) Diabetes GERD (gastroesophageal reflux disease) Hypertension Lymphadenopathy, mediastinal Osteoarthritis Tobacco use Surgical History Total knee replacement status Social History Social History Household Members: None Housing: House Do you presently have visiting nurse or other home services: Yes Unable to assess alcohol history related to: Unable to respond Alcohol intake: current Patient Tobacco Use Status: Current everyday Tobacco user Substance Use Type: Crack/Cocaine and Marijuana Advance Directives: No Advance Directives Information Provided: Yes service: No Current occupational status: unemployed Physical Exam Vital Signs: Vital Signs: Last Vital Signs Temp 99.5 F 05/30/21 01:17 Pulse 89 05/30/21 03:58 Resp 22 H 05/30/21 03:58 BP 116/82 05/30/21 03:58 Pulse Ox 96 05/30/21 03:58 Body Mass Index 25.2 Const: General: healthy appearing, comfortable, well developed and anxious Orientation/consciousness: oriented to person and oriented to place HENMT: Head: Yes normocephalic and Yes atraumatic Eyes: General: appearance normal, both eyes and all related structures Neck: Neck: Yes normal visual inspection, Yes no lymphadenopathy and Yes no JVD Chest: Chest palpation & inspection: normal inspection of the chest and normal palpation of entire chest wall Resp: Effort & Inspection: normal respiratory effort Auscultation: clear to auscultation bilaterally Percussion: percussion normal Cardio: Jugular venous distension: no JVD Palpation: normal PMI Heart sounds: S1 normal heart sound present and S2 normal heart sound present [place] pheral pulses: popliteal pulses present bilateral and other (Diminished left dorsalis pedis and posterior tibial popliteal 2+ bilateral) GI: Inspection: Yes normal to inspection Palpation (GI): Soft to palpation Auscultation: normal bowel sounds : General: Yes no CVA tenderness Back/Spine/Pelvis: Back: no CVA tenderness Thoracic/Lumbar Spine: No thoracic spinal tenderness and No lumbar spinal tenderness Skin: General skin exam: no rashes or lesions noted Neuro: General: oriented to person, oriented to place, tone normal, moves all extremities, Normal light touch and pain sensation, no focal motor deficits and CN's II-XI intact bilaterally Extrem: General: Yes no pedal edema, Yes no calf tenderness, Yes venous stasis dermatitis and Yes vascular access (Absent dorsalis pedis and posterior tibial pulses diminished left foot ) Course Reevaluation(s) Reevaluation #1: Patient with torsades and PVCs responded to magnesium 6 g still having runs of unifocal ventricular complexes started on amiodarone Time: 01:22 MDM - Altered Mental Status MDM Narrative Medical decision making narrative: Patient with slight confusion with history of cocaine use likely the cause. When it came school bus monitor showed Torsades responded to magnesium 6 g total magnesium level was 4.4 which was drawn after the magnesium was given, school bus monitor still showing episodes of V-tach started on amiodarone 3 am : EKG showed prolonged QTC interval 546 will stop amiodarone and started on lidocaine drip case discussed with Dr. Shankar shot tube machine tender agreed for lidocaine drip. Patient received 3 mg of Ativan IV total for agitation Case discussed Dr. Gerber neurologist for abnormal CT scan head finding which showing subacute infarct in the left MCA territory advised not to start on heparin at this time will decide this in AM 340: No bed available [place] [facility] [facility] accepted the patient under Dr. Collazo Medical Records Attestation: I reviewed the patient's medical records. Lab Data Attestation: I reviewed the patient's lab results. Result diagrams: 05/30/21 00:32 05/30/21 00:53 Labs: Lab Results 05/30/21 05/30/21 05/30/21 Range/Units 00:31 00:31 00:32 WBC 15.3 H (4.8-10.8) X10*3/uL RBC 5.48 (4.60-5.80) X10*6/uL Hgb 15.7 (14.0-18.0) g/dl Hct 45.5 (42-52) % MCV 83.0 (80-98) fL MCH 28.6 (27.0-33.0) pg MCHC 34.5 (31.0-36.0) g/dl RDW 14.1 (11.0-16.0) % Plt Count 287 D (160-400) X10*3/uL MPV 10.5 (9.4-12.4) fL Immature Gran % (Auto) 0.8 H (0.0-0.4) % Neut % (Auto) 82.5 H (45-73) % Lymph % (Auto) 7.0 L (20-40) % [place] % (Auto) 9.4 (2-11) % Eos % (Auto) 0.1 (0-4) % Baso % (Auto) 0.2 (0-2) % Lymph # (Auto) 1.1 L (1.2-4.9) X10*3/uL [place] # (Auto) 1.4 H (0.1-1.2) X10*3/uL Eos # (Auto) 0.0 (0.0-0.4) X10*3/uL Baso # (Auto) 0.0 (0.0-0.2) X10*3/uL Abs Immat Gran (auto) 0.12 H (0.00-0.03) X10*3/uL Absolute Neuts (auto) 12.7 H (2.0-8.3) X10*3/uL Absolute Nucleated RBC 0.000 (0.0-0.012) X10*3/uL Nucleated RBC % (auto) 0.0 (0.0-0.2) /100WBC PT (9.9-13.0) SEC INR (0.9-1.1) APTT (24.1-38.0) SEC Sodium (135-145) mmol/L Potassium (3.3-5.1) mmol/L Chloride (96-108) mmol/L Carbon Dioxide (22-29) mmol/L Anion Gap (12-20) BUN (9-16) mg/dL Creatinine (0.5-1.4) mg/dL Estim Creat Clear Calc Estimated GFR POC Glucose (60-115) mg/dL Random Glucose (60-115) mg/dL Calcium (8.4-10.2) mg/dL Magnesium Cancelled Total Bilirubin Direct Bilirubin AST ALT Alkaline Phosphatase Troponin I High Sens (<3.5-35.0) ng/L Total Protein Albumin Specimen Comment COVID-19 (BRENDAN) Negative (Negative) COVID-19 Clin Com See Note 05/30/21 05/30/21 05/30/21 Range/Units 00:32 00:32 00:32 WBC (4.8-10.8) X10*3/uL RBC (4.60-5.80) X10*6/uL Hgb (14.0-18.0) g/dl Hct (42-52) % MCV (80-98) fL MCH (27.0-33.0) pg MCHC (31.0-36.0) g/dl RDW (11.0-16.0) % Plt Count (160-400) X10*3/uL MPV (9.4-12.4) fL Immature Gran % (Auto) (0.0-0.4) % Neut % (Auto) (45-73) % Lymph % (Auto) (20-40) % [place] % (Auto) (2-11) % Eos % (Auto) (0-4) % Baso % (Auto) (0-2) % Lymph # (Auto) (1.2-4.9) X10*3/uL [place] # (Auto) (0.1-1.2) X10*3/uL Eos # (Auto) (0.0-0.4) X10*3/uL Baso # (Auto) (0.0-0.2) X10*3/uL Abs Immat Gran (auto) (0.00-0.03) X10*3/uL Absolute Neuts (auto) (2.0-8.3) X10*3/uL Absolute Nucleated RBC (0.0-0.012) X10*3/uL Nucleated RBC % (auto) (0.0-0.2) /100WBC PT 16.1 H (9.9-13.0) SEC INR 1.4 H (0.9-1.1) APTT 26.6 (24.1-38.0) SEC Sodium (135-145) mmol/L Potassium (3.3-5.1) mmol/L Chloride (96-108) mmol/L Carbon Dioxide (22-29) mmol/L Anion Gap (12-20) BUN (9-16) mg/dL Creatinine (0.5-1.4) mg/dL Estim Creat Clear Calc Estimated GFR POC Glucose (60-115) mg/dL Random Glucose (60-115) mg/dL Calcium (8.4-10.2) mg/dL Magnesium Total Bilirubin Cancelled Direct Bilirubin Cancelled AST Cancelled ALT Cancelled Alkaline Phosphatase Cancelled Troponin I High Sens 43.7 H* (<3.5-35.0) ng/L Total Protein Cancelled Albumin Cancelled Specimen Comment COVID-19 (BRENDAN) (Negative) COVID-19 Clin Com 05/30/21 05/30/21 05/30/21 Range/Units 00:33 00:46 00:53 WBC (4.8-10.8) X10*3/uL RBC (4.60-5.80) X10*6/uL Hgb (14.0-18.0) g/dl Hct (42-52) % MCV (80-98) fL MCH (27.0-33.0) pg MCHC (31.0-36.0) g/dl RDW (11.0-16.0) % Plt Count (160-400) X10*3/uL MPV (9.4-12.4) fL Immature Gran % (Auto) (0.0-0.4) % Neut % (Auto) (45-73) % Lymph % (Auto) (20-40) % [place] % (Auto) (2-11) % Eos % (Auto) (0-4) % Baso % (Auto) (0-2) % Lymph # (Auto) (1.2-4.9) X10*3/uL [place] # (Auto) (0.1-1.2) X10*3/uL Eos # (Auto) (0.0-0.4) X10*3/uL Baso # (Auto) (0.0-0.2) X10*3/uL Abs Immat Gran (auto) (0.00-0.03) X10*3/uL Absolute Neuts (auto) (2.0-8.3) X10*3/uL Absolute Nucleated RBC (0.0-0.012) X10*3/uL Nucleated RBC % (auto) (0.0-0.2) /100WBC PT (9.9-13.0) SEC INR (0.9-1.1) APTT (24.1-38.0) SEC Sodium 133 L (135-145) mmol/L Potassium 3.7 (3.3-5.1) mmol/L Chloride 100 (96-108) mmol/L Carbon Dioxide 19 L (22-29) mmol/L Anion Gap 18 (12-20) BUN 40 H D (9-16) mg/dL Creatinine 1.28 (0.5-1.4) mg/dL Estim Creat Clear Calc 62.3 Estimated GFR 56 POC Glucose 128 H (60-115) mg/dL Random Glucose 146 H (60-115) mg/dL Calcium 9.0 (8.4-10.2) mg/dL Magnesium 4.4 H* Total Bilirubin 2.2 H Direct Bilirubin 1.1 H AST 40 H D ALT 25 Alkaline Phosphatase 119 H Troponin I High Sens (<3.5-35.0) ng/L Total Protein 7.1 Albumin 3.6 Specimen Comment DELAY COVID-19 (BRENDAN) (Negative) COVID-19 Clin Com ECG Data ECG #1: Attestation: I personally reviewed and interpreted this ECG as follows: Interpretation: Normal sinus rhythm heart rate 97 beats per minute with frequent PVCs and runs of slow V-tach with fusion complexes no acute ischemia Critical Care Time Critical Care Time Critical Care Time: Yes Total Critical Care Time: 60 Attestation: I spent 60 minutes of critical care, with interventions, assessments, speaking to patient, consultants Discharge Plan Discharge Clinical Impression: Torsades de pointes, Ventricular tachyarrhythmia, Cocaine abuse Patient Disposition: [facility] Transfer Details: To [facility] under Dr Collazo to M3 Prescriptions: No Action torsemide 20 mg tablet 1 tab PO BID RF: 0 (DME) FreeStyle Lite Strips Strip MISCELLANEOUS TID RF: 0 aspirin 81 mg tablet,delayed release (DR/EC) 1 tab PO DAILY RF: 0 spironolactone 25 mg tablet 1 tab PO DAILY RF: 0 carvedilol 3.125 mg tablet 1 tab PO BID RF: 0 nicotine 21 mg/24 hr patch 24 hour 1 patch topical DAILY RF: 0 cholecalciferol (vitamin D3) [Vitamin D3] 50 mcg (2,000 unit) capsule 1 cap PO DAILY RF: 0 melatonin-pyridoxine HCl (B6) 1-10 mg tablet 1 - 10 tab PO RF: 0 (DME) FreeStyle Lite Strips Strip 1 strip MISCELLANEOUS TID RF: 0 (DME) lancets [FreeStyle Lancets] 28 gauge misc 1 ea topical TID RF: 0
[2021-05-30 01:25] LABS: Alanine Aminotransferase 25 U/L (0-40); Albumin Level 3.6 g/dL (3.5-5.0); Alkaline Phosphatase 119 U/L (39-117); Anion Gap 18 (12-20); Aspartate Amino Transferase 40 U/L (5-37); Bilirubin Direct 1.1 mg/dL (0.0-0.5); Bilirubin Total 2.2 mg/dL (0.0-1.0); Blood Urea Nitrogen 40 mg/dL (9-16); Carbon Dioxide 19 mmol/L (22-29); Chloride 100 mmol/L (96-108); Creatinine Clr Calc Pharmacy 62.3; Estimated Glomerular Filt Rate 56; Glucose Random 146 mg/dL (60-115); Magnesium 4.4 mg/dL (1.6-2.6); Potassium 3.7 mmol/L (3.3-5.1); Sodium 133 mmol/L (135-145); Total Protein 7.1 g/dL (6.5-8.0)
--- NOTE | 2021-05-30 01:27 | PC.NURSE ---
Lab had contacted ED to notify that pt's chemistries needed to be redrawn. This RN redrew chemistry after 6mg of mag had been administered.
[2021-05-30 01:39] LABS: Troponin-I High Sensitivity 43.7 ng/L (<3.5-35.0)
--- NOTE | 2021-05-30 01:39 | PC.NURSE ---
repeat EKG done at 0134
--- NOTE | 2021-05-30 01:43 | PC.NURSE ---
Pt remains on bedside deputy court in wide complex rhythm
--- NOTE | 2021-05-30 02:14 | PC.NURSE ---
Pt to CT with this RN on groundwater monitoring technician. While at CT, pt unable to sit still for imaging. Dr Lyons made aware. Pt medicated to enable care with ativan per orders.
--- NOTE | 2021-05-30 02:16 | PC.NURSE ---
While transferring pt from CT table to stretcher, this rn notes glass pipe that has shattered end fall out of pt's pocket. security guard [place] notified. Security to bedside to change patient and bring belongings to decon.
--- NOTE | 2021-05-30 02:51 | PC.NURSE ---
Pt continues to yell out from bed, is swinging legs over side rails. Dr Lyons to order additional ativan. Per Dr Lyons, stop amio and hang lido drip
--- NOTE | 2021-05-30 02:52 | PC.NURSE ---
Pt's rhythm strip printed. At this time, pt's rhythm on bedside manager banking is NSR with BBB
[2021-05-30] MEDS: Lidocaine HCl/D5W 2 GM/250 ML IV.SOLN IVCONT (02:57)
--- NOTE | 2021-05-30 03:06 | PC.NURSE ---
Per Dr Lyons, hold heparin drip at this time. This RN not to initiate drip at this time
--- NOTE | 2021-05-30 03:44 | PC.NURSE ---
Per Dr Lyons, pt does not require repeat trop as today's trop is comparable to pt's baseline trop on previous visits.
== END 2021-05-30 04:40 | disposition short-term general hospital (02) ==
PROVIDERS: Emergency Provider Internal Medicine
DX: R41.82 Altered mental status, unspecified (principal); I47.2 Ventricular tachycardia; F14.10 Cocaine abuse, uncomplicated; Z20.822 Contact with and (suspected) exposure to COVID-19; Z79.899 Other long term (current) drug therapy
CPT/HCPCS: 36415; 70450; 71045; 80048; 80076; 82947; 83735; 84484; 85025; 85610; 85730; 87635; 93005; 96361; 96365; 96367; 96375; 96376; 99285; 99291; J0282; J2060; J3475